=== PATIENT | male | born 1965 ===

== ENCOUNTER → 2020-05-21 15:35 | Outpatient (BNVA) | payer OTHER, SELFPAY | PROVIDERS: PCP Internal Medicine; Visit Provider Urology ==

== ENCOUNTER 2020-08-12 13:48 | Outpatient (REF) | payer OTHER, SELFPAY ==
[2020-08-12 14:30] LABS: MANUAL DIFF FLAG NO
[2020-08-12 14:34] LABS: Basophils Percent Auto 0.5 % (0-2); Eosinophils Absolute Auto 0.1 X10*3/uL (0.0-0.4); Eosinophils Percent Auto 1.5 % (0-4); Hematocrit 51.6 % (42-52); Hemoglobin 17.6 g/dl (14.0-18.0); Imm Gran Abs Auto 0.03 X10*3/uL (0.00-0.03); Imm Gran Pct Auto 0.4 % (0.0-0.4); Lymphocytes Absolute Auto 1.6 X10*3/uL (1.2-4.9); Lymphocytes Percent Auto 21.7 % (20-40); Mean Corpuscular HGB Conc 34.1 g/dl (31.0-36.0); Mean Corpuscular Hemoglobin 31.5 pg (27.0-33.0); Mean Corpuscular Volume 92.3 fL (80-98); Mean Platelet Volume 9.1 fL (9.4-12.4); Monocytes Absolute Auto 0.4 X10*3/uL (0.1-1.2); Monocytes Percent Auto 5.1 % (2-11); Neutrophils Absolute Auto 5.2 X10*3/uL (2.0-8.3); Neutrophils Percent Auto 70.8 % (45-73); Platelet Count 235 X10*3/uL (160-400); Red Blood Count 5.59 X10*6/uL (4.60-5.80); Red Cell Distribution Width 13.8 % (11.0-16.0); White Blood Count 7.3 X10*3/uL (4.8-10.8)
[2020-08-12 14:36] LABS: Glucose Urine UA NEG (NEG); Leukocyte Esterase Urine NEG (NEG); Nitrite Urine NEG (NEG); Specific Gravity - Urine >= 1.030 (1.005-1.025); Urine Blood TRACE (NEG); Urine Ketones NEG (NEG); Urine Protein NEG (NEG-TRACE)
[2020-08-12 14:41] LABS: Appearance Urine CLEAR; Color Urine YELLOW
[2020-08-12 14:52] LABS: Bacteria Urine TRACE /LPF; Mucus Urine 1+ /LPF; RBC Urine 0-2 /HPF (0); Squamous Epithelial Cell Urine TRACE /LPF; WBC Urine 0-2 /HPF (0-4)
[2020-08-12 15:42] LABS: Alanine Aminotransferase 13 U/L (0-40); Albumin Level 4.3 g/dL (3.5-5.0); Alkaline Phosphatase 93 U/L (39-117); Anion Gap 15 (12-20); Aspartate Amino Transferase 19 U/L (5-37); Bilirubin Total 0.6 mg/dL (0.0-1.0); Blood Urea Nitrogen 15 mg/dL (9-16); Calcium 9.4 mg/dL (8.4-10.2); Carbon Dioxide 23 mmol/L (22-29); Chloride 107 mmol/L (96-108); Cholesterol 131 mg/dL; Estimated Glomerular Filt Rate > 60; Glucose Fasting 106 mg/dL (60-99); HDL Cholesterol 53 mg/dL; LDL Cholesterol Calculated 64 mg/dl; Potassium 4.6 mmol/L (3.3-5.1); Sodium 140 mmol/L (135-145); Total Protein 6.6 g/dL (6.5-8.0); Triglycerides 73 mg/dL
[2020-08-12 16:03] LABS: Prostate Specific Antigen 2.92 ng/mL (<0.05-4.0); TSH reflex Free T4 0.47 uIU/mL (0.32-4.0); Vitamin D 25-OH Total 41.5 ng/mL (>30)
== END 2020-08-12 13:49 | disposition home or self-care (01) ==
LOC: HO.LAB 13:48
PROVIDERS: PCP Internal Medicine; Visit Provider Internal Medicine
DX: Z00.00 Encounter for general adult medical examination without abnormal findings (principal); E78.00 Pure hypercholesterolemia, unspecified; N40.0 Benign prostatic hyperplasia without lower urinary tract symptoms; K21.9 Gastro-esophageal reflux disease without esophagitis; E66.3 Overweight; E55.9 Vitamin D deficiency, unspecified; F17.200 Nicotine dependence, unspecified, uncomplicated; Z12.5 Encounter for screening for malignant neoplasm of prostate
CPT/HCPCS: 36415; 80053; 80061; 81001; 82306; 84153; 84443; 85025

== ENCOUNTER 2020-10-15 15:23 | Outpatient (REF) | payer OTHER, SELFPAY ==
--- NOTE | ~2020-10-15 | CT_ITS ---
EXAMINATION: CT CHEST SCREENING CLINICAL INFORMATION: Smoking history COMPARISON: None. TECHNIQUE: Multidetector volumetric CT imaging of the chest is performed without contrast using low dose technique. Additional 2D coronal and sagittal reformatted images and axial 3D maximum intensity projection (MIP) images are generated on the CT workstation. This CT examination was performed using dose optimization techniques as appropriate, variously including the following: *Automated exposure control *Adjustment of mA and/or kV according to patient size (this includes techniques or standardized protocols for targeted exams where dose is matched to indication/reason for exam; i.e. extremities or head) *Use of iterative reconstruction technique DLP: 50 mGy-cm FINDINGS: LUNGS: There is mild paraseptal emphysema. The lungs are clear with no evidence of inflammation or nodules. MEDIASTINUM: The mediastinum is normal. PLEURA: There is no pleural effusion. There is a small pleural calcification of the right lung apex measuring 4 mm. AXILLA: No lymphadenopathy. UPPER ABDOMEN: Unremarkable OSSEOUS STRUCTURES: There is mild scoliosis and degenerative change. CT/CT lung screening IMPRESSION: Mild emphysema. Small right apical pleural calcification. ASSESSMENT: Lung-RADS category 2: Benign RECOMMENDATION: Annual low-dose chest CT follow-up recommended.
== END 2020-10-15 15:24 | disposition home or self-care (01) ==
LOC: HO.CT 15:23
PROVIDERS: Visit Provider Physician Assistant Medical
DX: Z12.2 Encounter for screening for malignant neoplasm of respiratory organs (principal); Z87.891 Personal history of nicotine dependence
CPT/HCPCS: 71271

== ENCOUNTER 2020-11-16 17:19 | Outpatient (REF) | payer OTHER, SELFPAY ==
[2020-11-16 17:45] LABS: Hemoglobin 18.5 g/dl (14.0-18.0); Mean Corpuscular HGB Conc 34.3 g/dl (31.0-36.0); Mean Corpuscular Hemoglobin 31.7 pg (27.0-33.0); Mean Corpuscular Volume 92.5 fL (80-98); Mean Platelet Volume 9.3 fL (9.4-12.4); Platelet Count 255 X10*3/uL (160-400); Red Blood Count 5.84 X10*6/uL (4.60-5.80); Red Cell Distribution Width 13.4 % (11.0-16.0); White Blood Count 7.7 X10*3/uL (4.8-10.8)
[2020-11-16 18:22] LABS: Prostate Specific Antigen 4.09 ng/mL (<0.05-4.0)
[2020-11-20 12:27] LABS: Testosterone, Total 1174 ng/dL (250-1100)
== END 2020-11-16 17:20 | disposition home or self-care (01) ==
LOC: HO.LAB 17:19
PROVIDERS: PCP Internal Medicine; Visit Provider Urology
DX: Z12.5 Encounter for screening for malignant neoplasm of prostate (principal); E29.1 Testicular hypofunction; N13.8 Other obstructive and reflux uropathy; N40.1 Benign prostatic hyperplasia with lower urinary tract symptoms
CPT/HCPCS: 36415; 84153; 84403; 85027

== ENCOUNTER → 2020-11-27 14:26 | Outpatient (BNVA) | payer OTHER, SELFPAY | PROVIDERS: PCP Internal Medicine; Visit Provider Urology | DX: N40.1 Benign prostatic hyperplasia with lower urinary tract symptoms (principal); N13.8 Other obstructive and reflux uropathy; E29.1 Testicular hypofunction | CPT/HCPCS: 99212 ==

== ENCOUNTER 2021-05-26 12:58 | Outpatient (REF) | payer OTHER, SELFPAY ==
[2021-05-26 13:42] LABS: Hematocrit 53.5 % (42.0-52.0); Hemoglobin 18.5 g/dl (14.0-18.0); Mean Corpuscular HGB Conc 34.6 g/dl (31.0-36.0); Mean Corpuscular Hemoglobin 31.8 pg (27.0-33.0); Mean Corpuscular Volume 91.9 fL (80.0-98.0); Mean Platelet Volume 9.1 fL (9.4-12.4); Platelet Count 265 X10*3/uL (160-400); Red Blood Count 5.82 X10*6/uL (4.60-5.80); Red Cell Distribution Width 13.6 % (11.0-16.0)
[2021-05-26 14:31] LABS: PSA,Total (Free>4and<10) 2.73 ng/mL (0.00-4.00)
[2021-05-31 13:22] LABS: Testosterone, Total 844 ng/dL (250-1100)
== END 2021-05-26 12:59 | disposition home or self-care (01) ==
LOC: HO.LAB 12:58
PROVIDERS: PCP Internal Medicine; Visit Provider Urology
DX: Z12.5 Encounter for screening for malignant neoplasm of prostate (principal); E29.1 Testicular hypofunction; N13.8 Other obstructive and reflux uropathy; N40.1 Benign prostatic hyperplasia with lower urinary tract symptoms
CPT/HCPCS: 36415; 84153; 84403; 85027

== ENCOUNTER → 2021-06-01 10:19 | Outpatient (BNVA) | payer OTHER, SELFPAY | PROVIDERS: PCP Internal Medicine; Visit Provider Urology ==

== ENCOUNTER 2021-10-05 13:51 | Outpatient (REF) | payer OTHER, SELFPAY ==
--- NOTE | ~2021-10-05 | US_ITS ---
EXAMINATION: US ABDOMEN COMPLETE CLINICAL INFORMATION: Secondary polycythemia. Rule out splenomegaly. COMPARISON: None TECHNIQUE: Real-time imaging of the abdominal viscera. FINDINGS: PANCREAS: Not well visualized. ABDOMINAL AORTA: The proximal, mid, and distal segments are normal in caliber. INFERIOR VENA CAVA: Visualized portions are normal. LIVER: Normal. The liver is normal in size. The liver contour is normal. Parenchymal echogenicity is normal. No focal hepatic lesion. There is no intrahepatic biliary duct dilatation seen. GALLBLADDER: There is question of a small gallbladder wall polyp measuring 2 mm. The gallbladder is physiologically distended without evidence of stones, sludge or pericholecystic fluid. COMMON BILE DUCT: Upper normal in caliber measuring 0.7 cm in diameter. RIGHT KIDNEY: Normal. No hydronephrosis. No renal calculi or focal parenchymal lesions. The kidney measures 11.6 cm in maximum dimension. LEFT KIDNEY: Normal. No hydronephrosis. No renal calculi or focal parenchymal lesions. The kidney measures 11.6 cm in maximum dimension. SPLEEN: Normal. The spleen measures 11.3 cm in maximum dimension. FREE FLUID: None. US/US abdomen complete IMPRESSION: Normal-sized spleen. Probable small gallbladder wall polyp. Limited visualization of the pancreas.
== END 2021-10-05 13:52 | disposition home or self-care (01) ==
LOC: HO.HMGCX 13:51
PROVIDERS: PCP Internal Medicine; Visit Provider Internal Medicine
DX: D75.1 Secondary polycythemia (principal)
CPT/HCPCS: 76700

== ENCOUNTER → 2021-12-21 15:18 | Outpatient (BNVA) | payer OTHER, SELFPAY | PROVIDERS: Visit Provider Urology ==

== ENCOUNTER 2022-04-12 15:11 | Outpatient (REF) | payer OTHER, SELFPAY ==
--- NOTE | ~2022-04-12 | CT_ITS ---
EXAMINATION: CT CHEST SCREENING CLINICAL INFORMATION: Nicotine dependence. One pack per day smoker for 35 years. COMPARISON: None. TECHNIQUE: Multidetector volumetric CT imaging of the chest is performed without contrast using low dose technique. Additional 2D coronal and sagittal reformatted images and axial 3D maximum intensity projection (MIP) images are generated on the CT workstation. This CT examination was performed using dose optimization techniques as appropriate, variously including the following: *Automated exposure control *Adjustment of mA and/or kV according to patient size (this includes techniques or standardized protocols for targeted exams where dose is matched to indication/reason for exam; i.e. extremities or head) *Use of iterative reconstruction technique DLP: 58 mGy-cm FINDINGS: LUNGS: The lungs are well expanded without any acute pneumonic process. There are no pulmonary nodules, mass or consolidation. MEDIASTINUM: The thyroid lobes are symmetric and normal. The central trachea and the bronchi are widely patent. Heart size and the great vessels are of normal caliber. No pericardial effusion seen. No abnormally-sized mediastinal or hilar lymph nodes seen. CORONARY ARTERY CALCIFICATION: None visualized on this study. PLEURA: There is no pleural effusion. No pleural mass or thickening. AXILLA: No lymphadenopathy. UPPER ABDOMEN: Visualized liver, spleen, pancreas and bilateral adrenal glands are unremarkable. OSSEOUS STRUCTURES: Unremarkable. CT/CT lung screening IMPRESSION: Unremarkable CT chest exam. ASSESSMENT: Lung-RADS category 1: Negative RECOMMENDATION: Low-dose annual CT chest.
== END 2022-04-12 15:12 | disposition home or self-care (01) ==
LOC: HO.CT 15:11
PROVIDERS: PCP Internal Medicine; Visit Provider Physician Assistant Medical
DX: Z12.2 Encounter for screening for malignant neoplasm of respiratory organs (principal); F17.210 Nicotine dependence, cigarettes, uncomplicated
CPT/HCPCS: 71271

== ENCOUNTER → 2022-06-24 14:45 | Outpatient (BNVA) | payer OTHER, SELFPAY | PROVIDERS: PCP Internal Medicine; Visit Provider Urology | DX: Z13.89 Encounter for screening for other disorder (principal) ==

== ENCOUNTER 2022-10-11 13:48 | Outpatient (REF) | payer OTHER, SELFPAY ==
[2022-10-11 14:14] LABS: MANUAL DIFF FLAG NO
[2022-10-11 14:33] LABS: Basophils Absolute Auto 0.1 X10*3/uL (0.0-0.2); Basophils Percent Auto 0.8 % (0-2); Eosinophils Absolute Auto 0.1 X10*3/uL (0.0-0.4); Eosinophils Percent Auto 1.5 % (0-4); Hematocrit 52.7 % (42.0-52.0); Hemoglobin 18.3 g/dl (14.0-18.0); Imm Gran Abs Auto 0.04 X10*3/uL (0.00-0.03); Imm Gran Pct Auto 0.7 % (0.0-0.4); Lymphocytes Absolute Auto 1.7 X10*3/uL (1.2-4.9); Lymphocytes Percent Auto 28.4 % (20-40); Mean Corpuscular HGB Conc 34.7 g/dl (31.0-36.0); Mean Corpuscular Hemoglobin 31.8 pg (27.0-33.0); Mean Corpuscular Volume 91.7 fL (80.0-98.0); Mean Platelet Volume 9.6 fL (9.4-12.4); Monocytes Absolute Auto 0.4 X10*3/uL (0.1-1.2); Monocytes Percent Auto 6.1 % (2-11); Neutrophils Absolute Auto 3.7 x10*3/uL (2.0-8.3); Neutrophils Percent Auto 62.5 % (45-73); Platelet Count 234 X10*3/uL (160-400); Red Blood Count 5.75 X10*6/uL (4.60-5.80); Red Cell Distribution Width 13.6 % (11.0-16.0); White Blood Count 5.9 X10*3/uL (4.8-10.8)
[2022-10-11 15:12] LABS: Erythrocyte Sedimentation Rate 1 MM/HR (0-15)
[2022-10-11 15:33] LABS: Appearance Urine Cloudy; Color Urine Yellow; Glucose Urine UA Negative (Negative); Leukocyte Esterase Urine Negative (Negative); Nitrite Urine Negative (Negative); PH 5.5 (5.0-9.0); Specific Gravity - Urine 1.015 (1.005-1.025); Urine Blood Negative (Negative); Urine Ketones Negative (Negative); Urine Protein Negative (Neg-Trace)
[2022-10-11 15:37] LABS: Alanine Aminotransferase 40 U/L (0-40); Albumin Level 4.2 g/dL (3.5-5.0); Alkaline Phosphatase 69 U/L (39-117); Anion Gap 10 (12-20); Aspartate Amino Transferase 33 U/L (5-37); Bilirubin Total 0.9 mg/dL (0.0-1.0); Blood Urea Nitrogen 14 mg/dL (9-16); Calcium 9.3 mg/dL (8.4-10.2); Carbon Dioxide 22 mmol/L (22-29); Chloride 112 mmol/L (96-108); Cholesterol 135 mg/dL; Estimated Glomerular Filt Rate > 60; Glucose Fasting 98 mg/dL (60-99); HDL Cholesterol 40 mg/dL; LDL Cholesterol Calculated 64 mg/dl; Potassium 4.2 mmol/L (3.3-5.1); Sodium 140 mmol/L (135-145); Total Protein 7.1 g/dL (6.5-8.0); Triglycerides 157 mg/dL
[2022-10-11 15:51] LABS: TSH reflex Free T4 0.78 uIU/mL (0.32-4.0)
[2022-10-11 16:04] LABS: Folate 7.3 ng/mL (> or = 4.0); Vitamin B12 371 pg/mL (200-900)
[2022-10-11 21:02] LABS: Prostate Specific Antigen 2.72 ng/mL (<0.05-4.0)
[2022-10-13 11:07] LABS: Prot Elec - Albumin 4.2 g/dL (3.8-4.8); Prot Elec - Alpha1 0.3 g/dL (0.2-0.3); Prot Elec - Alpha2 0.6 g/dL (0.5-0.9); Prot Elec - Beta 1 0.4 g/dL (0.4-0.6); Prot Elec - Beta 2 0.3 g/dL (0.2-0.5); Prot Elec - Gamma 0.9 g/dL (0.8-1.7); Prot Elec - Total Protein 6.7 g/dL (6.1-8.1)
== END 2022-10-11 13:49 | disposition home or self-care (01) ==
LOC: HO.LAB 13:48
PROVIDERS: Urology; PCP Internal Medicine; Visit Provider Internal Medicine
DX: Z12.5 Encounter for screening for malignant neoplasm of prostate (principal); E29.1 Testicular hypofunction; D75.1 Secondary polycythemia; I10 Essential (primary) hypertension; E53.8 Deficiency of other specified B group vitamins; E55.9 Vitamin D deficiency, unspecified
CPT/HCPCS: 36415; 80053; 80061; 81003; 82306; 82607; 82746; 84153; 84165; 84443; 85025; 85652

== ENCOUNTER 2022-12-12 16:07 | Outpatient (AMB) | payer OTHER, SELFPAY ==
--- NOTE | 2022-12-12 16:11 | MHC.OFFVIS ---
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 Patient was sent to us by his PCP.? This is his second colonoscopy. Last colonoscopy was done in December 2016. Multiple hyperplastic polyps found. However patient does have family history of colorectal cancer. Maternal cousin was diagnosed with colorectal cancer 4 years ago and underwent chemotherapy. Patient denies any gastrointestinal symptoms in the past or at present.? However patient reports occasional blood after bowel movement in the stool and on the tissue when he wipes. Denies history of difficulty with sedation or anesthesia in the past.? Negative for history of sleep apnea.? Denies any history of cardiac, renal, pulmonary, or hepatic disease.?? No history of infectious? diseases like hepatitis A, B, C, HIV or tuberculosis.? Patient is not on any anticoagulation therapy. [facility] Medical History Anxiety BPH w urinary obs/LUTS Depression Elevated blood pressure reading GERD without esophagitis Hypogonadism in male Insomnia Neck pain Overweight (BMI 25.0-29.9) Personal history of nicotine dependence Smoker Strain of cervical portion of left trapezius muscle Vitamin D deficiency Surgical History History of colonoscopy (~2016) History of open reduction and internal fixation (ORIF) procedure (~2018) S/P transurethral resection of prostate (~2010) Family History Father Diabetes CAD (coronary artery disease) CKD (chronic kidney disease) Mother Hypertension Depression Hypercholesteremia Lung cancer Brother Myocardial infarction Brother In good health Son In good health Social History Housing: House Alcohol intake: current Alcohol intake frequency: holidays/special occasions only Patient Tobacco Use Status: Current everyday Tobacco user Cigarettes Per Day: 10 Years Smoked: 30 e-Cigarette/Vaping Use: Never Used Second Hand Smoke Exposure: Yes service: No Current occupational status: employed Cognitive needs: No Hearing needs: Yes Vision needs: Yes Review of Systems Const Denies weight gain and Denies weight loss ENT Reports no additional complaints, Denies dysphagia and Denies odynophagia Card Reports no additional complaints Resp Reports no additional complaints GI Denies abdominal pain, Denies belching, Denies melena, Denies bloating, Reports hematochezia (occasional), Denies change in bowel habits, Denies dysphagia, Denies excessive flatus, Denies dyspepsia, Denies heartburn, Denies diarrhea, Denies loose stools, Denies nausea, Denies odynophagia and Denies vomiting Reports no additional complaints Musc Reports no additional complaints Neuro Reports no additional complaints Psych Reports no additional complaints Endo Reports no additional complaints Physical Exam Vital Signs: Last Vital Signs BP 167/97 H 12/12/22 16:15 BMI result Body Mass Index 29.5 Const General: healthy appearing, no acute distress and well developed Nutritional Appearance: obese Orientation/consciousness: patient oriented x3 HEENT Head: Yes normal to inspection, Yes normocephalic and Yes atraumatic Face and sinus: Yes normal facial exam Mouth: Normal oral and palatal mucosa present Throat: Yes posterior oropharynx normal, Yes tonsils normal and Yes uvula midline Eyes General: appearance normal, both eyes and all related structures Neck Neck: Yes normal visual inspection, Yes full ROM and Yes trachea midline Thyroid: Thyroid normal Resp Effort & Inspection: normal respiratory effort, able to speak in complete sentences, no tracheal deviation and symmetric chest movement Auscultation: clear to auscultation bilaterally Cardio Rate: regular rate Heart sounds: S1 normal heart sound present and S2 normal heart sound present GI Inspection: Yes normal to inspection, No distended and Yes obesity Palpation (GI): Soft to palpation, not firm, nontender and No hepatosplenomegaly present Auscultation: normal bowel sounds General: Yes no CVA tenderness Back/Spine/Pelvis Back: no CVA tenderness Skin General skin exam: elasticity normal, turgor normal and dry skin Neuro General: patient oriented x3 Psych Appearance: grossly normal Mental Status: mental status grossly normal Speech and movement: Normal speech and movement present Affect: normal affect Assessment & Plan Assessment & Plan (1) Colon cancer screening: Code(s): Z12.11 - Encounter for screening for malignant neoplasm of colon Plan: Patient denies any GI, cardiac or respiratory symptoms.? Patient does report occasional blood after bowel movement. Patient been diagnosed with hemorrhoids on colonoscopy in 2017. Denies any issues with anesthesia in the past.? Denies any history of sleep apnea.? No history infectious diseases in the past or present.? Not on any anticoagulation therapy.? Patient's maternal cousin was diagnosed with colorectal cancer 4 years ago and had chemotherapy.? Patient denies melena, hematochezia, unintentional weight loss or ribbon like stools.? Discussed at length the pre-procedure,? prep, diet & medications as well as what to expect prior, during and after the procedure.?? Stressed the importance of good bowel prep. ?Recommended the use of Vaseline or Calmoseptine OTC & baby wipes with bowel movements to promote comfort.? ?Patient verbalizes understanding and agrees to plan of care.? He was given the opportunity to ask questions and all questions answered.? We will see him after the procedure.? Medications: New bisacodyl (Dulcolax (bisacodyl)) take 2 tabs at noon the day before your colonoscopy 10 mg (2 x 5 mg) PO ONCE 1 day 2 tabs 0RF Z12.11 - Encounter for screening for malignant neoplasm of colon polyethylene glycol 3350 (Miralax) As directed by gastroenterology department at [facility] 238 grams PO ONCE 238 grams 0RF Z12.11 - Encounter for screening for malignant neoplasm of colon Discontinued amoxicillin-pot clavulanate 875-125 mg Discontinued Reason: Patient Completed Course 1 tab PO BID 10 days 20 tabs 0RF J02.0 - Streptococcal pharyngitis amoxicillin Discontinued Reason: Patient Completed Course 875 mg PO BID 10 days 20 tabs 0RF Coding Level of Care Code New Pt Level 3 (22884) Diagnoses Colon cancer screening Z12.11 Time Spent (min) 40 Comment 30 minutes spent with patient and additional 10 minutes spent reviewing his records
[2022-12-12 16:13] VITALS: BP 184/84; BMI 29.5
[2022-12-12 16:15] VITALS: BP 167/97
== END 2022-12-12 16:57 | disposition home or self-care (01) ==
PROVIDERS: PCP Internal Medicine; Visit Provider Nurse Practitioner Family
DX: Z01.818 Encounter for other preprocedural examination (principal); Z12.11 Encounter for screening for malignant neoplasm of colon
CPT/HCPCS: 99203

== ENCOUNTER 2022-12-12 16:07 | Outpatient (REF) | payer OTHER, SELFPAY ==
[2022-12-12 18:43] LABS: Hematocrit 49.8 % (42.0-52.0)
[2022-12-17 12:28] LABS: Testosterone, Total 777 ng/dL (250-1100)
== END 2022-12-12 16:08 | disposition home or self-care (01) ==
LOC: HO.LAB 16:07
PROVIDERS: Absent Provider Urology; PCP Internal Medicine; Referring Provider Internal Medicine; Visit Provider Nurse Practitioner Family
DX: Z01.818 Encounter for other preprocedural examination (principal); E29.1 Testicular hypofunction
CPT/HCPCS: 36415; 84403; 85014; 99202

== ENCOUNTER 2023-01-03 10:43 | Outpatient (REF) | payer OTHER, SELFPAY ==
--- NOTE | ~2023-01-03 | XR_ITS ---
EXAMINATION: XR CERVICAL SPINE CLINICAL INFORMATION: Pain, COMPARISON: None available. TECHNIQUE: 6 views including oblique imaging. FINDINGS: The neutral image shows reversal of the normal cervical lordosis apex at C5-C6. Significant degeneration at C5-C6 greater than C6-C7. There is posterior bony spurring. The foraminal images demonstrate bony foraminal encroachment at C5-C6 on the right and left. Some hypertrophic changes in the posterior elements. Carotid calcifications are noted here. Mild scoliosis convex left. XR/XR cervical spine 4V IMPRESSION: Degenerative changes which appear significant at C5-C6 greater than C6-C7 with foraminal encroachment as described.
== END 2023-01-03 10:44 | disposition home or self-care (01) ==
LOC: HO.XRAY 10:43
PROVIDERS: Absent Provider Internal Medicine; PCP Internal Medicine; Visit Provider Urology
DX: M54.2 Cervicalgia (principal); N40.1 Benign prostatic hyperplasia with lower urinary tract symptoms; N13.8 Other obstructive and reflux uropathy; N52.9 Male erectile dysfunction, unspecified; E29.1 Testicular hypofunction
CPT/HCPCS: 51798; 72050; 81003; 99212

== ENCOUNTER 2023-01-03 10:43 | Outpatient (AMB) | payer OTHER, SELFPAY ==
--- NOTE | 2023-01-03 10:43 | A.OFFVIS_ITS ---
Intake Intake Visit Reasons: 6m Labs(Pending) Intake Note: Patient is present for PVR/labs Urology Med: Sildenafil, Tamsulosin, Testosterone Antibiotic Allergy: None Blood Thinner: None Pharmacy: [facility] PVR: 19 Allergies No Known Allergies [No Known Allergies*] Allergy (Verified 12/12/22 16:12) HPI HPI Comments History of Present Illness Details Martin OSULLIVAN is a pleasant male. He is a patient of Dr Suero. He is seen for the following urologic conditions. - hypogonadism - lower urinary tract symptoms Current therapy 0.7cc q 2 weeks Good lab work Refill Does feel narrowing of urinary stream Needs check cystoscopy Hypogonadism: Lab stable Continue current therapy - every 14 days He presents today for further evaluation and followup of his hypogonadism. - T - 0.7 cc Initial symptoms include erectile dysfunction Yes decreased libido Yes change in mood/depression Yes in muscle size/strength Yes increased fatigue/malaise Yes Laboratory results 11/09 T in 500's, 11/10 T 1200 PSA 2.8. - 05/14 T 430 day 13, PSA 2.9, HCt 53.5, 11/11 T 1174 PSA 4.1, Hct 54 - 06/15 T 844 day 10 - P 2.8 H 53.5 - 11/12 T 671 H 50, 10/14 T 777 H 49 P 2.7 Current therapy includes injectable exogenous testosterone Lower Urinary Tract Symptoms: Current visit is for further evaluation of, lower urinary tract symptoms, predominate obstructive symptoms. Current treatment includes alpha ruthie. - tamsulosin 0.8 mg daily Prostate Symptom Score 4/19 , Moderate (9-19), Bother 3. Symptoms include 4/ , incomplete emptying, weak stream, nocturia (>2), and are improving. Prior Prostate Score 4/19 , moderate. PSA 11/09 3.2 T 380 Treatment plan continue with current medications PFSH Medical History Anxiety BPH w urinary obs/LUTS Depression Elevated blood pressure reading GERD without esophagitis Hypogonadism in male Insomnia Neck pain Overweight (BMI 25.0-29.9) Personal history of nicotine dependence Smoker Strain of cervical portion of left trapezius muscle Vitamin D deficiency Surgical History History of colonoscopy (~2016) History of open reduction and internal fixation (ORIF) procedure (~2018) S/P transurethral resection of prostate (~2010) Family History Father Diabetes CAD (coronary artery disease) CKD (chronic kidney disease) Mother Hypertension Depression Hypercholesteremia Lung cancer Brother Myocardial infarction Brother In good health Son In good health Social History Housing: House Alcohol intake: current Alcohol intake frequency: holidays/special occasions only Patient Tobacco Use Status: Current everyday Tobacco user Cigarettes Per Day: 10 Years Smoked: 30 e-Cigarette/Vaping Use: Never Used Second Hand Smoke Exposure: Yes service: No Current occupational status: employed Cognitive needs: No Hearing needs: Yes Vision needs: Yes Review of Systems Const Denies chills and Denies fever(s) Card Reports no additional complaints and Denies syncope Resp Denies cough GI Denies abdominal pain and Denies heartburn Reports as per HPI and Denies change in libido Neuro Denies syncope Psych Denies change in libido Endo Denies change in libido Physical Exam Const General: cooperative, healthy appearing, comfortable and no acute distress Orientation/consciousness: patient oriented x3 HEENT Face and sinus: Yes normal facial exam Mouth: moist mucous membranes Neck Neck: Yes normal visual inspection, Yes full ROM and Yes trachea midline Chest Chest palpation & inspection: normal inspection of the chest Resp Effort & Inspection: normal respiratory effort, able to speak in complete sentences and no respiratory distress GI Inspection: Yes normal to inspection Back/Spine/Pelvis Cervical Spine: normal cervical lordosis Thoracic/Lumbar Spine: thoracic and lumbar spine normal to inspection Skin General skin exam: no rashes or lesions noted Neuro General: patient oriented x3, gait normal, tone normal and moves all extremities Extrem General: Yes normal to inspection and Yes capillary refill normal Office Procedures Post Void Residual Post Residual Void Post Void Residual (PVR): 19 [id number] Void Residual by ultrasound Results AMB Urinalysis, Automated UA Leukoctes 0 Florentin/uL Last Edit by ORALIA Last on 01/03/23 10:52 UA Nitrite Negative Last Edit by ORALIA Last on 01/03/23 10:52 UA Urobilinogen 0.2 mg/dL Last Edit by Sharri Pillai, RMA on 01/03/23 10:5 2 UA Protein 0 mg/dL Last Edit by Sharri Pillai, RMA on 01/03/23 10:52 UA pH 5.0 Last Edit by Sharri Vegaro, RMA on 01/03/23 10:52 UA Blood 10 Charanjit/uL Last Edit by Sharriwinsome Vegaro, RMA on 01/03/23 10:52 UA Specific [place] 1.020 Last Edit by Sharri Vegaro, RMA on 01/03/23 10: 52 UA Ketone Negative Last Edit by Sharri Pillai, RMA on 01/03/23 10:52 UA Bilirubin 0 mg/dL Last Edit by Sharri Pillai, RMA on 01/03/23 10:52 UA Glucose 0 mg/dL Last Edit by Sharri Pillai, RMA on 01/03/23 10:52 Results Reviewed Results Reviewed: Laboratory Last Values Urine pH (Auto) 5.0 01/03/23 10:45 Specific [place] (Auto) 1.020 01/03/23 10:45 Urine Protein (Auto) 0 mg/dL 01/03/23 10:45 Glucose (UA)(Auto) 0 mg/dL 01/03/23 10:45 Urine Ketones (Auto) Negative 01/03/23 10:45 Urine Blood (Auto) 10 Charanjit/uL 01/03/23 10:45 Urine Nitrite (Auto) Negative 01/03/23 10:45 Urine Bilirubin (Auto) 0 mg/dL 01/03/23 10:45 Urine Urobilinogen (Auto) 0.2 mg/dL 01/03/23 10:45 Leukocyte Esterase (Auto) 0 Florentin/uL 01/03/23 10:45 Assessment & Plan Assessment & Plan (1) BPH w urinary obs/LUTS: Comment: (followed by Dr. Calle) Code(s): N40.1 - Benign prostatic hyperplasia with lower urinary tract symptoms; N13.8 - Other obstructive and reflux uropathy (2) Erectile dysfunction: Code(s): N52.9 - Male erectile dysfunction, unspecified (3) Hypogonadism in male: Code(s): E29.1 - Testicular hypofunction Plan Check cystoscopy Orders: Orders AMB Urinalysis Automated Today Z13.9 - Encounter for screening, unspecified AMB Post Void Residual by ultrasound Today N13.8 - Other obstructive and reflux uropathy, N40.1 - Benign prostatic hyperplasia with lower urinary tract symptoms Medications: Refilled testosterone cypionate 160 mg (0.8 mL) IM Q2W 28 days 2 mL 5RF E29.1 - Testicular hypofunction sildenafil administer 60 minutes before intended activity 100 mg PO DAILY PRN 30 tabs 1RF sexual activity E29.1 - Testicular hypofunction Patient Instructions: Imaging studies, laboratory and physical exam results were discussed and reviewed in detail. No major barriers to patient understanding were identified. An opportunity to ask questions regarding the treatment plan was provided. All questions were answered. The patient expressed understanding and agreement with the above treatment plan. The patient is aware they should contact our office by phone for worsening of their current condition or the appearance of new urologic symptoms. Compliance is encouraged with any medications and followup testing that is ordered. It is a privilege to participate in the urologic care of your patient. If you have any questions or concerns regarding treatment for the above conditions, or other urologic issues, please do not hesitate to contact me. The office telephone contact is [phone]. This note is constructed using voice recognition software. While every effort has been made to ensure accuracy lacrosse coach errors may have been included. Yours sincerely, Dr Merrill Calle MD, [facility] - Urology Providers of Expert, Compassionate Care for the Genitourinary System Coding Level of Care Code Est Pt Level 4 (65857) Diagnoses BPH w urinary obs/LUTS N40.1; N13.8 Erectile dysfunction N52.9 Hypogonadism in male E29.1 CPT Codes Post Residual Void - PVR CPT Code: 41768-[id number] Void Residual by ultrasound ([id number])
== END 2023-01-03 11:23 | disposition home or self-care (01) ==
PROVIDERS: PCP Internal Medicine; Visit Provider Urology
DX: N40.1 Benign prostatic hyperplasia with lower urinary tract symptoms (principal); N13.8 Other obstructive and reflux uropathy; N52.9 Male erectile dysfunction, unspecified; E29.1 Testicular hypofunction; Z13.9 Encounter for screening, unspecified
CPT/HCPCS: 99214

== ENCOUNTER 2023-01-09 14:59 | Outpatient (AMB) | payer OTHER, SELFPAY ==
--- NOTE | 2023-01-09 15:01 | MHC.OFFVIS ---
Intake Vital Signs 01/09/23 15:02 Height 5 ft 6 in Weight 180 lb 4 oz BMI 29.1 BP 130/84 Blood Pressure Location Rt brachial Position Sitting Pulse 83 Pulse Source Pulse Oximeter Pulse Oximetry (%) 97 Oxygen Delivery Method Room Air Intake Visit Reasons: I-NET MANAGER: Fatigue/Somnolence - Confirmed Intake Note: Cosmetics Machine Operator is here to establish care for sleeping issues Allergies No Known Allergies [No Known Allergies*] Allergy (Verified 01/09/23 15:06) HPI HPI Comments History of Present Illness Details 57 y/o male patient presents for new in-person visit for sleep consultation. Pt reports snoring, gasping arousals, and non refreshing sleep. He feels tired and exhausted all day, takes a short nap daily. Pt has GERD and he has more gasping episodes when he has dinner near bedtime. Pt reports anxiety, uses Xanax and buspirone, help him calm down and sleep. He rarely uses trazodone, it makes him groggy in the morning. He smokes cigarettes 1 pack a day. Sleep questionnaire: Have you ever been diagnosed with a sleep disorder? Yes. Have you ever had a sleep study in the past? No. Have you ever been treated for a sleep disorder? No. Do you take medications for a sleep disorder? trazodone occaionally, xanax and buspirone. Do you snore? Yes. Do you wake up gasping at night? Yes. Do you have episodes of apneas? No. If yes, are they witnessed? No. Do you have episodes of nocturnal chest pain or dyspnea? Yes. Do you have difficulty initiating sleep? Yes. Do you have difficulty maintaining sleep? Yes. Do you wake up tired? Yes. Do you have headaches upon awakening? Yes. Do you wake up with dry mouth or throat? No. Do you have GERD? Yes. Do you have nocturia? Yes. Do you have nocturnal leg cramps? Yes. Do you have symptoms of restless legs? No. Do you act out your dreams? No. Sleep hygiene questionnaire: What is your usual sleep routine? Usual bedtime is at 10-11 pm; Usual wake up time is at 9 am. Do you take naps? Yes, 20 min to 40 min daily. Is your sleep environment cool, dark, and quiet? Yes. Do you exercise? Yes, wt lift, couple of times a week. Do you take caffeine or other stimulants? One cup of coffee in the morning. Do you use electronics in bed? Yes. What is your work schedule? 10 am to 7 pm. Hypersomnolence questionnaire: Do you have daytime tiredness or fatigue? Yes. Do you easily fall asleep when inactive? Yes. Have you ever had episodes of sudden weakness? No. Have you ever had episodes of sudden weakness associated with strong emotions? No. PFSH Medical History Personal history of nicotine dependence Strain of cervical portion of left trapezius muscle Depression Anxiety Hypogonadism in male Vitamin D deficiency Neck pain GERD without esophagitis Overweight (BMI 25.0-29.9) Elevated blood pressure reading Insomnia Smoker BPH w urinary obs/LUTS Surgical History History of open reduction and internal fixation (ORIF) procedure (~2018) History of colonoscopy (~2016) S/P transurethral resection of prostate (~2010) Family History Father Diabetes CAD (coronary artery disease) CKD (chronic kidney disease) Mother Hypertension Depression Hypercholesteremia Lung cancer Brother Myocardial infarction Brother In good health Son In good health Social History Housing: House Alcohol intake: current Alcohol intake frequency: holidays/special occasions only Patient Tobacco Use Status: Current everyday Tobacco user Cigarettes Per Day: 10 Years Smoked: 30 e-Cigarette/Vaping Use: Never Used Second Hand Smoke Exposure: Yes service: No Current occupational status: employed Cognitive needs: No Hearing needs: Yes Vision needs: Yes Review of Systems Const All systems reviewed & are unremarkable except as noted in HPI and below ENT Reports Normal hearing present Neuro Reports Normal hearing present Physical Exam Vital Signs: Last Vital Signs Pulse 83 01/09/23 15:02 BP 130/84 01/09/23 15:02 Pulse Ox 97 01/09/23 15:02 Oxygen Delivery Method Room Air 01/09/23 15:02 BMI result Body Mass Index 29.1 Const General: cooperative Nutritional Appearance: overweight Orientation/consciousness: patient oriented x3 Neck Neck: Yes full ROM and Yes supple Resp Effort & Inspection: normal respiratory effort and able to speak in complete sentences Neuro General: patient oriented x3, gait normal and moves all extremities Cranial nerves: Yes Bilaterally intact EOM present, Yes Normal facial strength present, Yes Midline tongue present, Yes Symmetric palate elevation present, Yes Normal hearing present, Yes Ability to bilaterally rotate head present and Yes Ability to bilaterally elevate shoulders present Cognition (Neuro): normal cognition Gait exam (Neuro): Normal gait present Motor exam (neuro): 5/5 motor strength present throughout, Pronator motor function not present and no tremor noted Psych Appearance: grossly normal Mental Status: mental status grossly normal Speech and movement: Normal speech and movement present Affect: normal affect Attitude: cooperative Assessment & Plan Assessment & Plan (1) Snoring: Code(s): R06.83 - Snoring (2) Daytime somnolence: Code(s): R40.0 - Somnolence (3) Fatigue: Code(s): R53.83 - Other fatigue Qualifiers: Fatigue type: unspecified Qualified Code(s): R53.83 - Other fatigue Plan Pt is advised to undergo home sleep study to assess for sleep apnea. Will f/u with pt after study to discuss results and appropriate treatment options. Sleep hygiene education provided. Advised patient to reduce smoking, especially evening smoking to help him sleep better. He may try 4-7-8 breathing technique to relax and prepare for sleep. Encouraged patient daily exercise, walking 30 min a day. Pt to call with any worsening concerns or questions. Orders: Orders RT home sleep study 01/09/23 F17.200 - Nicotine dependence, unspecified, uncomplicated, R06.83 - Snoring, R40.0 - Somnolence, R53.83 - Other fatigue Coding Level of Care Code New Pt Level 4 (56674) Diagnoses Snoring R06.83 Daytime somnolence R40.0 Fatigue, unspecified type R53.83 Fatigue type: unspecified
[2023-01-09 15:02] VITALS: BP 130/84; PULSE 83; O2SAT 97; BMI 29.1
== END 2023-01-09 15:50 | disposition home or self-care (01) ==
PROVIDERS: PCP Internal Medicine; Visit Provider Nurse Practitioner Family
DX: R06.83 Snoring (principal); R40.0 Somnolence; R53.83 Other fatigue
CPT/HCPCS: 99204

== ENCOUNTER → 2023-01-09 14:59 | Outpatient (BNVA) | payer OTHER, SELFPAY | PROVIDERS: PCP Internal Medicine; Visit Provider Nurse Practitioner Family ==

== ENCOUNTER 2023-01-30 09:04 | Outpatient (AMB) | payer OTHER, SELFPAY ==
--- NOTE | 2023-01-30 09:04 | MHC.PC.OV ---
Vital Signs 01/30/23 09:05 Height 5 ft 6 in Weight 180 lb 8 oz BMI 29.1 BP 130/82 Blood Pressure Location Lt brachial Position Sitting Pulse 64 Pulse Source Pulse Oximeter Pulse Oximetry (%) 96 Oxygen Delivery Method Room Air Intake Visit Reasons: possible hernia Blueprint Assembler Required: No Accompanied by: Self / Same As Patient Allergies No Known Allergies [No Known Allergies*] Allergy (Verified 01/30/23 09:20) Medication List - Last Reconciled 01/30/23 by Prateek Suero MD albuterol sulfate 90 mcg/actuation (Ventolin HFA) 2 puffs PO Q6H PRN alprazolam 0.25 mg PO TID PRN 30 days alprazolam 0.25 mg (1/2 x 0.5 mg) PO TID PRN 30 days bisacodyl (Dulcolax (bisacodyl)) 10 mg (2 x 5 mg) PO ONCE 1 day buspirone 5 mg PO BID 30 days cholecalciferol (vitamin D3) (Vitamin D3) 50 mcg PO DAILY cyclobenzaprine 5 mg PO BEDTIME PRN 30 days fluticasone propionate 50 mcg/actuation (Flonase Allergy Relief) 1 spray intranasal DAILY multivitamin 1 tab PO DAILY nicotine (polacrilex) (Nicorette) 4 mg buccal Q2-4H 30 days pantoprazole 40 mg PO DAILY polyethylene glycol 3350 (Miralax) 238 grams PO ONCE sildenafil 100 mg PO DAILY PRN syringe with needle (BD Luer-Lalo Syringe) As directed Q2W tamsulosin 0.8 mg (2 x 0.4 mg) PO DAILY 90 days testosterone cypionate 160 mg (0.8 mL) IM Q2W 28 days tizanidine 4 mg PO ONCE PRN 30 days trazodone 50 mg PO BEDTIME PRN Tobacco use date assessed: 01/30/23 Dental Screening Dental Screen Date: 01/30/23 Did you have a dental visit in the last 12 months?: Yes Did you have a dental problem in the last 6 months where you did not have access to dental care?: No Was dental information given to patient?: Patient has dentist HPI possible hernia HPI Details Patient comes in today for evaluation of what he feels is a right inguinal mass, which he states he's had for a while States that the mass has not really gotten significantly bigger but he always notices that the right inguinal area seems to bulge out more than the other side States that he had urology check it out when he was at his urology appointment recently and was told that they could not determine for sure if it is a hernia or not and should see me to get some imaging done to look into this further He denies any pain or discomfort over the right inguinal area; denies any abdominal pain or change in bowel habits Denies any acute urinary symptoms PFSH Medical History Personal history of nicotine dependence Strain of cervical portion of left trapezius muscle Depression Anxiety Hypogonadism in male Vitamin D deficiency Neck pain GERD without esophagitis Overweight (BMI 25.0-29.9) Elevated blood pressure reading Insomnia Smoker BPH w urinary obs/LUTS Surgical History History of open reduction and internal fixation (ORIF) procedure (~2018) History of colonoscopy (~2016) S/P transurethral resection of prostate (~2010) Family History Father Diabetes CAD (coronary artery disease) CKD (chronic kidney disease) Mother Hypertension Depression Hypercholesteremia Lung cancer Brother Myocardial infarction Brother In good health Son In good health Social History Housing: House Alcohol intake: current Alcohol intake frequency: holidays/special occasions only Patient Tobacco Use Status: Current everyday Tobacco user Cigarettes Per Day: 10 Years Smoked: 30 e-Cigarette/Vaping Use: Never Used Second Hand Smoke Exposure: Yes service: No Current occupational status: employed Cognitive needs: No Hearing needs: Yes Vision needs: Yes Questionnaire PHQ-9 Over the last 2 weeks, how often have you been bothered by any of the following problems? 1. Little interest or pleasure in doing things: not at all 2. Feeling down, depressed, or hopeless: not at all 3. Trouble falling or staying asleep, or sleeping too much: not at all 4. Feeling tired or having little energy: not at all 5. Poor appetite or overeating: not at all 6. Feeling bad about yourself - or that you are a failure or have let yourself or your family down: not at all 7. Trouble concentrating on things, such as reading the newspaper or watching television: not at all 8. Moving or speaking so slowly that other people could have noticed. Or the opposite - being so fidgety or restless that you have been moving around a lot more than usual: not at all 9. Thoughts that you would be better off or of hurting yourself in some way: not at all Total score: 0 Depression Screening Interpretation: Negative Depression Screening Done: Yes 53058 - PHQ-9 Billing: Yes Source: Developed by Drs. Cruz Walters, Rosario Morgan, Jf Shaffer and colleagues, with an educational kym from [employer]. Thrive Questionnaire Date Thrive assessed: 01/30/23 I am a: Patient What is your living situation today?: I have a steady place to live Within the past 12 months, did the food you bought not last and you didn't have the money to get more?: Never true Within the past 12 months, did you worry whether your food would run out before you got money to buy more?: Never true Do you have trouble paying for medicines?: No Do you have trouble getting transportation to medical appointments?: No Do you have trouble paying your heating and electricity bill?: No Do you have trouble taking care of your child, family member or friend?: No Do you have trouble with day-to-day activities such as bathing, preparing meals, shopping, managing finances, etc.?: No Are you currently unemployed and looking for a job?: No Are you interested in more education?: No Please select the resources that you would like help with: None Currently or been in a relationship where the following occur: no concerns reported AUDIT C Alcohol Use Questionnaire (AUDIT-C) 1. How often do you have a drink containing alcohol?: Monthly or less 2. How many drinks containing alcohol do you have on a typical day when you are drinking?: 1 or 2 3. How often do you have six or more drinks on one occasion?: Never Total Score: 1 Score Reviewed/Action Taken: Yes DEISY-7 AMB Questionnaire DEISY-7 Date DEISY - 7 assessed: 01/30/23 Feeling nervous, anxious, or on edge: 2 = More than half the days Not being able to stop or control worryin = More than half the days Worrying too much about different things: 2 = More than half the days Trouble relaxin = More than half the days Being so restless that it is hard to sit still: 2 = More than half the days Becoming easily annoyed or irritable: 2 = More than half the days Feeling afraid as if something awful might happen: 2 = More than half the days Total DEISY-7 score (0-4 normal; 5-9 mild; 10-14 moderate; 15-21 severe): 14 Source: Developed by Drs. Cruz Walters, oRsario Morgan, Jf Shaffer and colleagues, with an educational kym from [employer]. Review of Systems Const Denies fatigue, Denies fever(s) and Denies headache(s) ENT Denies dizziness, Denies headache(s), Denies neck pain and Denies sore throat Card Denies chest pain, Denies palpitations and Denies dyspnea Resp Denies cough and Denies dyspnea GI Details: (+) mass/prominence over the right inguinal area Denies abdominal pain, Denies constipation, Denies heartburn, Denies diarrhea, Denies nausea and Denies vomiting Denies dysuria and Denies nocturia Musc Denies neck pain Neuro Denies dizziness and Denies headache(s) Endo Denies fatigue and Denies palpitations Physical exam (Primary Care) Vital Signs: Last Vital Signs Pulse 64 01/30/23 09:05 BP 130/82 01/30/23 09:05 Pulse Ox 96 01/30/23 09:05 Oxygen Delivery Method Room Air 01/30/23 09:05 BMI result Body Mass Index 29.1 Tobacco/Smoking Status: Tobacco use Status Tobacco use date assessed 01/30/23 01/30/23 09:08 Patient Tobacco Use Status Current everyday Tobacco 01/30/23 09:08 e-Cigarette/Vaping Use Never Used 01/30/23 09:08 PHQ-9: PHQ-9 Score PHQ-9: Total score 0 01/30/23 09:19 Depression Screening Interpretation: Negative Thrive Assessment: Date of Thrive Assessment Date Thrive assessed 01/30/23 01/30/23 09:08 Currently or been in a relationship where the following occur: no concerns reported Const General: no acute distress and alert Neck Neck: Yes no lymphadenopathy and Yes supple Resp Auscultation: clear to auscultation bilaterally, no rales and no wheezes Cardio Rate: regular rate Rhythm: regular rhythm Heart sounds: no murmurs GI Palpation (GI): Soft to palpation, nontender and Palpable mass present (non-reducible, non-tender mass/prominence over the right inguinal area) Extrem General: Yes no clubbing, cyanosis or edema Office Procedures Flu Questionnaire Does the patient have a severe egg allergy?: No Immunizations flu vacc [id number] 6mos up(PF) 60 mcg(15 mcgx4)/0.5 mL IM syringe Performing Provider: Prateek Suero MD [facility] Documented (not given) by: Andrés Morales on 01/30/23 09:11 Reason Not Given: Patient Refused Assessment and Plan Assessment & Plan (1) Mass of right inguinal region: Code(s): R19.09 - Other intra-abdominal and pelvic swelling, mass and lump Plan: Mass / prominence over the right inguinal and suprapubic area is non-tender and non-reducible on palpation - unable to determine etiology on physical exam Was also checked out recently by urology and advised that he should see PCP about possible imaging as they were not able to determine as well whether the mass is a hernia or not Will send patient for a right pelvic US for further evaluation Advised that if imaging studies show (+) inguinal hernia, will then refer him to surgery for surgical repair Plan Follow up as scheduled in March 2023 Orders: Orders Influenza [id number] Immunization Today Z23 - Encounter for immunization US pelvic limited Today R19.09 - Other intra-abdominal and pelvic swelling, mass and lump Coding Level of Care Code Est Pt Level 3 (42441) Diagnoses Mass of right inguinal region R19.09
[2023-01-30 09:05] VITALS: BP 130/82; PULSE 64; O2SAT 96; BMI 29.1
== END 2023-01-30 09:20 | disposition home or self-care (01) ==
PROVIDERS: PCP Internal Medicine; Visit Provider Internal Medicine
DX: R19.09 Other intra-abdominal and pelvic swelling, mass and lump (principal); K21.9 Gastro-esophageal reflux disease without esophagitis; E55.9 Vitamin D deficiency, unspecified
CPT/HCPCS: 99213

== ENCOUNTER 2023-02-07 14:35 | Outpatient (REF) | payer OTHER, SELFPAY ==
--- NOTE | ~2023-02-07 | US_ITS ---
EXAMINATION: US PELVIC LIMITED/FOLLOWUP - RIGHT INGUINAL AREA CLINICAL INFORMATION: Pelvic swelling, mass, lump right inguinal area. COMPARISON: None available. TECHNIQUE: Targeted ultrasound images were obtained by the senior clinical data coordinator of the area of concern as indicated by the patient in the right inguinal region. Radiologist was not in attendance. Images were later provided for interpretation. FINDINGS: In the area indicated by the patient in the right inguinal region, there is a 1.2 x 0.4 x 0.9 cm lymph node with echogenic hilum and hilar vascularity. There is a small hernia in the area indicated by the patient in the right inguinal region measuring approximately 2.8 cm. Patient was scanned in supine and erect positions. US/US pelvic limited IMPRESSION: Small right inguinal hernia. CT scan recommended for further evaluation. Right lower quadrant/inguinal lymph node with echogenic hilum. Correlation with clinical exam recommended to determine further management.
== END 2023-02-07 14:36 | disposition home or self-care (01) ==
LOC: HO.HMGCX 14:35
PROVIDERS: PCP Internal Medicine; Visit Provider Internal Medicine
DX: R19.09 Other intra-abdominal and pelvic swelling, mass and lump (principal)
CPT/HCPCS: 76857

== ENCOUNTER 2023-03-22 13:05 | Outpatient (REF) | payer OTHER, SELFPAY ==
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
== END 2023-03-22 13:06 | disposition home or self-care (01) ==
LOC: HO.SH 13:05
PROVIDERS: Visit Provider Internal Medicine
DX: Z01.118 Encounter for examination of ears and hearing with other abnormal findings (principal); H90.A32 Mixed conductive and sensorineural hearing loss, unilateral, left ear with restricted hearing on the contralateral side; H90.A21 Sensorineural hearing loss, unilateral, right ear, with restricted hearing on the contralateral side
CPT/HCPCS: 92557; 92567; 92625

== ENCOUNTER → 2023-03-28 15:03 | Outpatient (REF) | payer OTHER, SELFPAY | LOC: HO.SL 15:03 | PROVIDERS: PCP Internal Medicine; Visit Provider Nurse Practitioner Family | DX: G47.33 Obstructive sleep apnea (adult) (pediatric) (principal); R40.0 Somnolence; R06.83 Snoring; R53.83 Other fatigue; F17.200 Nicotine dependence, unspecified, uncomplicated | CPT/HCPCS: 95806 ==

== ENCOUNTER → 2023-03-28 15:14 | Outpatient (BNV) | payer OTHER, SELFPAY | PROVIDERS: PCP Internal Medicine; Visit Provider Psychiatry & Neurology Neurology | DX: G47.33 Obstructive sleep apnea (adult) (pediatric) (principal) | CPT/HCPCS: 95806 ==

== ENCOUNTER 2023-04-11 14:25 | Outpatient (AMB) | payer OTHER, SELFPAY ==
--- NOTE | 2023-04-11 14:30 | A.OFFVIS_ITS ---
Intake Vital Signs 04/11/23 14:36 Height 5 ft 6 in Weight 186 lb BMI 30.0 BP 159/92 H Blood Pressure Location Rt brachial Position Sitting Pulse 66 Intake Visit Reasons: Unilateral inguinal hernia Intake Note: Patient referred by PCP Dr. Em for Unilateral inguinal hernia. Patient c/o: pain when bending and coughing. First noticed 6m ago. 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 He does do occasional heavy lifting. He has no other GI issues or complaints. He is tolerating his diet. He is having regular bowel habits. Because of progression of symptoms, patient presents here for further evaluation. Chart reviewed patient evaluate [facility] Medical History Personal history of nicotine dependence Strain of cervical portion of left trapezius muscle Depression Anxiety Hypogonadism in male Vitamin D deficiency Neck pain GERD without esophagitis Overweight (BMI 25.0-29.9) Elevated blood pressure reading Insomnia Smoker BPH w urinary obs/LUTS Surgical History History of open reduction and internal fixation (ORIF) procedure (~2018) History of colonoscopy (~2016) S/P transurethral resection of prostate (~2010) Family History Father Diabetes CAD (coronary artery disease) CKD (chronic kidney disease) Mother Hypertension Depression Hypercholesteremia Lung cancer Brother Myocardial infarction Brother In good health Son In good health Social History Housing: House Alcohol intake: current Alcohol intake frequency: holidays/special occasions only Patient Tobacco Use Status: Current everyday Tobacco user Cigarettes Per Day: 10 Years Smoked: 30 e-Cigarette/Vaping Use: Never Used Second Hand Smoke Exposure: Yes service: No Current occupational status: employed Cognitive needs: No Hearing needs: Yes Vision needs: Yes Physical Exam Vital Signs: Last Vital Signs Pulse 66 04/11/23 14:36 BP 159/92 H 04/11/23 14:36 BMI result Body Mass Index 30.0 Chest Other: Chest breath sounds bilaterally, HS 1 in 2 GI Other: Patient was examined both supine and standing with Valsalva. Abdomen soft. Left groin negative. Genitalia within normal limits. Very large right inguinal hernia reducible. Assessment & Plan Assessment & Plan (1) Right inguinal hernia: Code(s): K40.90 - Unilateral inguinal hernia, without obstruction or gangrene, not specified as recurrent Plan Risks, benefits, alternatives of open inguinal hernia repair with mesh reviewed the patient and included but not limited to bleeding, infection, recurrence, numbness, pain, scarring and the patient wishes to proceed. All questions answered. Arrangements will be made for this. Coding Level of Care Code New Pt Level 5 (09106) Diagnoses Right inguinal hernia K40.90
[2023-04-11 14:36] VITALS: BP 159/92; PULSE 66
== END 2023-04-11 15:02 | disposition home or self-care (01) ==
PROVIDERS: PCP Internal Medicine; Referring Provider Internal Medicine; Visit Provider Surgery
DX: K40.90 Unilateral inguinal hernia, without obstruction or gangrene, not specified as recurrent (principal)
CPT/HCPCS: 99204

== ENCOUNTER → 2023-04-11 14:25 | Outpatient (BNVA) | payer OTHER, SELFPAY | PROVIDERS: PCP Internal Medicine; Referring Provider Internal Medicine; Visit Provider Surgery | DX: K40.90 Unilateral inguinal hernia, without obstruction or gangrene, not specified as recurrent (principal) | CPT/HCPCS: 99202 ==

== ENCOUNTER 2023-04-19 16:10 | Outpatient (AMB) | payer OTHER, SELFPAY ==
--- NOTE | 2023-04-19 16:11 | A.OFFPC_ITS ---
Vital Signs 04/19/23 16:13 04/19/23 16:20 Height 5 ft 6 in Weight 188 lb 2 oz BMI 30.4 BP 170/100 H 130/80 Blood Pressure Location Lt brachial Lt brachial Position Sitting Sitting Pulse 81 Pulse Source Pulse Oximeter Pulse Oximetry (%) 98 Oxygen Delivery Method Room Air Intake Visit Reasons: 6 month f/u Intake Note: Patient is here to follow up on Cervical Spondylosis, GERD, Hypogonadism. Loin Puller Required: No Magnetic Prospecting Operator: Not Required per policy Accompanied by: Self / Same As Patient Allergies No Known Allergies [No Known Allergies*] Allergy (Verified 04/25/23 05:04) Medication List - Last Reconciled 04/25/23 by Prateek Suero MD albuterol sulfate 90 mcg/actuation (Ventolin HFA) 2 puffs PO Q6H PRN alprazolam 0.25 mg PO TID PRN 30 days bisacodyl (Dulcolax (bisacodyl)) 10 mg (2 x 5 mg) PO ONCE 1 day buspirone 5 mg PO BID 30 days cholecalciferol (vitamin D3) (Vitamin D3) 50 mcg PO DAILY cyclobenzaprine 5 mg PO BEDTIME PRN 30 days fluticasone propionate 50 mcg/actuation (Flonase Allergy Relief) 1 spray intranasal DAILY 3 months multivitamin 1 tab PO DAILY nicotine (polacrilex) (Nicorette) 4 mg buccal Q2-4H 30 days pantoprazole 40 mg PO DAILY polyethylene glycol 3350 (Miralax) 238 grams PO ONCE sildenafil 100 mg PO DAILY PRN syringe with needle (BD Luer-Lalo Syringe) As directed Q2W tamsulosin 0.8 mg (2 x 0.4 mg) PO DAILY 90 days testosterone cypionate 160 mg (0.8 mL) IM Q2W 28 days tizanidine 4 mg PO ONCE PRN 30 days trazodone 50 mg PO BEDTIME PRN Tobacco use date assessed: 04/19/23 Dental Screening Dental Screen Date: 04/19/23 Did you have a dental visit in the last 12 months?: Yes Did you have a dental problem in the last 6 months where you did not have access to dental care?: No Was dental information given to patient?: Patient has dentist HPI 6 month f/u HPI Details Patient comes in today for his follow up visit States that he feels okay Was seen by surgery last week for his hernia and is now scheduled for hernia repair surgery in June 2023 although he is still debating whether he should have the surgery done or not as he is not experiencing any symptoms He denies any headaches or dizziness Denies any chest pains, no shortness of breath No nausea / vomiting, no abdominal pain No change in bowel habits noted Was not able to get his follow-up labs done prior to his appointment today Is requesting for a refill for his syringe that he uses for his testosterone injection Would also like to get a referral to see GI again for follow-up of his reflux disease - states that it has been awhile since he was seen for follow-up [facility] Medical History Personal history of nicotine dependence Strain of cervical portion of left trapezius muscle Depression Anxiety Hypogonadism in male Vitamin D deficiency Neck pain GERD without esophagitis Overweight (BMI 25.0-29.9) Elevated blood pressure reading Insomnia Smoker BPH w urinary obs/LUTS Surgical History History of open reduction and internal fixation (ORIF) procedure (~2018) History of colonoscopy (~2016) S/P transurethral resection of prostate (~2010) Family History Father Diabetes CAD (coronary artery disease) CKD (chronic kidney disease) Mother Hypertension Depression Hypercholesteremia Lung cancer Brother Myocardial infarction Brother In good health Son In good health Social History Housing: House Alcohol intake: current Alcohol intake frequency: holidays/special occasions only Patient Tobacco Use Status: Current everyday Tobacco user Tobacco use type: Cigarette Cigarettes Per Day: 5 Years Smoked: 30 e-Cigarette/Vaping Use: Never Used Second Hand Smoke Exposure: Yes service: No Current occupational status: employed Cognitive needs: No Hearing needs: Yes Vision needs: Yes (glasses) Questionnaire Thrive Questionnaire Date Thrive assessed: 01/30/23 DEISY-7 AMB Questionnaire DEISY-7 Date DEISY - 7 assessed: 01/30/23 Source: Developed by Rosario MoonW. Eddie, Jf Shaffer and colleagues, with an educational kym from [employer]. Review of Systems Const Denies chills, Denies fatigue, Denies fever(s) and Denies headache(s) ENT Denies dysphagia, Denies dizziness, Denies otalgia, Denies headache(s), Reports neck pain (on and off), Denies odynophagia and Denies sore throat Card Denies chest pain, Denies palpitations and Denies dyspnea Resp Denies cough and Denies dyspnea GI Details: (+) mass/prominence over the right inguinal area Denies abdominal pain, Denies constipation, Denies dysphagia, Denies heartburn, Denies diarrhea, Denies nausea, Denies odynophagia and Denies vomiting Denies dysuria, Denies nocturia and Denies urinary frequency Musc Denies back pain, Denies arthralgias and Reports neck pain (on and off) Skin/Breast Denies rash Neuro Denies dizziness and Denies headache(s) Psych Reports anxiety (controlled with Rx) Endo Denies fatigue and Denies palpitations Physical exam (Primary Care) Vital Signs: Last Vital Signs Pulse 81 04/19/23 16:13 BP 130/80 04/19/23 16:20 Pulse Ox 98 04/19/23 16:13 Oxygen Delivery Method Room Air 04/19/23 16:13 BMI result Body Mass Index 30.4 Tobacco/Smoking Status: Tobacco use Status Tobacco use date assessed 04/19/23 04/19/23 16:21 Patient Tobacco Use Status Current everyday Tobacco 04/19/23 16:21 Tobacco use type Cigarette 04/19/23 16:21 e-Cigarette/Vaping Use Never Used 04/19/23 16:21 Thrive Assessment: Date of Thrive Assessment Date Thrive assessed 01/30/23 04/19/23 16:21 Const General: no acute distress and alert HENMT Ears: TM's normal bilaterally and EAC's normal Throat: Yes posterior oropharynx normal and Yes tonsils normal Neck Neck: Yes no lymphadenopathy and Yes supple Thyroid: Thyroid normal Resp Auscultation: clear to auscultation bilaterally, no rales and no wheezes Cardio Rate: regular rate Rhythm: regular rhythm Heart sounds: no murmurs GI Palpation (GI): Soft to palpation, nontender and Palpable mass present (non- reducible, non-tender mass/prominence over the right inguinal area) Auscultation: normal bowel sounds Back/Spine/Pelvis Cervical Spine: Cervical spine tenderness Thoracic/Lumbar Spine: No lumbar spinal tenderness Skin Rashes: no rashes Extrem General: Yes no clubbing, cyanosis or edema Assessment and Plan Assessment & Plan (1) Elevated blood pressure reading: Code(s): R03.0 - Elevated blood-pressure reading, without diagnosis of hypertension Plan: Reinforced low sodium diet His initial BP today was very high but repeat blood pressure is down to 130/80 Patient instructed to continue monitoring his blood pressure regularly - has been advised that his blood pressure readings are often very high when he comes into the office and that he most likely has some degree of white-coat high hypertension Was advised that his polycythemia may also be contributing to his high blood pressure readings Will continue to hold off on Rx for now but will need to consider starting him on Rx if his BP continues to stay high consistently (2) Polycythemia: Code(s): D75.1 - Secondary polycythemia Plan: Patient still has mild polycythemia on his recent labs and has been advised that it is possible his smoking and his testosterone injections are contributing to his polycythemia Abdominal US done a few months ago came out normal with no splenomegaly noted Continue Aspirin 81 mg QD He is advised to try getting his follow-up labs done DELMA (3) GERD without esophagitis: Code(s): K21.9 - Gastro-esophageal reflux disease without esophagitis Plan: Dietary restrictions reinforced Continue Pantoprazole 40 mg QD Per request, will refer back to GI for follow up and management (4) Right inguinal hernia: Code(s): K40.90 - Unilateral inguinal hernia, without obstruction or gangrene, not specified as recurrent Plan: He was seen by surgery last week and is now scheduled for hernia repair surgery in June 2023 Have advised patient that hernia repair surgery is best done electively and he should try to get this done as soon as possible Discussed that an emergency hernia surgery is much more dangerous so he should not wait until he starts experiencing symptoms from his hernia before getting his surgery done (5) Cervical spondylosis: Code(s): M47.812 - Spondylosis without myelopathy or radiculopathy, cervical region Plan: Continue Cyclobenzaprine 5 mg TID PRN (6) Vitamin D deficiency: Code(s): E55.9 - Vitamin D deficiency, unspecified Plan: Continue Vitamin D3 2000 units QD (7) BPH w urinary obs/LUTS: Comment: (followed by Dr. Calle) Code(s): N40.1 - Benign prostatic hyperplasia with lower urinary tract symptoms; N13.8 - Other obstructive and reflux uropathy Plan: Continue Tamsulosin 0.4 mg 2 tablets Q HS and Alfusozin ER 10 mg QD Follow up with urology as scheduled (8) Hypogonadism in male: Code(s): E29.1 - Testicular hypofunction Plan: Continue Testosterone 200 mg IM every 2 weeks (9) Insomnia: Code(s): G47.00 - Insomnia, unspecified Qualifiers: Insomnia type: unspecified Qualified Code(s): G47.00 - Insomnia, unspecified Plan: Sleep hygiene reinforced Continue Trazodone 50 mg Q HS PRN (10) Anxiety: Code(s): F41.9 - Anxiety disorder, unspecified Plan: Continue Alprazolam 0.25 mg TID PRN Was previously started on Buspirone but patient stopped this due to decreased libido while on the medication Patient reminded that although his Alprazolam Rx is written as 3 times a day, he only needs to take this when needed and does not have to take on a regular basis Advised that if he feels the need to take it 3 times a day regularly, then he has to be on a controller Rx as Alprazolam is only for as needed /as rescue use and taking it frequently increases his risk of dependence or addiction (11) Smoker: Code(s): F17.200 - Nicotine dependence, unspecified, uncomplicated Plan: Counseled again on smoking cessation Low-dose chest CT done in March 2022 came out normal except for some right apical scarring as well as some mild emphysematous changes - he is urged to quit smoking quickly in light of this Continue use of OTC nicotine gum to help him quit smoking (12) Overweight (BMI 25.0-29.9): Code(s): E66.3 - Overweight Plan: Reinforced diet/exercise as tolerated /lose weight Plan To return in 6 months for his next annual physical examination Will have him recheck his labs again in 6 months prior to coming in for his ph ysical examination Orders: Orders Complete Blood Count Auto Diff 6 Months D75.1 - Secondary polycythemia, Z00.00 - Encounter for general adult medical examination without abnormal findings Comprehensive [place]. Panel Fast 6 Months D75.1 - Secondary polycythemia, E78.00 - Pure hypercholesterolemia, unspecified, Z00.00 - Encounter for general adult medical examination without abnormal findings Vitamin D 25-OH Total 6 Months E55.9 - Vitamin D deficiency, unspecified, Z00.00 - Encounter for general adult medical examination without abnormal findings Prostate Specific Antigen 6 Months N40.0 - Benign prostatic hyperplasia without lower urinary tract symptoms, Z00.00 - Encounter for general adult medical examination without abnormal findings Lipid Panel 6 Months E78.00 - Pure hypercholesterolemia, unspecified, Z00.00 - Encounter for general adult medical examination without abnormal findings TSH reflex Free T4 6 Months D75.1 - Secondary polycythemia, E78.00 - Pure hypercholesterolemia, unspecified, Z00.00 - Encounter for general adult medical examination without abnormal findings UA CC w/rflx Micro + Cult 6 Months R30.0 - Dysuria, Z00.00 - Encounter for general adult medical examination without abnormal findings Referrals Gastroenterology Referral K21.9 - Gastro-esophageal reflux disease without esophagitis Medications: Refilled syringe with needle (BD Luer-Lalo Syringe) As directed Q2W 30 ea 0RF Coding Level of Care Code Est Pt Level 4 (73330) Diagnoses Elevated blood pressure reading R03.0 Polycythemia D75.1 GERD without esophagitis K21.9 Right inguinal hernia K40.90 Cervical spondylosis M47.812 Vitamin D deficiency E55.9 BPH w urinary obs/LUTS N40.1; N13.8 Hypogonadism in male E29.1 Insomnia, unspecified type G47.00 Insomnia type: unspecified Anxiety F41.9 Smoker F17.200 Overweight (BMI 25.0-29.9) E66.3
[2023-04-19 16:13] VITALS: BP 170/100; PULSE 81; O2SAT 98; BMI 30.4
[2023-04-19 16:20] VITALS: BP 130/80
== END 2023-04-19 17:11 | disposition home or self-care (01) ==
PROVIDERS: PCP Internal Medicine; Visit Provider Internal Medicine
DX: R03.0 Elevated blood-pressure reading, without diagnosis of hypertension (principal); D75.1 Secondary polycythemia; K21.9 Gastro-esophageal reflux disease without esophagitis; K40.90 Unilateral inguinal hernia, without obstruction or gangrene, not specified as recurrent; M47.812 Spondylosis without myelopathy or radiculopathy, cervical region; E55.9 Vitamin D deficiency, unspecified; N40.1 Benign prostatic hyperplasia with lower urinary tract symptoms; N13.8 Other obstructive and reflux uropathy; E29.1 Testicular hypofunction; G47.00 Insomnia, unspecified; F41.9 Anxiety disorder, unspecified; F17.200 Nicotine dependence, unspecified, uncomplicated; E66.3 Overweight
CPT/HCPCS: 99214

== ENCOUNTER 2023-04-26 15:15 | Outpatient (AMB) | payer OTHER, SELFPAY ==
--- NOTE | 2023-04-26 15:16 | MHC.OFFVIS ---
Intake Intake Visit Reasons: speak about the procedure Intake Note: Patient is Present for Telephone Follow Up For Urology Med: Sildenafil, Tamsulosin, Testosterone Antibiotic Allergy: None Blood Thinner: None Allergies No Known Allergies [No Known Allergies*] Allergy (Verified 04/25/23 05:04) Medication List - Last Reconciled 04/26/23 by Merrill Calle MD albuterol sulfate 90 mcg/actuation (Ventolin HFA) 2 puffs PO Q6H PRN alprazolam 0.25 mg PO TID PRN 30 days bisacodyl (Dulcolax (bisacodyl)) 10 mg (2 x 5 mg) PO ONCE 1 day buspirone 5 mg PO BID 30 days cholecalciferol (vitamin D3) (Vitamin D3) 50 mcg PO DAILY cyclobenzaprine 5 mg PO BEDTIME PRN 30 days fluticasone propionate 50 mcg/actuation (Flonase Allergy Relief) 1 spray intranasal DAILY 3 months multivitamin 1 tab PO DAILY nicotine (polacrilex) (Nicorette) 4 mg buccal Q2-4H 30 days pantoprazole 40 mg PO DAILY polyethylene glycol 3350 (Miralax) 238 grams PO ONCE sildenafil 100 mg PO DAILY PRN syringe with needle (BD Luer-Lalo Syringe) As directed Q2W tamsulosin 0.8 mg (2 x 0.4 mg) PO DAILY 90 days testosterone cypionate 160 mg (0.8 mL) IM Q2W 28 days tizanidine 4 mg PO ONCE PRN 30 days trazodone 50 mg PO BEDTIME PRN HPI HPI Comments History of Present Illness Details Martin OSULLIVAN is a pleasant male. He is a patient of Dr Suero. He is seen for the following urologic conditions. - hypogonadism - lower urinary tract symptoms Telemedicine Evaluation 15 min Consultation Planwise Arben Video attempted [place] uncomfortable getting cystoscopy Talk about procedure Will get bladder ultrasound for next follow-up Refill testosterone Follow-up lab work in 6 months Current therapy 0.7cc q 2 weeks Good lab work Refill Does feel narrowing of urinary stream Hypogonadism: Lab stable Continue current therapy - every 14 days He presents today for further evaluation and followup of his hypogonadism. - T - 0.7 cc Initial symptoms include erectile dysfunction Yes decreased libido Yes change in mood/depression Yes in muscle size/strength Yes increased fatigue/malaise Yes Laboratory results 11/09 T in 500's, 11/10 T 1200 PSA 2.8. - 05/14 T 430 day 13, PSA 2.9, HCt 53.5, 11/11 T 1174 PSA 4.1, Hct 54 - 06/15 T 844 day 10 - P 2.8 H 53.5 - 11/12 T 671 H 50, 10/14 T 777 H 49 P 2.7 Current therapy includes injectable exogenous testosterone Lower Urinary Tract Symptoms: Current visit is for further evaluation of, lower urinary tract symptoms, predominate obstructive symptoms. Current treatment includes alpha ruthie. - tamsulosin 0.8 mg daily Prostate Symptom Score 4/ , Moderate (9-19), Bother 3. Symptoms include 4/ , incomplete emptying, weak stream, nocturia (>2), and are improving. Prior Prostate Score 4/ , moderate. PSA 11/09 3.2 T 380 Treatment plan continue with current medications PFSH Medical History Personal history of nicotine dependence Strain of cervical portion of left trapezius muscle Depression Anxiety Hypogonadism in male Vitamin D deficiency Neck pain GERD without esophagitis Overweight (BMI 25.0-29.9) Elevated blood pressure reading Insomnia Smoker BPH w urinary obs/LUTS Surgical History History of open reduction and internal fixation (ORIF) procedure (~2018) History of colonoscopy (~2016) S/P transurethral resection of prostate (~2010) Family History Father Diabetes CAD (coronary artery disease) CKD (chronic kidney disease) Mother Hypertension Depression Hypercholesteremia Lung cancer Brother Myocardial infarction Brother In good health Son In good health Social History Housing: House Alcohol intake: current Alcohol intake frequency: holidays/special occasions only Patient Tobacco Use Status: Current everyday Tobacco user Tobacco use type: Cigarette Cigarettes Per Day: 5 Years Smoked: 30 e-Cigarette/Vaping Use: Never Used Second Hand Smoke Exposure: Yes service: No Current occupational status: employed Cognitive needs: No Hearing needs: Yes Vision needs: Yes (glasses) Review of Systems Const All systems reviewed & are unremarkable except as noted in HPI and below Reports no additional complaints Resp Reports no additional complaints GI Reports no additional complaints Reports as per HPI Musc Reports no additional complaints Physical Exam Telemedicine evaluation Appropriate responses Regular breathing rate and rhythm HEENT Head: Yes normal to inspection Ears: hearing grossly normal bilaterally Eyes General: appearance normal, both eyes and all related structures Neck Neck: Yes normal visual inspection Chest Chest palpation & inspection: normal inspection of the chest Resp Effort & Inspection: normal respiratory effort and able to speak in complete sentences Assessment & Plan Assessment & Plan (1) BPH w urinary obs/LUTS: Comment: (followed by Dr. Calle) Code(s): N40.1 - Benign prostatic hyperplasia with lower urinary tract symptoms; N13.8 - Other obstructive and reflux uropathy (2) Hypogonadism in male: Code(s): E29.1 - Testicular hypofunction (3) Erectile dysfunction: Code(s): N52.9 - Male erectile dysfunction, unspecified (4) Nocturia associated with benign prostatic hyperplasia: Code(s): N40.1 - Benign prostatic hyperplasia with lower urinary tract symptoms; R35.1 - Nocturia (5) Weak urinary stream: Code(s): R39.12 - Poor urinary stream Plan Refilled meds, six-month follow-up blood work Orders: Orders Prostate Specific Antigen 6 Months E29.1 - Testicular hypofunction Testosterone, Total 6 Months E29.1 - Testicular hypofunction Complete Blood Count no Diff 6 Months E29.1 - Testicular hypofunction US bladder 6 Months N13.8 - Other obstructive and reflux uropathy, N40.1 - Benign prostatic hyperplasia with lower urinary tract symptoms, R39.12 - Poor urinary stream Patient Instructions: Imaging studies, laboratory and physical exam results were discussed and reviewed in detail. No major barriers to patient understanding were identified. An opportunity to ask questions regarding the treatment plan was provided. All questions were answered. The patient expressed understanding and agreement with the above treatment plan. The patient is aware they should contact our office by phone for worsening of their current condition or the appearance of new urologic symptoms. Compliance is encouraged with any medications and followup testing that is ordered. It is a privilege to participate in the urologic care of your patient. If you have any questions or concerns regarding treatment for the above conditions, or other urologic issues, please do not hesitate to contact me. The office telephone contact is [phone]. This note is constructed using voice recognition software. While every effort has been made to ensure accuracy regional education manager errors may have been included. Yours sincerely, Dr Merrill Calle MD, [facility] - Urology Providers of Expert, Compassionate Care for the Genitourinary System Telehealth Telehealth Location of provider rendering services: practice address Location of patient: address on file Patient Identification confirmed using: Name, : Yes Telehealth method: video Patient verbally consented to treatment: Yes Patient verbally consented to billing insurance company: Yes Patient informed of any privacy concerns related to visit: Yes Coding Level of Care Code Tele Est Pt Level 4 (38283) Diagnoses BPH w urinary obs/LUTS N40.1; N13.8 Hypogonadism in male E29.1 Erectile dysfunction N52.9 Nocturia associated with benign prostatic hyperplasia N40.1; R35.1 Weak urinary stream R39.12
== END 2023-04-26 15:51 | disposition home or self-care (01) ==
LOC: HO.HUSH 15:15
PROVIDERS: PCP Internal Medicine; Visit Provider Urology
DX: N40.1 Benign prostatic hyperplasia with lower urinary tract symptoms (principal); N13.8 Other obstructive and reflux uropathy; E29.1 Testicular hypofunction; N52.9 Male erectile dysfunction, unspecified; R35.1 Nocturia; R39.12 Poor urinary stream
CPT/HCPCS: 99214

== ENCOUNTER → 2023-04-26 15:15 | Outpatient (BNVA) | payer OTHER, SELFPAY | PROVIDERS: PCP Internal Medicine; Visit Provider Urology ==

== ENCOUNTER 2023-06-02 13:27 | Outpatient (AMB) | payer OTHER, SELFPAY ==
--- NOTE | 2023-06-02 13:30 | MHC.OFFVIS ---
Intake Vital Signs 06/02/23 13:41 Height 5 ft 6 in Weight 180 lb 2 oz BMI 29.1 BP 144/100 H Blood Pressure Location Rt brachial Position Sitting Pulse 87 Pulse Source Pulse Oximeter Pulse Oximetry (%) 95 Oxygen Delivery Method Room Air Intake Visit Reasons: 4m f/u: Fatigue/Somnolenc - CONF Intake Note: Patient presents for 4 month f/u. Allergies No Known Allergies [No Known Allergies*] Allergy (Verified 06/02/23 13:40) HPI HPI Comments History of Present Illness Details 57 y/o male patient presents for new in-person visit for follow up of sleep study. The home sleep study result was significant for a mild degree of sleep apnea. The AHI was 5/hr and oxygen danii was 74%. Pt started APAP [id number] in April. The CPAP compliance and therapy response (02/25/23-05/25/23) reviewed. The usage days 25 days and the average usage hours 5 hrs. The residual AHI was 4.1/hr. Pt reports he sleeps better overall with CPAP, and daytime tiredness improved. However, he still having wakes up several times, and tosses and turns. He also cut down smoking, he used to smoke a pack a day. Pt has GERD and he has more gasping episodes when he has dinner near bedtime. Pt reports anxiety, uses Xanax and buspirone, help him calm down and sleep. He rarely uses trazodone, it makes him groggy in the morning. [facility] Medical History Personal history of nicotine dependence Strain of cervical portion of left trapezius muscle Depression Anxiety Hypogonadism in male Vitamin D deficiency Neck pain GERD without esophagitis Overweight (BMI 25.0-29.9) Elevated blood pressure reading Insomnia Smoker BPH w urinary obs/LUTS Surgical History History of open reduction and internal fixation (ORIF) procedure (~2018) History of colonoscopy (~2016) S/P transurethral resection of prostate (~2010) Family History Father Diabetes CAD (coronary artery disease) CKD (chronic kidney disease) Mother Hypertension Depression Hypercholesteremia Lung cancer Brother Myocardial infarction Brother In good health Son In good health Social History Housing: House Alcohol intake: current Alcohol intake frequency: holidays/special occasions only Patient Tobacco Use Status: Current everyday Tobacco user Tobacco use type: Cigarette Cigarettes Per Day: 5 Years Smoked: 30 e-Cigarette/Vaping Use: Never Used Second Hand Smoke Exposure: Yes service: No Current occupational status: employed Cognitive needs: No Hearing needs: Yes Vision needs: Yes (glasses) Review of Systems Const All systems reviewed & are unremarkable except as noted in HPI and below ENT Reports Normal hearing present Neuro Reports Normal hearing present Physical Exam Vital Signs: Last Vital Signs Pulse 87 06/02/23 13:41 BP 144/100 H 06/02/23 13:41 Pulse Ox 95 06/02/23 13:41 Oxygen Delivery Method Room Air 06/02/23 13:41 BMI result Body Mass Index 29.1 Const General: cooperative Nutritional Appearance: overweight Orientation/consciousness: patient oriented x3 Neck Neck: Yes full ROM and Yes supple Resp Effort & Inspection: normal respiratory effort and able to speak in complete sentences Neuro General: patient oriented x3, gait normal and moves all extremities Cranial nerves: Yes Bilaterally intact EOM present, Yes Normal facial strength present, Yes Midline tongue present, Yes Symmetric palate elevation present, Yes Normal hearing present, Yes Ability to bilaterally rotate head present and Yes Ability to bilaterally elevate shoulders present Cognition (Neuro): normal cognition Gait exam (Neuro): Normal gait present Motor exam (neuro): 5/5 motor strength present throughout, Pronator motor function not present and no tremor noted Psych Appearance: grossly normal Mental Status: mental status grossly normal Speech and movement: Normal speech and movement present Affect: normal affect Attitude: cooperative Assessment & Plan Assessment & Plan (1) KELSEY (obstructive sleep apnea): Comment: Mild degree of sleep apnea. The AHI was 5/hr and oxygen danii was 74% Code(s): G47.33 - Obstructive sleep apnea (adult) (pediatric) Plan Continue to use APAP [id number], he experiences better quality sleep and his breathing has improved. Advised patient to try melatonin 3 mg with magnesium 400 mg qHS for sleep. Continue to reduce smoking, and encouraged daily exercise. Continue to practice good sleep hygiene. Medications: New melatonin 3 mg PO BEDTIME 30 days PRN 30 tabs 5RF sleep magnesium oxide 400 mg PO DAILY 30 days 30 tabs 5RF Coding Level of Care Code Est Pt Level 3 (73641) Diagnoses KELSEY (obstructive sleep apnea) G47.33
[2023-06-02 13:41] VITALS: BP 144/100; PULSE 87; O2SAT 95; BMI 29.1
== END 2023-06-02 14:04 | disposition home or self-care (01) ==
PROVIDERS: PCP Internal Medicine; Visit Provider Nurse Practitioner Family
DX: G47.33 Obstructive sleep apnea (adult) (pediatric) (principal)
CPT/HCPCS: 99213

== ENCOUNTER → 2023-06-02 13:27 | Outpatient (BNVA) | payer OTHER, SELFPAY | PROVIDERS: PCP Internal Medicine; Visit Provider Nurse Practitioner Family | DX: G47.33 Obstructive sleep apnea (adult) (pediatric) (principal) | CPT/HCPCS: 99212 ==

== ENCOUNTER 2023-10-10 15:27 | Outpatient (REF) | payer OTHER, SELFPAY ==
[2023-10-10 15:53] LABS: MANUAL DIFF FLAG NO
[2023-10-10 16:14] LABS: Basophils Absolute Auto 0.1 X10*3/uL (0.0-0.2); Basophils Percent Auto 0.8 % (0-2); Eosinophils Absolute Auto 0.1 X10*3/uL (0.0-0.4); Hematocrit 49.4 % (42.0-52.0); Hemoglobin 17.5 g/dl (14.0-18.0); Imm Gran Abs Auto 0.05 X10*3/uL (0.00-0.03); Imm Gran Pct Auto 0.7 % (0.0-0.4); Lymphocytes Absolute Auto 1.5 X10*3/uL (1.2-4.9); Lymphocytes Percent Auto 21.8 % (20-40); Mean Corpuscular HGB Conc 35.4 g/dl (31.0-36.0); Mean Corpuscular Hemoglobin 32.3 pg (27.0-33.0); Mean Corpuscular Volume 91.1 fL (80.0-98.0); Mean Platelet Volume 9.2 fL (9.4-12.4); Monocytes Absolute Auto 0.3 X10*3/uL (0.1-1.2); Monocytes Percent Auto 4.5 % (2-11); Neutrophils Percent Auto 71.2 % (45-73); Platelet Count 239 X10*3/uL (160-400); Red Blood Count 5.42 X10*6/uL (4.60-5.80); Red Cell Distribution Width 13.5 % (11.0-16.0); White Blood Count 7.1 X10*3/uL (4.8-10.8)
[2023-10-10 16:55] LABS: Alanine Aminotransferase 32 U/L (0-40); Albumin Level 4.3 g/dL (3.5-5.0); Alkaline Phosphatase 69 U/L (39-117); Anion Gap 10 (12-20); Aspartate Amino Transferase 27 U/L (5-37); Bilirubin Total 0.8 mg/dL (0.0-1.0); Blood Urea Nitrogen 13 mg/dL (9-16); Calcium 9.5 mg/dL (8.4-10.2); Carbon Dioxide 26 mmol/L (22-29); Chloride 108 mmol/L (96-108); Cholesterol 150 mg/dL (<200); Estimated Glomerular Filt Rate > 60; Glucose Fasting 101 mg/dL (60-99); HDL Cholesterol 51 mg/dL (>40); LDL Cholesterol Calculated 80 mg/dL (<100); Potassium 4.1 mmol/L (3.3-5.1); Sodium 140 mmol/L (135-145); Total Protein 6.9 g/dL (6.5-8.0); Triglycerides 98 mg/dL (<150)
[2023-10-10 16:56] LABS: Prostate Specific Antigen 3.26 ng/mL (<0.05-4.0)
[2023-10-10 16:57] LABS: TSH reflex Free T4 0.89 uIU/mL (0.32-4.0); Vitamin D 25-OH Total 34.3 ng/mL (>30)
[2023-10-10 21:18] LABS: Appearance Urine Clear; Color Urine Yellow; Glucose Urine UA Negative (Negative); Leukocyte Esterase Urine Negative (Negative); Nitrite Urine Negative (Negative); Urine Blood Negative (Negative); Urine Ketones Trace mg/dL (Negative); Urine Protein Negative (Neg-Trace)
[2023-10-14 14:53] LABS: Testosterone, Total 1447 ng/dL (250-1100)
== END 2023-10-10 15:28 | disposition home or self-care (01) ==
LOC: HO.LAB 15:27
PROVIDERS: Urology; PCP Internal Medicine; Visit Provider Internal Medicine
DX: Z00.00 Encounter for general adult medical examination without abnormal findings (principal); E78.00 Pure hypercholesterolemia, unspecified; D75.1 Secondary polycythemia; N40.0 Benign prostatic hyperplasia without lower urinary tract symptoms; E55.9 Vitamin D deficiency, unspecified; R30.0 Dysuria; E29.1 Testicular hypofunction
CPT/HCPCS: 36415; 80053; 80061; 81003; 82306; 84153; 84403; 84443; 85025; 85027

== ENCOUNTER 2023-10-13 07:21 | Day surgery (SDC) | payer OTHER, SELFPAY ==
[2023-10-10 10:02] VITALS: BMI 30.3
--- NOTE | 2023-10-11 10:16 | P.CONAN_ITS ---
Documented by User: Kaylene Rudolph NP 10/11/23 10:17 HPI - Anesthesia Eval Consult details Narrative: 58yo M for Right OPEN Hernia Inguinal with mesh PMFSH Active Problems Active Problems: All Active Problems KELSEY (obstructive sleep apnea) (Acute) Cervical spondylosis (Acute) Right inguinal hernia (Acute) Mass of right inguinal region (Acute) Snoring (Acute) Colon cancer screening (Acute) Daytime somnolence (Acute) Fatigue (Acute) Tinnitus, bilateral (Acute) Strep throat (Acute) Annual physical exam (Acute) Polycythemia (Acute) Overweight (BMI 25.0-29.9) (Acute) Smoker (Acute) Anxiety (Acute) Elevated blood pressure reading (Acute) GERD without esophagitis (Acute) Hypogonadism in male (Acute) Nocturia associated with benign prostatic hyperplasia (Acute) Weak urinary stream (Acute) Erectile dysfunction (Acute) BPH w urinary obs/LUTS (Acute) Personal history of nicotine dependence (Acute) Strain of cervical portion of left trapezius muscle (Acute) Vitamin D deficiency (Acute) Hypogonadism in male (Acute) Depression (Acute) Neck pain (Acute) GERD without esophagitis (Acute) Overweight (BMI 25.0-29.9) (Acute) Elevated blood pressure reading (Acute) Insomnia (Acute) Smoker (Acute) Past Medical History Medical History White coat syndrome with hypertension Polycythemia Sleep apnea Anxiety Personal history of nicotine dependence Strain of cervical portion of left trapezius muscle Depression Hypogonadism in male Vitamin D deficiency Neck pain GERD without esophagitis Overweight (BMI 25.0-29.9) Elevated blood pressure reading Insomnia Smoker BPH w urinary obs/LUTS Family History Family History Father Diabetes CAD (coronary artery disease) CKD (chronic kidney disease) Mother Hypertension Depression Hypercholesteremia Lung cancer Brother Myocardial infarction Brother In good health Son In good health Surgical History Surgical History History of open reduction and internal fixation (ORIF) procedure (~2018) History of colonoscopy (~2016) S/P transurethral resection of prostate (~2010) Social History Social History Housing: House Alcohol intake: current Alcohol intake frequency: holidays/special occasions only Patient Tobacco Use Status: Current everyday Tobacco user Tobacco use type: Cigarette Cigarettes Per Day: 5 Years Smoked: 30 e-Cigarette/Vaping Use: Never Used Second Hand Smoke Exposure: Yes Use of substances other than those prescribed or required for medical reasons: Yes Substance Use Type Other:: smoked Substance Use Frequency: Daily Are you DNR?: No Advance Directives: No Advance Directives Information Provided: Yes service: No Current occupational status: employed Cognitive needs: No Hearing needs: Yes Vision needs: Yes (glasses) Meds Allergies Allergy/AdvReac Type Severity Reaction Status Date / Time No Known Allergies Allergy Verified 10/13/23 07:46 [No Known Allergies*] Home Medications ?Medication ?Instructions ?Recorded ?Confirmed ?Last Taken ?Type multivitamin 1 tab PO DAILY 03/11/20 10/13/23 Unknown History Exam Height,Weight and Vital Signs: Height 5 ft 6 in Weight 85.275 kg Pertinent Lab Results Pertinent Lab Results: Laboratory Tests 10/10/23 15:51 WBC 7.1 Hgb 17.5 Hct 49.4 Plt Count 239 Sodium 140 Potassium 4.1 Chloride 108 Carbon Dioxide 26 BUN 13 Creatinine 1.18 Assessment and Plan Assessment Anesthesia Assessment: Chart Reviewed Documented by User: Crystal Coppola MD 10/13/23 08:38 [facility] Past Medical History Medical History White coat syndrome with hypertension Polycythemia Sleep apnea Anxiety Personal history of nicotine dependence Strain of cervical portion of left trapezius muscle Depression Hypogonadism in male Vitamin D deficiency Neck pain GERD without esophagitis Overweight (BMI 25.0-29.9) Elevated blood pressure reading Insomnia Smoker BPH w urinary obs/LUTS Family History Family History Father Diabetes CAD (coronary artery disease) CKD (chronic kidney disease) Mother Hypertension Depression Hypercholesteremia Lung cancer Brother Myocardial infarction Brother In good health Son In good health Surgical History Surgical History History of open reduction and internal fixation (ORIF) procedure (~2018) History of colonoscopy (~2016) S/P transurethral resection of prostate (~2010) History of Problems with Anesthesia: No Social History Social History Housing: House Alcohol intake: current Alcohol intake frequency: holidays/special occasions only Patient Tobacco Use Status: Current everyday Tobacco user Tobacco use type: Cigarette Cigarettes Per Day: 5 Years Smoked: 30 e-Cigarette/Vaping Use: Never Used Second Hand Smoke Exposure: Yes Use of substances other than those prescribed or required for medical reasons: Yes Substance Use Type Other:: smoked Substance Use Frequency: Daily Are you DNR?: No Advance Directives: No Advance Directives Information Provided: Yes service: No Current occupational status: employed Cognitive needs: No Hearing needs: Yes Vision needs: Yes (glasses) Meds Allergies Allergy/AdvReac Type Severity Reaction Status Date / Time No Known Allergies Allergy Verified 10/13/23 07:46 [No Known Allergies*] Home Medications ?Medication ?Instructions ?Recorded ?Confirmed ?Last Taken ?Type multivitamin 1 tab PO DAILY 03/11/20 10/13/23 Unknown History Exam Airway Mallampati Class: III TM Dist: >3cm Neck ROM: Full Loose/Missing/Broken Teeth: No Heart: RRR Lungs: CTA Assessment and Plan Assessment Anesthesia Assessment: Anesthesia Plan Discussed Final Anesthetic Review History of Problems with Anesthesia: No NPO: Yes ASA Class: III Final Preanesthetic Review: Meds/Allgs Chart Reviewed, Consent Obtained/Reviewed and Anes Risks/Benef Reviewed Patient Risk: Intermediate Procedure Risk: Low Anesthetic Plan Anesthetic Plan: GA Disposition: Standard PACU
--- NOTE | 2023-10-12 12:23 | MHC.SHP ---
Pre-Procedural Eval Section A - 24 Hr Update-Section A only Date of Service: 10/13/23 The patient is an INPATIENT: No Changes since office visit: No Cold of Flu in the past 2 weeks, No New Medical Problems, No Changes in Medication and No Patient answered all questions Section B - Complete if H&P > 30 days Chief Complaint: Unilateral inguinal hernia, without obstruction Allergies: Allergies Allergy/AdvReac Type Severity Reaction Status Date / Time No Known Allergies Allergy Verified 06/02/23 13:40 [No Known Allergies*] Plan I have reviewed the history and physical and performed a pertinent physical examination on my patient. No changes have occurred unless specified. Time Spent With Patient Time: Total time managing care of this patient today ____ minutes.
--- NOTE | 2023-10-13 07:39 | ECG_ITS ---
Test Reason : KELSEY, HTN, SMOKER Blood Pressure : / mmHG Vent. Rate : 057 BPM Atrial Rate : 057 BPM P-R Int : 150 ms QRS Dur : 120 ms QT Int : 436 ms P-R-T Axes : 072 057 044 degrees QTc Int : 424 ms Sinus bradycardia Non-specific intra-ventricular conduction delay Borderline ECG No previous ECGs available Referred By: Kaylene Rudolph Electronically Signed By:Can Cronin
[2023-10-13 07:48] VITALS: BMI 27.5
[2023-10-13 08:05] VITALS: BP 140/92; PULSE 51; RESP 15; TEMP 36.6; O2SAT 99
[2023-10-13] MEDS: Lactated Ringers 1,000 ML 100 ML IVCONT (08:13)
--- NOTE | 2023-10-13 09:38 | W.PM.OPN ---
Operative Note Operative Note Date of Service: 10/13/23 Narrative: Preoperative diagnosis: [] Symptomatic right inguinal hernia Postop diagnosis: [] The same Procedure [] open right inguinal herniorrhaphy with Bard mesh Surgeon: [] Kris Acupressure Therapist: [] Sabrina Type of Anesthesia: [] General Indication for surgery: [] No indirect hernia demonstrated. Very large direct inguinal hernia reducible Findings: [] Patient brought to the operating room, placed on operative table in supine position, after an adequate level of general anesthesia was induced, the patient's right groin was prepped and draped in usual sterile fashion. Using a small right para inguinal incision, this carried down through skin, subcutaneous tissue, Angie's fascia. External oblique fibers were opened their direction with care to isolate and preserve the ilioinguinal nerve throughout the procedure. Spermatic cord was identified and retracted from the field. No indirect hernia was demonstrated. Very large indirect hernia was from the surrounding structures and reduced. An extra-large Bard plug was placed in this defect, and the mesh was sutured inferiorly to the inguinal ligament, and superiorly to the transversalis fascia using interrupted 0 Ethibond suture. At completion, mesh was in good position with no tension or gallops. Wound was irrigated, secured hemostasis, and closed in the following manner; external oblique fascia was closed using running 2-0 Vicryl suture. Angie's fascia was reapproximated using interrupted 3-0 Vicryl suture. Interrupted inverted deep dermal 3-0 Vicryl sutures followed by running subcuticular 4-0 Vicryl sutures were placed. Steri-Strips and sterile dressings were applied. Ilioinguinal block was performed at the beginning of the case and local wound infiltration at the end with 0.5% Marcaine. Sponge, needle, and instrument counts reported correct. Patient tolerated the procedure well and emerged from anesthesia stable condition. EBL minimal. Ipsilateral testicle was intrascrotal at completion.
[2023-10-13 09:43] VITALS: BP 140/83; PULSE 70; RESP 16; TEMP 36.6; O2SAT 97
[2023-10-13 09:45] VITALS: BP 130/65; PULSE 73; RESP 16; O2SAT 97
[2023-10-13 09:50] VITALS: BP 131/77; PULSE 70; RESP 16; O2SAT 97
[2023-10-13 09:55] VITALS: BP 135/71; PULSE 78; RESP 18; O2SAT 97
[2023-10-13 10:10] VITALS: BP 154/92; PULSE 69; RESP 16; TEMP 36.6; O2SAT 97
== END 2023-10-13 10:36 | disposition home or self-care (01) ==
PROVIDERS: PCP Internal Medicine; Visit Provider Surgery
PROC: (CPT 49505; principal; 2023-10-13 09:00)
DX: K40.90 Unilateral inguinal hernia, without obstruction or gangrene, not specified as recurrent (principal); K21.9 Gastro-esophageal reflux disease without esophagitis; R03.0 Elevated blood-pressure reading, without diagnosis of hypertension; G47.33 Obstructive sleep apnea (adult) (pediatric); Z79.899 Other long term (current) drug therapy; Z98.890 Other specified postprocedural states; F17.210 Nicotine dependence, cigarettes, uncomplicated
CPT/HCPCS: 49505; 93005; C1781; J0690; J1100; J1885; J2250; J2405; J2704; J2795; J3010

== ENCOUNTER → 2023-10-13 07:21 | Outpatient (BNV) | payer OTHER, SELFPAY | PROVIDERS: PCP Internal Medicine; Visit Provider Surgery | DX: K40.90 Unilateral inguinal hernia, without obstruction or gangrene, not specified as recurrent (principal) | CPT/HCPCS: 49505 ==

== ENCOUNTER → 2023-10-13 07:39 | Outpatient (BNV) | payer OTHER, SELFPAY | PROVIDERS: PCP Internal Medicine; Visit Provider Internal Medicine Cardiovascular Disease | DX: R00.1 Bradycardia, unspecified (principal) | CPT/HCPCS: 93010 ==

== ENCOUNTER 2023-10-20 16:45 | Outpatient (AMB) | payer OTHER, SELFPAY ==
--- NOTE | 2023-10-20 16:49 | A.OFFPC_ITS ---
Vital Signs 10/20/23 16:54 Height 5 ft 6 in Weight 178 lb 2 oz BMI 28.7 BP 130/80 Blood Pressure Location Lt brachial Position Sitting Pulse 75 Pulse Source Pulse Oximeter Pulse Oximetry (%) 95 Oxygen Delivery Method Room Air Intake Visit Reasons: pe Intake Note: Patient is here today for a physical. Senior Agricultural Assistant Required: No Black Mill Operator: Not Required per policy Accompanied by: Self / Same As Patient Allergies No Known Allergies [No Known Allergies*] Allergy (Verified 10/20/23 17:18) Medication List - Last Reconciled 10/20/23 by Prateek Suero MD albuterol sulfate 90 mcg/actuation (Ventolin HFA) 2 puffs PO Q6H PRN alprazolam 0.25 mg PO TID PRN 30 days buspirone 5 mg PO BID 30 days cholecalciferol (vitamin D3) (Vitamin D3) 50 mcg PO DAILY 90 days cyclobenzaprine 5 mg PO BEDTIME PRN 30 days fluticasone propionate 50 mcg/actuation (Flonase Allergy Relief) 1 spray intranasal DAILY 3 months hydrocodone-acetaminophen 5-325 mg 1 tab PO Q4-6H PRN magnesium oxide 400 mg PO DAILY 30 days melatonin 3 mg PO BEDTIME PRN 30 days multivitamin 1 tab PO DAILY nicotine (polacrilex) (Nicorette) 4 mg buccal Q2-4H 30 days pantoprazole 40 mg PO DAILY sildenafil 100 mg PO DAILY PRN syringe with needle (BD Luer-Lalo Syringe) As directed Q2W tamsulosin 0.8 mg (2 x 0.4 mg) PO DAILY 90 days testosterone cypionate 160 mg (0.8 mL) IM Q2W 28 days trazodone 50 mg PO BEDTIME PRN Tobacco use date assessed: 10/20/23 Dental Screening Dental Screen Date: 10/20/23 Did you have a dental visit in the last 12 months?: Yes Did you have a dental problem in the last 6 months where you did not have access to dental care?: No Was dental information given to patient?: Patient has dentist HPI pe HPI Details Patient comes in today for his annual physical examination He had a surgical repair of his right inguinal hernia done by Dr. Ponce last week and states that his right inguinal area still feels sore at present States that he feels okay otherwise He denies any headaches or dizziness Denies any chest pains, no SOB No nausea/vomiting, no abdominal pain No change in bowel habits noted He denies any acute urinary symptoms He continues to follow up with Dr. Calle for his urology / prostate issues Adds that he has noticed recently a small, dark and raised skin lesion beside his left eye - states that the lesion does not hurt or itch but he is concerned that it may be a potential skin cancer lesion He had his follow up labs done last week - to discuss his results He is currently scheduled for his repeat colonoscopy with Dr. Espinosa next month [facility], [facility] Medical History (Updated 10/20/23 @ 17:27 by Prateek Suero MD) White coat syndrome with hypertension Polycythemia Sleep apnea Anxiety Personal history of nicotine dependence Strain of cervical portion of left trapezius muscle Depression Hypogonadism in male Vitamin D deficiency Neck pain GERD without esophagitis Overweight (BMI 25.0-29.9) Elevated blood pressure reading Insomnia Smoker BPH w urinary obs/LUTS Surgical History Right inguinal hernia (10/13/23) History of open reduction and internal fixation (ORIF) procedure (~2018) History of colonoscopy (~2016) S/P transurethral resection of prostate (~2010) Family History Father Diabetes CAD (coronary artery disease) CKD (chronic kidney disease) Mother Hypertension Depression Hypercholesteremia Lung cancer Brother Myocardial infarction Brother In good health Son In good health Social History Housing: House Alcohol intake: current Alcohol intake frequency: holidays/special occasions only Patient Tobacco Use Status: Current everyday Tobacco user Tobacco use type: Cigarette Cigarette Packs Per Day: 0.5 Cigarettes Per Day: 5 Years Smoked: 30 e-Cigarette/Vaping Use: Never Used Second Hand Smoke Exposure: Yes service: No Current occupational status: employed Cognitive needs: No Hearing needs: Yes Vision needs: Yes (glasses) Questionnaire PHQ-9 Over the last 2 weeks, how often have you been bothered by any of the following problems? 1. Little interest or pleasure in doing things: several days 2. Feeling down, depressed, or hopeless: several days 3. Trouble falling or staying asleep, or sleeping too much: several days 4. Feeling tired or having little energy: several days 5. Poor appetite or overeating: several days 6. Feeling bad about yourself - or that you are a failure or have let yourself or your family down: several days 7. Trouble concentrating on things, such as reading the newspaper or watching television: several days 8. Moving or speaking so slowly that other people could have noticed. Or the opposite - being so fidgety or restless that you have been moving around a lot more than usual: several days 9. Thoughts that you would be better off or of hurting yourself in some way: not at all Total score: 8 Depression Screening Interpretation: Positive Depression Screening Follow-up: Existing condition and In treatment Depression Screening Done: Yes 98696 - PHQ-9 Billing: Yes Source: Developed by Drs. Cruz Walters, Rosario Morgan, Jf Shaffer and colleagues, with an educational kym from [employer]. Thrive Questionnaire Date Thrive assessed: 10/20/23 I am a: Patient What is your living situation today?: I have a steady place to live Within the past 12 months, did the food you bought not last and you didn't have the money to get more?: Never true Within the past 12 months, did you worry whether your food would run out before you got money to buy more?: Never true Do you have trouble paying for medicines?: No Do you have trouble getting transportation to medical appointments?: No Do you have trouble paying your heating and electricity bill?: No Do you have trouble taking care of your child, family member or friend?: No Do you have trouble with day-to-day activities such as bathing, preparing meals, shopping, managing finances, etc.?: No Are you currently unemployed and looking for a job?: No Are you interested in more education?: No Currently or been in a relationship where the following occur: No concerns reported THRIVE Score: 0 AUDIT C Alcohol Use Questionnaire (AUDIT-C) 1. How often do you have a drink containing alcohol?: Monthly or less 2. How many drinks containing alcohol do you have on a typical day when you are drinking?: 1 or 2 3. How often do you have six or more drinks on one occasion?: Never Total Score: 1 Score Reviewed/Action Taken: Yes DEISY-7 AMB Questionnaire DEISY-7 Date DEISY - 7 assessed: 10/20/23 Feeling nervous, anxious, or on edge: 1 = Several days Not being able to stop or control worryin = Several days Worrying too much about different things: 1 = Several days Trouble relaxin = Several days Being so restless that it is hard to sit still: 1 = Several days Becoming easily annoyed or irritable: 1 = Several days Feeling afraid as if something awful might happen: 1 = Several days Total DEISY-7 score (0-4 normal; 5-9 mild; 10-14 moderate; 15-21 severe): 7 Source: Developed by Drs. Cruz Walters, Rosario Morgan, Jf Shaffer and colleagues, with an educational kym from [employer]. Review of Systems Const Denies chills, Denies fatigue, Denies fever(s), Denies headache(s), Denies malaise and Denies weakness Eyes Denies blurry vision, Denies change in vision, Denies irritation and Denies itchy eyes ENT Denies dysphagia, Denies dizziness, Denies otalgia, Denies headache(s), Denies nasal congestion, Reports neck pain, Denies odynophagia and Denies sore throat Card Denies chest pain, Denies rapid heart rate, Denies irregular heart rhythm, Denies palpitations and Denies dyspnea Resp Denies chest congestion, Denies cough, Denies dyspnea and Denies wheezing GI Denies abdominal pain (but (+) soreness over the right inguinal area(had hernia surgery last week)), Denies bloating, Denies constipation, Denies dysphagia, Denies heartburn, Denies diarrhea, Denies nausea, Denies odynophagia and Denies vomiting Denies hematuria, Denies difficulty urinating, Denies dysuria, Denies urinary frequency and Denies urinary urgency Musc Denies back pain, Denies arthralgias, Denies joint swelling, Denies muscle we akness and Reports neck pain Skin/Breast Denies change in pigmentation, Reports lesions ((+) dark raised skin lesion lateral to the left eye), Denies rash and Denies unusual bruising Neuro Denies dizziness, Denies headache(s), Denies paresthesias and Denies weakness Endo Denies fatigue and Denies palpitations Aller/Immun Denies itchy eyes and Denies wheezing Physical exam (Primary Care) Vital Signs: Last Vital Signs Pulse 75 10/20/23 16:54 BP 130/80 10/20/23 16:54 Pulse Ox 95 10/20/23 16:54 Oxygen Delivery Method Room Air 10/20/23 16:54 BMI result Body Mass Index 28.7 Tobacco/Smoking Status: Tobacco use Status Tobacco use date assessed 10/20/23 10/20/23 17:02 Patient Tobacco Use Status Current everyday Tobacco 10/20/23 16:52 Tobacco use type Cigarette 10/20/23 16:52 e-Cigarette/Vaping Use Never Used 10/20/23 16:52 PHQ-9: PHQ-9 Score PHQ-9: Total score 8 10/20/23 17:02 Depression Screening Interpretation: Positive Depression Screening Follow-up: Existing condition and In treatment Thrive Assessment: Date of Thrive Assessment Date Thrive assessed 10/20/23 10/20/23 17:02 Currently or been in a relationship where the following occur: No concerns reported Const General: no acute distress, alert and awake Orientation/consciousness: patient oriented x3 HENMT Head: Yes normocephalic and Yes atraumatic Ears: external ears normal, TM's normal bilaterally and EAC's normal General nose exam: No nasal discharge present Face and sinus: Yes normal facial exam and Yes sinuses nontender Teeth and gingiva: dentition normal Throat: Yes posterior oropharynx normal and Yes tonsils normal (no TP congestion) Eyes Eyelids: Yes eyelids normal Conjunctivae: conjunctivae normal Pupils: Equal, round and reactive pupils present EOM: EOMs intact bilaterally Neck Neck: Yes no lymphadenopathy and Yes supple Thyroid: Thyroid normal Resp Auscultation: clear to auscultation bilaterally, no rales and no wheezes Cardio Rate: regular rate Rhythm: regular rhythm Heart sounds: no murmurs GI Palpation (GI): Soft to palpation, Tenderness to palpation present (GI) (over the right inguinal area (S/P surgery last week)) and No hepatosplenomegaly present Auscultation: normal bowel sounds General: Yes no CVA tenderness Back/Spine/Pelvis Back: no CVA tenderness Cervical Spine: Cervical spine tenderness (mild) Thoracic/Lumbar Spine: thoracic and lumbar spine normal to inspection Skin Other: (+) small raised hyperpigmented lesion on the left side of the face just lateral to the left eye Rashes: no rashes Neuro General: patient oriented x3, moves all extremities, no focal motor deficits and CN's II-XI intact bilaterally Cranial nerves: Yes Equal, round and reactive pupils present Cognition (Neuro): normal cognition Gait exam (Neuro): Normal gait present Extrem General: Yes no clubbing, cyanosis or edema Results Reviewed Results Reviewed: Laboratory Tests 10/10/23 10/10/23 15:51 15:55 WBC 7.1 Hgb 17.5 Hct 49.4 Plt Count 239 Sodium 140 Potassium 4.1 Creatinine 1.18 Estimated GFR > 60 Fasting Glucose 101 H Calcium 9.5 AST 27 ALT 32 Triglycerides 98 Cholesterol 150 LDL Cholesterol, Calc 80 HDL Cholesterol 51 Prostate Specific Ag 3.26 TSH 0.89 Total Testosterone 1447 H Ur Specific [place] 1.020 Urine Protein Negative Urine Glucose (UA) Negative Urine Blood Negative Urine Nitrite Negative Ur Leukocyte Esterase Negative Assessment and Plan Assessment & Plan (1) Annual physical exam: Code(s): Z00.00 - Encounter for general adult medical examination without abnormal findings Plan: Results of his labs done last week reviewed and discussed with patient He is scheduled for his repeat colonoscopy with Dr. Espinosa next month on 11/20/2023 He is also due for his yearly CT lung screening and will refer him again to thoracic surgery for this (2) Elevated blood pressure reading: Code(s): R03.0 - Elevated blood-pressure reading, without diagnosis of hypertension Plan: Reinforced low sodium diet His blood pressure readings have been much better lately Patient is reminded to continue monitoring his blood pressure regularly (3) Polycythemia: Code(s): D75.1 - Secondary polycythemia Plan: Appears RESOLVED Patient's H/H have been back to normal over the past few months and have remaine d normal on his recent labs Abdominal US done in September 2021 came out normal with no splenomegaly noted Continue Aspirin 81 mg QD (4) GERD without esophagitis: Code(s): K21.9 - Gastro-esophageal reflux disease without esophagitis Plan: Dietary restrictions reinforced Continue Pantoprazole 40 mg QD Follow up with GI as scheduled (5) Right inguinal hernia: Onset Date: 10/13/23 Comment: Dr. Kris Cabrera Code(s): K40.90 - Unilateral inguinal hernia, without obstruction or gangrene, not specified as recurrent Plan: He finally underwent surgical repair of his right inguinal hernia by Dr. Ponce last week on 10/13/2023 States that his right inguinal area presently still feels sore but he thinks that his surgery went well overall Follow up with surgery as scheduled (6) Cervical spondylosis: Code(s): M47.812 - Spondylosis without myelopathy or radiculopathy, cervical region Plan: Continue Cyclobenzaprine 5 mg TID PRN (7) Vitamin D deficiency: Code(s): E55.9 - Vitamin D deficiency, unspecified Plan: Continue Vitamin D3 2000 units QD (8) Hyperpigmented skin lesion: Code(s): L81.9 - Disorder of pigmentation, unspecified Plan: Will refer him to dermatology for further evaluation and management (9) BPH w urinary obs/LUTS: Comment: (followed by Dr. Calle) Code(s): N40.1 - Benign prostatic hyperplasia with lower urinary tract symptoms; N13.8 - Other obstructive and reflux uropathy Plan: Continue Tamsulosin 0.4 mg 2 tablets Q HS and Alfusozin ER 10 mg QD He is advised that his PSA level is still elevated on his recent labs although they are lower than his numbers in 2020 Follow up with urology as scheduled (10) Hypogonadism in male: Code(s): E29.1 - Testicular hypofunction Plan: Continue Testosterone 200 mg IM every 2 weeks Continue Sildenafil 100 mg QD PRN Follow up with urology as scheduled (11) Insomnia: Code(s): G47.00 - Insomnia, unspecified Qualifiers: Insomnia type: unspecified Qualified Code(s): G47.00 - Insomnia, unspecified Plan: Sleep hygiene reinforced Continue Trazodone 50 mg Q HS PRN (12) Anxiety: Code(s): F41.9 - Anxiety disorder, unspecified Plan: Continue Alprazolam 0.25 mg TID PRN He was previously started on Buspirone but patient stopped this due to decreased libido while on the medication (13) Smoker: Code(s): F17.200 - Nicotine dependence, unspecified, uncomplicated Plan: Counseled again on smoking cessation Low-dose chest CT done in March 2022 came out normal except for some right apical scarring as well as some mild emphysematous changes - he is urged to quit smoking quickly in light of this Continue use of OTC nicotine gum to help him quit smoking Will refer him again now for repeat CT lung screening (14) Overweight (BMI 25.0-29.9): Code(s): E66.3 - Overweight Plan: Reinforced diet/exercise as tolerated /lose weight Plan Follow up in 6 months Orders: Referrals Dermatology Referral L81.9 - Disorder of pigmentation, unspecified Thoracic/General Surgery Referral Z12.2 - Encounter for screening for malignant neoplasm of respiratory organs Coding Level of Care Code Est Pt Prev Care 40-64y(62313) Diagnoses Annual physical exam Z00.00 Elevated blood pressure reading R03.0 Polycythemia D75.1 GERD without esophagitis K21.9 Right inguinal hernia K40.90 Cervical spondylosis M47.812 Vitamin D deficiency E55.9 Hyperpigmented skin lesion L81.9 BPH w urinary obs/LUTS N40.1; N13.8 Hypogonadism in male E29.1 Insomnia, unspecified type G47.00 Insomnia type: unspecified Anxiety F41.9 Smoker F17.200 Overweight (BMI 25.0-29.9) E66.3
[2023-10-20 16:54] VITALS: BP 130/80; PULSE 75; O2SAT 95; BMI 28.7
== END 2023-10-20 17:29 | disposition home or self-care (01) ==
PROVIDERS: PCP Internal Medicine; Visit Provider Internal Medicine
DX: Z00.00 Encounter for general adult medical examination without abnormal findings (principal); R03.0 Elevated blood-pressure reading, without diagnosis of hypertension; D75.1 Secondary polycythemia; K21.9 Gastro-esophageal reflux disease without esophagitis; K40.90 Unilateral inguinal hernia, without obstruction or gangrene, not specified as recurrent; M47.812 Spondylosis without myelopathy or radiculopathy, cervical region; E55.9 Vitamin D deficiency, unspecified; L81.9 Disorder of pigmentation, unspecified; N40.1 Benign prostatic hyperplasia with lower urinary tract symptoms; N13.8 Other obstructive and reflux uropathy; E29.1 Testicular hypofunction; G47.00 Insomnia, unspecified; F41.9 Anxiety disorder, unspecified; F17.200 Nicotine dependence, unspecified, uncomplicated; E66.3 Overweight
CPT/HCPCS: 99396

== ENCOUNTER 2023-10-23 10:19 | Outpatient (AMB) | payer OTHER, SELFPAY ==
--- NOTE | 2023-10-23 10:22 | MHC.OFFVIS ---
Intake Visit Reasons: S/P RIH w/mesh Intake Note: Patient here s/p RIH w/ mesh. Reports incisions healing well. Patient c/o: no concerns. No longer taking rx pain meds. SX: 10-13-2023 Consulting Services Manager Required: No Accompanied by: Self / Same As Patient Allergies No Known Allergies [No Known Allergies*] Allergy (Verified 10/23/23 10:23) HPI Comments Details: Patient presents for follow-up. He has tolerating a diet. Having regular bowel habits. He is increasing his activity level. He is minimal incisional discomfort [facility] Medical History (Updated 10/20/23 @ 17:27 by Prateek Suero MD) White coat syndrome with hypertension Polycythemia Sleep apnea Anxiety Personal history of nicotine dependence Strain of cervical portion of left trapezius muscle Depression Hypogonadism in male Vitamin D deficiency Neck pain GERD without esophagitis Overweight (BMI 25.0-29.9) Elevated blood pressure reading Insomnia Smoker BPH w urinary obs/LUTS Surgical History Right inguinal hernia (10/13/23) History of open reduction and internal fixation (ORIF) procedure (~2018) History of colonoscopy (~2016) S/P transurethral resection of prostate (~2010) Family History Father Diabetes CAD (coronary artery disease) CKD (chronic kidney disease) Mother Hypertension Depression Hypercholesteremia Lung cancer Brother Myocardial infarction Brother In good health Son In good health Social History Housing: House Alcohol intake: current Alcohol intake frequency: holidays/special occasions only Patient Tobacco Use Status: Current everyday Tobacco user Tobacco use type: Cigarette Cigarette Packs Per Day: 0.5 Cigarettes Per Day: 5 Years Smoked: 30 e-Cigarette/Vaping Use: Never Used Second Hand Smoke Exposure: Yes service: No Current occupational status: employed Cognitive needs: No Hearing needs: Yes Vision needs: Yes (glasses) Physical Exam GI Other: Abdomen is soft. Incision clean dry and intact healing well Assessment & Plan Assessment & Plan (1) Postop check: Code(s): Z09 - Encounter for follow-up examination after completed treatment for conditions other than malignant neoplasm Category: Surgical Plan Patient has been given local instructions including avoiding strenuous activities next few weeks time and will otherwise follow-up p.r.n.. All questions answered Coding Level of Care Code Global (71404) Diagnoses Postop check Z09
== END 2023-10-23 10:29 | disposition home or self-care (01) ==
PROVIDERS: PCP Internal Medicine; Visit Provider Surgery
DX: Z09 Encounter for follow-up examination after completed treatment for conditions other than malignant neoplasm (principal)
CPT/HCPCS: 99024

== ENCOUNTER → 2023-10-23 10:19 | Outpatient (BNVA) | payer OTHER, SELFPAY | PROVIDERS: PCP Internal Medicine; Visit Provider Surgery | DX: Z09 Encounter for follow-up examination after completed treatment for conditions other than malignant neoplasm (principal); Z87.2 Personal history of diseases of the skin and subcutaneous tissue | CPT/HCPCS: 99212 ==

== ENCOUNTER 2023-11-14 15:06 | Outpatient (AMB) | payer OTHER, SELFPAY ==
--- NOTE | 2023-11-14 15:09 | MHC.OFFVIS ---
Vital Signs 11/14/23 15:17 Height 5 ft 6 in Weight 175 lb 14.862 oz BMI 28.4 BP 146/84 H Blood Pressure Location Rt brachial Position Sitting Pulse 78 Pulse Source Pulse Oximeter Pulse Oximetry (%) 97 Oxygen Delivery Method Room Air Intake Visit Reasons: Pooja + Pt Req'd appt. Intake Note: Rai presents in office today for a requested appt. CC; Pt is set to have a double s/p within the next month. Pt reports that they have remained stable since their last visit. Pt is aware of his upcoming procedure and would like to discuss any of the preparation instruction. Front Counter Clerk Required: No Allergies No Known Allergies [No Known Allergies*] Allergy (Verified 11/14/23 15:10) HPI HPI Pooja + Pt Req'd appt.: Details: LAST VISIT Colon cancer screening Patient denies any GI, cardiac or respiratory symptoms.? Patient does report occasional blood after bowel movement. Patient been diagnosed with hemorrhoids on colonoscopy in 2016. Denies any issues with anesthesia in the past.? Denies any history of sleep apnea.? No history infectious diseases in the past or present.? Not on any anticoagulation therapy.? Patient's maternal cousin was diagnosed with colorectal cancer 4 years ago and had chemotherapy.? Patient denies melena, hematochezia, unintentional weight loss or ribbon like stools.? Discussed at length the pre-procedure,? prep, diet & medications as well as what to expect prior, during and after the procedure.?? Stressed the importance of good bowel prep. ?Recommended the use of Vaseline or Calmoseptine OTC & baby wipes with bowel movements to promote comfort.? ?Patient verbalizes understanding and agrees to plan of care.? He was given the opportunity to ask questions and all questions answered.? We will see him after the procedure.? TODAY'S VISIT Patient is here today to discuss prep. Patient reports that his cousin was 9 months younger than him in February after he was diagnosed in [place] colorectal cancer for few years. Patient reports that he is very anxious and his colonoscopy was rescheduled for November 19. Patient denies any issues with anesthesia in the past. Recently had inguinal surgery with Dr. Ponce and everything went well. Patient diagnosed with mild case of sleep apnea. Not on any anticoagulation medication. Patient denies any nausea or vomiting. Reports to have a occasional epigastric discomfort after eating different food. Patient admits to have occasional bloating in his stool after bowel movement. Patient denies any other GI concerning symptoms. [facility] Medical History White coat syndrome with hypertension Polycythemia Sleep apnea Anxiety Personal history of nicotine dependence Strain of cervical portion of left trapezius muscle Depression Hypogonadism in male Vitamin D deficiency Neck pain GERD without esophagitis Overweight (BMI 25.0-29.9) Elevated blood pressure reading Insomnia Smoker BPH w urinary obs/LUTS Surgical History Right inguinal hernia (10/13/23) History of open reduction and internal fixation (ORIF) procedure (~2018) History of colonoscopy (~2016) S/P transurethral resection of prostate (~2010) Family History Father Diabetes CAD (coronary artery disease) CKD (chronic kidney disease) Mother Hypertension Depression Hypercholesteremia Lung cancer Brother Myocardial infarction Brother In good health Son In good health Social History Housing: House Alcohol intake: current Alcohol intake frequency: holidays/special occasions only Patient Tobacco Use Status: Current everyday Tobacco user Tobacco use type: Cigarette Cigarette Packs Per Day: 0.5 Cigarettes Per Day: 5 Years Smoked: 30 e-Cigarette/Vaping Use: Never Used Second Hand Smoke Exposure: Yes service: No Current occupational status: employed Cognitive needs: No Hearing needs: Yes Vision needs: Yes (glasses) Review of Systems Const Denies weight gain and Denies weight loss ENT Reports no additional complaints, Denies dysphagia and Denies odynophagia Card Reports no additional complaints Resp Reports no additional complaints GI Denies abdominal pain, Denies belching, Denies melena, Denies bloating, Reports hematochezia (Occasional), Denies change in bowel habits, Denies dysphagia, Denies excessive flatus, Denies dyspepsia, Denies heartburn, Denies diarrhea, Denies loose stools, Denies nausea, Denies odynophagia and Denies vomiting Reports no additional complaints Musc Reports no additional complaints Neuro Reports no additional complaints Psych Reports no additional complaints Endo Reports no additional complaints Physical Exam Vital Signs: Last Vital Signs Pulse 78 11/14/23 15:17 BP 146/84 H 11/14/23 15:17 Pulse Ox 97 11/14/23 15:17 Oxygen Delivery Method Room Air 11/14/23 15:17 BMI result Body Mass Index 28.4 Const General: healthy appearing, no acute distress and well developed Nutritional Appearance: obese Orientation/consciousness: patient oriented x3 Resp Effort & Inspection: normal respiratory effort, able to speak in complete sentences, no tracheal deviation and symmetric chest movement Auscultation: clear to auscultation bilaterally Cardio Rate: regular rate GI Inspection: Yes normal to inspection, No distended and Yes obesity Palpation (GI): Soft to palpation, not firm, nontender and No hepatosplenomegaly present Auscultation: normal bowel sounds General: Yes no CVA tenderness Back/Spine/Pelvis Back: no CVA tenderness Skin General skin exam: elasticity normal, turgor normal and dry skin Neuro General: patient oriented x3 Psych Appearance: grossly normal Mental Status: mental status grossly normal Assessment & Plan Assessment & Plan (1) Colon cancer screening: Code(s): Z12.11 - Encounter for screening for malignant neoplasm of colon Category: Medical (2) GERD without esophagitis: Code(s): K21.9 - Gastro-esophageal reflux disease without esophagitis Category: Medical Plan Colonoscopy scheduled for the of this month. Patient is little anxious but is happy did is able to go for the procedure. Upper endoscopy as patient continues to have occasional epigastric discomfort postprandially and acid reflux. Currently takes pantoprazole daily. What to expect before during and after procedure discussed with patient. Discussed with patient the importance of good bowel prep before colonoscopy. I will see patient after the procedure, sooner on as needed basis. He is agreeable to this plan and verbalizes understanding of instructions. He was given the opportunity to ask questions and all questions answered. Thank you for allowing me to participate in his care Medications: New bisacodyl (Dulcolax (bisacodyl)) take 4 tabs at noon the day before your colonoscopy 20 mg (4 x 5 mg) PO ONCE 1 day 4 tabs 0RF Z12.11 - Encounter for screening for malignant neoplasm of colon polyethylene glycol 3350 (Miralax) As directed by gastroenterology department at [facility] 238 grams PO ONCE 238 grams 0RF Z12.11 - Encounter for screening for malignant neoplasm of colon Coding Level of Care Code Est Pt Level 3 (54854) Diagnoses Colon cancer screening Z12.11 GERD without esophagitis K21.9 Time Spent (min) 30 Comment 20 minutes spent with patient and additional 10 minutes spent reviewing his records
[2023-11-14 15:17] VITALS: BP 146/84; PULSE 78; O2SAT 97; BMI 28.4
== END 2023-11-14 15:33 | disposition home or self-care (01) ==
PROVIDERS: PCP Internal Medicine; Visit Provider Nurse Practitioner Family
DX: Z12.11 Encounter for screening for malignant neoplasm of colon (principal); K21.9 Gastro-esophageal reflux disease without esophagitis; Z01.818 Encounter for other preprocedural examination
CPT/HCPCS: 99213

== ENCOUNTER → 2023-11-14 15:06 | Outpatient (BNVA) | payer OTHER, SELFPAY | PROVIDERS: PCP Internal Medicine; Visit Provider Nurse Practitioner Family | DX: K21.9 Gastro-esophageal reflux disease without esophagitis (principal); Z79.899 Other long term (current) drug therapy | CPT/HCPCS: 99212 ==

== ENCOUNTER 2023-11-20 11:52 | Day surgery (SDC) | payer OTHER, SELFPAY ==
[2023-11-20 12:23] VITALS: BMI 27.8
[2023-11-20 12:38] VITALS: BP 146/85; PULSE 52; RESP 16; TEMP 36.9; O2SAT 98
[2023-11-20] MEDS: Lactated Ringers 1,000 ML 100 ML IVCONT (12:55)
--- NOTE | 2023-11-20 13:20 | P.CONAN_ITS ---
Documented by User: Kaylene Rudolph NP 11/17/23 10:47 HPI - Anesthesia Eval Consult details Narrative: 58yo M for Upper Endoscopy and Colonoscopy s/p hernia repair 09/2023 with GA-LMA 4 [facility] Active Problems Active Problems: All Active Problems Postop check (Acute) Hyperpigmented skin lesion (Acute) KELSEY (obstructive sleep apnea) (Acute) Cervical spondylosis (Acute) Right inguinal hernia (Acute 10/13/23) Mass of right inguinal region (Acute) Snoring (Acute) Colon cancer screening (Acute) Daytime somnolence (Acute) Fatigue (Acute) Tinnitus, bilateral (Acute) Strep throat (Acute) Annual physical exam (Acute) Polycythemia (Acute) Overweight (BMI 25.0-29.9) (Acute) Smoker (Acute) Anxiety (Acute) Elevated blood pressure reading (Acute) GERD without esophagitis (Acute) Hypogonadism in male (Acute) Nocturia associated with benign prostatic hyperplasia (Acute) Weak urinary stream (Acute) Erectile dysfunction (Acute) BPH w urinary obs/LUTS (Acute) Personal history of nicotine dependence (Acute) Strain of cervical portion of left trapezius muscle (Acute) Vitamin D deficiency (Acute) Hypogonadism in male (Acute) Depression (Acute) Neck pain (Acute) GERD without esophagitis (Acute) Overweight (BMI 25.0-29.9) (Acute) Elevated blood pressure reading (Acute) Insomnia (Acute) Smoker (Acute) Past Medical History Medical History White coat syndrome with hypertension Polycythemia Sleep apnea Anxiety Personal history of nicotine dependence Strain of cervical portion of left trapezius muscle Depression Hypogonadism in male Vitamin D deficiency Neck pain GERD without esophagitis Overweight (BMI 25.0-29.9) Elevated blood pressure reading Insomnia Smoker BPH w urinary obs/LUTS Family History Family History Father Diabetes CAD (coronary artery disease) CKD (chronic kidney disease) Mother Hypertension Depression Hypercholesteremia Lung cancer Brother Myocardial infarction Brother In good health Son In good health Surgical History Surgical History Right inguinal hernia (10/13/23) History of open reduction and internal fixation (ORIF) procedure (~2018) History of colonoscopy (~2016) S/P transurethral resection of prostate (~2010) History of Problems with Anesthesia: No Social History Social History Housing: House Alcohol intake: current Alcohol intake frequency: holidays/special occasions only Patient Tobacco Use Status: Current everyday Tobacco user Tobacco use type: Cigarette Cigarette Packs Per Day: 0.5 Cigarettes Per Day: 10 Years Smoked: 30 e-Cigarette/Vaping Use: Never Used Second Hand Smoke Exposure: Yes Use of substances other than those prescribed or required for medical reasons: Yes Substance Use Frequency: Occasionally Are you DNR?: No Advance Directives: No Advance Directives Information Provided: Yes service: No Current occupational status: employed Cognitive needs: No Hearing needs: Yes Vision needs: Yes (glasses) Meds Allergies Allergy/AdvReac Type Severity Reaction Status Date / Time No Known Allergies Allergy Verified 11/14/23 15:10 [No Known Allergies*] Home Medications ?Medication ?Instructions ?Recorded ?Confirmed ?Last Taken ?Type multivitamin 1 tab PO DAILY 03/11/20 10/23/23 Unknown History Assessment and Plan Assessment Anesthesia Assessment: Chart Reviewed Final Anesthetic Review History of Problems with Anesthesia: No Documented by User: Jeane Hernandez DO 11/20/23 13:22 [facility] Past Medical History Medical History White coat syndrome with hypertension Polycythemia Sleep apnea Anxiety Personal history of nicotine dependence Strain of cervical portion of left trapezius muscle Depression Hypogonadism in male Vitamin D deficiency Neck pain GERD without esophagitis Overweight (BMI 25.0-29.9) Elevated blood pressure reading Insomnia Smoker BPH w urinary obs/LUTS Family History Family History Father Diabetes CAD (coronary artery disease) CKD (chronic kidney disease) Mother Hypertension Depression Hypercholesteremia Lung cancer Brother Myocardial infarction Brother In good health Son In good health Family history of problems with anesthesia: No Surgical History Surgical History Right inguinal hernia (10/13/23) History of open reduction and internal fixation (ORIF) procedure (~2018) History of colonoscopy (~2016) S/P transurethral resection of prostate (~2010) History of Problems with Anesthesia: No Social History Social History Housing: House Alcohol intake: current Alcohol intake frequency: holidays/special occasions only Patient Tobacco Use Status: Current everyday Tobacco user Tobacco use type: Cigarette Cigarette Packs Per Day: 0.5 Cigarettes Per Day: 10 Years Smoked: 30 e-Cigarette/Vaping Use: Never Used Second Hand Smoke Exposure: Yes Use of substances other than those prescribed or required for medical reasons: Yes Substance Use Frequency: Occasionally Are you DNR?: No Advance Directives: No Advance Directives Information Provided: Yes service: No Current occupational status: employed Cognitive needs: No Hearing needs: Yes Vision needs: Yes (glasses) Meds Allergies Allergy/AdvReac Type Severity Reaction Status Date / Time No Known Allergies Allergy Verified 11/14/23 15:10 [No Known Allergies*] Home Medications ?Medication ?Instructions ?Recorded ?Confirmed ?Last Taken ?Type multivitamin 1 tab PO DAILY 03/11/20 10/23/23 Unknown History Exam Exam Date and Time: November 20, 2023 1315 Height,Weight and Vital Signs: Height 5 ft 6 in Weight 78.245 kg Vital Signs Temperature 98.5 F 11/20/23 12:38 Pulse Rate 52 11/20/23 12:38 Respiratory Rate 16 11/20/23 12:38 Blood Pressure 146/85 H 11/20/23 12:38 Pulse Oximetry 98 11/20/23 12:38 Oxygen Delivery Method Room Air 11/20/23 12:38 Temperature 98.5 F 11/20/23 12:38 Pulse Rate 52 11/20/23 12:38 Respiratory Rate 16 11/20/23 12:38 Blood Pressure 146/85 H 11/20/23 12:38 Pulse Oximetry 98 11/20/23 12:38 Oxygen Delivery Method Room Air 11/20/23 12:38 Airway Mallampati Class: II TM Dist: >3cm Neck ROM: Full Loose/Missing/Broken Teeth: No (patient denies any loose or broken teeth) Heart: S1S2 Lungs: CTAB Assessment and Plan Assessment Anesthesia Assessment: Anesthesia Plan Discussed and Chart Reviewed Final Anesthetic Review Family History of Problems with Anesthesia: No History of Problems with Anesthesia: No NPO: Yes ASA Class: II Final Preanesthetic Review: No Changes in Pt Med Stat, Meds/Allgs Chart Reviewed, Consent Obtained/Reviewed and Anes Risks/Benef Reviewed Patient Risk: Low Procedure Risk: Low Anesthetic Plan Anesthetic Plan: MAC: and Agree w/ Assess. and Plan Disposition: Standard PACU
--- NOTE | 2023-11-20 13:25 | P.HPSUR_ITS ---
Pre-Procedural Eval Section A - 24 Hr Update-Section A only Date of Service: 11/20/23 Section B - Complete if H&P > 30 days Chief Complaint: Gastro-esophageal reflux disease without esophagit Relevant Family History (Specify if Yes): No Relevant Social History: Tobacco Use Present Medications: see Short Stay Collaborative assessment Medical History: Significant History ( White coat syndrome with hypertension Polycythemia Sleep apnea Anxiety Personal history of nicotine dependence Strain of cervical portion of left trapezius muscle Depression Hypogonadism in male Vitamin D deficiency Neck pain GERD without esophagitis Overweight (BMI 25.0- 29.9) Elevated blood pressu) History of Previous Operations: Relevant previous surgery/procedure and date(s) (Right inguinal hernia (10/13/23) History of open reduction and internal fixation (ORIF) procedure (~2018) History of colonoscopy (~2016) S/P transurethral resection of prostate (~2010)) Allergies: Allergies Allergy/AdvReac Type Severity Reaction Status Date / Time No Known Allergies Allergy Verified 11/14/23 15:10 [No Known Allergies*] Review of Systems Sugical H&P ROS: Negative: Constitution, Cardiovascular, Respiratory, Neurological, Psychiatric, Hem-Onc, Allergic/Immunologic, Gastrointestinal, Genitourinary, Musculoskeletal, Integumentary, Endocrine and Eyes/Ears/Nose/Throat Exam Surgical H&P Exam: Normal: HEENT, Normal: Heart, Normal: Lungs, Normal: Extremities, Normal: Abdomen, Normal: Skin and Normal: Neurological Plan Diagnosis/Plan: Unchanged I have reviewed the history and physical and performed a pertinent physical examination on my patient. No changes have occurred unless specified. Time Spent With Patient Time: Total time managing care of this patient today ____ minutes.
--- NOTE | 2023-11-20 14:23 | P.OPN-COLO_ITS ---
Colonoscopy Operative Note Operative Note Date of Service: 11/20/23 Narrative: Operative Information Procedure Description: EGD, Colonoscopy Indication: screening, GERD Anesthesia: MAC FLEXIBLE TRANSORAL UPPER GASTROINTESTINAL ENDOSCOPY AND COLONOSCOPY PROCEDURE NOTE UPPER ENDOSCOPY Consent: Indications for the procedure and potential complications of bleeding, perforation, reaction to medications and missed diagnosis were discussed with the patient and informed consent was obtained. Instrument: Olympus GIF H 190 J mid size upper endoscope Monitoring: Vital signs and clinical assessment, continuous EKG monitoring, Pulse oximetry, Carbon Dioxide monitoring and blood pressure monitoring were done throughout the procedure. Procedure: The patient was placed in the left lateral decubitis position and pre-procedure medications were administered and a bite block was placed. The endoscope was inserted into the mouth and advanced under direct vision to the third part of duodenum. A careful inspection was made as the upper endoscope was withdrawn including a retroflexed examination of the proximal stomach; Findings and interventions are described below. Findings: Larynx:normal Esophagus: GE junction at 40 cm, diaphragm hiatus at 40 cm, normal mucosa- bx taken from GEJ and distal esophagus Stomach: mild gastritis. Biopsies were obtained to r/o h pylori. Grade 2 flap valve on retroflexed examination of the cardia. Duodenum: Normal bulb and descending duodenum, Intervention: Biopsies as noted above, COLONOSCOPY Instrument: Olympus variable stiffness pediatric scope 190L Colonoscopy Monitoring: Vital signs and clinical assessment, continuous EKG monitoring, Pulse oximetry, Carbon Dioxide monitoring and blood pressure monitoring were done throughout the procedure. Colon withdrawal time was 12 minutes. Procedure: The patient was placed in the left lateral decubitis position and pre-procedure medications were administered. After a digital rectal examination of the ano-rectum, the video colonoscope was inserted into the rectum and advanced through the colon to the cecum/TI. The colonoscope was slowly withdrawn in a retrograde panoramic fashion and the colon mucosa was carefully examined including a retroflexed view of the rectum. Findings and interventions are described below. Procedure Difficulty:moderate Findings: Terminal Ileum-normal Cecum:normal Ascending Colon: 13-14 mm sessile polyp lifted w/ eleview then removed with hot snare, 10 mm sessile polyp lifted with eleview and removed with cold snare Transverse Colon -normal Descending Colon:normal Sigmoid Colon: normal Rectum: Retroflexion with medium sized internal hemorrhoids, grade I with skin tag Anorectum - normal Colon preparation: [place] Bowel Preparation Scale Right colon; 2 Transverse colon: 2 Left colon; 2 (0 = Unprepared colon segment with mucosa not seen due to solid stool that cannot be cleared. 1 = Portion of mucosa of the colon segment seen, but other areas of the colon segment not well seen due to staining, residual stool and/or opaque liquid. 2 = Minor amount of residual staining, small fragments of stool and/or opaque liquid, but mucosa of colon segment seen well. 3 = Entire mucosa of colon segment seen well with no residual staining, small fragments of stool or opaque liquid) Impression and Post Procedure Diagnosis: Endoscopy Findings: mild gastritis Colonoscopy Findings: colon polyps internal hemorrhoids Plan: Await Pathology results Repeat Colonoscopy in 5 years due to polyps or earlier if clinically indicated High fiber diet leaflet avoid straining at stool, epsom salts and sitz bath, anusol supps or cream Above findings were reviewed with the patient and relevant handouts were provided if indicated.
[2023-11-20 14:28] VITALS: BP 117/73; PULSE 71; RESP 16; TEMP 36.1; O2SAT 95
[2023-11-20 14:33] VITALS: BP 93/63; PULSE 77; RESP 16; O2SAT 95
[2023-11-20 14:38] VITALS: BP 93/63; PULSE 55; RESP 16; O2SAT 95
[2023-11-20 14:43] VITALS: BP 109/71; PULSE 56; RESP 16; O2SAT 100
[2023-11-20 14:58] VITALS: BP 133/94; PULSE 74; RESP 16; TEMP 36.3; O2SAT 100
== END 2023-11-20 15:19 | disposition home or self-care (01) ==
PROVIDERS: PCP Internal Medicine; Visit Provider Internal Medicine Gastroenterology
PROC: (CPT 45385; principal; 2023-11-20 13:40)
DX: Z12.11 Encounter for screening for malignant neoplasm of colon (principal); D12.2 Benign neoplasm of ascending colon; K64.0 First degree hemorrhoids; K21.9 Gastro-esophageal reflux disease without esophagitis; K29.60 Other gastritis without bleeding; K44.9 Diaphragmatic hernia without obstruction or gangrene; D75.1 Secondary polycythemia; R03.0 Elevated blood-pressure reading, without diagnosis of hypertension; E55.9 Vitamin D deficiency, unspecified; E29.1 Testicular hypofunction; G47.33 Obstructive sleep apnea (adult) (pediatric); Z98.890 Other specified postprocedural states; F17.210 Nicotine dependence, cigarettes, uncomplicated; Z79.899 Other long term (current) drug therapy
CPT/HCPCS: 45385; 45381; 43239; 88305; 88313; J2704

== ENCOUNTER → 2023-11-20 11:52 | Outpatient (BNV) | payer OTHER, SELFPAY | PROVIDERS: PCP Internal Medicine; Visit Provider Internal Medicine Gastroenterology | DX: Z12.11 Encounter for screening for malignant neoplasm of colon (principal); D12.2 Benign neoplasm of ascending colon; K64.0 First degree hemorrhoids; K64.4 Residual hemorrhoidal skin tags; K21.9 Gastro-esophageal reflux disease without esophagitis; K29.70 Gastritis, unspecified, without bleeding | CPT/HCPCS: 43239; 45381; 45385 ==

== ENCOUNTER 2023-11-28 14:26 | Outpatient (AMB) | payer OTHER, SELFPAY ==
--- NOTE | 2023-11-28 14:29 | A.OFFVIS_ITS ---
Vital Signs 11/28/23 14:35 Weight 174 lb BP 132/84 Blood Pressure Location Rt brachial Position Sitting Pulse 88 Intake Visit Reasons: Malignant neoplasm lung Intake Note: Patient referred by pcp Dr. Suero for malignant neoplasm on lung. Patient c/o: phlegm, cough. Smokes about 5 cigs per day. Lung CT: . 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 Required: No Accompanied by: Self / Same As Patient Allergies No Known Allergies [No Known Allergies*] Allergy (Verified 11/28/23 14:37) Medication List - Last Reconciled 11/28/23 by Rick Ponce MD albuterol sulfate 90 mcg/actuation (Ventolin HFA) 2 puffs PO Q6H PRN alprazolam 0.25 mg PO TID PRN 30 days bisacodyl (Dulcolax (bisacodyl)) 20 mg (4 x 5 mg) PO ONCE 1 day buspirone 5 mg PO BID 30 days cholecalciferol (vitamin D3) (Vitamin D3) 50 mcg PO DAILY 90 days cyclobenzaprine 5 mg PO BEDTIME PRN 30 days fluticasone propionate 50 mcg/actuation (Flonase Allergy Relief) 1 spray intranasal DAILY 3 months magnesium oxide 400 mg PO DAILY 30 days melatonin 3 mg PO BEDTIME PRN 30 days multivitamin 1 tab PO DAILY nicotine (polacrilex) (Nicorette) 4 mg buccal Q2-4H 30 days pantoprazole 40 mg PO DAILY polyethylene glycol 3350 (Miralax) 238 grams PO ONCE sildenafil 100 mg PO DAILY PRN syringe with needle (BD Luer-Lalo Syringe) As directed Q2W tamsulosin 0.8 mg (2 x 0.4 mg) PO DAILY 90 days testosterone cypionate 160 mg (0.8 mL) IM Q2W 28 days trazodone 50 mg PO BEDTIME PRN HPI Comments Details: Patient whom I know from the recent past (hernia surgery) who presents here for evaluation/lung cancer screening. Patient has a significant smoking history and has had sequential CT scans a presents here for follow-up regarding this. Patient still smokes but says he is cutting down. He has no respiratory symptoms; he denies any cough, hemoptysis, chest pain, or wheezing. His energy, appetite and weight are stable [facility] Medical History White coat syndrome with hypertension Polycythemia Sleep apnea Anxiety Personal history of nicotine dependence Strain of cervical portion of left trapezius muscle Depression Hypogonadism in male Vitamin D deficiency Neck pain GERD without esophagitis Overweight (BMI 25.0-29.9) Elevated blood pressure reading Insomnia Smoker BPH w urinary obs/LUTS Surgical History Right inguinal hernia (10/13/23) History of open reduction and internal fixation (ORIF) procedure (~2018) History of colonoscopy (~2016) S/P transurethral resection of prostate (~2010) Family History Father Diabetes CAD (coronary artery disease) CKD (chronic kidney disease) Mother Hypertension Depression Hypercholesteremia Lung cancer Brother Myocardial infarction Brother In good health Son In good health Social History Housing: House Alcohol intake: current Alcohol intake frequency: holidays/special occasions only Patient Tobacco Use Status: Current everyday Tobacco user Tobacco use type: Cigarette Cigarette Packs Per Day: 0.5 Cigarettes Per Day: 5 Years Smoked: 30 e-Cigarette/Vaping Use: Never Used Second Hand Smoke Exposure: Yes service: No Current occupational status: employed Cognitive needs: No Hearing needs: Yes Vision needs: Yes (glasses) Physical Exam Vital Signs: Last Vital Signs Pulse 88 11/28/23 14:35 BP 132/84 11/28/23 14:35 Chest Other: Chest breath sounds bilaterally, consistent with mild COPD. No cervical periclavicular or axillary adenopathy bilaterally GI Other: Abdomen is soft, benign Assessment & Plan Assessment & Plan (1) Smoking greater than 40 pack years: Code(s): F17.210 - Nicotine dependence, cigarettes, uncomplicated Category: Surgical Plan Current plan is to arrange for a low-dose CT scan lung cancer screening evaluation a few months time and patient will see me after the study. All questions answered. Arrangements will be made for this. Patient has been strongly encouraged to discontinue smoking. He should contact his medical doctor to aid him in this process. Orders: Orders CT lung screening 6 Months F17.210 - Nicotine dependence, cigarettes, uncomplicated Coding Level of Care Code Est Pt Level 4 (30681) Diagnoses Smoking greater than 40 pack years F17.210
[2023-11-28 14:35] VITALS: BP 132/84; PULSE 88
== END 2023-11-28 14:42 | disposition home or self-care (01) ==
PROVIDERS: PCP Internal Medicine; Referring Provider Internal Medicine; Visit Provider Surgery
DX: F17.210 Nicotine dependence, cigarettes, uncomplicated (principal); Z12.2 Encounter for screening for malignant neoplasm of respiratory organs
CPT/HCPCS: 99213

== ENCOUNTER 2023-11-28 14:26 | Outpatient (REF) | payer OTHER, SELFPAY ==
[2023-11-28 15:04] LABS: MANUAL DIFF FLAG NO
[2023-11-28 15:19] LABS: Basophils Absolute Auto 0.1 X10*3/uL (0.0-0.2); Basophils Percent Auto 0.6 % (0-2); Eosinophils Absolute Auto 0.1 X10*3/uL (0.0-0.4); Eosinophils Percent Auto 0.8 % (0-4); Hematocrit 52.8 % (42.0-52.0); Hemoglobin 18.5 g/dl (14.0-18.0); Imm Gran Abs Auto 0.06 X10*3/uL (0.00-0.03); Imm Gran Pct Auto 0.7 % (0.0-0.4); Lymphocytes Absolute Auto 1.7 X10*3/uL (1.2-4.9); Lymphocytes Percent Auto 19.6 % (20-40); Mean Corpuscular Hemoglobin 32.1 pg (27.0-33.0); Mean Corpuscular Volume 91.7 fL (80.0-98.0); Mean Platelet Volume 8.9 fL (9.4-12.4); Monocytes Absolute Auto 0.5 X10*3/uL (0.1-1.2); Monocytes Percent Auto 6.1 % (2-11); Neutrophils Absolute Auto 6.1 x10*3/uL (2.0-8.3); Neutrophils Percent Auto 72.2 % (45-73); Platelet Count 230 X10*3/uL (160-400); Red Blood Count 5.76 X10*6/uL (4.60-5.80); Red Cell Distribution Width 13.5 % (11.0-16.0); White Blood Count 8.4 X10*3/uL (4.8-10.8)
[2023-11-28 15:51] LABS: Alanine Aminotransferase 37 U/L (0-40); Albumin Level 4.4 g/dL (3.5-5.0); Alkaline Phosphatase 73 U/L (39-117); Anion Gap 9 (12-20); Aspartate Amino Transferase 25 U/L (5-37); Bilirubin Total 0.3 mg/dL (0.0-1.0); Blood Urea Nitrogen 14 mg/dL (9-16); Calcium 9.8 mg/dL (8.4-10.2); Carbon Dioxide 27 mmol/L (22-29); Chloride 107 mmol/L (96-108); Cholesterol 135 mg/dL (<200); Estimated Glomerular Filt Rate > 60; Glucose Fasting 101 mg/dL (60-99); HDL Cholesterol 47 mg/dL (>40); LDL Cholesterol Calculated 60 mg/dL (<100); Sodium 139 mmol/L (135-145); Triglycerides 140 mg/dL (<150)
[2023-11-28 16:11] LABS: Prostate Specific Antigen 3.12 ng/mL (<0.05-4.0)
[2023-12-03 14:33] LABS: Testosterone, Total 987 ng/dL (250-1100)
== END 2023-11-28 14:27 | disposition home or self-care (01) ==
LOC: HO.LAB 14:26
PROVIDERS: Absent Provider Urology; PCP Internal Medicine; Referring Provider Internal Medicine; Visit Provider Surgery
DX: E29.1 Testicular hypofunction (principal); E78.00 Pure hypercholesterolemia, unspecified; I10 Essential (primary) hypertension; F17.210 Nicotine dependence, cigarettes, uncomplicated
CPT/HCPCS: 36415; 80053; 80061; 84153; 84403; 85025; 99212

== ENCOUNTER 2023-11-29 14:14 | Outpatient (REF) | payer OTHER, SELFPAY ==
--- NOTE | ~2023-11-29 | US_ITS ---
EXAMINATION: US PELVIS LIMITED (BLADDER) CLINICAL INFORMATION: Poor urinary stream. COMPARISON: Ultrasound abdomen complete 10/05/2021. TECHNIQUE: Real-time imaging of the bladder. FINDINGS: BLADDER: Well-distended. Mild diffuse irregularity/trabeculation of the bladder wall. Bilateral ureteral jets are demonstrated. Prevoid bladder volume is 334.6 mL. Postvoid volume is 155.6 mL. ADDITIONAL FINDINGS: Enlarged prostate with volume 60.6 mL US/US bladder IMPRESSION: 1. Enlarged prostate. 2. Mild diffuse irregularity/trabeculation of the bladder wall.
== END 2023-11-29 14:15 | disposition home or self-care (01) ==
LOC: HO.US 14:14
PROVIDERS: PCP Internal Medicine; Visit Provider Urology
DX: R39.12 Poor urinary stream (principal); N40.1 Benign prostatic hyperplasia with lower urinary tract symptoms; N13.8 Other obstructive and reflux uropathy
CPT/HCPCS: 76857

== ENCOUNTER 2023-12-04 11:51 | Outpatient (AMB) | payer OTHER, SELFPAY ==
--- NOTE | 2023-12-04 11:56 | A.OFFVIS_ITS ---
Vital Signs 12/04/23 12:11 Height 5 ft 6 in Weight 172 lb BMI 27.8 BP 160/91 H Blood Pressure Location Lt brachial Position Sitting Pulse 86 Intake Visit Reasons: 4 week f/u per dilma Intake Note: Patient 4 week follow up Colonoscopy results Patient denies any GI issues. 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 Patient is little anxious but is happy did is able to go for the procedure. Upper endoscopy as patient continues to have occasional epigastric discomfort postprandially and acid reflux. Currently takes pantoprazole daily. What to expect before during and after procedure discussed with patient. Discussed with patient the importance of good bowel prep before colonoscopy. I will see patient after the procedure, sooner on as needed basis. He is agreeable to this plan and verbalizes understanding of instructions. He was given the opportunity to ask questions and all questions answered. ? Thank you for allowing me to participate in his care Medications New bisacodyl (Dulcolax (bisacodyl)) take 4 tabs at noon the day before your colonoscopy 20 mg (4 x 5 mg) PO ONCE 1 day 4 tabs 0RF Z12.11 polyethylene glycol 3350 (Miralax) As directed by gastro[facility]ology department at [facility] 238 grams PO ONCE 238 grams 0RF Z12.11 ENDOSCOPY AND COLONOSCOPY: Findings: Larynx:normal Esophagus: GE junction at 40 cm, diaphragm hiatus at 40 cm, normal mucosa- bx taken from GEJ and distal esophagus Stomach: mild gastritis. Biopsies were obtained to r/o h pylori. Grade 2 flap valve on retroflexed examination of the cardia. Duodenum: Normal bulb and descending duodenum, Intervention: Biopsies as noted above, COLONOSCOPY Instrument: Olympus variable stiffness pediatric scope 190L Colonoscopy Monitoring: Vital signs and clinical assessment, continuous EKG monitoring, Pulse oximetry, Carbon Dioxide monitoring and blood pressure monitoring were done throughout the procedure. Colon withdrawal time was 12 minutes. Procedure: The patient was placed in the left lateral decubitis position and pre-procedure medications were administered. After a digital rectal examination of the ano-rectum, the video colonoscope was inserted into the rectum and advanced through the colon to the cecum/TI. The colonoscope was slowly withdrawn in a retrograde panoramic fashion and the colon mucosa was carefully examined including a retroflexed view of the rectum. Findings and interventions are described below. Procedure Difficulty:moderate Findings: Terminal Ileum-normal Cecum:normal Ascending Colon: 13-14 mm sessile polyp lifted w/ eleview then removed with hot snare, 10 mm sessile polyp lifted with eleview and removed with cold snare Transverse Colon -normal Descending Colon:normal Sigmoid Colon: normal Rectum: Retroflexion with medium sized internal hemorrhoids, grade I with skin tag Anorectum - normal Colon preparation: [place] Bowel Preparation Scale Right colon; 2 Transverse colon: 2 Left colon; 2 (0 = Unprepared colon segment with mucosa not seen due to solid stool that cannot be cleared. 1 = Portion of mucosa of the colon segment seen, but other areas of the colon segment not well seen due to staining, residual stool and/or opaque liquid. 2 = Minor amount of residual staining, small fragments of stool and/or opaque liquid, but mucosa of colon segment seen well. 3 = Entire mucosa of colon segment seen well with no residual staining, small fragments of stool or opaque liquid) Impression and Post Procedure Diagnosis: Endoscopy Findings: mild gastritis Colonoscopy Findings: colon polyps internal hemorrhoids Plan: Await Pathology results Repeat Colonoscopy in 5 years due to polyps or earlier if clinically indicated High fiber diet leaflet avoid straining at stool, epsom salts and sitz bath, anusol supps or cream PATHOLOGY Diagnosis A. Colon, ascending, polypectomies: - Sessile serrated lesion/polyp; negative for cytologic dysplasia. - Fragments of tubular adenoma; negative for high-grade dysplasia or carcinoma. B. Stomach, biopsy: Oxyntic mucosa within normal limits; no Helicobacter organisms seen. C. EG junction, biopsy: - Cardiofundic-type mucosa with mild chronic inactive inflammation; no intestinal metaplasia seen. - Squamous mucosa within normal limits. D. Esophagus, distal, biopsy: Squamous epithelium within normal limits; no inflammation seen. TODAY'S VISIT Patient is here today for follow-up and to discuss upper endoscopy and colon oscopy results. Couple polyps found, one tubular adenoma without high-grade dysplasia or carcinoma and one sessile serrated polyp negative for high-grade dysplasia or carcinoma. Patient denies any ill effects from the prep, anesthesia or procedure itself. Denies any this dysphagia after procedure. Reports that pantoprazole has been working for him. Denies any melena, hematochezia. Reports that he is moving his bowels without any issues. No H pylori on upper endoscopy, mild chronic inactive inflammation at GE junction. No esophagitis found on distal biopsy. Patient denies any GI concerning symptoms at this time. [facility] Medical History (Updated 12/04/23 @ 20:14 by Janel Pastrana, [facility]) Tubular adenoma of colon White coat syndrome with hypertension Polycythemia Sleep apnea Anxiety Personal history of nicotine dependence Strain of cervical portion of left trapezius muscle Depression Hypogonadism in male Vitamin D deficiency Neck pain GERD without esophagitis Overweight (BMI 25.0-29.9) Elevated blood pressure reading Insomnia Smoker BPH w urinary obs/LUTS Surgical History Right inguinal hernia (10/13/23) History of open reduction and internal fixation (ORIF) procedure (~2018) History of colonoscopy (~2016) S/P transurethral resection of prostate (~2010) Family History Father Diabetes CAD (coronary artery disease) CKD (chronic kidney disease) Mother Hypertension Depression Hypercholesteremia Lung cancer Brother Myocardial infarction Brother In good health Son In good health Social History Housing: House Alcohol intake: current Alcohol intake frequency: holidays/special occasions only Patient Tobacco Use Status: Current everyday Tobacco user Tobacco use type: Cigarette Cigarette Packs Per Day: 0.5 Cigarettes Per Day: 10 Years Smoked: 30 e-Cigarette/Vaping Use: Never Used Second Hand Smoke Exposure: Yes service: No Current occupational status: employed Cognitive needs: No Hearing needs: Yes Vision needs: Yes (glasses) Review of Systems Const Denies weight gain and Denies weight loss ENT Reports no additional complaints, Denies dysphagia and Denies odynophagia Card Reports no additional complaints Resp Reports no additional complaints GI Denies abdominal pain, Denies belching, Denies melena, Denies bloating, Reports hematochezia (Occasional), Denies change in bowel habits, Denies dysphagia, Denies excessive flatus, Denies dyspepsia, Denies heartburn, Denies diarrhea, Denies loose stools, Denies nausea, Denies odynophagia and Denies vomiting Reports no additional complaints Musc Reports no additional complaints Neuro Reports no additional complaints Psych Reports no additional complaints Endo Reports no additional complaints Physical Exam Vital Signs: Last Vital Signs Pulse 86 12/04/23 12:11 BP 160/91 H 12/04/23 12:11 BMI result Body Mass Index 27.8 Const General: healthy appearing, no acute distress and well developed Nutritional Appearance: obese Orientation/consciousness: patient oriented x3 Resp Effort & Inspection: normal respiratory effort, able to speak in complete sentences, no tracheal deviation and symmetric chest movement Auscultation: clear to auscultation bilaterally Cardio Rate: regular rate GI Inspection: Yes normal to inspection, No distended and Yes obesity Palpation (GI): Soft to palpation, not firm, nontender and No hepatosplenomegaly present Auscultation: normal bowel sounds General: Yes no CVA tenderness Back/Spine/Pelvis Back: no CVA tenderness Skin General skin exam: elasticity normal, turgor normal and dry skin Neuro General: patient oriented x3 Psych Appearance: grossly normal Mental Status: mental status grossly normal Assessment & Plan Assessment & Plan (1) GERD without esophagitis: Code(s): K21.9 - Gastro-esophageal reflux disease without esophagitis Category: Medical (2) Tubular adenoma of colon: Code(s): D12.6 - Benign neoplasm of colon, unspecified Category: Medical (3) Status post colonoscopy: Code(s): Z98.890 - Other specified postprocedural states Plan Continue pantoprazole daily. Avoid dietary triggers and late night snacking. Upper endoscopy on as needed basis. Colonoscopy in 5 years due to tubular adenoma and sessile serrated polyp found, sooner if clinically necessary. Return in the office in 4 months, sooner on as needed basis. Patient is agreeable to this plan and verbalizes understanding of instructions. He was given the opportunity to ask questions and all questions answered. Thank you for allowing me to participate in his care Medications: Refilled pantoprazole 40 mg PO DAILY 90 tabs 1RF Coding Level of Care Code Est Pt Level 3 (82027) Diagnoses GERD without esophagitis K21.9 Tubular adenoma of colon D12.6 Status post colonoscopy Z98.890 Time Spent (min) 30 Comment 20 minutes spent with patient and additional 10 minutes spent reviewing his records
[2023-12-04 12:11] VITALS: BP 160/91; PULSE 86; BMI 27.8
== END 2023-12-04 12:42 | disposition home or self-care (01) ==
PROVIDERS: PCP Internal Medicine; Visit Provider Nurse Practitioner Family
DX: K21.9 Gastro-esophageal reflux disease without esophagitis (principal); D12.6 Benign neoplasm of colon, unspecified; Z98.890 Other specified postprocedural states
CPT/HCPCS: 99213

== ENCOUNTER → 2023-12-04 11:51 | Outpatient (BNVA) | payer OTHER, SELFPAY | PROVIDERS: PCP Internal Medicine; Visit Provider Nurse Practitioner Family | DX: K21.9 Gastro-esophageal reflux disease without esophagitis (principal); D12.6 Benign neoplasm of colon, unspecified; Z98.890 Other specified postprocedural states | CPT/HCPCS: 99212 ==

== ENCOUNTER 2023-12-06 13:04 | Outpatient (AMB) | payer OTHER, SELFPAY ==
--- NOTE | 2023-12-06 13:24 | MHC.OFFVIS ---
Intake Visit Reasons: 8M Follow Up-Bladder US/PSA/Testo(11/28) Intake Note: Patient is Present for Follow Up Bladder US/Labs Urology Medication: Testosterone, Sildenafil Antibiotic Allergies: None Blood Thinners: None Branch Officer Required: No Accompanied by: Self / Same As Patient Allergies No Known Allergies [No Known Allergies*] Allergy (Verified 12/06/23 13:25) Medication List - Last Reconciled 12/06/23 by Merrill Calle MD albuterol sulfate 90 mcg/actuation (Ventolin HFA) 2 puffs PO Q6H PRN alprazolam 0.25 mg PO TID PRN 30 days bisacodyl (Dulcolax (bisacodyl)) 20 mg (4 x 5 mg) PO ONCE 1 day buspirone 5 mg PO BID 30 days cholecalciferol (vitamin D3) (Vitamin D3) 50 mcg PO DAILY 90 days cyclobenzaprine 5 mg PO BEDTIME PRN 30 days finasteride 5 mg PO DAILY 90 days fluticasone propionate 50 mcg/actuation (Flonase Allergy Relief) 1 spray intranasal DAILY 3 months magnesium oxide 400 mg PO DAILY 30 days melatonin 3 mg PO BEDTIME PRN 30 days multivitamin 1 tab PO DAILY nicotine (polacrilex) (Nicorette) 4 mg buccal Q2-4H 30 days pantoprazole 40 mg PO DAILY polyethylene glycol 3350 (Miralax) 238 grams PO ONCE sildenafil 100 mg PO ONCE PRN 30 days syringe with needle (BD Luer-Lalo Syringe) As directed Q2W tamsulosin 0.8 mg (2 x 0.4 mg) PO DAILY 90 days testosterone cypionate 160 mg (0.8 mL) IM Q2W 28 days trazodone 50 mg PO BEDTIME PRN HPI Comments Details: Martin OSULLIVAN is a pleasant male. He is a patient of Dr Suero. He is seen for the following urologic conditions. - hypogonadism - lower urinary tract symptoms - erectile dysfunction Current lab work stable Bladder ultrasound shows 60 g prostate with 120 cc residual and bladder wall thickening Worsening bladder emptying Continue with tamsulosin 0.8 mg. Add finasteride. Plan for GreenLight laser repeat procedure on prostate Current therapy 0.7cc q 2 weeks Good lab work Refill Hypogonadism: Lab stable Continue current therapy - every 14 days He presents today for further evaluation and followup of his hypogonadism. - T - 0.7 cc Initial symptoms include erectile dysfunction Yes decreased libido Yes change in mood/depression Yes in muscle size/strength Yes increased fatigue/malaise Yes Laboratory results 11/09 T in 500's, 11/10 T 1200 PSA 2.8. - 05/14 T 430 day 13, PSA 2.9, HCt 53.5, 11/11 T 1174 PSA 4.1, Hct 54 - 06/15 T 844 day 10 - P 2.8 H 53.5 - 11/12 T 671 H 50, 10/14 T 777 H 49 P 2.7, 12/15 T 987 Current therapy includes injectable exogenous testosterone Lower Urinary Tract Symptoms: Current visit is for further evaluation of, lower urinary tract symptoms, predominate obstructive symptoms. Current treatment includes alpha ruthie. - tamsulosin 0.8 mg daily Prostate Symptom Score 4/ , Moderate (9-19), Bother 3. Symptoms include / , incomplete emptying, weak stream, nocturia (>2), and are improving. Prior Prostate Score 4/ , moderate. - prior prostate procedure PSA 11/09 3.2 T 380 Treatment plan continue with current medications [facility] Medical History Tubular adenoma of colon White coat syndrome with hypertension Polycythemia Sleep apnea Anxiety Personal history of nicotine dependence Strain of cervical portion of left trapezius muscle Depression Hypogonadism in male Vitamin D deficiency Neck pain GERD without esophagitis Overweight (BMI 25.0-29.9) Elevated blood pressure reading Insomnia Smoker BPH w urinary obs/LUTS Surgical History Right inguinal hernia (10/13/23) History of open reduction and internal fixation (ORIF) procedure (~2018) History of colonoscopy (~2016) S/P transurethral resection of prostate (~2010) Family History Father Diabetes CAD (coronary artery disease) CKD (chronic kidney disease) Mother Hypertension Depression Hypercholesteremia Lung cancer Brother Myocardial infarction Brother In good health Son In good health Social History Housing: House Alcohol intake: current Alcohol intake frequency: holidays/special occasions only Patient Tobacco Use Status: Current everyday Tobacco user Tobacco use type: Cigarette Cigarette Packs Per Day: 0.5 Cigarettes Per Day: 10 Years Smoked: 30 e-Cigarette/Vaping Use: Never Used Second Hand Smoke Exposure: Yes service: No Current occupational status: employed Cognitive needs: No Hearing needs: Yes Vision needs: Yes (glasses) Review of Systems Const Denies chills and Denies fever(s) Card Reports no additional complaints and Denies syncope Resp Denies cough GI Denies abdominal pain and Denies heartburn Reports as per HPI and Denies change in libido Neuro Denies syncope Psych Denies change in libido Endo Denies change in libido Physical Exam Const General: cooperative, healthy appearing, comfortable and no acute distress Orientation/consciousness: patient oriented x3 HEENT Face and sinus: Yes normal facial exam Mouth: moist mucous membranes Neck Neck: Yes normal visual inspection, Yes full ROM and Yes trachea midline Chest Chest palpation & inspection: normal inspection of the chest Resp Effort & Inspection: normal respiratory effort, able to speak in complete sentences and no respiratory distress GI Inspection: Yes normal to inspection Back/Spine/Pelvis Cervical Spine: normal cervical lordosis Thoracic/Lumbar Spine: thoracic and lumbar spine normal to inspection Skin General skin exam: no rashes or lesions noted Neuro General: patient oriented x3, gait normal, tone normal and moves all extremities Extrem General: Yes normal to inspection and Yes capillary refill normal Assessment & Plan Assessment & Plan (1) BPH w urinary obs/LUTS: Comment: (followed by Dr. Calle) Code(s): N40.1 - Benign prostatic hyperplasia with lower urinary tract symptoms; N13.8 - Other obstructive and reflux uropathy Category: Medical (2) Erectile dysfunction: Code(s): N52.9 - Male erectile dysfunction, unspecified Category: Medical (3) Hypogonadism in male: Code(s): E29.1 - Testicular hypofunction Category: Medical (4) Nocturia associated with benign prostatic hyperplasia: Code(s): N40.1 - Benign prostatic hyperplasia with lower urinary tract symptoms; R35.1 - Nocturia Category: Medical Plan We discussed the nature of the decision and reasonable options for performing a prostate intervention. Interventions include TURP, GreenLight laser enucleation of the prostate, GreenLight laser ablation of the prostate, transurethral incision of the prostate, and I-Tend prostate procedure. Options such as medical therapy were discussed. The relative uncertainties and benefits related to each alternate procedure were adequately discussed. General surgical risks including, but not limited to, pain, bleeding, infection, myocardial infarction, pulmonary embolus, deep vein thrombosis and cerebrovascular accident which may result in further hospitalization were discussed. Full disclosure of the procedure as well as all major risks, benefits and complications were discussed including but not limited to damage to the urethra or bladder neck, recurrent BPH, retrograde ejaculation, bladder infection, urge, de patrice frequency, incomplete emptying, dysuria, remote chance of erectile dysfunction, epididymitis, and meatal stenosis. The success rate of the procedure was discussed. Success of the procedure in the short-term does not necessarily guarantee that long-term success will be maintained. Suitable follow up will need to be maintained. The patient showed understanding of discussion. An opportunity was provided for questions to be answered and wishes to proceed with the following procedure. - GreenLight laser redo Medications: New finasteride 5 mg PO DAILY 90 tabs 1RF 90 days N13.8 - Other obstructive and reflux uropathy, N40.1 - Benign prostatic hyperplasia with lower urinary tract symptoms Patient Instructions: Imaging studies, laboratory and physical exam results were discussed and reviewed in detail. No major barriers to patient understanding were identified. An opportunity to ask questions regarding the treatment plan was provided. All questions were answered. The patient expressed understanding and agreement with the above treatment plan. The patient is aware they should contact our office by phone for worsening of their current condition or the appearance of new urologic symptoms. Compliance is encouraged with any medications and followup testing that is ordered. It is a privilege to participate in the urologic care of your patient. If you have any questions or concerns regarding treatment for the above conditions, or other urologic issues, please do not hesitate to contact me. The office telephone contact is [phone]. This note is constructed using voice recognition software. While every effort has been made to ensure accuracy human factors specialist errors may have been included. Yours sincerely, Dr Merrill Calle MD, [facility] - Urology Providers of Expert, Compassionate Care for the Genitourinary System Coding Level of Care Code Est Pt Level 4 (72957) Diagnoses BPH w urinary obs/LUTS N40.1; N13.8 Erectile dysfunction N52.9 Hypogonadism in male E29.1 Nocturia associated with benign prostatic hyperplasia N40.1; R35.1
== END 2023-12-06 13:57 | disposition home or self-care (01) ==
PROVIDERS: PCP Internal Medicine; Visit Provider Urology
DX: N40.1 Benign prostatic hyperplasia with lower urinary tract symptoms (principal); N13.8 Other obstructive and reflux uropathy; N52.9 Male erectile dysfunction, unspecified; E29.1 Testicular hypofunction; R35.1 Nocturia
CPT/HCPCS: 99214

== ENCOUNTER → 2023-12-06 13:04 | Outpatient (BNVA) | payer OTHER, SELFPAY | PROVIDERS: PCP Internal Medicine; Visit Provider Urology | DX: N40.1 Benign prostatic hyperplasia with lower urinary tract symptoms (principal); E29.1 Testicular hypofunction; N52.9 Male erectile dysfunction, unspecified; R35.1 Nocturia; N13.8 Other obstructive and reflux uropathy | CPT/HCPCS: 99212 ==

== ENCOUNTER 2023-12-22 11:56 | Outpatient (AMB) | payer OTHER, SELFPAY ==
--- NOTE | 2023-12-22 12:01 | MHC.OFFVIS ---
Intake Visit Reasons: Discuss Greenlight Intake Note: Patient is Present for Telephone Follow Up For [facility] Med:Sildenafil,finasteride Antibiotic Allergy:none Blood Thinner:none Allergies No Known Allergies [No Known Allergies*] Allergy (Verified 12/06/23 13:25) HPI Comments Details: Martin OSULLIVAN is a pleasant male. He is a patient of Dr Suero. He is seen for the following urologic conditions. - hypogonadism - lower urinary tract symptoms - erectile dysfunction Telemedicine Evaluation 15 min Consultation Wattpad Arben Video Upcoming GreenLight laser procedure Discussed use of catheter Answered questions He would like to put off decision six-month Bladder ultrasound shows 60 g prostate with 120 cc residual and bladder wall thickening Worsening bladder emptying Current therapy 0.7cc q 2 weeks Good lab work Refill Hypogonadism: Lab stable Continue current therapy - every 14 days He presents today for further evaluation and followup of his hypogonadism. - T - 0.7 cc Initial symptoms include erectile dysfunction Yes decreased libido Yes change in mood/depression Yes in muscle size/strength Yes increased fatigue/malaise Yes Laboratory results 11/09 T in 500's, 11/10 T 1200 PSA 2.8. - 05/14 T 430 day 13, PSA 2.9, HCt 53.5, 11/11 T 1174 PSA 4.1, Hct 54 - 06/15 T 844 day 10 - P 2.8 H 53.5 - 11/12 T 671 H 50, 10/14 T 777 H 49 P 2.7, 12/15 T 987 Current therapy includes injectable exogenous testosterone Lower Urinary Tract Symptoms: Current visit is for further evaluation of, lower urinary tract symptoms, predominate obstructive symptoms. Current treatment includes alpha ruthie. - tamsulosin 0.8 mg daily Prostate Symptom Score 4/ , Moderate (9-19), Bother 3. Symptoms include / , incomplete emptying, weak stream, nocturia (>2), and are improving Prior Prostate Score 4/19 , moderate. - prior prostate procedure PSA 11/09 3.2 T 380 Treatment plan continue with current medications [facility] Medical History Tubular adenoma of colon White coat syndrome with hypertension Polycythemia Sleep apnea Anxiety Personal history of nicotine dependence Strain of cervical portion of left trapezius muscle Depression Hypogonadism in male Vitamin D deficiency Neck pain GERD without esophagitis Overweight (BMI 25.0-29.9) Elevated blood pressure reading Insomnia Smoker BPH w urinary obs/LUTS Surgical History Right inguinal hernia (10/13/23) History of open reduction and internal fixation (ORIF) procedure (~2018) History of colonoscopy (~2016) S/P transurethral resection of prostate (~2010) Family History Father Diabetes CAD (coronary artery disease) CKD (chronic kidney disease) Mother Hypertension Depression Hypercholesteremia Lung cancer Brother Myocardial infarction Brother In good health Son In good health Social History Housing: House Alcohol intake: current Alcohol intake frequency: holidays/special occasions only Patient Tobacco Use Status: Current everyday Tobacco user Tobacco use type: Cigarette Cigarette Packs Per Day: 0.5 Cigarettes Per Day: 10 Years Smoked: 30 e-Cigarette/Vaping Use: Never Used Second Hand Smoke Exposure: Yes service: No Current occupational status: employed Cognitive needs: No Hearing needs: Yes Vision needs: Yes (glasses) Review of Systems Const All systems reviewed & are unremarkable except as noted in HPI and below Reports no additional complaints Resp Reports no additional complaints GI Reports no additional complaints Reports as per HPI Musc Reports no additional complaints Physical Exam Telemedicine evaluation Appropriate responses Regular breathing rate and rhythm HEENT Head: Yes normal to inspection Ears: hearing grossly normal bilaterally Eyes General: appearance normal, both eyes and all related structures Neck Neck: Yes normal visual inspection Chest Chest palpation & inspection: normal inspection of the chest Resp Effort & Inspection: normal respiratory effort and able to speak in complete sentences Telehealth Telehealth Telehealth Platform: Telephone Location of provider rendering services: practice address Location of patient: address on file Patient Identification confirmed using: Name, : Yes Telehealth method: voice only Patient verbally consented to treatment: Yes Patient verbally consented to billing insurance company: Yes Patient informed of any privacy concerns related to visit: Yes Assessment & Plan Assessment & Plan (1) BPH w urinary obs/LUTS: Comment: (followed by Dr. Calle) Code(s): N40.1 - Benign prostatic hyperplasia with lower urinary tract symptoms; N13.8 - Other obstructive and reflux uropathy Category: Medical (2) Nocturia associated with benign prostatic hyperplasia: Code(s): N40.1 - Benign prostatic hyperplasia with lower urinary tract symptoms; R35.1 - Nocturia Category: Medical (3) Weak urinary stream: Code(s): R39.12 - Poor urinary stream Category: Medical Plan Six-month follow-up Patient Instructions: Imaging studies, laboratory and physical exam results were discussed and reviewed in detail. No major barriers to patient understanding were identified. An opportunity to ask questions regarding the treatment plan was provided. All questions were answered. The patient expressed understanding and agreement with the above treatment plan. The patient is aware they should contact our office by phone for worsening of their current condition or the appearance of new urologic symptoms. Compliance is encouraged with any medications and followup testing that is ordered. It is a privilege to participate in the urologic care of your patient. If you have any questions or concerns regarding treatment for the above conditions, or other urologic issues, please do not hesitate to contact me. The office telephone contact is [phone]. This note is constructed using voice recognition software. While every effort has been made to ensure accuracy assistant associate professor errors may have been included. Yours sincerely, Dr Merrill Calle MD, [facility] - Urology Providers of Expert, Compassionate Care for the Genitourinary System Coding Level of Care Code Tele Est Pt Level 3 (75269) Diagnoses BPH w urinary obs/LUTS N40.1; N13.8 Nocturia associated with benign prostatic hyperplasia N40.1; R35.1 Weak urinary stream R39.12
== END 2023-12-22 12:44 | disposition home or self-care (01) ==
PROVIDERS: PCP Internal Medicine; Visit Provider Urology
DX: N40.1 Benign prostatic hyperplasia with lower urinary tract symptoms (principal); N13.8 Other obstructive and reflux uropathy; R35.1 Nocturia; R39.12 Poor urinary stream
CPT/HCPCS: 99213

== ENCOUNTER → 2023-12-22 11:56 | Outpatient (BNVA) | payer OTHER, SELFPAY | PROVIDERS: PCP Internal Medicine; Visit Provider Urology ==

== ENCOUNTER 2024-04-08 13:56 | Outpatient (AMB) | payer OTHER, SELFPAY ==
--- OUTSIDE RECORDS SUMMARY | 2024-04-08 14:01 | XMS_ITS | Continuity of Care Document ---
Author Organization [place] - [facility], [facility] Address [address] [place] [address] Care Team Providers Care Seismic Prospecting Supervisor Name Role Phone TEAGAN CORDON Primary Care Provider [phone] Assessment Encounter Date Assessment Date Assessment LastModified by Organization Details LastModified Time 02/23/2024 02/23/2024 58-year-old male presents for evaluation of tinnitus. Otologic exam is unremarkable today. Recommended updated audiometric testing. Reviewed masking techniques and pathophysiology of tinnitus in detail. He would be a good candidate for amplification. Was provided a copy of his hearing test and medical clearance. He was also given a [facility] provider sheet for reference. Recommend updated audiometric testing every 1 to 2 years. Was also provided information for tinnitus retraining program. He is very interested in pursuing this option. [email or web address] Not available 02/23/2024 14:51:23 Plan of Treatment Reminders Order Date Submit Date Provider Last Modified By Organization Details Last Modified Time Details Appointments None record ed. Lab None record ed. Referral None record ed. Procedures None record ed. Surgeries None record ed. Imaging None record ed. Medication Orders None record ed. Patient TargetsNo targets recorded. Patient InstructionsNo instructions recorded. Reason for Referral None Reported. Results Created Date Observation Date Name Description Value Unit Range Abnormal Flag Note LastModifiedBy Organization Detail LastModifiedTime 02/28/20 24 audio gram No observ ation record ed. BARCODE Not Available 2023 14:39:40 Result Notes None recorded. Problems Name Problem SNOMED Code Status Onset Date Resolution Date Notes Provider Name and Address Organization Details Recorded Time Sensorine ural hearing loss in left ear 61145929060 109 Active 2016 Sensorine ural hearing loss, unilatera l, left ear, with restricte d hearing on the contralat eral side; Note: Date Diagnosed : 7 3:58 PM (H90.A22) Not Available [facility] 4 03:03:47 Deviated nasal septum 519842886 Active 2016 Deviated nasal septum; Note: Date Diagnosed : 7 2:37 PM (J34.2) Not Available [facility] 4 03:03:47 Itching of skin 550368669 Active 2019 Pruritus, unspecifi ed; Note: Date Diagnosed : 07/05/2019 1:58 PM (L29.9) Not Available [facility] 4 03:03:45 Nasal congestio n 00389416 Active 2017 Nasal congestio n; Note: Date Diagnosed : 05/15/2017 3:12 PM (R09.81) Not Available [facility] 4 03:03:46 Sensorine ural hearing loss in right ear 81218782226 100 Active 2022 Sensorine ural hearing loss, unilatera l, right ear, with restricte d hearing on the contralat eral side; Note: Date Diagnosed : 3 4:41 PM (H90.A21) Not Available [facility] 4 03:03:45 Subjectiv e tinnitus 49312674 Active 2016 Subjectiv e tinnitus; Note: Date Diagnosed : 7 2:38 PM (388.31) Not Available [facility] 4 03:03:47 Asymmetri allyssa sensorine ural hearing loss 765622307 Active 2016 Hearing loss: Sensorine ural hearing loss, asymmetri allyssa; Note: Date Diagnosed : 7 2:38 PM (389.16) Not Available [facility] 4 03:03:47 Mixed conductiv e and sensorine ural hearing loss of left ear 92637250937 107 Active 2022 Mixed conductiv e and sensorine ural hearing loss, unilatera l, left ear with restricte d hearing on the contralat eral side; Note: Date Diagnosed : 3 4:41 PM (H90.A32) Not Available [facility] 4 03:03:45 Bilateral tinnitus 51329371430 02 Active 2020 Tinnitus, bilateral ; Note: Date Diagnosed : 03/25/2021 5:15 PM (H93.13) Not Available [facility] 4 03:03:46 Sensorine ural hearing loss of bilateral ears 124430161 Active 2019 Sensorine ural hearing loss, bilateral ; Note: Date Diagnosed : 07/05/2019 1:25 PM (H90.3) Not Available [facility] 4 03:03:46 Acute maxillary sinusitis 08995428 Active 2017 Acute maxillary sinusitis , unspecifi ed; Note: Date Diagnosed : 09/11/2017 3:26 PM (J01.00) Not Available [facility] 4 03:03:46 Tinnitus of left ear 07222692344 06 Active 2016 Tinnitus, left ear; Note: Date Diagnosed : 7 2:01 PM (H93.12) Not Available [facility] 4 03:03:46 Bilateral disorder of Eustachia n tubes 25870816448 54162 Active 2023 Other specified disorders of Eustachia n tube, bilateral ; Note: Date Diagnosed : 08/23/2023 2:09 PM (H69.83) Not Available [facility] 4 03:03:45 Allergic rhinitis caused by pollen 51534807 Active 2023 Allergic rhinitis due to pollen; Note: Date Diagnosed : 08/23/2023 2:09 PM (J30.1) Not Available [facility] 4 03:03:47 Problem Notes None recorded. Procedures Surgical History Date Name Laterality Status Provider Name and Address Organization Details Recorded Time 02/23/2024 Air & Speech Audio with Tymps (39820, 61263 & 71658) completed Ade Paul [place] [facility] 02/23/2024 14:32:24 Imaging Results None recorded. Procedure Notes None recorded. Medical Equipment None Reported. Medications Name Sig Start Date Stop Date Status Note LastModified by Organization Details LastModified Time amoxicill in 500 mg capsule active Not Available Not Available Not Available buspirone 5 mg tablet TAKE 1 TABLET BY MOUTH TWICE A DAY active Not Available Not Available No t Available trazodone 50 mg tablet TAKE 1 TABLET ORALLY AT BEDTIME NEEDED FOR FOR INSOMNIA active Not Available Not Available No t Available tizanidin e 4 mg tablet 2017 active Medicati on ID: [id number] D uration Value: 30 Brand Name: figueroa bedolla Send Method: E-Prescr ibed Sub s Allowed: subs OK Medic ationGen ericName : figueroa bedolla Not Available Not Available Not Available hydrocodo ne 5 mg-acetam inophen 325 mg tablet TAKE 1 TABLET BY MOUTH EVERY 4 TO 6 HOURS NEEDED FOR PAIN active Not Available Not Available No t Available melatonin 3 mg tablet TAKE ONE TABLET BY MOUTH AT BEDTIME NEEDED FOR SLEEP active Not Available Not Available No t Available sildenafi l 100 mg tablet TAKE 1 TABLET BY MOUTH ONCE A DAY 60 MINUTES BEFORE INTENDED ACTIVITY active Not Available Not Available No t Available alprazola m 0.25 mg tablet TAKE 1 TABLET BY MOUTH 3 TIMES A DAY NEEDED FOR ANXIETY active Not Available Not Available No t Available magnesium oxide 400 mg (241.3 mg magnesium ) tablet TAKE ONE TABLET BY MOUTH EVERY DAY active Not Available Not Available No t Available tamsulosi n 0.4 mg capsule TAKE 2 CAPSULES BY MOUTH EVERY DAY active Not Available Not Available No t Available nicotine (polacril ex) 4 mg gum CHEW AND PARK 1 PIECE IN POCKET OF CHEEK EVERY 2 TO 4 HOURS FOR CRAVINGS active Not Available Not Available No t Available pantopraz ole 40 mg tablet,de layed release TAKE 1 TABLET BY MOUTH EVERY DAY active Not Available Not Available No t Available testoster one cypionate 200 mg/mL intramusc ular oil INJECT (0.8 ML) INTRAMUS CULARLY EVERY 2 WEEKS FOR 28 DAYS active Not Available Not Available No t Available BD Luer-Lalo Syringe 3 mL 21 gauge x 1 1/2 USE EVERY 2 WEEKS DIRECTED active Not Available Not Available No t Available fluticaso ne propionat e 50 mcg/actua tion nasal spray,[employer] USE 1 SPRAY IN EACH NOSTRIL EVERY DAY active Not Available Not Available No t Available ipratropi um bromide 21 mcg (0.03 %) nasal spray [place] 2 spray into both nostrils three times a day 2019 active Medicati on ID: [id number] P rescribe d By Name: KENNEDI Thomson nd Name: ipratrop ium bromide Send Method: E-Prescr ibed Sub s Allowed: subs OK Medic ationGen ericName : ipratrop ium bromide Not Available Not Available Not Available finasteri de 5 mg tablet TAKE 1 TABLET BY MOUTH EVERY DAY active Not Available Not Available No t Available Ventolin HFA 90 mcg/actua tion aerosol inhaler INHALE 2 PUFF ORALLY EVERY 6 HOURS NEEDED FOR FOR WHEEZING active Not Available Not Available No t Available cyclobenz aprine 5 mg tablet TAKE 1 TABLET BY MOUTH DAILY BEDTIME NEEDED FOR MUSCLE SPASM FOR 30 DAYS active Not Available Not Available No t Available DermOtic Oil 0.01 % ear drops 2 drop 06/15 completed Medicati on ID: [id number] P rescribe d By Name: KENNDEI Borrego nd Name: DermOtic Oil Send Method: E-Prescr ibed Sub s Allowed: subs OK Speci al Instruct ion: as needed for ear itching Medicati onGeneri cName: DermOtic Oil Not Available Not Available Not Available cholecalc iferol (vitamin D3) 50 mcg (2,000 unit) capsule TAKE 1 CAPSULE BY MOUTH EVERY DAY active Not Available Not Available No t Available cholecalc iferol (vitamin D3) 50 mcg (2,000 unit) tablet TAKE 1 TABLET BY MOUTH EVERY DAY active Not Available Not Available No t Available Gavilax 17 gram/dose oral powder 238 G ORALLY ONCE DIRECTED BY GASTROEN TEROLOGY DEPARTME NT AT [facility] active Not Available Not Available No t Available Flowflex COVID-19 Antigen Home Test kit USE DIRECTED ON PACKAGIN G active Not Available Not Available No t Available Vitals Date Recorded Body height Body mass index (BMI) Body weight Provider Name and Address Organization Details Last Updated DateTime 02/23/2024 167.64 cm 29.1 kg/m2 44007.63 g Yola Greenfield [place] - [facility] 02/23/2024 13:30:52 Social History None recorded. Functional Status None recorded. Mental Status None recorded. Family History Nothing Reported. Medical History No medical history recorded. Past Encounters Encounter ID Performer Location Encounter Start Date Encounter Closed Date Diagnosis/Indication Diagnosis SNOMED-CT Code Diagnosis ICD10 Code [id number] MICHELLE LLOYD MD [facility] [address] [address] 02/23/2024 13:16:05 02/23/2024 14:47:11 Bilateral tinnitus 3970434816 102 H93.13 Sensorineu ral hearing loss of bilateral ears 817779390 H90.3 Health Concerns Section Related Observation LastModified by Organization Detai ls LastModified Time None Recorded Concern Status LastModified by Organization Details LastModified Time None Recorded Payers Encounter Date Sequence Insurance Name Policy Number Policy Shea Covered Member ID Shea Member ID Guarantor Name 02/23/2024 1 [employer] - HEALTH NET PLAN (MEDICAID HMO) NARENDRA Isaac [id number] Rai Isaac Notes Date Note Type Note Provider Name and Address Organization Details Recorded Time 02/23/2024 text/html 58-year-old male presents for reevaluation of tinnitus. Previously diagnosed with sensorineural hearing loss but decided against amplification. His tinnitus has become very bothersome and he is reconsidering hearing aids at this time. MICHELLE LLOYD MD [address] [place] [address], [id number], [facility] - [facility] 02/25/2024 07:04:23
--- OUTSIDE RECORDS SUMMARY | 2024-04-08 14:01 | XMS_ITS | Data Portability ---
Author Organization [place] - [facility], Allergy Address [address] [address] Care Team Providers Care Product Development Engineer Name Role Phone NERIS TEAGAN Primary Care Provider Assessment Encounter Date Assessment Date Assessment LastModified by Organization Details LastModified Time 02/23/2024 02/23/2024 58-year-old male presents for evaluation of tinnitus. Otologic exam is unremarkable today. Recommended updated audiometric testing. Reviewed masking techniques and pathophysiology of tinnitus in detail. He would be a good candidate for amplification. Was provided a copy of his hearing test and medical clearance. He was also given a [facility] provider sheet for reference. Recommend updated audiometric testing every 1 to 2 years. Was also provided information for tinnitus retraining program. He is very interested in pursuing this option. [email or web address] Not available 02/23/2024 14:51:23 Plan of Treatment [...] Sensorine ural hearing loss in left ear 81273253473 109 Active 2016 Sensorine ural hearing loss, unilatera l, left ear, with restricte d hearing on the contralat eral side; Note: Date Diagnosed : 7 3:58 PM (H90.A22) Not Available [facility] 4 03:03:47 Deviated nasal septum 927925706 Active 2016 Deviated nasal septum; Note: Date Diagnosed : 7 2:37 PM (J34.2) Not Available [facility] 4 03:03:47 Itching of skin 614402007 Active 2019 Pruritus, unspecifi ed; Note: Date Diagnosed : 07/05/2019 1:58 PM (L29.9) Not Available [facility] 4 03:03:45 Nasal congestio n 65943136 Active 2017 Nasal congestio n; Note: Date Diagnosed : 05/15/2017 3:12 PM (R09.81) Not Available [facility] 4 03:03:46 Sensorine ural hearing loss in right ear 91384551082 100 Active 2022 Sensorine ural hearing loss, unilatera l, right ear, with restricte d hearing on the contralat eral side; Note: Date Diagnosed : 3 4:41 PM (H90.A21) Not Available [facility] 4 03:03:45 Subjectiv e tinnitus 76637988 Active 2016 Subjectiv e tinnitus; Note: Date Diagnosed : 7 2:38 PM (388.31) Not Available [facility] 4 03:03:47 Asymmetri allyssa sensorine ural hearing loss 380543106 Active 2016 Hearing loss: Sensorine ural hearing loss, asymmetri allyssa; Note: Date Diagnosed : 7 2:38 PM (389.16) Not Available [facility] 4 03:03:47 Mixed conductiv e and sensorine ural hearing loss of left ear 69616690622 107 Active 2022 Mixed conductiv e and sensorine ural hearing loss, unilatera l, left ear with restricte d hearing on the contralat eral side; Note: Date Diagnosed : 3 4:41 PM (H90.A32) Not Available [facility] 4 03:03:45 Bilateral tinnitus 64571634747 02 Active 2020 Tinnitus, bilateral ; Note: Date Diagnosed : 03/25/2021 5:15 PM (H93.13) Not Available [facility] 4 03:03:46 Sensorine ural hearing loss of bilateral ears 250646587 Active 2019 Sensorine ural hearing loss, bilateral ; Note: Date Diagnosed : 07/05/2019 1:25 PM (H90.3) Not Available [facility] 4 03:03:46 Acute maxillary sinusitis 75713821 Active 2017 Acute maxillary sinusitis , unspecifi ed; Note: Date Diagnosed : 09/11/2017 3:26 PM (J01.00) Not Available [facility] 4 03:03:46 Tinnitus of left ear 22651735268 06 Active 2016 Tinnitus, left ear; Note: Date Diagnosed : 7 2:01 PM (H93.12) Not Available [facility] 4 03:03:46 Bilateral disorder of Eustachia n tubes 78293240030 14999 Active 2023 Other specified disorders of Eustachia n tube, bilateral ; Note: Date Diagnosed : 08/23/2023 2:09 PM (H69.83) Not Available [facility] 4 03:03:45 Allergic rhinitis caused by pollen 10551990 Active 2023 Allergic rhinitis due to pollen; Note: Date Diagnosed : 08/23/2023 2:09 PM (J30.1) Not Available [facility] 4 03:03:47 Problem Notes None recorded. Procedures Surgical History Date Name Laterality Status Provider Name and Address Organization Details Recorded Time 02/23/2024 Air & Speech Audio with Tymps (63754, 27974 & 92000) completed Ade Paul MA - [facility] 02/23/2024 14:32:24 Imaging Results Imaging Date Name Status LastModified by [facility] Details LastModified Time 02/28/2024 audiogram completed BARCODE Information no t available 02/28/2024 14:39:40 Procedure Notes None recorded. Medical Equipment None [...] mg tablet 2017 active Medicati on ID: [id number] D uration Value: 30 Brand Name: figueroa bedolla Send Method: E-Prescr ibed Sub s Allowed: subs OK Medic ationGen ericName : figueroa ne Not Available Not Available Not Available hydrocodo [...] bromide 21 mcg (0.03 %) nasal spray [place] 2 spray into both nostrils three times a day 2019 active Medicati on ID: [id number] P rescribe d By Name: KENNEDI Thomson [...] 2 drop 06/15 completed Medicati on ID: [id number] P rescribe d By Name: KENNEDI Borrego nd Name: DermOtic Oil Send Method: [...] DIRECTED BY GASTROEN TEROLOGY DEPARTME NT AT [facility] active Not Available Not Available No t Available Flowflex COVID-19 Antigen Home Test kit USE DIRECTED ON PACKAGIN G active Not Available Not Available No t Available Vitals Date Recorded Body height Body mass index (BMI) Body weight Provider Name and Address Organization Details Last Updated DateTime 02/23/2024 167.64 cm 29.1 kg/m2 02770.63 g Yola Greenfield MA - [facility] 02/23/2024 13:30:52 Social History None recorded. Functional Status None recorded. Mental Status None recorded. Family History Nothing Reported. Medical History No medical history recorded. Past Encounters Encounter ID Performer Location Encounter Start Date Encounter Closed Date Diagnosis/Indication Diagnosis SNOMED-CT Code Diagnosis ICD10 Code [id number] MICHELLE LLOYD MD [facility] [address] [address] 02/23/2024 13:16:05 02/23/2024 14:47:11 Bilateral tinnitus 3414784843 102 H93.13 Sensorineu ral hearing loss of bilateral ears 712688729 H90.3 Health Concerns Section Related Observation LastModified by Organization Detai ls LastModified Time None Recorded Concern Status LastModified by Organization Details LastModified Time None Recorded Advance Directives Directive None Recorded Payers Encounter Date Sequence Insurance Name Policy Number Policy Shea Covered Member ID Shea Member ID Guarantor Name 02/23/2024 1 [facility] HEALTH [facility] PLAN (MEDICAID HMO) NARENDRA Isaac [id number] Rai Isaac Notes Date Note Type Note Provider Name and Address Organization Details Recorded Time 02/23/2024 text/html 58-year-old male presents for reevaluation of tinnitus. Previously diagnosed with sensorineural hearing loss but decided against amplification. His tinnitus has become very bothersome and he is reconsidering hearing aids at this time. MICHELLE LLOYD MD [address] [place] [address], [id number] [place] - [facility] 02/25/2024 07:04:23
[2024-04-08 14:09] VITALS: BP 189/100; PULSE 64; BMI 28.6
--- NOTE | 2024-04-08 14:09 | MHC.OFFVIS ---
Vital Signs 04/08/24 14:09 Height 5 ft 8 in Weight 188 lb BMI 28.6 BP 189/100 H Blood Pressure Location Rt brachial Position Sitting Pulse 64 Intake Visit Reasons: wound check Intake Note: Patient here for wound check. Hx: FE on 10-13-2023. Patient c/o: discomfort. tender with touch. 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 Presents for wound check. He would like to recommenced is strenuous activities and workouts. He has several weeks postop and was told he can do so. [facility] Medical History Smoker Polycythemia White coat syndrome with hypertension Elevated blood pressure reading Sleep apnea GERD without esophagitis Tubular adenoma of colon Nicotine dependence, cigarettes, uncomplicated BPH w urinary obs/LUTS Hypogonadism in male Vitamin D deficiency Insomnia Anxiety Depression Strain of cervical portion of left trapezius muscle Overweight (BMI 25.0-29.9) Surgical History History of esophagogastroduodenoscopy (EGD) History of right inguinal hernia repair History of open reduction and internal fixation (ORIF) procedure (~2018) History of colonoscopy (~2016) S/P transurethral resection of prostate (~2010) Family History Father Diabetes CAD (coronary artery disease) CKD (chronic kidney disease) Mother Hypertension Depression Hypercholesteremia Lung cancer Brother Myocardial infarction Brother In good health Son In good health Social History Housing: House Alcohol intake: current Alcohol intake frequency: holidays/special occasions only Patient Tobacco Use Status: Current everyday Tobacco user Tobacco use type: Cigarette Cigarette Packs Per Day: 0.5 Cigarettes Per Day: 10 Years Smoked: 30 e-Cigarette/Vaping Use: Never Used Second Hand Smoke Exposure: Yes service: No Current occupational status: employed Cognitive needs: No Hearing needs: Yes Vision needs: Yes (glasses) Physical Exam Vital Signs: Last Vital Signs Pulse 64 04/08/24 14:09 BP 189/100 H 04/08/24 14:09 BMI result Body Mass Index 28.6 GI Other: Abdomen is soft. Incision clean dry and intact well healed. No evidence of any recurrence or infection. Assessment & Plan Assessment & Plan (1) Status post right inguinal hernia repair: Code(s): Z98.890 - Other specified postprocedural states; Z87.19 - Personal history of other diseases of the digestive system Category: Medical Plan Patient was been given local instructions, and will otherwise follow-up p.r.n.. All questions answered. Coding Level of Care Code Global (93716) Diagnoses Status post right inguinal hernia repair Z98.890; Z87.19
== END 2024-04-08 14:13 | disposition home or self-care (01) ==
LOC: HO.HGS 13:56
PROVIDERS: PCP Internal Medicine; Visit Provider Surgery
DX: Z09 Encounter for follow-up examination after completed treatment for conditions other than malignant neoplasm (principal); Z87.19 Personal history of other diseases of the digestive system
CPT/HCPCS: 99212

== ENCOUNTER → 2024-04-08 13:56 | Outpatient (BNVA) | payer OTHER, SELFPAY | PROVIDERS: PCP Internal Medicine; Visit Provider Surgery | DX: Z09 Encounter for follow-up examination after completed treatment for conditions other than malignant neoplasm (principal); Z87.19 Personal history of other diseases of the digestive system; Z98.890 Other specified postprocedural states | CPT/HCPCS: 99212 ==

== ENCOUNTER 2024-04-08 14:17 | Outpatient (REF) | payer OTHER, SELFPAY ==
[2024-04-08 14:53] LABS: Hematocrit 48.5 % (42.0-52.0); Hemoglobin 17.1 g/dl (14.0-18.0); Mean Corpuscular HGB Conc 35.3 g/dl (31.0-36.0); Mean Corpuscular Hemoglobin 31.8 pg (27.0-33.0); Mean Corpuscular Volume 90.1 fL (80.0-98.0); Mean Platelet Volume 9.4 fL (9.4-12.4); Platelet Count 225 X10*3/uL (160-400); Red Blood Count 5.38 X10*6/uL (4.60-5.80); White Blood Count 5.8 X10*3/uL (4.8-10.8)
[2024-04-08 15:45] LABS: Prostate Specific Antigen 2.54 ng/mL (<0.05-4.0)
== END 2024-04-08 14:18 | disposition home or self-care (01) ==
LOC: HO.LAB 14:17
PROVIDERS: PCP Internal Medicine; Visit Provider Urology
DX: R03.0 Elevated blood-pressure reading, without diagnosis of hypertension (principal); D75.1 Secondary polycythemia; K21.9 Gastro-esophageal reflux disease without esophagitis; M47.812 Spondylosis without myelopathy or radiculopathy, cervical region; E55.9 Vitamin D deficiency, unspecified; N40.1 Benign prostatic hyperplasia with lower urinary tract symptoms; N13.8 Other obstructive and reflux uropathy; E29.1 Testicular hypofunction; G47.00 Insomnia, unspecified; F41.9 Anxiety disorder, unspecified; F33.9 Major depressive disorder, recurrent, unspecified; E66.3 Overweight; Z68.28 Body mass index [BMI] 28.0-28.9, adult; F17.200 Nicotine dependence, unspecified, uncomplicated; Z79.82 Long term (current) use of aspirin; Z79.899 Other long term (current) drug therapy
CPT/HCPCS: 36415; 84153; 85027; 96127; 99212

== ENCOUNTER 2024-04-08 17:15 | Outpatient (AMB) | payer OTHER, SELFPAY ==
[2024-04-08 17:16] VITALS: BP 140/96; PULSE 66; O2SAT 98; BMI 28.9
--- NOTE | 2024-04-08 17:16 | A.OFFPC_ITS ---
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 Accompanied by: Self / Same As Patient Allergies No Known Allergies [No Known Allergies*] Allergy (Verified 04/09/24 03:25) Medication List - Last Reconciled 04/09/24 by Prateek Suero MD albuterol sulfate 90 mcg/actuation (Ventolin HFA) 2 puffs PO Q6H PRN alprazolam 0.25 mg PO TID PRN 30 days bisacodyl (Dulcolax (bisacodyl)) 20 mg (4 x 5 mg) PO ONCE 1 day buspirone 5 mg PO BID 30 days cholecalciferol (vitamin D3) (Vitamin D3) 50 mcg PO DAILY 90 days cyclobenzaprine 5 mg PO BEDTIME PRN 30 days finasteride 5 mg PO DAILY 90 days fluticasone propionate 50 mcg/actuation (Flonase Allergy Relief) 1 spray intra nasal DAILY 3 months magnesium oxide 400 mg PO DAILY 30 days melatonin 3 mg PO BEDTIME PRN 30 days multivitamin 1 tab PO DAILY nicotine (polacrilex) (Nicorette) 4 mg buccal Q2-4H 30 days pantoprazole 40 mg PO DAILY polyethylene glycol 3350 (Miralax) 238 grams PO ONCE sildenafil 100 mg PO ONCE PRN 30 days syringe with needle (BD Luer-Lalo Syringe) As directed Q2W tamsulosin 0.8 mg (2 x 0.4 mg) PO DAILY 90 days testosterone cypionate 160 mg (0.8 mL) IM Q2W 28 days trazodone 50 mg PO BEDTIME PRN Tobacco use date assessed: 04/08/24 Dental Screening Dental Screen Date: 04/08/24 Did you have a dental visit in the last 12 months?: Yes Did you have a dental problem in the last 6 months where you did not have access to dental care?: No Was dental information given to patient?: Patient has dentist HPI 6 MONTH HPI Details Patient comes in today for his follow-up visit States that he feels okay He denies any headaches or dizziness Denies any chest pains, no increased shortness of breath No nausea vomiting, no abdominal pain No change in bowel habits noted [facility] Medical History Smoker Polycythemia White coat syndrome with hypertension Elevated blood pressure reading Sleep apnea GERD without esophagitis Tubular adenoma of colon Nicotine dependence, cigarettes, uncomplicated BPH w urinary obs/LUTS Hypogonadism in male Vitamin D deficiency Insomnia Anxiety Depression Strain of cervical portion of left trapezius muscle Overweight (BMI 25.0-29.9) Surgical History History of esophagogastroduodenoscopy (EGD) History of right inguinal hernia repair History of open reduction and internal fixation (ORIF) procedure (~2018) History of colonoscopy (~2016) S/P transurethral resection of prostate (~2010) Family History Father Diabetes CAD (coronary artery disease) CKD (chronic kidney disease) Mother Hypertension Depression Hypercholesteremia Lung cancer Brother Myocardial infarction Brother In good health Son In good health Social History Housing: House Alcohol intake: current Alcohol intake frequency: holidays/special occasions only Patient Tobacco Use Status: Current everyday Tobacco user Tobacco use type: Cigarette Cigarette Packs Per Day: 0.5 Cigarettes Per Day: 10 Years Smoked: 30 e-Cigarette/Vaping Use: Never Used Second Hand Smoke Exposure: Yes service: No Current occupational status: employed Cognitive needs: No Hearing needs: Yes Vision needs: Yes (glasses) Questionnaire PHQ-9 Over the last 2 weeks, how often have you been bothered by any of the following problems? 1. Little interest or pleasure in doing things: several days 2. Feeling down, depressed, or hopeless: several days 3. Trouble falling or staying asleep, or sleeping too much: several days 4. Feeling tired or having little energy: several days 5. Poor appetite or overeating: several days 6. Feeling bad about yourself - or that you are a failure or have let yourself or your family down: several days 7. Trouble concentrating on things, such as reading the newspaper or watching television: several days 8. Moving or speaking so slowly that other people could have noticed. Or the opposite - being so fidgety or restless that you have been moving around a lot more than usual: several days 9. Thoughts that you would be better off or of hurting yourself in some way: not at all Total score: 8 Depression Screening Interpretation: Positive Depression Screening Follow-up: Existing condition and In treatment Depression Screening Done: Yes 72721 - PHQ-9 Billing: Yes Source: Developed by Drs. Cruz Walters, Rosario Morgan, Jf Shaffer and colleagues, with an educational kym from [employer]. Thrive Questionnaire Date Thrive assessed: 04/08/24 I am a: Patient What is your living situation today?: I have a steady place to live Within the past 12 months, did the food you bought not last and you didn't have the money to get more?: Never true Within the past 12 months, did you worry whether your food would run out before you got money to buy more?: Never true Do you have trouble paying for medicines?: No Do you have trouble getting transportation to medical appointments?: No Do you have trouble paying your heating and electricity bill?: No Do you have trouble taking care of your child, family member or friend?: No Do you have trouble with day-to-day activities such as bathing, preparing meals, shopping, managing finances, etc.?: No Are you currently unemployed and looking for a job?: No Are you interested in more education?: No Please select the resources that you would like help with: None Currently or been in a relationship where the following occur: No concerns reported THRIVE Score: 0 AUDIT C Alcohol Use Questionnaire (AUDIT-C) 1. How often do you have a drink containing alcohol?: Monthly or less 2. How many drinks containing alcohol do you have on a typical day when you are drinking?: 3 or 4 3. How often do you have six or more drinks on one occasion?: Monthly Total Score: 4 Score Reviewed/Action Taken: Yes DEISY-7 AMB Questionnaire DEISY-7 Date DEISY - 7 assessed: 04/08/24 Feeling nervous, anxious, or on edge: 1 = Several days Not being able to stop or control worryin = Several days Worrying too much about different things: 1 = Several days Trouble relaxin = Several days Being so restless that it is hard to sit still: 1 = Several days Becoming easily annoyed or irritable: 1 = Several days Feeling afraid as if something awful might happen: 1 = Several days Total DEISY-7 score (0-4 normal; 5-9 mild; 10-14 moderate; 15-21 severe): 7 Source: Developed by Drs. Cruz Walters, Rosario Morgan, Jf Shaffer and colleagues, with an educational kym from [employer]. Review of Systems Const Denies chills, Denies fatigue, Denies fever(s) and Denies headache(s) ENT Denies dysphagia, Denies dizziness, Denies otalgia, Denies headache(s), Reports neck pain, Denies odynophagia and Denies sore throat Card Denies chest pain, Denies irregular heart rhythm, Denies palpitations and Denies dyspnea Resp Denies chest congestion, Denies cough and Denies dyspnea GI Denies abdominal pain, Denies constipation, Denies dysphagia, Denies heartburn, Denies diarrhea, Denies nausea, Denies odynophagia and Denies vomiting Denies difficulty urinating, Denies dysuria and Denies urinary frequency Musc Denies back pain, Denies arthralgias and Reports neck pain Skin/Breast Denies rash Neuro Denies dizziness, Denies headache(s) and Denies paresthesias Endo Denies fatigue and Denies palpitations Physical exam (Primary Care) Vital Signs: Last Vital Signs Pulse 66 04/08/24 17:16 BP 140/96 H 04/08/24 17:16 Pulse Ox 98 04/08/24 17:16 Oxygen Delivery Method Room Air 04/08/24 17:16 BMI result Body Mass Index 28.9 Tobacco/Smoking Status: Tobacco use Status Tobacco use date assessed 04/08/24 04/08/24 17:21 Patient Tobacco Use Status Current everyday Tobacco 04/08/24 17:21 Tobacco use type Cigarette 04/08/24 17:21 e-Cigarette/Vaping Use Never Used 04/08/24 17:21 PHQ-9: PHQ-9 Score PHQ-9: Total score 8 04/08/24 17:39 Depression Screening Interpretation: Positive Depression Screening Follow-up: Existing condition and In treatment Thrive Assessment: Date of Thrive Assessment Date Thrive assessed 04/08/24 04/08/24 17:21 Currently or been in a relationship where the following occur: No concerns reported Const General: no acute distress and alert HENMT Throat: Yes posterior oropharynx normal and Yes tonsils normal (no TP congestion) Neck Neck: Yes supple and No lymphadenopathy Thyroid: Thyroid normal Resp Auscultation: clear to auscultation bilaterally, no rales and no wheezes Cardio Rate: regular rate Rhythm: regular rhythm Heart sounds: no murmurs GI Palpation (GI): Soft to palpation and nontender Auscultation: normal bowel sounds General: Yes no CVA tenderness Back/Spine/Pelvis Back: no CVA tenderness Cervical Spine: Cervical spine tenderness (mild) Thoracic/Lumbar Spine: No lumbar spinal tenderness Skin Rashes: no rashes Extrem General: Yes no clubbing, cyanosis or edema Results Reviewed Results Reviewed: Laboratory Tests 11/28/23 04/08/24 15:00 14:31 WBC 5.8 Hgb 17.1 Hct 48.5 Plt Count 225 Sodium 139 Potassium 4.0 Creatinine 1.10 Estimated GFR > 60 Laboratory Tests 04/08/24 14:31 Prostate Specific Ag 2.54 Coding Level of Care Code Est Pt Level 4 (37533) Diagnoses Elevated blood pressure reading R03.0 Polycythemia D75.1 GERD without esophagitis K21.9 Cervical spondylosis M47.812 Vitamin D deficiency E55.9 BPH w urinary obs/LUTS N40.1; N13.8 Hypogonadism in male E29.1 Insomnia, unspecified type G47.00 Insomnia type: unspecified Anxiety F41.9 Episode of recurrent major depressive disorder, unspecified depression episode severity F33.9 Depression Type: major depressive disorder Major depression recurrence: recurrent Active/Remission status: currently active Major depression episode severity: unspecified Smoker F17.200 Overweight (BMI 25.0-29.9) E66.3 Additional Codes PHQ-9 - 79445 - PHQ-9 Billing: Yes ([id number]) Assessment & Plan Assessment & Plan (1) Elevated blood pressure reading: Code(s): R03.0 - Elevated blood-pressure reading, without diagnosis of hypertension Category: Medical Plan: Reinforced low sodium diet His blood pressure reading today is lower than previous Patient states that his blood pressure is often much lower when he has it checked at home He is again reminded to continue monitoring his blood pressure regularly (2) Polycythemia: Code(s): D75.1 - Secondary polycythemia Category: Medical Plan: Patient's H/H was back to normal again on his recent CBC done yesterday This again appears to be related to his smoking as his previous work ups done were all negative Abdominal US done in September 2021 came out normal with no splenomegaly noted Continue Aspirin 81 mg QD (3) GERD without esophagitis: Code(s): K21.9 - Gastro-esophageal reflux disease without esophagitis Category: Medical Plan: Dietary restrictions reinforced Continue Pantoprazole 40 mg QD Follow up with GI as scheduled (4) Cervical spondylosis: Code(s): M47.812 - Spondylosis without myelopathy or radiculopathy, cervical region Category: Medical Plan: Continue Cyclobenzaprine 5 mg TID PRN (5) Vitamin D deficiency: Code(s): E55.9 - Vitamin D deficiency, unspecified Category: Medical Plan: Continue Vitamin D3 2000 units QD (6) BPH w urinary obs/LUTS: Comment: (followed by Dr. Calle) Code(s): N40.1 - Benign prostatic hyperplasia with lower urinary tract symptoms; N13.8 - Other obstructive and reflux uropathy Category: Medical Plan: Continue Tamsulosin 0.4 mg 2 tablets Q HS and Finasteride 5 mg QD His PSA level is down to 2.54 on his labs done yesterday Follow up with urology as scheduled (7) Hypogonadism in male: Code(s): E29.1 - Testicular hypofunction Category: Medical Plan: Continue Testosterone 200 mg IM every 2 weeks Continue Sildenafil 100 mg QD PRN Follow up with urology as scheduled (8) Insomnia: Code(s): G47.00 - Insomnia, unspecified Category: Medical Qualifiers: Insomnia type: unspecified Qualified Code(s): G47.00 - Insomnia, unspecified Plan: Sleep hygiene reinforced Continue Trazodone 50 mg Q HS PRN (9) Anxiety: Code(s): F41.9 - Anxiety disorder, unspecified Category: Medical Plan: Continue Alprazolam 0.25 mg TID PRN He was previously started on Buspirone but patient stopped this due to decreased libido while on the medication (10) Depression: Code(s): F32.9 - Major depressive disorder, single episode, unspecified Category: Medical Qualifiers: Depression Type: major depressive disorder Major depression recurrence: recurrent Active/Remission status: currently active Major depression episode severity: unspecified Qualified Code(s): F33.9 - Major depressive disorder, recurrent, unspecified Plan: He has declined offers to start him on additional Rx for his mood disorder so far Follow up with psychiatry as scheduled (11) Smoker: Code(s): F17.200 - Nicotine dependence, unspecified, uncomplicated Category: Social Hx Plan: Patient is counseled again on complete smoking cessation (12) Overweight (BMI 25.0-29.9): Code(s): E66.3 - Overweight Category: Medical Plan: Reinforced diet/exercise as tolerated/lose weight Plan To return as scheduled in September 2024 for his next annual physical examination Orders: Orders Comprehensive [place]. Panel Fast 10/13/24 E78.00 - Pure hypercholesterolemia, unspecified, Z00.00 - Encounter for general adult medical examination without abnormal findings Vitamin D 25-OH Total 10/13/24 E55.9 - Vitamin D deficiency, unspecified, Z00.00 - Encounter for general adult medical examination without abnormal findings Complete Blood Count Auto Diff 10/13/24 D64.9 - Anemia, unspecified, Z00.00 - Encounter for general adult medical examination without abnormal findings Lipid Panel 10/13/24 E78.00 - Pure hypercholesterolemia, unspecified, Z00.00 - Encounter for general adult medical examination without abnormal findings TSH reflex Free T4 10/13/24 E78.00 - Pure hypercholesterolemia, unspecified, Z00.00 - Encounter for general adult medical examination without abnormal findings UA CC w/rflx Micro + Cult 10/13/24 R30.0 - Dysuria, Z00.00 - Encounter for general adult medical examination without abnormal findings Prostate Specific Antigen 10/13/24 N40.0 - Benign prostatic hyperplasia without lower urinary tract symptoms, Z00.00 - Encounter for general adult medical examination without abnormal findings
== END 2024-04-08 17:43 | disposition home or self-care (01) ==
PROVIDERS: PCP Internal Medicine; Visit Provider Internal Medicine
DX: R03.0 Elevated blood-pressure reading, without diagnosis of hypertension (principal); D75.1 Secondary polycythemia; F33.9 Major depressive disorder, recurrent, unspecified; K21.9 Gastro-esophageal reflux disease without esophagitis; M47.812 Spondylosis without myelopathy or radiculopathy, cervical region; E55.9 Vitamin D deficiency, unspecified; N40.1 Benign prostatic hyperplasia with lower urinary tract symptoms; N13.8 Other obstructive and reflux uropathy; E29.1 Testicular hypofunction; G47.00 Insomnia, unspecified; F41.9 Anxiety disorder, unspecified; F17.200 Nicotine dependence, unspecified, uncomplicated

== ENCOUNTER 2024-04-15 14:30 | Outpatient (AMB) | payer OTHER, SELFPAY ==
[2024-04-15 14:32] VITALS: BMI 28.9
--- NOTE | 2024-04-15 14:32 | MHC.OFFVIS ---
Vital Signs 04/15/24 14:32 Height 5 ft 8 in Weight 190 lb BMI 28.9 Intake Visit Reasons: 6m follow up Fatigue/Somnolence Intake Note: Patient presents for 6 month follow up Allergies No Known Allergies [No Known Allergies*] Allergy (Verified 04/15/24 14:36) HPI Comments Details: 57 y/o male patient presents for sleep apnea f/u visit. The home sleep study result was significant for a mild degree of sleep apnea. The AHI was 5/hr and oxygen danii was 74%. Pt started APAP [id number] in Apr 2023 The CPAP compliance and therapy response (12/2023 - 03/2024 ) reviewed. The usage 43/90 days and the average usage hours 4 hrs 48 min. The residual AHI was 2.2 /hr. Pt reports he sleeps better overall with CPAP, however is continuosly tangled up in the headgear. He wakes up several times, tosses and turns, sleeps on his left side most of the night. He also is trying to smoke less, he used to smoke a pack a day, now 5cig/day. Would like to try the gum Chantix again. He continues to have GERD, but more aware of triggers, and watches what he eats and takes his pantropazole PRN. He continues to be more anxious and would like to have the Buspirone increased to 10mg PO BID, as it helps him to decrease cravings for nicotine. He has periodic headaches in the morning, uses OTC tylenolol as needed. Denies Auras, photo/phono phobias and parasomias. He rarely uses Trazodone, makes him very foggy in the morning. He uses Xanax only when needed. He cleans his mask, changes filters and water as required. Would like a referral for the Inspire therapy, as he is not able to tolerate the CPAP machine. [facility] Medical History Smoker Polycythemia White coat syndrome with hypertension Elevated blood pressure reading Sleep apnea GERD without esophagitis Tubular adenoma of colon Nicotine dependence, cigarettes, uncomplicated BPH w urinary obs/LUTS Hypogonadism in male Vitamin D deficiency Insomnia Anxiety Depression Strain of cervical portion of left trapezius muscle Overweight (BMI 25.0-29.9) Surgical History H/O hernia repair History of esophagogastroduodenoscopy (EGD) History of right inguinal hernia repair History of open reduction and internal fixation (ORIF) procedure (~2018) History of colonoscopy (~2016) S/P transurethral resection of prostate (~2010) Family History Father Diabetes CAD (coronary artery disease) CKD (chronic kidney disease) Mother Hypertension Depression Hypercholesteremia Lung cancer Brother Myocardial infarction Brother In good health Son In good health Social History Housing: House Alcohol intake: current Alcohol intake frequency: holidays/special occasions only Patient Tobacco Use Status: Current everyday Tobacco user Tobacco use type: Cigarette Cigarette Packs Per Day: 0.5 Cigarettes Per Day: 10 Years Smoked: 30 e-Cigarette/Vaping Use: Never Used Second Hand Smoke Exposure: Yes service: No Current occupational status: employed Cognitive needs: No Hearing needs: Yes Vision needs: Yes (glasses) Review of Systems Const All systems reviewed & are unremarkable except as noted in HPI and below Physical Exam Vital Signs: BMI result Body Mass Index 28.9 Const General: cooperative, comfortable and no acute distress Nutritional Appearance: average body habitus Orientation/consciousness: patient oriented x3 HEENT Face and sinus: Yes face symmetric Eyes Pupils: Equal, round and reactive pupils present Neck Neck: Yes full ROM and Yes supple Resp Effort & Inspection: normal respiratory effort and able to speak in complete sentences Neuro General: patient oriented x3 and moves all extremities Cranial nerves: Yes CN's II-XII intact bilaterally, Yes Facial sensation intact/muscles of mastication intact, Yes Equal, round and reactive pupils present, Yes Normal accommodation reflex present, Yes Bilaterally intact EOM present, Yes Nystagmus not present, Yes Normal facial strength present, Yes Midline tongue present, Yes Ability to bilaterally rotate head present and Yes Ability to bilaterally elevate shoulders present Gait exam (Neuro): Normal gait present Motor exam (neuro): 5/5 motor strength present throughout and Normal motor muscle tone present throughout Deep tendon reflexes (DTR's): Right triceps reflex intensity grade: 2+, Left triceps reflex intensity grade: 2+, Rt Biceps (C5, C6): 2+, Left biceps reflex intensity grade: 2+, Right brachioradialis reflex intensity grade: 2+, Left brachioradialis reflex intensity grade: 2+, Right patellar reflex intensity grade: 2+ and Left patellar reflex intensity grade: 2+ Results Reviewed Results Reviewed: Pt started APAP [id number] in Apr 2023 The CPAP compliance and therapy response (12/2023 - 03/2024 ) reviewed. The usage 43/90 days and the average usage hours 4 hrs 48 min. The residual AHI was 2.2 /hr. Leaks/min 9.2 to Max 58.7 Reviewed US Bladder / PSA findings FINDINGS: BLADDER: Well-distended. Mild diffuse irregularity/trabeculation of the bladder wall. Bilateral ureteral jets are demonstrated. Prevoid bladder volume is 334.6 mL. Postvoid volume is 155.6 mL. ADDITIONAL FINDINGS: Enlarged prostate with volume 60.6 mL Assessment & Plan Assessment & Plan (1) KELSEY (obstructive sleep apnea): Comment: Mild degree of sleep apnea. The AHI was 5/hr and oxygen danii was 74% Code(s): G47.33 - Obstructive sleep apnea (adult) (pediatric) Category: Medical (2) Fatigue: Code(s): R53.83 - Other fatigue Category: Medical Qualifiers: Fatigue type: unspecified Qualified Code(s): R53.83 - Other fatigue (3) Anxiety and depression: Code(s): F41.9 - Anxiety disorder, unspecified; F32.A - Depression, unspecified Category: Medical (4) Anxiety: Code(s): F41.9 - Anxiety disorder, unspecified Category: Medical (5) Daytime somnolence: Code(s): R40.0 - Somnolence Category: Medical Plan Sleep Apnea: Continue to use APAP [id number], he experiences better quality sleep and his breathing has improved, however he still has trouble with his mask. Call [facility] for adjustment of temperature, and humidification of air. Download the abel on your phone to monitor daily sleep quality, as you need. ENT Referral for INspire therapy today as patient is unable to tolerate mask. Continue to use melatonin 3 mg with magnesium 400 mg qHS for sleep, if you have diarrhea you may taper down on the mg. to one tablet every other day. Will monitor periodic headaches. Smoking Cessation: Continue to taper cigarettes 5/day, ask for counseling and support if needed. Exercise 3-5 times per week, will help with benefits such as weight reduction, lower stress and improve mood. Continue to use Buspirone 10mg PO BID for anxiety and mood, this will also help with smoking cessation. Continue to use Chantix as needed, request a patch when you are ready. Will f/u in 6 months. Orders: Referrals Ear/Nose/Throat Referral G47.33 - Obstructive sleep apnea (adult) (pediatric), R53.83 - Other fatigue Medications: Changed From buspirone 5 mg PO BID 30 days 60 tabs 3RF F41.9 - Anxiety disorder, unspecified To buspirone 10 mg (2 x 5 mg) PO BID 120 tabs 3RF 30 days F41.9 - Anxiety disorder, unspecified Refilled magnesium oxide 400 mg PO DAILY 30 tabs 5RF 30 days melatonin 3 mg PO BEDTIME PRN 30 tabs 5RF sleep 30 days nicotine (polacrilex) (Nicorette) 4 mg buccal Q2-4H 110 ea 6RF nicotine cravings 30 days F17.200 - Nicotine dependence, unspecified, uncomplicated Coding Level of Care Code Est Pt Level 4 (43280) Diagnoses KELSEY (obstructive sleep apnea) G47.33 Fatigue, unspecified type R53.83 Fatigue type: unspecified Anxiety and depression F41.9; F32.A Anxiety F41.9 Daytime somnolence R40.0 Time Spent (min) 35 Comment Worsening Sleep apnea
--- OUTSIDE RECORDS SUMMARY | 2024-04-15 14:33 | XMS_ITS | Continuity of Care Document ---
Author Organization [place] - [facility], [facility] Address [address] [place] [address] Care Team Providers Care Utility Porter Name Role Phone TEAGAN CORDON Primary Care Provider Assessment Encounter Date Assessment [...] medical clearance. He was also given a [facility] provider sheet for reference. Recommend updated audiometric testing every 1 to 2 years. Was also provided information for tinnitus retraining program. He is very interested in pursuing this option. Not available 02/23/2024 14:51:23 Plan of Treatment [...] Sensorine ural hearing loss in left ear 89019009772 109 Active 2016 Sensorine ural hearing loss, unilatera l, left ear, with restricte d hearing on the contralat eral side; Note: Date Diagnosed : 7 3:58 PM (H90.A22) Not Available [facility] 4 03:03:47 Deviated nasal septum 330201156 Active 2016 Deviated nasal septum; Note: Date Diagnosed : 7 2:37 PM (J34.2) Not Available [facility] 4 03:03:47 Itching of skin 468055234 Active 2019 Pruritus, unspecifi ed; Note: Date Diagnosed : 07/05/2019 1:58 PM (L29.9) Not Available [facility] 4 03:03:45 Nasal congestio n 39491945 Active 2017 Nasal congestio n; Note: Date Diagnosed : 05/15/2017 3:12 PM (R09.81) Not Available [facility] 4 03:03:46 Sensorine ural hearing loss in right ear 03593366646 100 Active 2022 Sensorine ural hearing loss, unilatera l, right ear, with restricte d hearing on the contralat eral side; Note: Date Diagnosed : 3 4:41 PM (H90.A21) Not Available [facility] 4 03:03:45 Subjectiv e tinnitus 34921295 Active 2016 Subjectiv e tinnitus; Note: Date Diagnosed : 7 2:38 PM (388.31) Not Available [facility] 4 03:03:47 Asymmetri allyssa sensorine ural hearing loss 258143242 Active 2016 Hearing loss: Sensorine ural hearing loss, asymmetri allyssa; Note: Date Diagnosed : 7 2:38 PM (389.16) Not Available [facility] 4 03:03:47 Mixed conductiv e and sensorine ural hearing loss of left ear 85232811352 107 Active 2022 Mixed conductiv e and sensorine ural hearing loss, unilatera l, left ear with restricte d hearing on the contralat eral side; Note: Date Diagnosed : 3 4:41 PM (H90.A32) Not Available [facility] 4 03:03:45 Bilateral tinnitus 31473725179 02 Active 2020 Tinnitus, bilateral ; Note: Date Diagnosed : 03/25/2021 5:15 PM (H93.13) Not Available [facility] 4 03:03:46 Sensorine ural hearing loss of bilateral ears 044996373 Active 2019 Sensorine ural hearing loss, bilateral ; Note: Date Diagnosed : 07/05/2019 1:25 PM (H90.3) Not Available [facility] 4 03:03:46 Acute maxillary sinusitis 14087868 Active 2017 Acute maxillary sinusitis , unspecifi ed; Note: Date Diagnosed : 09/11/2017 3:26 PM (J01.00) Not Available [facility] 4 03:03:46 Tinnitus of left ear 98029047194 06 Active 2016 Tinnitus, left ear; Note: Date Diagnosed : 7 2:01 PM (H93.12) Not Available [facility] 4 03:03:46 Bilateral disorder of Eustachia n tubes 82026612613 30300 Active 2023 Other specified disorders of Eustachia n tube, bilateral ; Note: Date Diagnosed : 08/23/2023 2:09 PM (H69.83) Not Available [facility] 4 03:03:45 Allergic rhinitis caused by pollen 62844739 Active 2023 Allergic rhinitis due to pollen; Note: Date Diagnosed : 08/23/2023 2:09 PM (J30.1) Not Available [facility] 4 03:03:47 Problem Notes None recorded. Procedures Surgical History Date Name Laterality Status Provider Name and Address Organization Details Recorded Time 02/23/2024 Air & Speech Audio with Tymps (23036, 56980 & 79255) completed Ade Paul [place] [facility] 02/23/2024 14:32:24 Imaging Results None recorded. Procedure [...] mg tablet 2017 active Medicati on ID: [id number] D uration Value: 30 Brand Name: figueroa [...] bromide 21 mcg (0.03 %) nasal spray Napoleon 2 spray into both nostrils three times a day 2019 active Medicati on ID: [id number] P rescribe d By Name: KENNEDI Thomson [...] 2 drop 06/15 completed Medicati on ID: [id number] P rescribe d By Name: KENNEDI Borrego [...] DIRECTED BY GASTROEN TEROLOGY DEPARTME NT AT [facility] active Not Available Not Available No t Available Flowflex COVID-19 Antigen Home Test kit USE DIRECTED ON PACKAGIN G active Not Available Not Available No t Available Vitals Date Recorded Body height Body mass index (BMI) Body weight Provider Name and Address Organization Details Last Updated DateTime 02/23/2024 167.64 cm 29.1 kg/m2 02449.63 g Yola Greenfield [place] - [facility] 02/23/2024 13:30:52 Social History None recorded. Functional Status None recorded. Mental Status None recorded. Family History Nothing Reported. Medical History No medical history recorded. Past Encounters Encounter ID Performer Location Encounter Start Date Encounter Closed Date Diagnosis/Indication Diagnosis SNOMED-CT Code Diagnosis ICD10 Code [id number] MICHELLE LLOYD MD [facility] [address] [address] 02/23/2024 13:16:05 02/23/2024 14:47:11 Bilateral tinnitus 1553549008 102 H93.13 Sensorineu ral hearing loss of bilateral ears 505980510 H90.3 Health Concerns Section Related Observation LastModified by Organization Detai ls LastModified Time None Recorded Concern Status LastModified by Organization Details LastModified Time None Recorded Payers Encounter Date Sequence Insurance Name Policy Number Policy Shea Covered Member ID Shea Member ID Guarantor Name 02/23/2024 1 [employer] - HEALTH NET PLAN (MEDICAID HMO) NARENDRA Isaac [id number] Rai Isaac Notes Date Note Type Note Provider Name and Address Organization Details Recorded Time 02/23/2024 text/html 58-year-old male presents for reevaluation of tinnitus. Previously diagnosed with sensorineural hearing loss but decided against amplification. His tinnitus has become very bothersome and he is reconsidering hearing aids at this time. MICHELLE LLOYD MD [address] [place] [address], [id number], [facility] - [facility] 02/25/2024 07:04:23
== END 2024-04-15 15:24 | disposition home or self-care (01) ==
PROVIDERS: PCP Internal Medicine; Visit Provider Physician Assistant Medical
DX: G47.33 Obstructive sleep apnea (adult) (pediatric) (principal); R53.83 Other fatigue; F41.9 Anxiety disorder, unspecified; F32.A Depression, unspecified; R40.0 Somnolence
CPT/HCPCS: 99214

== ENCOUNTER → 2024-04-15 14:30 | Outpatient (BNVA) | payer OTHER, SELFPAY | PROVIDERS: PCP Internal Medicine; Visit Provider Nurse Practitioner Family | DX: R40.0 Somnolence (principal); R53.83 Other fatigue; F41.9 Anxiety disorder, unspecified; F32.A Depression, unspecified | CPT/HCPCS: 99212 ==

== ENCOUNTER 2024-04-18 08:41 | Outpatient (AMB) | payer OTHER, SELFPAY ==
--- NOTE | 2024-04-17 19:24 | MHC.OFFVIS ---
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 Calle for hypogonadism, lower urinary tract symptoms abd erectile dysfunction 12/22/23--Martin FRIEND is a pleasant male. He is a patient of Dr Suero. He is seen for the following urologic conditions. - hypogonadism - lower urinary tract symptoms - erectile dysfunction Telemedicine Evaluation 15 min Consultation [employer] Upcoming GreenLight laser procedure Discussed use of catheter Answered questions He would like to put off decision six-month Bladder ultrasound shows 60 g prostate with 120 cc residual and bladder wall thickening Worsening bladder emptying Current therapy 0.7cc q 2 weeks Good lab work Refill Hypogonadism: Lab stable Continue current therapy - every 14 days He presents today for further evaluation and followup of his hypogonadism. - T - 0.7 cc Initial symptoms include erectile dysfunction Yes decreased libido Yes change in mood/depression Yes in muscle size/strength Yes increased fatigue/malaise Yes Laboratory results 11/09 T in 500's, 11/10 T 1200 PSA 2.8. - 05/14 T 430 day 13, PSA 2.9, HCt 53.5, 11/11 T 1174 PSA 4.1, Hct 54 - 06/15 T 844 day 10 - P 2.8 H 53.5 - 11/12 T 671 H 50, 10/14 T 777 H 49 P 2.7, 12/15 T 987 Current therapy includes injectable exogenous testosterone Lower Urinary Tract Symptoms: Current visit is for further evaluation of, lower urinary tract symptoms, predominate obstructive symptoms. Current treatment includes alpha ruthie. - tamsulosin 0.8 mg daily Prostate Symptom Score 4/ , Moderate (9-19), Bother 3. Symptoms include 08/10 , incomplete emptying, weak stream, nocturia (>2), and are improving Prior Prostate Score 08/10 , moderate. - prior prostate procedure PSA 11/09 3.2 T 380 Treatment plan continue with current medications PFSH Medical History Smoker Polycythemia White coat syndrome with hypertension Elevated blood pressure reading Sleep apnea GERD without esophagitis Tubular adenoma of colon Nicotine dependence, cigarettes, uncomplicated BPH w urinary obs/LUTS Hypogonadism in male Vitamin D deficiency Insomnia Anxiety Depression Strain of cervical portion of left trapezius muscle Overweight (BMI 25.0-29.9) Surgical History H/O hernia repair History of esophagogastroduodenoscopy (EGD) History of right inguinal hernia repair History of open reduction and internal fixation (ORIF) procedure (~2018) History of colonoscopy (~2016) S/P transurethral resection of prostate (~2010) Family History Father Diabetes CAD (coronary artery disease) CKD (chronic kidney disease) Mother Hypertension Depression Hypercholesteremia Lung cancer Brother Myocardial infarction Brother In good health Son In good health Social History Housing: House Alcohol intake: current Alcohol intake frequency: holidays/special occasions only Patient Tobacco Use Status: Current everyday Tobacco user Tobacco use type: Cigarette Cigarette Packs Per Day: 0.5 Cigarettes Per Day: 10 Years Smoked: 30 e-Cigarette/Vaping Use: Never Used Second Hand Smoke Exposure: Yes service: No Current occupational status: employed Cognitive needs: No Hearing needs: Yes Vision needs: Yes (glasses) Results AMB Urinalysis, Automated UA Leukoctes 0 Florentin/uL Last Edit by Lelia Fuentes CMA on 04/18/24 08:55 UA Nitrite Negative Last Edit by Lelia Fuentes CMA on 04/18/24 08:55 UA Urobilinogen 0.2 mg/dL Last Edit by Lelia Fuentes CMA on 04/18/24 08:55 UA Protein 0 mg/dL Last Edit by Lelia Fuentes CMA on 04/18/24 08:55 UA pH 5.5 Last Edit by Lelia Fuentes CMA on 04/18/24 08:55 UA Blood 0 Charanjit/uL Last Edit by Lelia Fuentes CMA on 04/18/24 08:55 UA Specific [place] 1.030 Last Edit by Lelia Fuentes CMA on 04/18/24 08:55 UA Ketone Negative Last Edit by Lelia Fuentes CMA on 04/18/24 08:55 UA Bilirubin 0 mg/dL Last Edit by Lelia Fuentes CMA on 04/18/24 08:55 UA Glucose 0 mg/dL Last Edit by Lelia Fuentes CMA on 04/18/24 08:55 Assessment & Plan Assessment & Plan Orders: Orders AMB Urinalysis Automated Today Z13.9 - Encounter for screening, unspecified Coding
== END 2024-04-18 09:11 | disposition home or self-care (01) ==
PROVIDERS: PCP Internal Medicine; Visit Provider Urology
DX: Z13.9 Encounter for screening, unspecified (principal)

== ENCOUNTER → 2024-04-18 08:41 | Outpatient (BNVA) | payer OTHER, SELFPAY | PROVIDERS: PCP Internal Medicine; Visit Provider Urology | DX: E29.1 Testicular hypofunction (principal); N40.1 Benign prostatic hyperplasia with lower urinary tract symptoms; N13.8 Other obstructive and reflux uropathy; S39.94XA Unspecified injury of external genitals, initial encounter; Z79.899 Other long term (current) drug therapy | CPT/HCPCS: 81003; 99212 ==

== ENCOUNTER 2024-05-01 13:45 | Outpatient (AMB) | payer OTHER, SELFPAY ==
[2024-05-01 13:47] VITALS: BP 172/94; PULSE 80; O2SAT 96; BMI 28.6
--- NOTE | 2024-05-01 13:47 | A.OFFVIS_ITS ---
Vital Signs 05/01/24 13:47 Height 5 ft 8 in Weight 188 lb 4.396 oz BMI 28.6 BP 172/94 H Blood Pressure Location Rt brachial Position Sitting Pulse 80 Pulse Source Pulse Oximeter Pulse Oximetry (%) 96 Oxygen Delivery Method Room Air Intake Visit Reasons: ~ 5 mos FUV. R/S X1 - Prov Illness Intake Note: ESTABLISHED PATIENT Reason; 5 mo FU Changes/concerns? Recurring hemorrhoids, worsening hematochezia. 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 Allergies No Known Allergies [No Known Allergies*] Allergy (Verified 05/01/24 13:48) HPI HPI ~ 5 mos FUV. R/S X1 - Prov Illness: Details: LAST VISIT GERD without esophagitis Tubular adenoma of colon Status post colonoscopy Plan Continue pantoprazole daily. Avoid dietary triggers and late night snacking. Upper endoscopy on as needed basis. Colonoscopy in 5 years due to tubular adenoma and sessile serrated polyp found, sooner if clinically necessary. Return in the office in 4 months, sooner on as needed basis. Patient is agreeable to this plan and verbalizes understanding of instructions. He was given the opportunity to ask questions and all questions answered. ? Thank you for allowing me to participate in his care Medications Refilled pantoprazole 40 mg PO DAILY 90 tabs 1RF TODAY'S VISIT Patient is here today for follow-up. Patient reports that he continues to have occasional blood after having bowel movements. Patient does not want to go for hemorrhoidectomy at this time would like to manage this medically and improve his bowel movements. Colonoscopy in October of 2023 showed medium size hemorrhoids. Currently he is not using any cream. Moving his bowels normally. Patient reports that he is not constipated. His bowels are usually soft. Occasional constipation. Patient denies melena. Patient reports that pantoprazole is working for him. Denies any acid reflux, dyspepsia, dysphagia or odynophagia. Patient reports good appetite. Denies any abdominal pain or discomfort, unintentional weight loss. [facility] Medical History Smoker Polycythemia White coat syndrome with hypertension Elevated blood pressure reading Sleep apnea GERD without esophagitis Tubular adenoma of colon Nicotine dependence, cigarettes, uncomplicated BPH w urinary obs/LUTS Hypogonadism in male Vitamin D deficiency Insomnia Anxiety Depression Strain of cervical portion of left trapezius muscle Overweight (BMI 25.0-29.9) Surgical History H/O hernia repair History of esophagogastroduodenoscopy (EGD) History of right inguinal hernia repair History of open reduction and internal fixation (ORIF) procedure (~2018) History of colonoscopy (~2016) S/P transurethral resection of prostate (~2010) Family History Father Diabetes CAD (coronary artery disease) CKD (chronic kidney disease) Mother Hypertension Depression Hypercholesteremia Lung cancer Brother Myocardial infarction Brother In good health Son In good health Social History Housing: House Alcohol intake: current Alcohol intake frequency: holidays/special occasions only Patient Tobacco Use Status: Current everyday Tobacco user Tobacco use type: Cigarette Cigarette Packs Per Day: 0.5 Cigarettes Per Day: 10 Years Smoked: 30 e-Cigarette/Vaping Use: Never Used Second Hand Smoke Exposure: Yes service: No Current occupational status: employed Cognitive needs: No Hearing needs: Yes Vision needs: Yes (glasses) Review of Systems Const Denies weight gain and Denies weight loss ENT Reports no additional complaints, Denies dysphagia and Denies odynophagia Card Reports no additional complaints Resp Reports no additional complaints GI Denies abdominal pain, Denies belching, Denies melena, Denies bloating, Reports hematochezia (Occasional), Denies change in bowel habits, Denies dysphagia, Denies excessive flatus, Denies dyspepsia, Denies heartburn, Denies diarrhea, Denies loose stools, Denies nausea, Denies odynophagia and Denies vomiting Reports no additional complaints Musc Reports no additional complaints Neuro Reports no additional complaints Psych Reports no additional complaints Endo Reports no additional complaints Physical Exam Vital Signs: Last Vital Signs Pulse 80 01/08/25 13:47 BP 172/94 H 05/01/24 13:47 Pulse Ox 96 05/01/24 13:47 Oxygen Delivery Method Room Air 05/01/24 13:47 BMI result Body Mass Index 28.6 Const General: healthy appearing, no acute distress and well developed Nutritional Appearance: obese Orientation/consciousness: patient oriented x3 Resp Effort & Inspection: normal respiratory effort, able to speak in complete sentences, no tracheal deviation and symmetric chest movement Auscultation: clear to auscultation bilaterally Cardio Rate: regular rate GI Inspection: Yes normal to inspection, No distended and Yes obesity Palpation (GI): Soft to palpation, not firm, nontender and No hepatosplenomegaly present Auscultation: normal bowel sounds General: Yes no CVA tenderness Back/Spine/Pelvis Back: no CVA tenderness Skin General skin exam: elasticity normal, turgor normal and dry skin Neuro General: patient oriented x3 Psych Appearance: grossly normal Mental Status: mental status grossly normal Assessment & Plan Assessment & Plan (1) GERD without esophagitis: Code(s): K21.9 - Gastro-esophageal reflux disease without esophagitis Category: Medical (2) Rectal bleed: Code(s): K62.5 - Hemorrhage of anus and rectum (3) Internal hemorrhoid: Code(s): K64.8 - Other hemorrhoids Plan Continue pantoprazole daily. Avoid dietary triggers and late night snacking. Patient will start taking Colace daily. Proctosol sent to pharmacy. May do Sitz baths with Epsom salts. If patient will have increased bleeding and discomfort he will be offered again to go for hemorrhoidectomy. At this time patient wants to hold off. Medium size hemorrhoids found on colonoscopy. Patient was also encouraged to increase fiber in her diet to make his stools more bulkier. Avoid straining. Patient will follow-up in 6 months, sooner on as needed basis. He is agreeable to this plan and verbalizes understanding of instructions. He was given the opportunity to ask questions and all questions answered Medications: New hydrocortisone 2.5% (Proctosol HC) 1 appl SC BID-QID PRN 30 grams 2RF hemorrhoids K64.9 - Unspecified hemorrhoids docusate sodium 100 mg PO DAILY 30 caps 3RF K59.00 - Constipation, unspecified Refilled pantoprazole 40 mg PO DAILY 90 tabs 1RF Coding Level of Care Code Est Pt Level 3 (47726) Diagnoses GERD without esophagitis K21.9 Rectal bleed K62.5 Internal hemorrhoid K64.8 Time Spent (min) 25 Comment 15 minutes spent with patient and additional 10 minutes spent reviewing his records
== END 2024-05-01 14:42 | disposition home or self-care (01) ==
PROVIDERS: PCP Internal Medicine; Visit Provider Nurse Practitioner Family
DX: K21.9 Gastro-esophageal reflux disease without esophagitis (principal); K62.5 Hemorrhage of anus and rectum; K64.8 Other hemorrhoids
CPT/HCPCS: 99213

== ENCOUNTER 2024-05-01 14:50 | Outpatient (REF) | payer OTHER, SELFPAY ==
--- NOTE | ~2024-05-01 | CT_ITS ---
EXAMINATION: CT LUNG SCREENING HISTORY: Smoking history TECHNIQUE: Low dose axial images were obtained from the sternal notch to upper abdomen without IV contrast per standard departmental protocol. Sagittal and coronal reformatted images were also obtained and reviewed. One or more of the following techniques was used for dose reduction: Automated exposure control, adjustment of the mA and/or kV according to patient size, use of iterative reconstruction technique. DLP: 61 mGy-cm COMPARISON: Comparison is made with the prior examination dated 04/12/2022. FINDINGS: Lung nodules: There is a 3 mm calcified granuloma at the right lung apex (series 6, image 34). An additional punctate calcified granuloma is noted in the lingula (series 6, image 352). No suspicious pulmonary nodules are identified. Emphysema: none Coronary Calcification: none Aortic Arch Calcification: none Potentially Significant Incidentals : none Additional Chest Findings: There is no pleural or pericardial effusion. No mediastinal or axillary lymphadenopathy is identified. Visualized upper abdomen: The visualized portions of the liver, spleen, and adrenals have an unremarkable unenhanced appearance. CT/CT lung screening IMPRESSION: No suspicious pulmonary nodules are identified. LUNG-RADS ASSESSMENT: Lung-RADS 2: Benign MANAGEMENT: Continue annual screening with LDCT in 12 months Category S: N/A Electronically signed by: Cruz Martinez MD 05/03/2024 08:18 AM [facility]
--- OUTSIDE RECORDS SUMMARY | 2024-05-01 14:53 | XMS_ITS | Continuity of Care Document ---
Author Organization [place] - [facility], [facility] Address [address] [place] [address] Care Team Providers Care Nuclear Medical Technologist Name Role Phone TEAGAN CORDON Primary Care [...] medical clearance. He was also given a [facility] provider sheet for reference. Recommend updated audiometric testing every 1 to 2 years. Was also provided information for tinnitus retraining program. He is very interested in pursuing this option. [email or web address] Not available 02/23/2024 14:51:23 Plan of Treatment [...] Sensorine ural hearing loss in left ear 08885813151 109 Active 2016 Sensorine ural hearing loss, unilatera l, left ear, with restricte d hearing on the contralat eral side; Note: Date Diagnosed : 7 3:58 PM (H90.A22) Not Available [facility] 4 03:03:47 Deviated nasal septum 409311528 Active 2016 Deviated nasal septum; Note: Date Diagnosed : 7 2:37 PM (J34.2) Not Available [facility] 4 03:03:47 Itching of skin 419326406 Active 2019 Pruritus, unspecifi ed; Note: Date Diagnosed : 07/05/2019 1:58 PM (L29.9) Not Available [facility] 4 03:03:45 Nasal congestio n 49335569 Active 2017 Nasal congestio n; Note: Date Diagnosed : 05/15/2017 3:12 PM (R09.81) Not Available [facility] 4 03:03:46 Sensorine ural hearing loss in right ear 60506972295 100 Active 2022 Sensorine ural hearing loss, unilatera l, right ear, with restricte d hearing on the contralat eral side; Note: Date Diagnosed : 3 4:41 PM (H90.A21) Not Available [facility] 4 03:03:45 Subjectiv e tinnitus 97269150 Active 2016 Subjectiv e tinnitus; Note: Date Diagnosed : 7 2:38 PM (388.31) Not Available [facility] 4 03:03:47 Asymmetri allyssa sensorine ural hearing loss 879765238 Active 2016 Hearing loss: Sensorine ural hearing loss, asymmetri allyssa; Note: Date Diagnosed : 7 2:38 PM (389.16) Not Available [facility] 4 03:03:47 Mixed conductiv e and sensorine ural hearing loss of left ear 20387772405 107 Active 2022 Mixed conductiv e and sensorine ural hearing loss, unilatera l, left ear with restricte d hearing on the contralat eral side; Note: Date Diagnosed : 3 4:41 PM (H90.A32) Not Available [facility] 4 03:03:45 Bilateral tinnitus 18159771141 02 Active 2020 Tinnitus, bilateral ; Note: Date Diagnosed : 03/25/2021 5:15 PM (H93.13) Not Available [facility] 4 03:03:46 Sensorine ural hearing loss of bilateral ears 521367587 Active 2019 Sensorine ural hearing loss, bilateral ; Note: Date Diagnosed : 07/05/2019 1:25 PM (H90.3) Not Available [facility] 4 03:03:46 Acute maxillary sinusitis 23869104 Active 2017 Acute maxillary sinusitis , unspecifi ed; Note: Date Diagnosed : 09/11/2017 3:26 PM (J01.00) Not Available [facility] 4 03:03:46 Tinnitus of left ear 88635296210 06 Active 2016 Tinnitus, left ear; Note: Date Diagnosed : 7 2:01 PM (H93.12) Not Available [facility] 4 03:03:46 Bilateral disorder of Eustachia n tubes 04174623584 27526 Active 2023 Other specified disorders of Eustachia n tube, bilateral ; Note: Date Diagnosed : 08/23/2023 2:09 PM (H69.83) Not Available [facility] 4 03:03:45 Allergic rhinitis caused by pollen 67969726 Active 2023 Allergic rhinitis due to pollen; Note: Date Diagnosed : 08/23/2023 2:09 PM (J30.1) Not Available [facility] 4 03:03:47 Problem Notes None recorded. Procedures Surgical History Date Name Laterality Status Provider Name and Address Organization Details Recorded Time 02/23/2024 Air & Speech Audio with Tymps (29766, 71240 & 11961) completed Ade Paul MA [facility] 02/23/2024 14:32:24 Imaging Results None recorded. [...] mg tablet 2017 active Medicati on ID: [id number] D uration Value: 30 Brand Name: figueroa [...] bromide 21 mcg (0.03 %) nasal spray [place] 2 spray into both nostrils three times a day 2019 active Medicati on ID: [id number] P rescribe d By Name: KENNEDI Thomson [...] 2 drop 06/15 completed Medicati on ID: [id number] P rescribe d By Name: KENNEDI Borrego [...] DIRECTED BY GASTROEN TEROLOGY DEPARTME NT AT [facility] active Not Available Not Available No t Available Flowflex COVID-19 Antigen Home Test kit USE DIRECTED ON PACKAGIN G active Not Available Not Available No t Available Vitals Date Recorded Body height Body mass index (BMI) Body weight Provider Name and Address Organization Details Last Updated DateTime 02/23/2024 167.64 cm 29.1 kg/m2 69126.63 g Yola Greenfield [place] - [facility] 02/23/2024 13:30:52 Social History None recorded. Functional Status None recorded. Mental Status None recorded. Family History Nothing Reported. Medical History No medical history recorded. Past Encounters Encounter ID Performer Location Encounter Start Date Encounter Closed Date Diagnosis/Indication Diagnosis SNOMED-CT Code Diagnosis ICD10 Code Diagnosis Note [id number] MICHELLE LLOYD MD [facility] of [address] [address] 02/23/2024 13:16:05 02/23/2024 14:47:11 Bilateral tinnitus 7238001442 102 H93.13 Sensorineu ral hearing loss of bilateral ears 692439677 H90.3 Audiologic al evaluation results:Ri ght ear:{{Norm al* Normal through 2 kHz Mild M oderate Mo derately-s evere Margot re Profoun d}} {{hearing sloping to a mild slopi ng to a moderate s loping to moderately severe slo ping to severe* sl oping to profound f lat high frequency low frequency mid frequency cookie bite thomas curve}} {{with sen sorineural hearing loss with* cond uctive hearing loss with mixed hearing loss with}} {{excellen t* good fa ir poor no measurable }} word recognitio n.Left ear:{{Norm al* Normal through 2 kHz Mild M oderate Mo derately-s evere Margot re Profoun d}} {{hearing sloping to a mild slopi ng to a moderate s loping to moderately severe slo ping to severe slo ping to profound* flat high frequency low frequency mid frequency cookie bite thomas curve}} {{with sen sorineural hearing loss with* cond uctive hearing loss with mixed hearing loss with}} {{excellen t* good fa ir poor no measurable }} word recognitio n. Tympanomet ry:Right Ear:{{Type A Type As Type Ad Type C* Type C, shallow & rounded Ty pe B Type B with large volume Cou ld not maintain a hermetic seal}}Left Ear:{{Type A Type As Type Ad* Type C Type C, shallow & rounded Ty pe B Type B with large volume Cou ld not maintain a hermetic seal}} Health Concerns Section Related Observation LastModified by Organization Detai ls LastModified Time None Recorded Concern Status LastModified by Organization Details LastModified Time None Recorded Payers Encounter Date Sequence Insurance Name Policy Number Policy Shea Covered Member ID Shea Member ID Guarantor Name 02/23/2024 1 [facility] [employer] - HEALTH NET PLAN (MEDICAID HMO) NARENDRA Rai Isaac [id number] Rai Isaac Notes Date Note Type Note Provider Name and Address Organization Details Recorded Time 02/23/2024 text/html 58-year-old male presents for reevaluation of tinnitus. Previously diagnosed with sensorineural hearing loss but decided against amplification. His tinnitus has become very bothersome and he is reconsidering hearing aids at this time. MICHELLE LLOYD MD [address] [place] [address], [phone], [facility] - [facility] 02/25/2024 07:04:23
--- OUTSIDE RECORDS SUMMARY | 2024-05-01 14:53 | XMS_ITS | Data Portability ---
Author Organization [place] - [facility], Allergy Address [address] [address] Care Team Providers Care Senior Maintenance Technician Name Role Phone NERIS TEAGAN Primary Care Provider [phone] Assessment Encounter Date Assessment Date Assessment LastModified by Organization Details LastModified Time 02/23/2024 02/23/2024 58-year-old male presents for evaluation of tinnitus. Otologic exam is unremarkable today. Recommended updated audiometric testing. Reviewed masking techniques and pathophysiology of tinnitus in detail. He would be a good candidate for amplification. Was provided a copy of his hearing test and medical clearance. He was also given a [facility] provider sheet for reference. Recommend updated audiometric testing every 1 to 2 years. Was also provided information for tinnitus retraining program. He is very interested in pursuing this option. [email or web address] Not available 02/23/2024 14:51:23 Plan of Treatment [...] Sensorine ural hearing loss in left ear 47823564874 109 Active 2016 Sensorine ural hearing loss, unilatera l, left ear, with restricte d hearing on the contralat eral side; Note: Date Diagnosed : 7 3:58 PM (H90.A22) Not Available [facility] 4 03:03:47 Deviated nasal septum 066329243 Active 2016 Deviated nasal septum; Note: Date Diagnosed : 7 2:37 PM (J34.2) Not Available [facility] 4 03:03:47 Itching of skin 131641732 Active 2019 Pruritus, unspecifi ed; Note: Date Diagnosed : 07/05/2019 1:58 PM (L29.9) Not Available [facility] 4 03:03:45 Nasal congestio n 89749741 Active 2017 Nasal congestio n; Note: Date Diagnosed : 05/15/2017 3:12 PM (R09.81) Not Available [facility] 4 03:03:46 Sensorine ural hearing loss in right ear 88843063365 100 Active 2022 Sensorine ural hearing loss, unilatera l, right ear, with restricte d hearing on the contralat eral side; Note: Date Diagnosed : 3 4:41 PM (H90.A21) Not Available [facility] 4 03:03:45 Subjectiv e tinnitus 36383592 Active 2016 Subjectiv e tinnitus; Note: Date Diagnosed : 7 2:38 PM (388.31) Not Available [facility] 4 03:03:47 Asymmetri allyssa sensorine ural hearing loss 536569935 Active 2016 Hearing loss: Sensorine ural hearing loss, asymmetri allyssa; Note: Date Diagnosed : 7 2:38 PM (389.16) Not Available [facility] 4 03:03:47 Mixed conductiv e and sensorine ural hearing loss of left ear 77790479198 107 Active 2022 Mixed conductiv e and sensorine ural hearing loss, unilatera l, left ear with restricte d hearing on the contralat eral side; Note: Date Diagnosed : 3 4:41 PM (H90.A32) Not Available [facility] 4 03:03:45 Bilateral tinnitus 06990832336 02 Active 2020 Tinnitus, bilateral ; Note: Date Diagnosed : 03/25/2021 5:15 PM (H93.13) Not Available [facility] 4 03:03:46 Sensorine ural hearing loss of bilateral ears 999839939 Active 2019 Sensorine ural hearing loss, bilateral ; Note: Date Diagnosed : 07/05/2019 1:25 PM (H90.3) Not Available [facility] 4 03:03:46 Acute maxillary sinusitis 44669563 Active 2017 Acute maxillary sinusitis , unspecifi ed; Note: Date Diagnosed : 09/11/2017 3:26 PM (J01.00) Not Available [facility] 4 03:03:46 Tinnitus of left ear 97619660161 06 Active 2016 Tinnitus, left ear; Note: Date Diagnosed : 7 2:01 PM (H93.12) Not Available [facility] 4 03:03:46 Bilateral disorder of Eustachia n tubes 97652272118 94777 Active 2023 Other specified disorders of Eustachia n tube, bilateral ; Note: Date Diagnosed : 08/23/2023 2:09 PM (H69.83) Not Available [facility] 4 03:03:45 Allergic rhinitis caused by pollen 82386555 Active 2023 Allergic rhinitis due to pollen; Note: Date Diagnosed : 08/23/2023 2:09 PM (J30.1) Not Available [facility] 4 03:03:47 Problem Notes None recorded. Procedures Surgical History Date Name Laterality Status Provider Name and Address Organization Details Recorded Time 02/23/2024 Air & Speech Audio with Tymps (24752, 89551 & 73248) completed Ade Paul MA - [facility] 02/23/2024 14:32:24 Imaging Results Imaging Date Name Status [facility]Modified [facility] Details LastModified Time 02/28/2024 audiogram completed BARCODE [...] mg tablet 2017 active Medicati on ID: [id number] D uration Value: 30 Brand Name: figueroa [...] bromide 21 mcg (0.03 %) nasal spray [place] 2 spray into both nostrils three times a day 2019 active Medicati on ID: [id number] P rescribe d By Name: KENNEDI Thomson [...] 2 drop 06/15 completed Medicati on ID: [id number] P rescribe d By Name: KENNEDI Borrego [...] DIRECTED BY GASTROEN TEROLOGY DEPARTME NT AT [facility] active Not Available Not Available No t Available Flowflex COVID-19 Antigen Home Test kit USE DIRECTED ON PACKAGIN G active Not Available Not Available No t Available Vitals Date Recorded Body height Body mass index (BMI) Body weight Provider Name and Address Organization Details Last Updated DateTime 02/23/2024 167.64 cm 29.1 kg/m2 77506.63 g Yola Greenfield MA - [facility] 02/23/2024 13:30:52 Social History None recorded. Functional Status None recorded. Mental Status None recorded. Family History Nothing Reported. Medical History No medical history recorded. Past Encounters Encounter ID Performer Location Encounter Start Date Encounter Closed Date Diagnosis/Indication Diagnosis SNOMED-CT Code Diagnosis ICD10 Code Diagnosis Note [id number] MICHELLE LLOYD MD [facility] of [address] [address] 02/23/2024 13:16:05 02/23/2024 14:47:11 Bilateral tinnitus 6298384906 102 H93.13 Sensorineu ral hearing loss of bilateral ears 717353862 H90.3 Audiologic al evaluation results:Ri ght ear:{{Norm [...] Concerns Section Related Observation LastModified by Organization Ester tran LastModified Time None Recorded Concern Status LastModified by Organization Details LastModified Time None Recorded Advance Directives Directive None Recorded Payers Encounter Date Sequence Insurance Name Policy Number Policy Shea Covered Member ID Shea Member ID Guarantor Name 02/23/2024 1 [facility] - HEALTH NET PLAN (MEDICAID HMO) NARENDRA Isaac [id number] Rai Isaac Notes Date Note Type Note Provider Name and Address Organization Details Recorded Time 02/23/2024 text/html 58-year-old male presents for reevaluation of tinnitus. Previously diagnosed with sensorineural hearing loss but decided against amplification. His tinnitus has become very bothersome and he is reconsidering hearing aids at this time. MICHELLE LLOYD MD [address] [place] [address], [phone], [facility] - [facility] 02/25/2024 07:04:23
== END 2024-05-01 14:51 | disposition home or self-care (01) ==
LOC: HO.CT 14:50
PROVIDERS: PCP Internal Medicine; Visit Provider Physician Assistant Medical
DX: Z12.2 Encounter for screening for malignant neoplasm of respiratory organs (principal); F17.210 Nicotine dependence, cigarettes, uncomplicated; K21.9 Gastro-esophageal reflux disease without esophagitis; K62.5 Hemorrhage of anus and rectum; K64.8 Other hemorrhoids
CPT/HCPCS: 71271; 99212

== ENCOUNTER → 2024-05-01 14:52 | Outpatient (BNV) | payer OTHER, SELFPAY | PROVIDERS: PCP Internal Medicine; Visit Provider Radiology Diagnostic Radiology | DX: Z12.2 Encounter for screening for malignant neoplasm of respiratory organs (principal); F17.210 Nicotine dependence, cigarettes, uncomplicated | CPT/HCPCS: 71271 ==

== ENCOUNTER 2024-07-16 09:02 | Outpatient (AMB) | payer OTHER, SELFPAY ==
[2024-07-16 09:06] VITALS: BP 148/94; PULSE 94; TEMP 37.1; O2SAT 97; BMI 28.2
--- NOTE | 2024-07-16 09:06 | MHC.PC.OV ---
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 Accompanied by: Self / Same As Patient Allergies No Known Allergies [No Known Allergies*] Allergy (Verified 07/16/24 09:23) Medication List - Last Reconciled 07/16/24 by JAVIER Wright albuterol sulfate 90 mcg/actuation (Ventolin HFA) 2 puffs PO Q6H PRN alprazolam 0.25 mg PO TID PRN 30 days buspirone 10 mg (2 x 5 mg) PO BID 30 days cholecalciferol (vitamin D3) (Vitamin D3) 50 mcg PO DAILY 90 days cyclobenzaprine 5 mg PO BEDTIME PRN 30 days docusate sodium 100 mg PO DAILY finasteride 5 mg PO DAILY 90 days fluticasone propionate 50 mcg/actuation (Flonase Allergy Relief) 1 spray intranasal DAILY 3 months hydrocortisone 2.5% (Proctosol HC) 1 appl DE BID-QID PRN magnesium oxide 400 mg PO DAILY 30 days melatonin 3 mg PO BEDTIME PRN 30 days multivitamin 1 tab PO DAILY nicotine (polacrilex) (Nicorette) 4 mg buccal Q2-4H 30 days pantoprazole 40 mg PO DAILY sildenafil 100 mg PO ONCE PRN 30 days syringe with needle (BD Luer-Lalo Syringe) As directed Q2W tamsulosin 0.8 mg (2 x 0.4 mg) PO DAILY 90 days testosterone cypionate 160 mg (0.8 mL) IM Q2W 28 days trazodone 50 mg PO BEDTIME PRN Tobacco use date assessed: 07/16/24 Dental Screening Dental Screen Date: 07/16/24 Did you have a dental visit in the last 12 months?: Yes Did you have a dental problem in the last 6 months where you did not have access to dental care?: No Was dental information given to patient?: Patient has dentist HPI [place] ED 07/02 Sciatica nerve Strain HPI Details Patient is a 58-year-old male presenting for follow up your visit in [place]. Patient of Dr. Suero The patient reports that prior to start feeling the pain, he was moving some heavy supplies and thinks that he twitched his back some how Reports that he was in [place] and was trying to hold on but the pain became unbearable Reports that he went to emergency room in [place] and they did x-ray of his back with no acute findings The patient differentials: lumbar strain versus sciatica pain The patient was also noted to have small amount of blood in his urine. Urinalysis done in office negative for blood The patient reports that he is still having the pain with the radiation down his leg on the left side The patient was treated with Flexeril 5 mg t.i.d., hydrocodone-acetaminophen 7.5 mg-325 mg q.4 hours and prednisone tapered in the ED in [place] Patient in office complaining that the pain is still there and is affecting him. The patient already has an order for cyclobenzaprine 5 mg p.r.n. at bedtime neck discomfort. We will increase this to 10 mg p.r.n. at bedtime and started the patient on meloxicam 15 mg daily A PT referral was placed [facility] Medical History Smoker Polycythemia White coat syndrome with hypertension Elevated blood pressure reading Sleep apnea GERD without esophagitis Tubular adenoma of colon Nicotine dependence, cigarettes, uncomplicated BPH w urinary obs/LUTS Hypogonadism in male Vitamin D deficiency Insomnia Anxiety Depression Strain of cervical portion of left trapezius muscle Overweight (BMI 25.0-29.9) Surgical History H/O hernia repair History of esophagogastroduodenoscopy (EGD) History of right inguinal hernia repair History of open reduction and internal fixation (ORIF) procedure (~2018) History of colonoscopy (~2016) S/P transurethral resection of prostate (~2010) Family History Father Diabetes CAD (coronary artery disease) CKD (chronic kidney disease) Mother Hypertension Depression Hypercholesteremia Lung cancer Brother Myocardial infarction Brother In good health Son In good health Social History Housing: House Alcohol intake: current Alcohol intake frequency: holidays/special occasions only Patient Tobacco Use Status: Current everyday Tobacco user Tobacco use type: Cigarette Cigarette Packs Per Day: 0.5 Cigarettes Per Day: 10 Years Smoked: 30 e-Cigarette/Vaping Use: Never Used Second Hand Smoke Exposure: Yes service: No Current occupational status: employed Cognitive needs: No Hearing needs: Yes Vision needs: Yes (glasses) Questionnaire PHQ-9 Over the last 2 weeks, how often have you been bothered by any of the following problems? 1. Little interest or pleasure in doing things: not at all 2. Feeling down, depressed, or hopeless: several days 3. Trouble falling or staying asleep, or sleeping too much: several days 4. Feeling tired or having little energy: not at all 5. Poor appetite or overeating: not at all 6. Feeling bad about yourself - or that you are a failure or have let yourself or your family down: not at all 7. Trouble concentrating on things, such as reading the newspaper or watching television: not at all 8. Moving or speaking so slowly that other people could have noticed. Or the opposite - being so fidgety or restless that you have been moving around a lot more than usual: not at all 9. Thoughts that you would be better off or of hurting yourself in some way: not at all Total score: 2 Depression Screening Interpretation: Negative Depression Screening Done: Yes 92954 - PHQ-9 Billing: Yes Source: Developed by Drs. Cruz Walters, Rosario Morgan, Jf Shaffer and colleagues, with an educational kym from [employer]. Thrive Questionnaire Date Thrive assessed: 07/16/24 I am a: Patient What is your living situation today?: I have a steady place to live Within the past 12 months, did the food you bought not last and you didn't have the money to get more?: Never true Within the past 12 months, did you worry whether your food would run out before you got money to buy more?: Never true Do you have trouble paying for medicines?: No Do you have trouble getting transportation to medical appointments?: No Do you have trouble paying your heating and electricity bill?: No Do you have trouble taking care of your child, family member or friend?: No Do you have trouble with day-to-day activities such as bathing, preparing meals, shopping, managing finances, etc.?: No Are you currently unemployed and looking for a job?: No Are you interested in more education?: No Please select the resources that you would like help with: None Currently or been in a relationship where the following occur: No concerns reported THRIVE Score: 0 AUDIT C Alcohol Use Questionnaire (AUDIT-C) 2. How many drinks containing alcohol do you have on a typical day when you are drinking?: 3 or 4 3. How often do you have six or more drinks on one occasion?: Monthly Total Score: 3 DEISY-7 AMB Questionnaire DEISY-7 Date DEISY - 7 assessed: 07/16/24 Feeling nervous, anxious, or on edge: 2 = More than half the days Not being able to stop or control worryin = More than half the days Worrying too much about different things: 2 = More than half the days Trouble relaxin = More than half the days Being so restless that it is hard to sit still: 2 = More than half the days Becoming easily annoyed or irritable: 2 = More than half the days Feeling afraid as if something awful might happen: 0 = Not at all Total DEISY-7 score (0-4 normal; 5-9 mild; 10-14 moderate; 15-21 severe): 12 Source: Developed by Drs. Cruz Walters, Rosario Morgan, Jf Shaffer and colleagues, with an educational kym from [employer]. DEISY-7 Assessment Billing DEISY-7 Assessment Tool: DEISY-7 Assessment 12531 Review of Systems Const Denies headache(s) Eyes Denies loss of vision ENT Denies vertigo, Denies dizziness, Denies headache(s) and Denies sore throat Card Denies chest pain, Denies leg edema and Denies lightheadedness Resp Denies cough, Denies hemoptysis and Denies wheezing GI Denies abdominal pain, Denies melena, Denies constipation, Denies diarrhea and Denies vomiting Reports hematuria (reports that he had blood in the urine in [place]), Denies dysuria, Denies urinary frequency and Denies urinary urgency Musc Reports back pain, Denies arthralgias, Denies joint swelling, Denies numbness, Reports radiating pain into limb (left lower back down all the way to feet) and Denies tingling Neuro Denies Abnormal speech present, Denies behavioral changes, Denies vertigo, Denies dizziness, Denies headache(s), Denies loss of vision, Denies memory loss, Denies numbness and Denies tingling Psych Denies anxiety, Denies behavioral changes, Denies depression, Denies memory loss and Denies panic attacks Checo/Lymph Denies easy bleeding and Denies easy bruising Aller/Immun Denies wheezing Physical exam (Primary Care) Vital Signs: Last Vital Signs Temp 98.8 F 07/16/24 09:06 Pulse 94 07/16/24 09:06 BP 148/94 H 07/16/24 09:06 Pulse Ox 97 07/16/24 09:06 Oxygen Delivery Method Room Air 07/16/24 09:06 BMI result Body Mass Index 28.2 Tobacco/Smoking Status: Tobacco use Status Tobacco use date assessed 07/16/24 07/16/24 09:19 Patient Tobacco Use Status Current everyday Tobacco 07/16/24 09:19 Tobacco use type Cigarette 07/16/24 09:19 e-Cigarette/Vaping Use Never Used 07/16/24 09:19 PHQ-9: PHQ-9 Score PHQ-9: Total score 2 07/16/24 09:53 Depression Screening Interpretation: Negative Thrive Assessment: Date of Thrive Assessment Date Thrive assessed 07/16/24 07/16/24 09:19 Currently or been in a relationship where the following occur: No concerns reported Const General: healthy appearing, no acute distress, alert and awake Nutritional Appearance: well nourished Orientation/consciousness: oriented to person, oriented to place and oriented to time HENMT Ears: TM's normal bilaterally General nose exam: Normal nasal mucous membranes and turbinates present Eyes Conjunctivae: conjunctivae normal Sclerae: sclerae normal Pupils: Equal, round and reactive pupils present Neck Neck: Yes no lymphadenopathy and Yes no JVD Thyroid: Thyroid normal Carotids: no bruits Resp Effort & Inspection: normal respiratory effort and not tachypneic Auscultation: no crackles, no rales, no rhonchi and no wheezes Cardio Rate: regular rate Rhythm: regular rhythm Heart sounds: no murmurs and normal S1 and S2 GI Palpation (GI): Soft to palpation, nontender, no hepatomegaly and no splenomegaly Auscultation: normal bowel sounds General: Yes CVA tenderness on the left Back/Spine/Pelvis Back: CVA tenderness Thoracic/Lumbar Spine: lumbar spinal tenderness and straight leg raise positive Pelvis: sciatic notch tenderness Skin General skin exam: no rashes or lesions noted and dry skin Neuro General: oriented to person, oriented to place and oriented to time Cranial nerves: Yes Equal, round and reactive pupils present Speech: No Abnormal speech present Gait exam (Neuro): Normal gait present Motor exam (neuro): no tremor noted Extrem Right upper extremity: full ROM Left upper extremity: full ROM Right lower extremity: full ROM; no edema Left lower extremity: full ROM; no edema Psych Mental Status: mental status grossly normal Speech and movement: Normal speech and movement present Affect: normal affect Attitude: cooperative Thought process: Normal thought process present Results AMB Urinalysis, Automated UA Leukoctes 0 Florentin/uL Last Edit by Kat Barger CMA on 07/16/24 09:55 UA Nitrite Negative Last Edit by Kat Barger CMA on 07/16/24 09:55 UA Urobilinogen 0.2 mg/dL Last Edit by Kat Barger CMA on 07/16/24 09:55 UA Protein 0 mg/dL Last Edit by Kat Barger CMA on 07/16/24 09:55 UA pH 6.0 Last Edit by Kat Barger CMA on 07/16/24 09:55 UA Blood 0 Charanjit/uL Last Edit by Kat Barger CMA on 07/16/24 09:55 UA Specific [place] 1.030 Last Edit by Kat Barger CMA on 07/16/24 09:55 UA Ketone Negative Last Edit by Kat Barger CMA on 07/16/24 09:55 UA Bilirubin 0 mg/dL Last Edit by Kat Barger CMA on 07/16/24 09:55 UA Glucose 0 mg/dL Last Edit by Kat Barger CMA on 07/16/24 09:55 Results Reviewed Results Reviewed: Laboratory Last Values Urine pH (Auto) 6.0 07/16/24 09:43 Specific [place] (Auto) 1.030 07/16/24 09:43 Urine Protein (Auto) 0 mg/dL 07/16/24 09:43 Glucose (UA)(Auto) 0 mg/dL 07/16/24 09:43 Urine Ketones (Auto) Negative 07/16/24 09:43 Urine Blood (Auto) 0 Charanjit/uL 07/16/24 09:43 Urine Nitrite (Auto) Negative 07/16/24 09:43 Urine Bilirubin (Auto) 0 mg/dL 07/16/24 09:43 Urine Urobilinogen (Auto) 0.2 mg/dL 07/16/24 09:43 Leukocyte Esterase (Auto) 0 Florentin/uL 07/16/24 09:43 Coding Level of Care Code Est Pt Level 3 (81545) Diagnoses Acute left-sided low back pain with left-sided sciatica M54.42 Chronicity: acute Back pain laterality: left Sciatica presence: with sciatica Sciatica laterality: sciatica of left side Hematuria, unspecified type R31.9 Hematuria type: unspecified type Additional Codes DEISY-7 Assessment Billing - DEISY-7 Assessment Tool: DEISY-7 Assessment 52637 ([id number]) PHQ-9 - 91820 - PHQ-9 Billing: Yes ([id number]) Time Spent (min) 35 Assessment & Plan Assessment & Plan (1) Lower back pain: Code(s): M54.50 - Low back pain, unspecified Category: Medical Qualifiers: Chronicity: acute Back pain laterality: left Sciatica presence: with sciatica Sciatica laterality: sciatica of left side Qualified Code(s): M54.42 - Lumbago with sciatica, left side Plan: Patient complain of left lower back pain radiating into his left leg. For this he had went to the ED in [place], where they took x-rays of his lumbar spine and treated him with Flexeril 5 mg, [place], and prednisone taper. Patient is still experiencing the pain with radiation. We will increase cyclobenzaprine to 10 mg at bedtime p.r.n. and started meloxicam 15 mg daily and referred the patient to PT (2) Hematuria: Code(s): R31.9 - Hematuria, unspecified Category: Medical Qualifiers: Hematuria type: unspecified type Qualified Code(s): R31.9 - Hematuria, unspecified Plan: Small amount of blood in the urine was noted in urinalysis done in the ED. urinalysis repeat in office today is negative for blood Orders: Orders PT Evaluation and Treatment Today M54.42 - Lumbago with sciatica, left side AMB Urinalysis Automated Today R31.9 - Hematuria, unspecified Medications: New cyclobenzaprine 10 mg PO BEDTIME 30 days PRN 30 tabs 3RF muscle spasm Discontinued cyclobenzaprine Discontinued Reason: Doctor's Order 5 mg PO BEDTIME 30 days PRN 30 tabs 3RF muscle spasm
--- OUTSIDE RECORDS SUMMARY | 2024-07-16 09:55 | XMS_ITS | Data Portability ---
Author Organization [place] - [facility], Allergy Address [address] [address] Care Team Providers Care Molder Pipe Covering Name Role Phone NERIS TEAGAN Primary Care Provider [phone] Assessment Encounter Date Assessment Date Assessment LastModified by Organization Details LastModified Time 02/23/2024 02/23/2024 58-year-old male presents for evaluation of tinnitus. Otologic exam is unremarkable today. Recommended updated audiometric testing. Reviewed masking techniques and pathophysiology of tinnitus in detail. He would be a good candidate for amplification. Was provided a copy of his hearing test and medical clearance. He was also given [facility] sheet for reference. Recommend updated audiometric testing every 1 to 2 years. Was also provided information for tinnitus retraining program. He is very interested in pursuing this option. [email or web address] Not available 02/23/2024 14:51:23 Plan of Treatment Reminders Order Date Submit Date Provider Last Modified By Organization Details Last Modified Time Details Appointments Establish ed 15 2024 03:15P Jazmin PLATT PA-C Not available Not available Not available Lab None recorded. Referral None recorded. Procedures None recorded. Surgeries None recorded. Imaging None recorded. Medication Orders None recorded. Patient TargetsNo targets recorded. Patient InstructionsNo instructions [...] Sensorine ural hearing loss in left ear 97488454911 109 Active 10/27/ 2017 Sensorine ural hearing loss, unilatera l, left ear, with restricte d hearing on the contralat eral side; Note: Date Diagnosed : 7 3:58 PM (H90.A22) Not Available [facility] 4 03:03:47 Deviated nasal septum 216105349 Active 2016 Deviated nasal septum; Note: Date Diagnosed : 7 2:37 PM (J34.2) Not Available [facility] 4 03:03:47 Itching of skin 335897012 Active 2019 Pruritus, unspecifi ed; Note: Date Diagnosed : 07/05/2019 1:58 PM (L29.9) Not Available [facility] 4 03:03:45 Nasal congestio n 58873655 Active 2017 Nasal congestio n; Note: Date Diagnosed : 05/15/2017 3:12 PM (R09.81) Not Available [facility] 4 03:03:46 Sensorine ural hearing loss in right ear 91769643589 100 Active 2022 Sensorine ural hearing loss, unilatera l, right ear, with restricte d hearing on the contralat eral side; Note: Date Diagnosed : 3 4:41 PM (H90.A21) Not Available [facility] 4 03:03:45 Subjectiv e tinnitus 48729224 Active 2016 Subjectiv e tinnitus; Note: Date Diagnosed : 7 2:38 PM (388.31) Not Available [facility] 4 03:03:47 Asymmetri allyssa sensorine ural hearing loss 942291177 Active 2016 Hearing loss: Sensorine ural hearing loss, asymmetri allyssa; Note: Date Diagnosed : 7 2:38 PM (389.16) Not Available [facility] 4 03:03:47 Mixed conductiv e and sensorine ural hearing loss of left ear 25699257999 107 Active 2022 Mixed conductiv e and sensorine ural hearing loss, unilatera l, left ear with restricte d hearing on the contralat eral side; Note: Date Diagnosed : 3 4:41 PM (H90.A32) Not Available [facility] 4 03:03:45 Bilateral tinnitus 11115575109 02 Active 2020 Tinnitus, bilateral ; Note: Date Diagnosed : 03/25/2021 5:15 PM (H93.13) Not Available [facility] 4 03:03:46 Sensorine ural hearing loss of bilateral ears 866016824 Active 2019 Sensorine ural hearing loss, bilateral ; Note: Date Diagnosed : 07/05/2019 1:25 PM (H90.3) Not Available [facility] 4 03:03:46 Acute maxillary sinusitis 11379324 Active 2017 Acute maxillary sinusitis , unspecifi ed; Note: Date Diagnosed : 09/11/2017 3:26 PM (J01.00) Not Available [facility] 4 03:03:46 Tinnitus of left ear 41779542245 06 Active 2016 Tinnitus, left ear; Note: Date Diagnosed : 7 2:01 PM (H93.12) Not Available [facility] 4 03:03:46 Bilateral disorder of Eustachia n tubes 76816647976 92442 Active 2023 Other specified disorders of Eustachia n tube, bilateral ; Note: Date Diagnosed : 08/23/2023 2:09 PM (H69.83) Not Available [facility] 4 03:03:45 Allergic rhinitis caused by pollen 03579871 Active 2023 Allergic rhinitis due to pollen; Note: Date Diagnosed : 08/23/2023 2:09 PM (J30.1) Not Available [facility] 4 03:03:47 Problem Notes None recorded. Procedures Surgical History Date Name Laterality Status Provider Name and Address Organization Details Recorded Time 02/23/2024 Air & Speech Audio with Tymps (13354, 30137 & 49730) completed Ade Paul MA - [facility] 02/23/2024 14:32:24 Imaging Results Imaging Date Name Status LastModified by Organ [facility] Details LastModified Time 02/28/2024 audiogram completed BARCODE [...] mg tablet 2017 active Medicati on ID: [id number] D uration Value: 30 Brand Name: figueroa [...] bromide 21 mcg (0.03 %) nasal spray [place] 2 spray into both nostrils three times a day 2019 active Medicati on ID: [id number] P rescribe d By Name: KENNEDI Thomson [...] 2 drop 06/15 completed Medicati on ID: [id number] P rescribe d By Name: KENNEDI Borrego [...] DIRECTED BY GASTROEN TEROLOGY DEPARTME NT AT [facility] active Not Available Not Available No t Available Flowflex COVID-19 Antigen Home Test kit USE DIRECTED ON PACKAGIN G active Not Available Not Available No t Available Vitals Date Recorded Body height Body mass index (BMI) Body weight Provider Name and Address Organization Details Last Updated DateTime 02/23/2024 167.64 cm 29.1 kg/m2 33082.63 g Yolagustavo Greenfield MA - [facility] 02/23/2024 13:30:52 Social History None recorded. Functional Status None recorded. Mental Status None recorded. Family History Nothing Reported. Medical History No medical history recorded. Past Encounters Encounter ID Performer Location Encounter Start Date Encounter Closed Date Diagnosis/Indication Diagnosis SNOMED-CT Code Diagnosis ICD10 Code Diagnosis Note [id number] MICHELLE LLOYD MD [facility] [address] [address] 02/23/2024 13:16:05 02/23/2024 14:47:11 Bilateral tinnitus 2116155746 102 H93.13 Sensorineu ral hearing loss of bilateral ears 132276399 H90.3 Audiologic al evaluation results:Ri ght ear:{{Norm [...] Shea Member ID Guarantor Name 02/23/[address] [facility] (MEDICAID HMO) NARENDRA Isaac [id number] Rai Isaac Notes Date Note Type Note Provider Name and Address Organization Details Recorded Time 02/23/2024 text/html 58-year-old male presents for reevaluation of tinnitus. Previously diagnosed with sensorineural hearing loss but decided against amplification. His tinnitus has become very bothersome and he is reconsidering hearing aids at this time. MICHELLE LLOYD MD [address] [place] [address], [phone], [facility] - [facility] 02/25/2024 07:04:23
== END 2024-07-16 09:56 | disposition home or self-care (01) ==
LOC: HO.HMCH 09:02
PROVIDERS: PCP Internal Medicine
DX: M54.42 Lumbago with sciatica, left side (principal); R31.9 Hematuria, unspecified

== ENCOUNTER → 2024-07-16 09:02 | Outpatient (BNVA) | payer OTHER, SELFPAY | PROVIDERS: PCP Internal Medicine | DX: M54.42 Lumbago with sciatica, left side (principal); R31.9 Hematuria, unspecified | CPT/HCPCS: 81003; 96127; 99212 ==

== ENCOUNTER 2024-08-16 15:30 | Outpatient (AMB) | payer OTHER, SELFPAY ==
[2024-08-16 15:32] VITALS: BP 138/76; PULSE 110; O2SAT 98; BMI 27.0
--- NOTE | 2024-08-16 15:32 | MHC.PC.OV ---
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: No Accompanied by: Self / Same As Patient Allergies No Known Allergies [No Known Allergies*] Allergy (Verified 08/16/24 16:01) Medication List - Last Reconciled 08/16/24 by Prateek Suero MD albuterol sulfate 90 mcg/actuation (Ventolin HFA) 2 puffs PO Q6H PRN alprazolam 0.25 mg PO TID PRN 30 days buspirone 10 mg (2 x 5 mg) PO BID 30 days cholecalciferol (vitamin D3) (Vitamin D3) 50 mcg PO DAILY 90 days cyclobenzaprine 10 mg PO BEDTIME PRN 30 days docusate sodium 100 mg PO DAILY finasteride 5 mg PO DAILY 90 days fluticasone propionate 50 mcg/actuation (Flonase Allergy Relief) 1 spray intranasal DAILY 3 months hydrocortisone 2.5% (Proctosol HC) 1 appl MT BID-QID PRN magnesium oxide 400 mg PO DAILY 30 days melatonin 3 mg PO BEDTIME PRN 30 days meloxicam 15 mg PO DAILY PRN 30 days multivitamin 1 tab PO DAILY nicotine (polacrilex) (Nicorette) 4 mg buccal Q2-4H 30 days pantoprazole 40 mg PO DAILY sildenafil 100 mg PO ONCE PRN 30 days syringe with needle (BD Luer-Lalo Syringe) As directed Q2W tamsulosin 0.8 mg (2 x 0.4 mg) PO DAILY 90 days testosterone cypionate 160 mg (0.8 mL) IM Q2W 28 days trazodone 50 mg PO BEDTIME PRN Tobacco use date assessed: 08/16/24 Dental Screening Dental Screen Date: 08/16/24 Did you have a dental visit in the last 12 months?: Yes Did you have a dental problem in the last 6 months where you did not have access to dental care?: No Was dental information given to patient?: Patient has dentist HPI lumbar pain goes down to left leg HPI Details Patient comes in today complaining of increased pain over his lower back for the past few months and states that the pain has been frequently radiating down his left leg and foot lately States that the toes on his left foot are feeling numb persistently lately States that his back pain started back sometime in April 2024 when he was in [place] and accidentally slipped and fell States that his low back pain has gradually gotten worse since He is currently going to physical therapy for his lower back and when he mentioned to the physical therapist that he has been experiencing some some stool incontinence, was advised to check with his PCP DELMA about getting an MRI of the lumbar spine done Patient states that he has not had any urinary incontinence recently but his urinalysis has shown the presence of RBCs in the urine He denies any headaches or dizziness Denies any chest pains, no shortness of breath No nausea/vomiting, no abdominal pain No change in bowel habits noted PFSH Medical History Smoker Polycythemia White coat syndrome with hypertension Elevated blood pressure reading Sleep apnea GERD without esophagitis Tubular adenoma of colon Nicotine dependence, cigarettes, uncomplicated BPH w urinary obs/LUTS Hypogonadism in male Vitamin D deficiency Insomnia Anxiety Depression Strain of cervical portion of left trapezius muscle Overweight (BMI 25.0-29.9) Surgical History H/O hernia repair History of esophagogastroduodenoscopy (EGD) History of right inguinal hernia repair History of open reduction and internal fixation (ORIF) procedure (~2018) History of colonoscopy (~2016) S/P transurethral resection of prostate (~2010) Family History Father Diabetes CAD (coronary artery disease) CKD (chronic kidney disease) Mother Hypertension Depression Hypercholesteremia Lung cancer Brother Myocardial infarction Brother In good health Son In good health Social History Housing: House Alcohol intake: current Alcohol intake frequency: holidays/special occasions only Patient Tobacco Use Status: Current everyday Tobacco user Tobacco use type: Cigarette Cigarette Packs Per Day: 0.5 Cigarettes Per Day: 10 Years Smoked: 30 Packs Per Year: 15 Packs per year/per ci.00 e-Cigarette/Vaping Use: Never Used Second Hand Smoke Exposure: Yes service: No Current occupational status: employed Cognitive needs: No Hearing needs: Yes Vision needs: Yes (glasses) Questionnaire PHQ-9 Over the last 2 weeks, how often have you been bothered by any of the following problems? 1. Little interest or pleasure in doing things: nearly every day 2. Feeling down, depressed, or hopeless: nearly every day 3. Trouble falling or staying asleep, or sleeping too much: nearly every day 4. Feeling tired or having little energy: nearly every day 5. Poor appetite or overeating: nearly every day 6. Feeling bad about yourself - or that you are a failure or have let yourself or your family down: nearly every day 7. Trouble concentrating on things, such as reading the newspaper or watching television: nearly every day 8. Moving or speaking so slowly that other people could have noticed. Or the opposite - being so fidgety or restless that you have been moving around a lot more than usual: nearly every day 9. Thoughts that you would be better off or of hurting yourself in some way: nearly every day Total score: 27 Depression Screening Interpretation: Positive Depression Screening Follow-up: Existing condition and In treatment Depression Screening Done: Yes 97754 - PHQ-9 Billing: Yes Source: Developed by Drs. Cruz Walters, Rosario Morgan, Jf Shaffer and colleagues, with an educational kym from [employer]. Thrive Questionnaire Date Thrive assessed: 08/16/24 I am a: Patient What is your living situation today?: I have a steady place to live Within the past 12 months, did the food you bought not last and you didn't have the money to get more?: I choose not to answer this question Within the past 12 months, did you worry whether your food would run out before you got money to buy more?: I choose not to answer this question Do you have trouble paying for medicines?: No Do you have trouble getting transportation to medical appointments?: No Do you have trouble paying your heating and electricity bill?: No Do you have trouble taking care of your child, family member or friend?: No Do you have trouble with day-to-day activities such as bathing, preparing meals, shopping, managing finances, etc.?: Yes Are you currently unemployed and looking for a job?: I choose not to answer this question Are you interested in more education?: I choose not to answer this question Please select the resources that you would like help with: None Currently or been in a relationship where the following occur: I choose not to answer THRIVE Score: 0 AUDIT C Alcohol Use Questionnaire (AUDIT-C) 1. How often do you have a drink containing alcohol?: Monthly or less 2. How many drinks containing alcohol do you have on a typical day when you are drinking?: 3 or 4 3. How often do you have six or more drinks on one occasion?: Monthly Total Score: 4 Score Reviewed/Action Taken: Yes DEISY-7 AMB Questionnaire DEISY-7 Date DEISY - 7 assessed: 08/16/24 Feeling nervous, anxious, or on edge: 2 = More than half the days Not being able to stop or control worryin = More than half the days Worrying too much about different things: 2 = More than half the days Trouble relaxin = More than half the days Being so restless that it is hard to sit still: 2 = More than half the days Becoming easily annoyed or irritable: 2 = More than half the days Feeling afraid as if something awful might happen: 0 = Not at all Total DEISY-7 score (0-4 normal; 5-9 mild; 10-14 moderate; 15-21 severe): 12 Source: Developed by Drs. Cruz Walters, Rosario Morgan, Jf Shaffer and colleagues, with an educational kym from [employer]. DEISY-7 Assessment Billing DEISY-7 Assessment Tool: DEISY-7 Assessment 27387 Review of Systems Const Denies chills, Denies fatigue, Denies fever(s) and Denies headache(s) ENT Denies dysphagia, Denies dizziness, Denies otalgia, Denies headache(s), Reports neck pain, Denies odynophagia and Denies sore throat Card Denies chest pain, Denies irregular heart rhythm, Denies palpitations and Denies dyspnea Resp Denies chest congestion, Denies cough and Denies dyspnea GI Denies abdominal pain, Denies dysphagia, Denies heartburn, Reports fecal incontinence (lately), Denies nausea, Denies odynophagia and Denies vomiting Denies difficulty urinating, Denies dysuria, Denies urinary frequency and Denies urinary incontinence Musc Reports back pain (increased, since April 2024 when he fell (in [place])), Denies arthralgias, Reports neck pain, Reports numbness (in the toes of his left foot) and Reports radiating pain into limb (down left leg into left foot) Skin/Breast Denies rash Neuro Denies dizziness, Denies headache(s), Reports numbness (in the toes of his left foot) and Denies paresthesias Psych Reports anxiety Endo Denies fatigue and Denies palpitations Physical exam (Primary Care) Vital Signs: Last Vital Signs Pulse 110 H 08/16/24 15:32 BP 138/76 08/16/24 15:32 Pulse Ox 98 08/16/24 15:32 Oxygen Delivery Method Room Air 08/16/24 15:32 BMI result Body Mass Index 27.0 Tobacco/Smoking Status: Tobacco use Status Tobacco use date assessed 08/16/24 08/16/24 15:38 Patient Tobacco Use Status Current everyday Tobacco 08/16/24 15:38 Tobacco use type Cigarette 08/16/24 15:38 e-Cigarette/Vaping Use Never Used 08/16/24 15:38 PHQ-9: PHQ-9 Score PHQ-9: Total score 27 08/16/24 16:08 Depression Screening Interpretation: Positive Depression Screening Follow-up: Existing condition and In treatment Thrive Assessment: Date of Thrive Assessment Date Thrive assessed 08/16/24 08/16/24 15:38 Currently or been in a relationship where the following occur: I choose not to answer Const General: no acute distress and alert HENMT Ears: TM's normal bilaterally and EAC's normal Throat: Yes posterior oropharynx normal and Yes tonsils normal (no TP congestion) Neck Neck: Yes supple and No lymphadenopathy Thyroid: Thyroid normal Resp Auscultation: clear to auscultation bilaterally, no rales and no wheezes Cardio Rate: regular rate Rhythm: regular rhythm Heart sounds: no murmurs GI Palpation (GI): Soft to palpation and nontender Auscultation: normal bowel sounds General: Yes no CVA tenderness Back/Spine/Pelvis Back: no CVA tenderness Cervical Spine: Cervical spine tenderness (mild) Thoracic/Lumbar Spine: paraspinal muscle tenderness on the left, lumbar spinal tenderness and straight leg raise positive left Skin Rashes: no rashes Extrem General: Yes no clubbing, cyanosis or edema Coding Level of Care Code Est Pt Level 4 (83690) Diagnoses Lumbar back pain with radiculopathy affecting left lower extremity M54.16 Incontinence of feces, unspecified fecal incontinence type R15.9 Fecal incontinence type: unspecified Additional Codes DEISY-7 Assessment Billing - DEISY-7 Assessment Tool: DEISY-7 Assessment 65652 ([id number]) PHQ-9 - 08385 - PHQ-9 Billing: Yes ([id number]) Assessment & Plan Assessment & Plan (1) Lumbar back pain with radiculopathy affecting left lower extremity: Code(s): M54.16 - Radiculopathy, lumbar region Category: Medical (2) Bowel incontinence: Code(s): R15.9 - Full incontinence of feces Category: Medical Qualifiers: Fecal incontinence type: unspecified Qualified Code(s): R15.9 - Full incontinence of feces Plan Patient reportedly suffered a fall when he was in [place] back in April 2024 and states that he has been experiencing increased pain over his lower back since, with radiation of the pain down the back of his left leg into his foot often He reports that his left foot and toes have been feeling numb lately and the numbness has progressed to become persistent over the past couple of weeks He has also been experiencing on and off stool incontinence recently but he failed to mentioned that at his recent appointment last month He has been going to physical therapy lately and after mentioning his on and off stool incontinence to his physical therapist, he was advised to check back with his PCP DELMA about getting an MRI of his lumbar spine done due to concerns about the possibility of cord compression based on his symptoms Will go ahead and send the patient for an urgent MRI of the lumbar spine for further evaluation and to rule out cord compression/cauda equina syndrome To return as scheduled in October 2024 for his annual physical examination Orders: Orders MR lumbar spine wo con 08/16/24 M54.16 - Radiculopathy, lumbar region, R15.9 - Full incontinence of feces, R20.0 - Anesthesia of skin
== END 2024-08-16 16:09 | disposition home or self-care (01) ==
LOC: HO.HMCH 15:31
PROVIDERS: PCP Internal Medicine; Visit Provider Internal Medicine
DX: M54.16 Radiculopathy, lumbar region (principal); R15.9 Full incontinence of feces

== ENCOUNTER → 2024-08-16 15:30 | Outpatient (BNVA) | payer OTHER, SELFPAY | PROVIDERS: PCP Internal Medicine; Visit Provider Internal Medicine | DX: M54.16 Radiculopathy, lumbar region (principal); R15.9 Full incontinence of feces | CPT/HCPCS: 96127; 99212 ==

== ENCOUNTER 2024-08-20 11:54 | Outpatient (REF) | payer OTHER, SELFPAY ==
[2024-08-20 12:34] LABS: Hematocrit 54.9 % (42.0-52.0)
[2024-08-20 13:24] LABS: Prostate Specific Antigen 4.63 ng/mL (<0.05-4.0)
[2024-08-24 14:53] LABS: Testosterone, Total 957 ng/dL (250-1100)
== END 2024-08-20 11:55 | disposition home or self-care (01) ==
LOC: HO.LAB 11:54
PROVIDERS: PCP Internal Medicine; Visit Provider Urology
DX: C61 Malignant neoplasm of prostate (principal); E29.1 Testicular hypofunction; E11.69 Type 2 diabetes mellitus with other specified complication; N52.1 Erectile dysfunction due to diseases classified elsewhere
CPT/HCPCS: 36415; 84153; 84403; 85014

== ENCOUNTER 2024-08-29 13:00 | Outpatient (RCR) | payer OTHER, SELFPAY ==
--- NOTE | 2024-08-02 15:53 | MHC.PT.EP ---
[facility] [place] Office [place] [facility] [place] Office [address] Terence Schmidt [address] [phone] F: [phone] F: [phone] F: [phone] F: [phone] Physical Therapy Plan of Care Date of Evaluation: 08/02/24 Date of Surgery: Diagnosis: WALTER Wright-Corina 07/16/24 PT Evaluation and Treatment Today M54.42 - Lumbago with sciatica, left side date of script 07/16/24 Assessment: Pt is a RHD 58 y/o male, referred to PT for treatment of PT Evaluation and Treatment Today M54.42 - Lumbago with sciatica, left side referred to PT from Jazmin Mcduffie date of script 07/16/24 following onset of sx which began on 07/02/24 while patient was away in [place] when attempting to push a 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 Pt reports he was twisted when pushing the mower had twinge and pain in his back, a few days later had episode of bowel incontinence. Pt was bent over a few days later trying [place] the beach, which began onset of L LE radiating sx down his entire leg>buttocks, plantar aspect of his foot. Pt went to ED, had xrays, also underwent urinalysis and had CT scan. Pt was prescribed prednisone (states did not help him), flexeril, and pain medication. Pt reports cancelling his flight home to [place] x 2 trials due to severity of sx. He was seen by PCP office on 07/16/24 due to unresolving L LE sx. Was prescribed meloxicam and muscle relaxers with no significant relief. Pt unable to sleep reports surge of sx at night, pt exhibits (+) L SLR, weakness of L ankle DF/IV/EV, inability to perform a L heel raise and weakness great toe ext. Pt signs and sx consistent with lumbar radiculopathy L5/S1. Due to severity of injury and history of bowel incontinence (STATES HE DID NOT TELL PCP OFFICE ABOUT THIS), he would benefit from referral to obstetrics specialist/and or pain management as well as MRI imaging. Pt has denied any further bowel incontinence since a few days after injury on 07/02/24 but has reported urge with inability to urinate completely. At baseline he reports he has had flow issues related to BPH however he states this feeling has been difference than his baseline. Pt will benefit from attending skilled PT services at a frequency of 2x/week x 4 weeks to address impairments, implement HEP, and restore functional mobility to resume PLOF, centralize L LE sx, and improve neutral posturing/goals. PMH signifcant for Smoker Polycythemia White coat syndrome with hypertension Elevated blood pressure reading Sleep apnea GERD without esophagitis Tubular adenoma of colon Nicotine dependence, cigarettes, uncomplicated BPH w urinary obs/LUTS Hypogonadism in male Vitamin D deficiency Insomnia Anxiety Depression Strain of cervical portion of left trapezius muscle Overweight (BMI 25.0-29.9) H/O hernia repair History of esophagogastroduodenoscopy (EGD) History of right inguinal hernia repair History of open reduction and internal fixation (ORIF) procedure (~2018) History of colonoscopy (~2016) S/P transurethral resection of prostate (~2010) Pt will benefit from a lumbar/hip/core stabilization program Of note pt reports attempting Utube videos involving trunk flexion and abdominal work pre activity which may have flared him. Presents in mild lateral shift however able to correct posturing with active awareness. Frequency and Duration: The patient will be seen 2x/week x 4 weeks Short Term Goals: 1. Initiate self care/HEP program to management. 2. Pt will demonstrate centralization of L LE to height of the posterior hip. 3. Demonstrate log roll for bed mobility. 4. Strength hip abd to 4+/5 L>R sides. 5. Neutral posture of L/S in standing (no shift). Baggage Handler Goals: 1. I HEP for self care program/good body mechanics. 2. Centralize L LE sx to height of L/S. 3. Pt will demonstrate 80% reduction in lower back pain during ADLS/IADLS. 4. Strength 5/5 bilateral hip abductors. 5. Strength 5/5 hip extensors bilaterally. 6. Negative SLR. 7. L SLS with good dynamic balance. Treatment Plan: Modalities to reduce pain, spasms and effusion. Manual therapy to restore motion and function. Therapeutic exercise to improve strength and flexibility. Neuromuscular re-education for posture and balance. Therapeutic activities to return to functional activities of daily living. Electronically signed by: Jelly Garcia PT, DPT Please sign and return to therapist. Thank you for your referral.
== END 2024-10-15 07:28 | disposition home or self-care (01) ==
LOC: HO.PTS 13:00
PROVIDERS: PCP Internal Medicine
DX: M54.42 Lumbago with sciatica, left side (principal)
CPT/HCPCS: 97014; 97035; 97110; 97140; 97161; 97535

== ENCOUNTER 2024-08-30 13:42 | Outpatient (AMB) | payer OTHER, SELFPAY ==
--- NOTE | 2024-08-30 14:08 | A.OFFVIS_ITS ---
Intake Visit Reasons: followup/testo Intake Note: Patient is present for TESTO F/U Urology Medication:TAMSULOSIN,TESTOTERONE,FINEASTERIDE,SILDENAFIL Antibiotic Allergy:NONE Blood Thinner:NONE Youth Manager Required: No Allergies No Known Allergies [No Known Allergies*] Allergy (Verified 08/30/24 14:09) HPI Comments Details: Martin OSULLIVAN is a pleasant male. He is a patient of Dr Suero. He is seen for the following urologic conditions. - hypogonadism - lower urinary tract symptoms - erectile dysfunction Telemedicine Evaluation 15 min Consultation [employer] ([employer] Arben Video Bladder ultrasound shows 60 g prostate with 120 cc residual and bladder wall thickening Testosterone placement Current therapy 0.7cc q 2 weeks - has elevated hematocrit Switch from every 2 weeks to 0.35 weekly Refill provided Hypogonadism: Lab stable Continue current therapy - every 14 days He presents today for further evaluation and followup of his hypogonadism. - T - 0.7 cc Initial symptoms include erectile dysfunction Yes decreased libido Yes change in mood/depression Yes in muscle size/strength Yes increased fatigue/malaise Yes Laboratory results 11/09 T in 500's, 11/10 T 1200 PSA 2.8. - 05/14 T 430 day 13, PSA 2.9, HCt 53.5, 11/11 T 1174 PSA 4.1, Hct 54 - 06/15 T 844 day 10 - P 2.8 H 53.5 - 11/12 T 671 H 50, 10/14 T 777 H 49 P 2.7, 12/15 T 987, 08/16 969 4.6 54.9 Current therapy includes injectable exogenous testosterone Lower Urinary Tract Symptoms: Current visit is for further evaluation of, lower urinary tract symptoms, predominate obstructive symptoms. Current treatment includes alpha ruthie. - tamsulosin 0.8 mg daily Prostate Symptom Score 4/19 , Moderate (9-19), Bother 3. Symptoms include 4/ , incomplete emptying, weak stream, nocturia (>2), and are improving Prior Prostate Score 4/19 , moderate. - prior prostate procedure PSA 11/09 3.2 T 380 Treatment plan continue with current medications [facility] Medical History Smoker Polycythemia White coat syndrome with hypertension Elevated blood pressure reading Sleep apnea GERD without esophagitis Tubular adenoma of colon Nicotine dependence, cigarettes, uncomplicated BPH w urinary obs/LUTS Hypogonadism in male Vitamin D deficiency Insomnia Anxiety Depression Strain of cervical portion of left trapezius muscle Overweight (BMI 25.0-29.9) Surgical History H/O hernia repair History of esophagogastroduodenoscopy (EGD) History of right inguinal hernia repair History of open reduction and internal fixation (ORIF) procedure (~2018) History of colonoscopy (~2016) S/P transurethral resection of prostate (~2010) Family History Father Diabetes CAD (coronary artery disease) CKD (chronic kidney disease) Mother Hypertension Depression Hypercholesteremia Lung cancer Brother Myocardial infarction Brother In good health Son In good health Social History Housing: House Alcohol intake: current Alcohol intake frequency: holidays/special occasions only Patient Tobacco Use Status: Current everyday Tobacco user Tobacco use type: Cigarette Cigarette Packs Per Day: 0.5 Cigarettes Per Day: 10 Years Smoked: 30 e-Cigarette/Vaping Use: Never Used Second Hand Smoke Exposure: Yes service: No Current occupational status: employed Cognitive needs: No Hearing needs: Yes Vision needs: Yes (glasses) Review of Systems Const All systems reviewed & are unremarkable except as noted in HPI and below Reports no additional complaints Resp Reports no additional complaints GI Reports no additional complaints Reports as per HPI Musc Reports no additional complaints Physical Exam Telemedicine evaluation Appropriate responses Regular breathing rate and rhythm HEENT Head: Yes normal to inspection Ears: hearing grossly normal bilaterally Eyes General: appearance normal, both eyes and all related structures Neck Neck: Yes normal visual inspection Chest Chest palpation & inspection: normal inspection of the chest Resp Effort & Inspection: normal respiratory effort and able to speak in complete sentences Telehealth Telehealth Telehealth Platform: [facility] Location of provider rendering services: practice address Location of patient: address on file Patient Identification confirmed using: Name, : Yes Telehealth method: video Patient verbally consented to treatment: Yes Patient verbally consented to billing insurance company: Yes Patient informed of any privacy concerns related to visit: Yes Minutes spent on Phone/Video with Pt.: 15 Assessment & Plan Assessment & Plan (1) BPH w urinary obs/LUTS: Comment: (followed by Dr. Calle) Code(s): N40.1 - Benign prostatic hyperplasia with lower urinary tract symptoms; N13.8 - Other obstructive and reflux uropathy Category: Medical (2) Hypogonadism in male: Code(s): E29.1 - Testicular hypofunction Category: Medical Plan Refill testosterone Six-month follow-up Watch PSA Orders: Orders Complete Blood Count no Diff 6 Months E29.1 - Testicular hypofunction, N13.8 - Other obstructive and reflux uropathy, N40.1 - Benign prostatic hyperplasia with lower urinary tract symptoms Prostate Specific Antigen 6 Months E29.1 - Testicular hypofunction, N13.8 - Other obstructive and reflux uropathy, N40.1 - Benign prostatic hyperplasia with lower urinary tract symptoms Testosterone, Total 6 Months E29.1 - Testicular hypofunction, N13.8 - Other obstructive and reflux uropathy, N40.1 - Benign prostatic hyperplasia with lower urinary tract symptoms Medications: Changed From testosterone cypionate 160 mg (0.8 mL) IM Q2W 28 days 2 mL 5RF E29.1 - Testicular hypofunction To testosterone cypionate 80 mg (0.4 mL) IM QWEEK 28 days 2 mL 5RF E29.1 - Testicular hypofunction Refilled syringe with needle (BD Luer-Lalo Syringe) As directed Q2W 30 ea 0RF E29.1 - Testicular hypofunction Patient Instructions: This note is constructed using voice recognition software. While every effort has been made to ensure accuracy rougher for cement errors may have been included. Imaging studies, laboratory and physical exam results were discussed and reviewed in detail. No major barriers to patient understanding were identified. An opportunity to ask questions regarding the treatment plan was provided. All questions were answered. The patient expressed understanding and agreement with the above treatment plan. The patient is aware they should contact our office by phone for worsening of their current condition or the appearance of new urologic symptoms. Compliance is encouraged with any medications and followup testing that is ordered. It is a privilege to participate in the urologic care of your patient. If you have any questions or concerns regarding treatment for the above conditions, or other urologic issues, please do not hesitate to contact me. The office telephone contact is [phone]. Sincerely, Dr Merrill Calle MD, [facility] - Urology Compassionate Specialist Care for the Genitourinary System Coding Level of Care Code Tele Est Pt Level 4 (77839) Diagnoses BPH w urinary obs/LUTS N40.1; N13.8 Hypogonadism in male E29.1
== END 2024-08-30 15:50 | disposition home or self-care (01) ==
LOC: HO.HUSH 13:42
PROVIDERS: PCP Internal Medicine; Visit Provider Urology
DX: N40.1 Benign prostatic hyperplasia with lower urinary tract symptoms (principal); N13.8 Other obstructive and reflux uropathy; E29.1 Testicular hypofunction
CPT/HCPCS: 99214

== ENCOUNTER → 2024-08-30 13:42 | Outpatient (BNVA) | payer OTHER, SELFPAY | PROVIDERS: PCP Internal Medicine; Visit Provider Urology ==

== ENCOUNTER → 2024-09-02 16:41 | Outpatient (BNV) | payer OTHER, SELFPAY | PROVIDERS: PCP Internal Medicine; Visit Provider Radiology Diagnostic Radiology | DX: M51.369 Other intervertebral disc degeneration, lumbar region without mention of lumbar back pain or lower extremity pain (principal) | CPT/HCPCS: 72148 ==

== ENCOUNTER 2024-09-02 16:51 | Outpatient (REF) | payer OTHER, SELFPAY ==
--- NOTE | ~2024-09-02 | MR_ITS ---
CLINICAL HISTORY: M54.16 - Radiculopathy, lumbar region --- Additional Notes or Special Instructions: r o disc herniation and concerns for nerve compression due to NEW finding MR of the lumbar spine without contrast Comparison: None Findings: 5 mm anterolisthesis of L4 on L5, degenerative. Trace amount of Modic type 1 change at L4/L5 and L5/S1. There is edema in the facet joints on the left at L4/L5 and L5/S1. Bone marrow signal is otherwise normal. No cord expansion or abnormal signal intensity. The conus medullaris terminates at T12, which is normal. The cauda equina is unremarkable. Left renal parapelvic cysts. L1/L2: 2 mm broad-based disc bulge. No facet joint or ligamentum flavum hypertrophy. Mild central canal stenosis. No lateral recess stenosis. No foraminal stenosis. L2/L3: 3 mm broad-based disc bulge. Mild facet joint and ligamentum flavum hypertrophy. Mild central canal stenosis. Mild bilateral lateral recess stenosis. No foraminal stenosis. L3/L4: 2-3 mm broad-based disc bulge. Mild facet joint and ligamentum flavum hypertrophy. Mild central canal stenosis. Mild bilateral lateral recess stenosis. No foraminal stenosis. L4/L5: There is uncovering of the disc with 5 mm broad-based disc bulge. Severe facet joint and ligamentum flavum hypertrophy. Severe central canal stenosis. Moderate bilateral lateral recess stenosis. No right and minimal left foraminal stenosis. L5/S1: 3 mm broad-based disc bulge. Moderate facet joint and ligamentum flavum hypertrophy. Mild central canal stenosis. Mild right and moderate left lateral recess stenosis. No right and mild left foraminal stenosis. Impression: Edema in the facet joints on the left at L4/L5 and L5/S1 is favored to be degenerative. An infectious etiology is considered less likely. Correlate clinically for signs/symptoms of infection. No fluid collection. Multilevel degenerative change, detailed above. The patient's presentation may be attributable to stenosis at L4/L5 and L5/S1. This document has been electronically signed by: Dariela Ramos MD on 09/03/2024 21:29:40
== END 2024-09-02 16:52 | disposition home or self-care (01) ==
LOC: HO.MRI 16:51
PROVIDERS: PCP Internal Medicine; Visit Provider Internal Medicine
DX: M54.16 Radiculopathy, lumbar region (principal); R20.0 Anesthesia of skin; R15.9 Full incontinence of feces
CPT/HCPCS: 72148

== ENCOUNTER 2024-09-19 13:51 | Outpatient (AMB) | payer OTHER, SELFPAY ==
--- NOTE | 2024-09-19 13:55 | A.SPINEOV_ITS ---
Vital Signs 09/19/24 14:01 Height 5 ft 6 in Weight 180 lb BMI 29.0 Intake Visit Reasons: LBP Intake Note: Mr. Friend is here today c/o low back pain. Administrative Support Assistant Required: No Allergies No Known Allergies [No Known Allergies*] Allergy (Verified 09/19/24 14:01) Physical Exam Vital Signs: BMI result Body Mass Index 29.0 Assessment & Plan Assessment & Plan (1) Spinal stenosis, lumbar region without neurogenic claudication: Code(s): M48.061 - Spinal stenosis, lumbar region without neurogenic claudication Category: Medical Plan Dear Pal, Thank you for referring Mr Friend to our office today. He is a very nice 58-year-old gentleman who presents to the office today for evaluation of a left L5 radiculopathy that started about 3-4 months ago. 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 For the 1st day or 2 was a little uncomfortable but by the 3rd day he could not get out of bed or walk. Unfortunately, the pain progressed to where he ended up in the emergency room. He was given a steroid pack and medications to try to help with the pain. He did have 1 episode of bowel incontinence during this acute flare-up. He ultimately came back up to [place], was recommended to start physical therapy. He underwent therapy and the pain was not improving, so he underwent an MRI showing stenosis at L4-5 with other degenerative changes. Right now the pain is more manageable than what it was and he is taking [id number] medications to help with the discomfort. He can walk in his much more mobile but it is still quite uncomfortable at times. He feels strong spasms down his legs at times. His left leg is also numb going into his foot. PMH: He is reasonably healthy, history of GERD, BPH, there some degree of urinary retention as well which he has been followed by Dr. Calle trialing different medications. History of hematuria, anxiety, depression, right inguinal hernia repair, sleep apnea, tinnitus, polycythemia, vitamin-D deficiency. Denies any history of heart attacks, strokes, pulmonary issues, liver or renal disease, coagulopathies or blood clots. Social hx: Smokes marijuana regularly, occasional alcohol and also smokes cigarettes daily Medications: Xanax, testosterone injections, magnesium, vitamin-D, BuSpar, Colace, finasteride, melatonin, multivitamin, Viagra, pantoprazole, Flomax, testosterone Allergies: None Physical exam: Awake alert oriented no acute distress, motor examination reveals maybe some slight weakness of the left dorsiflexor, but very difficult to tell secondary to pain, gait is slightly antalgic. Imaging review: Lumbar MRI done here at [facility] shows some edema in the pedicles of L5. He has a spondylolisthesis at L4-5 with moderate to severe central canal stenosis. 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 He has no centralized back pain. The symptoms seem to be resolving. He has stenosis on his MRI in the L4-5 region with a spondylolisthesis. In light of the fact that he is improving, he is reluctant to consider the idea of surgery which is certainly reasonable. I told him just to continue on with his current plan and will see how things go. If the symptoms escalate again, I believe Dr. Garber would offer him a left L4-5 decompression as long as his standing x-rays do not show any signs of instability. I will wait to hear from the patient, I told him we would be glad to see him back if the symptoms flare up again, or just will not go away. I do not think there is any role at this time for an injection. Thank you for allowing us to care for your patient. The total time spent with this visit with this patient was 45 minutes reviewing history, physical exam, lumbar imaging review, and implementation of treatment plan or further diagnostic testing Quoc Garber MD,PhD [facility] Orders: Orders XR lumbar spine 4V min Today M48.061 - Spinal stenosis, lumbar region without neurogenic claudication Coding Level of Care Code New Pt Level 4 (09178) Diagnoses Spinal stenosis, lumbar region without neurogenic claudication M48.061
[2024-09-19 14:01] VITALS: BMI 29.0
== END 2024-09-19 14:53 | disposition home or self-care (01) ==
LOC: HO.HNS 13:52
PROVIDERS: PCP Internal Medicine; Visit Provider Physician Assistant
DX: M48.061 Spinal stenosis, lumbar region without neurogenic claudication (principal)
CPT/HCPCS: 99204

== ENCOUNTER 2024-09-19 13:51 | Outpatient (REF) | payer OTHER, SELFPAY ==
--- NOTE | ~2024-09-19 | XR_ITS ---
CLINICAL HISTORY: M48.061 - Spinal stenosis, lumbar region without neurogenic claudication --- Additi onal Notes or Special Instructions: standing, ap, lateral with flex ext 4 views lumbar spine Comparison: None Findings: Normal vertebral body alignment. No acute fractures or dislocation. Multiple level degenerative disc and facet change. IMPRESSION: No acute findings. This document has been electronically signed by: Tan Barr MD on 09/21/2024 09:25:56
== END 2024-09-19 13:52 | disposition home or self-care (01) ==
LOC: HO.HOSX 13:51
PROVIDERS: PCP Internal Medicine; Visit Provider Physician Assistant
DX: M48.061 Spinal stenosis, lumbar region without neurogenic claudication (principal)
CPT/HCPCS: 72110; 99202

== ENCOUNTER → 2024-09-19 14:44 | Outpatient (BNV) | payer OTHER, SELFPAY | PROVIDERS: PCP Internal Medicine; Visit Provider Specialist | DX: M48.061 Spinal stenosis, lumbar region without neurogenic claudication (principal) | CPT/HCPCS: 72110 ==

== ENCOUNTER 2024-10-14 14:20 | Outpatient (AMB) | payer OTHER, SELFPAY ==
--- NOTE | 2024-10-14 14:20 | A.OFFVIS_ITS ---
Vital Signs 10/14/24 14:23 Height 5 ft 6 in Weight 178 lb BMI 28.7 Intake Visit Reasons: 6m follow up Fatigue/Somnolence Intake Note: Patient has a follow-up visit. Director Of Accounts Receivable Required: No Accompanied by: Self / Same As Patient Allergies No Known Allergies (No Known Allergies*) Allergy (Verified 10/14/24 14:20) Do you need a note to return to daycare/school/sports/work: No HPI Comments Details: 57 y/o male patient presents for sleep apnea f/u visit. The home sleep study result was significant for a mild degree of sleep apnea. The AHI was 5/hr and oxygen danii was 74%. Pt started APAP [id number] in Apr 2023 The CPAP compliance and therapy response (12/2023 - 03/2024 ) reviewed. The usage 43/90 days and the average usage hours 4 hrs 48 min. The residual AHI was 2.2 /hr. He moves a lot and rolls over in his sleep, and pulls his mask off his face, he would like an evaluation for inspire He likes white noise as it works well with window curtains closed during the day and night. Pt reports he sleeps better overall with CPAP, however is continuosly tangled up in the headgear. He wakes up several times, tosses and turns, sleeps on his left side most of the night. He also is trying to smoke less, 5 cigarettes/ per day, he used to smoke a pack a day, now 5mcg/day. Would like to try the gum Chantix again. He continues to have GERD, but more aware of dietary intake now, he eats and takes his pantropazole PRN. He is more anxious and would like to have the Buspirone increased to 10mg PO BID, as it helps him to decrease cravings for nicotine.He uses Xanax only when needed. He has periodic headaches in the morning, uses OTC tylenolol as needed, declines headache meds today. Denies Auras, photo/phonophobias. Denies parasomias. He rarely uses Trazodone as it makes him foggy in the morning. He cleans his mask, changes filters and water as required. Would like a referral for the Inspire therapy, as he is not able to tolerate the CPAP machine. [facility] Medical History Smoker Polycythemia White coat syndrome with hypertension Elevated blood pressure reading Sleep apnea GERD without esophagitis Tubular adenoma of colon Nicotine dependence, cigarettes, uncomplicated BPH w urinary obs/LUTS Hypogonadism in male Vitamin D deficiency Insomnia Anxiety Depression Strain of cervical portion of left trapezius muscle Overweight (BMI 25.0-29.9) Surgical History H/O hernia repair History of esophagogastroduodenoscopy (EGD) History of right inguinal hernia repair History of open reduction and internal fixation (ORIF) procedure (~2018) History of colonoscopy (~2016) S/P transurethral resection of prostate (~2010) Family History Father Diabetes CAD (coronary artery disease) CKD (chronic kidney disease) Mother Hypertension Depression Hypercholesteremia Lung cancer Brother Myocardial infarction Brother In good health Son In good health Social History Housing: House Alcohol intake: current Alcohol intake frequency: holidays/special occasions only Patient Tobacco Use Status: Current everyday Tobacco user Tobacco use type: Cigarette Cigarette Packs Per Day: 0.5 Cigarettes Per Day: 10 Years Smoked: 30 e-Cigarette/Vaping Use: Never Used Second Hand Smoke Exposure: Yes service: No Current occupational status: employed Cognitive needs: No Hearing needs: Yes Vision needs: Yes (glasses) Physical Exam Vital Signs: BMI result Body Mass Index 28.7 Telehealth Telehealth Telehealth Platform: Telephone Location of provider rendering services: practice address Location of patient: address on file Patient Identification confirmed using: Name, : Yes Telehealth method: voice only Patient verbally consented to treatment: Yes Patient verbally consented to billing insurance company: Yes Patient informed of any privacy concerns related to visit: Yes Minutes spent on Phone/Video with Pt.: 20 Results Reviewed Results Reviewed: 05/2022 HST AHI is 5 and Oxygen nadirs to 72%. Assessment & Plan Assessment & Plan (1) KELSEY (obstructive sleep apnea): Comment: Mild degree of sleep apnea. The AHI was 5/hr and oxygen danii was 74% Code(s): G47.33 - Obstructive sleep apnea (adult) (pediatric) Category: Medical (2) Snoring: Code(s): R06.83 - Snoring Category: Medical (3) RLS (restless legs syndrome): Comment: RLS/ PLMD will evaluate with PSG Code(s): G25.81 - Restless legs syndrome Category: Medical (4) Excessive daytime sleepiness: Code(s): G47.19 - Other hypersomnia Category: Medical (5) GERD (gastroesophageal reflux disease): Comment: Has a GI f/u for air bubbles. Code(s): K21.9 - Gastro-esophageal reflux disease without esophagitis Category: Medical Qualifiers: Esophagitis bleeding: without hemorrhage Esophagitis presence: with esophagitis Qualified Code(s): K21.00 - Gastro-esophageal reflux disease with esophagitis, without bleeding (6) Fatigue: Code(s): R53.83 - Other fatigue Category: Medical Qualifiers: Fatigue type: unspecified Qualified Code(s): R53.83 - Other fatigue (7) Anxiety and depression: Code(s): F41.9 - Anxiety disorder, unspecified; F32.A - Depression, unspecified Category: Medical Plan Sleep Apnea: Continue to use APAP [id number], he experiences better quality sleep and his breathing has improved, however he still has trouble with his mask. ENT Referral for INspire therapy today as patient is unable to tolerate mask. PSG to evaluate for RLS? PLMD?Tossing and Turning at night. Continue to use melatonin 5 mg with magnesium 400 mg qHS for sleep, if you have diarrhea you may taper down on the mg. to one tablet every other day. Will monitor periodic headaches. Smoking Cessation: Continue to taper cigarettes 5/day, ask for counseling and support if needed. Exercise 3-5 times per week, will help with benefits such as weight reduction, lower stress and improve mood. Continue to use Buspirone 10mg PO BID for anxiety and mood, this will also help with smoking cessation. Continue to use Chantix as needed, request a patch when you are ready. Will f/u in 6 months. Orders: Orders RT PSG in-lab sleep study 10/14/24 G47.19 - Other hypersomnia, R06.83 - Snoring Referrals Ear/Nose/Throat Referral G47.33 - Obstructive sleep apnea (adult) (pediatric), K21.9 - Gastro-esophageal reflux disease without esophagitis Medications: Changed From melatonin 3 mg PO BEDTIME 30 days PRN 30 tabs 5RF sleep G47.00 - Insomnia, unspecified To melatonin take one tablet daily at bedtime 5 mg PO BEDTIME PRN 90 tabs 5RF sleep 30 days MDD 6mg G47.00 - Insomnia, unspecified Patient Instructions: Sleep Hygiene provided: set a scheduled bedtime and wake time to help regulate the circadian rhythm and balance the release of pituitary hormones. Sleep in a dark room, temperatures below 68 degrees, and no devices n bed. Limit caffeinated products 6 hours prior to bed, and limit fluids 2-4 hours prior to bed. Gentle night yoga, diffusing essential oils, and playing soft music can be relaxing. Coding Level of Care Code Tele Est Pt Level 4 (51759) Diagnoses KELSEY (obstructive sleep apnea) G47.33 Snoring R06.83 RLS (restless legs syndrome) G25.81 Excessive daytime sleepiness G47.19 Gastroesophageal reflux disease with esophagitis without hemorrhage K21.00 Esophagitis bleeding: without hemorrhage Esophagitis presence: with esophagitis Fatigue, unspecified type R53.83 Fatigue type: unspecified Anxiety and depression F41.9; F32.A Time Spent (min) 20 Comment improving
[2024-10-14 14:23] VITALS: BMI 28.7
== END 2024-10-15 10:54 | disposition home or self-care (01) ==
LOC: HO.HSMS 14:21
PROVIDERS: PCP Internal Medicine; Visit Provider Physician Assistant Medical
DX: G47.33 Obstructive sleep apnea (adult) (pediatric) (principal); R06.83 Snoring; G25.81 Restless legs syndrome; G47.19 Other hypersomnia; K21.00 Gastro-esophageal reflux disease with esophagitis, without bleeding; R53.83 Other fatigue; F41.9 Anxiety disorder, unspecified; F32.A Depression, unspecified
CPT/HCPCS: 99214

== ENCOUNTER 2024-10-21 10:57 | Outpatient (REF) | payer OTHER, SELFPAY ==
[2024-10-21 11:12] LABS: MANUAL DIFF FLAG NO
[2024-10-21 11:41] LABS: Appearance Urine Clear; Color Urine Yellow; Glucose Urine UA Negative (Negative); Leukocyte Esterase Urine Negative (Negative); Nitrite Urine Negative (Negative); PH >= 9.0 (5.0-9.0); UMIC TRIGGER UACC YES; Urine Blood Negative (Negative); Urine Ketones Negative (Negative); Urine Protein 30 (1+) mg/dL (Neg-Trace)
[2024-10-21 11:42] LABS: Basophils Percent Auto 0.7 % (0-2); Eosinophils Absolute Auto 0.1 X10*3/uL (0.0-0.4); Eosinophils Percent Auto 1.5 % (0-4); Hematocrit 52.4 % (42.0-52.0); Hemoglobin 17.9 g/dl (14.0-18.0); Imm Gran Abs Auto 0.04 X10*3/uL (0.00-0.03); Imm Gran Pct Auto 0.7 % (0.0-0.4); Lymphocytes Absolute Auto 1.3 X10*3/uL (1.2-4.9); Lymphocytes Percent Auto 24.7 % (20-40); Mean Corpuscular HGB Conc 34.2 g/dl (31.0-36.0); Mean Corpuscular Volume 90.8 fL (80.0-98.0); Mean Platelet Volume 8.9 fL (9.4-12.4); Monocytes Absolute Auto 0.4 X10*3/uL (0.1-1.2); Monocytes Percent Auto 7.4 % (2-11); Neutrophils Absolute Auto 3.5 x10*3/uL (2.0-8.3); Platelet Count 215 X10*3/uL (160-400); Red Blood Count 5.77 X10*6/uL (4.60-5.80); White Blood Count 5.4 X10*3/uL (4.8-10.8)
[2024-10-21 11:43] LABS: Bacteria Urine None Seen (None Seen); Hyaline Casts Urine 0-2 /LPF (0-2); RBC Urine 0-2 /HPF (0-2); Squamous Epithelial Cell Urine 0-2 /HPF (0-2); WBC Urine 0-5 /HPF (0-5)
[2024-10-21 12:14] LABS: Alanine Aminotransferase 29 U/L (0-40); Albumin Level 4.4 g/dL (3.5-5.0); Alkaline Phosphatase 69 U/L (39-117); Anion Gap 11 (12-20); Aspartate Amino Transferase 30 U/L (5-37); Bilirubin Total 0.6 mg/dL (0.0-1.0); Blood Urea Nitrogen 15 mg/dL (9-16); Calcium 9.1 mg/dL (8.4-10.2); Carbon Dioxide 27 mmol/L (22-29); Chloride 106 mmol/L (96-108); Cholesterol 150 mg/dL (<200); Estimated Glomerular Filt Rate > 60; Glucose Fasting 119 mg/dL (60-99); HDL Cholesterol 49 mg/dL (>40); LDL Cholesterol Calculated 84 mg/dL (<100); Potassium 4.2 mmol/L (3.3-5.1); Sodium 140 mmol/L (135-145); Total Protein 6.6 g/dL (6.5-8.0); Triglycerides 89 mg/dL (<150)
[2024-10-21 12:26] LABS: Prostate Specific Antigen 2.36 ng/mL (<0.05-4.0)
[2024-10-21 12:29] LABS: Vitamin D 25-OH Total 44.6 ng/mL (>30)
== END 2024-10-21 10:58 | disposition home or self-care (01) ==
LOC: HO.LAB 10:57
PROVIDERS: PCP Internal Medicine; Visit Provider Internal Medicine
DX: Z00.00 Encounter for general adult medical examination without abnormal findings (principal); Z12.5 Encounter for screening for malignant neoplasm of prostate; E78.00 Pure hypercholesterolemia, unspecified; N40.0 Benign prostatic hyperplasia without lower urinary tract symptoms; E55.9 Vitamin D deficiency, unspecified; D64.9 Anemia, unspecified
CPT/HCPCS: 36415; 80053; 80061; 81001; 82306; 84153; 84443; 85025

== ENCOUNTER 2024-10-22 15:45 | Outpatient (AMB) | payer OTHER, SELFPAY ==
[2024-10-22 15:47] VITALS: BP 152/90; PULSE 87; O2SAT 95; BMI 28.4
--- NOTE | 2024-10-22 15:47 | MHC.PC.OV ---
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 Accompanied by: Self / Same As Patient Allergies No Known Allergies (No Known Allergies*) Allergy (Verified 10/22/24 16:15) Medication List - Last Reconciled 10/22/24 by Prateek Suero MD albuterol sulfate 90 mcg/actuation (Ventolin HFA) 2 puffs PO Q6H PRN alprazolam 0.25 mg PO TID PRN 30 days buspirone 10 mg (2 x 5 mg) PO BID 30 days cholecalciferol (vitamin D3) (Vitamin D3) 50 mcg PO DAILY 90 days cyclobenzaprine 10 mg PO BEDTIME PRN 30 days docusate sodium 100 mg PO DAILY finasteride 5 mg PO DAILY 90 days fluticasone propionate 50 mcg/actuation (Flonase Allergy Relief) 1 spray intranasal DAILY 3 months hydrocortisone 2.5% (Proctosol HC) 1 appl IA BID-QID PRN magnesium oxide 400 mg PO DAILY 30 days melatonin 5 mg PO BEDTIME PRN 30 days MDD 6mg meloxicam 15 mg PO DAILY PRN 30 days multivitamin 1 tab PO DAILY nicotine (polacrilex) (Nicorette) 4 mg buccal Q2-4H 30 days pantoprazole 40 mg PO DAILY sildenafil 100 mg PO ONCE PRN 30 days syringe with needle (BD Luer-Lalo Syringe) As directed Q2W tamsulosin 0.8 mg (2 x 0.4 mg) PO DAILY 90 days testosterone cypionate 80 mg (0.4 mL) IM QWEEK 28 days trazodone 50 mg PO BEDTIME PRN Tobacco use date assessed: 10/22/24 Dental Screening Dental Screen Date: 10/22/24 Did you have a dental visit in the last 12 months?: Yes Did you have a dental problem in the last 6 months where you did not have access to dental care?: No Was dental information given to patient?: Patient has dentist HPI annual exam HPI Details Patient comes in today for his annual physical examination States that he feels okay but reports that he feels fatigued often He has KELSEY but has not been able to tolerate his CPAP device He denies any headaches or dizziness Denies any chest pains, no increased SOB No nausea/vomiting, no abdominal pain No change in bowel habits noted He denies any acute urinary symptoms Adds that he continues to experience frequent low back pain He had his follow up labs done yesterday - to discuss his results He had his colonoscopy last done with Dr. Cerna last year in October 2023 and will be due for repeat colonoscopy in 5 years (2028) [facility] Medical History (Updated 10/27/24 @ 21:29 by Prateek Suero MD) Smoker Polycythemia White coat syndrome with hypertension Elevated blood pressure reading Sleep apnea GERD without esophagitis Tubular adenoma of colon Nicotine dependence, cigarettes, uncomplicated BPH w urinary obs/LUTS Hypogonadism in male Vitamin D deficiency Insomnia Anxiety Depression Strain of cervical portion of left trapezius muscle Overweight (BMI 25.0-29.9) Surgical History (Updated 10/22/24 @ 16:28 by Prateek Suero MD) H/O hernia repair History of esophagogastroduodenoscopy (EGD) History of right inguinal hernia repair History of open reduction and internal fixation (ORIF) procedure (~2018) History of colonoscopy (~2016) S/P transurethral resection of prostate (~2010) Family History Father Diabetes CAD (coronary artery disease) CKD (chronic kidney disease) Mother Hypertension Depression Hypercholesteremia Lung cancer Brother Myocardial infarction Brother In good health Son In good health Social History Housing: House Alcohol intake: current Alcohol intake frequency: holidays/special occasions only Patient Tobacco Use Status: Current everyday Tobacco user Tobacco use type: Cigarette Cigarette Packs Per Day: 0.5 Cigarettes Per Day: 10 Years Smoked: 30 e-Cigarette/Vaping Use: Never Used Second Hand Smoke Exposure: Yes service: No Current occupational status: employed Current occupational exposures/hazards: No Cognitive needs: No Hearing needs: Yes Vision needs: Yes (glasses) Questionnaire PHQ-9 Over the last 2 weeks, how often have you been bothered by any of the following problems? 1. Little interest or pleasure in doing things: nearly every day 2. Feeling down, depressed, or hopeless: nearly every day 3. Trouble falling or staying asleep, or sleeping too much: nearly every day 4. Feeling tired or having little energy: nearly every day 5. Poor appetite or overeating: nearly every day 6. Feeling bad about yourself - or that you are a failure or have let yourself or your family down: nearly every day 7. Trouble concentrating on things, such as reading the newspaper or watching television: nearly every day 8. Moving or speaking so slowly that other people could have noticed. Or the opposite - being so fidgety or restless that you have been moving around a lot more than usual: nearly every day 9. Thoughts that you would be better off or of hurting yourself in some way: nearly every day Total score: 27 Depression Screening Interpretation: Positive Depression Screening Follow-up: Existing condition and In treatment Depression Screening Done: Yes 46863 - PHQ-9 Billing: Yes Source: Developed by Drs. Cruz Walters, Rosario Morgan, Jf Shaffer and colleagues, with an educational kym from [employer]. Thrive Questionnaire Date Thrive assessed: 10/22/24 I am a: Patient What is your living situation today?: I have a steady place to live Within the past 12 months, did the food you bought not last and you didn't have the money to get more?: I choose not to answer this question Within the past 12 months, did you worry whether your food would run out before you got money to buy more?: I choose not to answer this question Do you have trouble paying for medicines?: No Do you have trouble getting transportation to medical appointments?: No Do you have trouble paying your heating and electricity bill?: No Do you have trouble taking care of your child, family member or friend?: No Do you have trouble with day-to-day activities such as bathing, preparing meals, shopping, managing finances, etc.?: Yes Are you currently unemployed and looking for a job?: I choose not to answer this question Are you interested in more education?: I choose not to answer this question Please select the resources that you would like help with: None Currently or been in a relationship where the following occur: I choose not to answer THRIVE Score: 0 AUDIT C Alcohol Use Questionnaire (AUDIT-C) 1. How often do you have a drink containing alcohol?: 4 or more times a week 2. How many drinks containing alcohol do you have on a typical day when you are drinking?: 1 or 2 3. How often do you have six or more drinks on one occasion?: Never Total Score: 4 Score Reviewed/Action Taken: Yes DEISY-7 AMB Questionnaire DEISY-7 Date DEISY - 7 assessed: 10/22/24 Feeling nervous, anxious, or on edge: 2 = More than half the days Not being able to stop or control worryin = More than half the days Worrying too much about different things: 2 = More than half the days Trouble relaxin = More than half the days Being so restless that it is hard to sit still: 2 = More than half the days Becoming easily annoyed or irritable: 2 = More than half the days Feeling afraid as if something awful might happen: 0 = Not at all Total DEISY-7 score (0-4 normal; 5-9 mild; 10-14 moderate; 15-21 severe): 12 Source: Developed by Drs. Cruz Walters, Rosario Morgan, Jf Shaffer and colleagues, with an educational kym from [employer]. DEISY-7 Assessment Billing DEISY-7 Assessment Tool: DEISY-7 Assessment 31305 Review of Systems Const Denies chills, Reports fatigue, Denies fever(s), Denies headache(s), Denies malaise and Denies weakness Eyes Denies blurry vision, Denies change in vision, Denies irritation and Denies itchy eyes ENT Denies dysphagia, Denies dizziness, Denies otalgia, Denies headache(s), Denies nasal congestion, Denies neck pain, Denies odynophagia and Denies sore throat Card Denies chest pain, Denies rapid heart rate, Denies irregular heart rhythm, Denies palpitations and Denies dyspnea Resp Denies chest congestion, Denies cough, Denies dyspnea and Denies wheezing GI Denies abdominal pain, Denies bloating, Denies constipation, Denies dysphagia, Denies heartburn, Denies diarrhea, Denies nausea, Denies odynophagia and Denies vomiting Denies hematuria, Denies difficulty urinating, Denies dysuria, Denies urinary frequency and Denies urinary urgency Musc Denies back pain, Denies arthralgias, Denies joint swelling, Denies muscle weakness and Denies neck pain Skin/Breast Denies change in pigmentation, Denies lesions, Denies rash and Denies unusual bruising Neuro Denies dizziness, Denies headache(s), Denies paresthesias and Denies weakness Endo Reports fatigue and Denies palpitations Aller/Immun Denies itchy eyes and Denies wheezing Physical exam (Primary Care) Vital Signs: Last Vital Signs Pulse 87 10/22/24 15:47 BP 170/100 H 10/22/24 16:29 Pulse Ox 95 10/22/24 15:47 Oxygen Delivery Method Room Air 10/22/24 15:47 BMI result Body Mass Index 28.4 Tobacco/Smoking Status: Tobacco use Status Tobacco use date assessed 10/22/24 10/22/24 15:49 Patient Tobacco Use Status Current everyday Tobacco 10/22/24 15:49 Tobacco use type Cigarette 10/22/24 15:49 e-Cigarette/Vaping Use Never Used 10/22/24 15:49 PHQ-9: PHQ-9 Score PHQ-9: Total score 27 10/22/24 16:21 Depression Screening Interpretation: Positive Depression Screening Follow-up: Existing condition and In treatment Thrive Assessment: Date of Thrive Assessment Date Thrive assessed 10/22/24 10/22/24 15:49 Currently or been in a relationship where the following occur: I choose not to answer Const General: no acute distress, alert and awake Orientation/consciousness: patient oriented x3 HENMT Head: Yes normocephalic and Yes atraumatic Ears: external ears normal, TM's normal bilaterally and EAC's normal General nose exam: No nasal discharge present Face and sinus: Yes normal facial exam and Yes sinuses nontender Teeth and gingiva: dentition normal Throat: Yes posterior oropharynx normal and Yes tonsils normal (no TP congestion) Eyes Eyelids: Yes eyelids normal Conjunctivae: conjunctivae normal Pupils: Equal, round and reactive pupils present EOM: EOMs intact bilaterally Neck Neck: Yes no lymphadenopathy and Yes supple Thyroid: Thyroid normal Resp Auscultation: clear to auscultation bilaterally, no rales and no wheezes Cardio Rate: regular rate Rhythm: regular rhythm Heart sounds: no murmurs GI Palpation (GI): Soft to palpation, nontender and No hepatosplenomegaly present Auscultation: normal bowel sounds General: Yes no CVA tenderness Back/Spine/Pelvis Back: no CVA tenderness Thoracic/Lumbar Spine: thoracic and lumbar spine normal to inspection Skin Lesions: no lesions Rashes: no rashes Neuro General: patient oriented x3, moves all extremities, no focal motor deficits and CN's II-XI intact bilaterally Cranial nerves: Yes Equal, round and reactive pupils present Cognition (Neuro): normal cognition Gait exam (Neuro): Normal gait present Extrem General: Yes no clubbing, cyanosis or edema Results Reviewed Results Reviewed: Laboratory Tests 10/21/24 10/21/24 11:07 11:11 WBC 5.4 Hgb 17.9 Hct 52.4 H Plt Count 215 Sodium 140 Potassium 4.2 Creatinine 1.05 Estimated GFR > 60 Fasting Glucose 119 H Calcium 9.1 D AST 30 ALT 29 Triglycerides 89 Cholesterol 150 LDL Cholesterol, Calc 84 HDL Cholesterol 49 Prostate Specific Ag 2.36 25-OH Vitamin D Total 44.6 Ur Specific [place] 1.020 Urine Protein 30 (1+) H Urine Glucose (UA) Negative Urine Blood Negative Urine Nitrite Negative Ur Leukocyte Esterase Negative Coding Level of Care Code Est Pt Prev Care 40-64y(18502) Diagnoses Annual physical exam Z00.00 Elevated blood pressure reading R03.0 Polycythemia D75.1 GERD without esophagitis K21.9 Cervical spondylosis M47.812 Impaired fasting glucose R73.01 Vitamin D deficiency E55.9 BPH w urinary obs/LUTS N40.1; N13.8 Hypogonadism in male E29.1 Insomnia, unspecified type G47.00 Insomnia type: unspecified Anxiety F41.9 Episode of recurrent major depressive disorder, unspecified depression episode severity F33.9 Active/Remission status: currently active Depression Type: major depressive disorder Major depression episode severity: unspecified Major depression recurrence: recurrent Smoker F17.200 Overweight (BMI 25.0-29.9) E66.3 Additional Codes DEISY-7 Assessment Billing - DEISY-7 Assessment Tool: DEISY-7 Assessment 33694 ([id number]) PHQ-9 - 42299 - PHQ-9 Billing: Yes ([id number]) Assessment & Plan Assessment & Plan (1) Annual physical exam: Code(s): Z00.00 - Encounter for general adult medical examination without abnormal findings Category: Medical Plan: Results of his labs done yesterday reviewed and discussed with patient He had his colonoscopy last done with Dr. Cerna last year in October 2023 and will be due for repeat colonoscopy in 5 years (2028) (2) Elevated blood pressure reading: Code(s): R03.0 - Elevated blood-pressure reading, without diagnosis of hypertension Category: Medical Plan: Reinforced low sodium diet His blood pressure reading today is again elevated Patient states that his blood pressure is often much lower when he has it checked at home He is again reminded to continue monitoring his blood pressure regularly Will also have him follow-up with our nurse navigators for repeat blood pressure check and monitoring in a few weeks (3) Polycythemia: Code(s): D75.1 - Secondary polycythemia Category: Medical Plan: Patient's H/H remains normal again on his CBC done yesterday This appears to be related to his smoking as his previous work ups done were all negative Abdominal US done in September 2021 came out normal with no splenomegaly noted Continue Aspirin 81 mg QD (4) GERD without esophagitis: Code(s): K21.9 - Gastro-esophageal reflux disease without esophagitis Category: Medical Plan: Dietary restrictions reinforced Continue Pantoprazole 40 mg QD Follow up with GI as scheduled (5) Cervical spondylosis: Code(s): M47.812 - Spondylosis without myelopathy or radiculopathy, cervical region Category: Medical Plan: Continue Cyclobenzaprine 5 mg TID PRN (6) Impaired fasting glucose: Code(s): R73.01 - Impaired fasting glucose Category: Medical Plan: Patient's FBS was elevated at 119 mg/dl on her labs done yesterday Discussed low calorie/low carb diet Will recheck her FBS in 6 months for follow up; will also check her HgbA1c in 6 months for further evaluation (7) Vitamin D deficiency: Code(s): E55.9 - Vitamin D deficiency, unspecified Category: Medical Plan: Continue Vitamin D3 2000 units QD (8) BPH w urinary obs/LUTS: Comment: (followed by Dr. Calle) Code(s): N40.1 - Benign prostatic hyperplasia with lower urinary tract symptoms; N13.8 - Other obstructive and reflux uropathy Category: Medical Plan: Continue Tamsulosin 0.4 mg 2 tablets Q HS and Finasteride 5 mg QD His PSA level is down further to 2.36 on his labs done yesterday Follow up with urology as scheduled (9) Hypogonadism in male: Code(s): E29.1 - Testicular hypofunction Category: Medical Plan: Continue Testosterone 200 mg IM every 2 weeks Continue Sildenafil 100 mg QD PRN Follow up with urology as scheduled (10) Insomnia: Code(s): G47.00 - Insomnia, unspecified Category: Medical Qualifiers: Insomnia type: unspecified Qualified Code(s): G47.00 - Insomnia, unspecified Plan: Sleep hygiene reinforced Continue Trazodone 50 mg Q HS PRN (11) Anxiety: Code(s): F41.9 - Anxiety disorder, unspecified Category: Medical Plan: Continue Alprazolam 0.25 mg TID PRN He was previously started on Buspirone but patient stopped this due to decreased libido while on the medication (12) Depression: Code(s): F32.9 - Major depressive disorder, single episode, unspecified Category: Medical Qualifiers: Active/Remission status: currently active Depression Type: major depressive disorder Major depression episode severity: unspecified Major depression recurrence: recurrent Qualified Code(s): F33.9 - Major depressive disorder, recurrent, unspecified Plan: He has declined offers to start him on additional Rx for his mood disorder so far Follow up with psychiatry as scheduled (13) Smoker: Code(s): F17.200 - Nicotine dependence, unspecified, uncomplicated Category: Social Hx Plan: Patient is counseled again on complete smoking cessation (14) Overweight (BMI 25.0-29.9): Code(s): E66.3 - Overweight Category: Medical Plan: Reinforced diet/exercise as tolerated/lose weight Plan Follow up in 6 months Orders: Orders Complete Blood Count Auto Diff 6 Months D64.9 - Anemia, unspecified Hemoglobin A1c 6 Months R73.01 - Impaired fasting glucose AMB Hemoglobin A1c 10/22/24 Z13.1 - Encounter for screening for diabetes mellitus Lipid Panel 6 Months E78.00 - Pure hypercholesterolemia, unspecified Comprehensive [place]. Panel Fast 6 Months E78.00 - Pure hypercholesterolemia, unspecified
[2024-10-22 16:29] VITALS: BP 170/100
== END 2024-10-22 16:42 | disposition home or self-care (01) ==
LOC: HO.HMCH 15:46
PROVIDERS: PCP Internal Medicine; Visit Provider Internal Medicine
DX: Z00.00 Encounter for general adult medical examination without abnormal findings (principal); R03.0 Elevated blood-pressure reading, without diagnosis of hypertension; D75.1 Secondary polycythemia; K21.9 Gastro-esophageal reflux disease without esophagitis; M47.812 Spondylosis without myelopathy or radiculopathy, cervical region; R73.01 Impaired fasting glucose; E55.9 Vitamin D deficiency, unspecified; N40.1 Benign prostatic hyperplasia with lower urinary tract symptoms; N13.8 Other obstructive and reflux uropathy; E29.1 Testicular hypofunction; G47.00 Insomnia, unspecified; F41.9 Anxiety disorder, unspecified; F33.9 Major depressive disorder, recurrent, unspecified; F17.200 Nicotine dependence, unspecified, uncomplicated; E66.3 Overweight

== ENCOUNTER → 2024-10-22 15:45 | Outpatient (BNVA) | payer OTHER, SELFPAY | PROVIDERS: PCP Internal Medicine; Visit Provider Internal Medicine | DX: Z00.00 Encounter for general adult medical examination without abnormal findings (principal); G47.33 Obstructive sleep apnea (adult) (pediatric); M54.50 Low back pain, unspecified; D75.1 Secondary polycythemia; R03.0 Elevated blood-pressure reading, without diagnosis of hypertension; K21.9 Gastro-esophageal reflux disease without esophagitis; M47.812 Spondylosis without myelopathy or radiculopathy, cervical region; R73.01 Impaired fasting glucose; E55.9 Vitamin D deficiency, unspecified; N40.1 Benign prostatic hyperplasia with lower urinary tract symptoms; N13.8 Other obstructive and reflux uropathy; E29.1 Testicular hypofunction; G47.00 Insomnia, unspecified; F41.9 Anxiety disorder, unspecified; F33.9 Major depressive disorder, recurrent, unspecified; F17.210 Nicotine dependence, cigarettes, uncomplicated; E66.3 Overweight; Z68.28 Body mass index [BMI] 28.0-28.9, adult | CPT/HCPCS: 96127; 99396 ==

== ENCOUNTER 2024-11-05 13:44 | Outpatient (AMB) | payer OTHER, SELFPAY ==
--- NOTE | 2024-11-05 13:57 | A.OFFVIS_ITS ---
Vital Signs 11/05/24 13:58 Height 5 ft 6 in Weight 180 lb BMI 29.0 BP 170/90 H Blood Pressure Location Lt brachial Position Sitting Pulse 70 Pulse Oximetry (%) 96 Oxygen Delivery Method Room Air Intake Visit Reasons: 6 mo gerd Intake Note: Patient 6 month follow up for GERD. Patient cc: GERD on and off, abdominal bloating/fullness, between diarrhea and constipation with bloody hemorrhoids. Denies any other GI issues. Blood pressure 2nd re-check: Left arm 166/100 Visual Merchandising Specialist Required: No Accompanied by: Self / Same As Patient Allergies No Known Allergies (No Known Allergies*) Allergy (Verified 11/05/24 13:57) HPI HPI 6 mo gerd: Details: LAST VISIT GERD without esophagitis Rectal bleed Internal hemorrhoid Plan Continue pantoprazole daily. Avoid dietary triggers and late night snacking. Adarsh pope will start taking Colace daily. Proctosol sent to pharmacy. May do Sitz baths with Epsom salts. If patient will have increased bleeding and discomfort he will be offered again to go for hemorrhoidectomy. At this time patient wants to hold off. Medium size hemorrhoids found on colonoscopy. Patient was also encouraged to increase fiber in her diet to make his stools more bulkier. Avoid straining. Patient will follow-up in 6 months, sooner on as needed basis. He is agreeable to this plan and verbalizes understanding of instructions. He was given the opportunity to ask questions and all questions answered New hydrocortisone 2.5% (Proctosol HC) 1 appl SC BID-QID PRN 30 grams 2RF hemorrhoids K64.9 docusate sodium 100 mg PO DAILY 30 caps 3RF K59.00 Refilled pantoprazole 40 mg PO DAILY 90 tabs 1RF TODAY'S VISIT Patient is here today for follow-up. Patient reports that he continues to have abdominal bloating in occasional blood in the stool. Patient denies having constipation, moves his bowels, however might not feel like he empties them completely. Sometimes has to go 2-3 times in the morning within 5 or 10 minutes before he is completely done. Patient tried stool softener, however reports t hat this caused diarrhea, and he is no longer taking it. Patient reports that he has take pantoprazole if not taking it for 2-3 days feels like the acid reflux is coming back and he will experience dyspepsia. He takes it every morning. When taking it his symptoms are well controlled. Patient is trying to quit cigarettes and currently is chewing on nicotine gum. Patient denies melena. Had colonoscopy done year ago and showing tubular adenoma and medium size hemorrhoids. Patient was given a script for Proctosol. Patient is not using any fiber supplements and his food does not include too much fiber in. Trying to change his diet. Reports frequent abdominal bloating. Patient does report occasional loose stools. When this happens it happens multiple times in a row. [facility] Medical History (Updated 10/27/24 @ 21:29 by Prateek Suero MD) Smoker Polycythemia White coat syndrome with hypertension Elevated blood pressure reading Sleep apnea GERD without esophagitis Tubular adenoma of colon Nicotine dependence, cigarettes, uncomplicated BPH w urinary obs/LUTS Hypogonadism in male Vitamin D deficiency Insomnia Anxiety Depression Strain of cervical portion of left trapezius muscle Overweight (BMI 25.0-29.9) Surgical History H/O hernia repair History of esophagogastroduodenoscopy (EGD) History of right inguinal hernia repair History of open reduction and internal fixation (ORIF) procedure (~2018) History of colonoscopy (~2016) S/P transurethral resection of prostate (~2010) Family History Father Diabetes CAD (coronary artery disease) CKD (chronic kidney disease) Mother Hypertension Depression Hypercholesteremia Lung cancer Brother Myocardial infarction Brother In good health Son In good health Social History Housing: House Alcohol intake: current Alcohol intake frequency: holidays/special occasions only Patient Tobacco Use Status: Current everyday Tobacco user Tobacco use type: Cigarette Cigarette Packs Per Day: 0.5 Cigarettes Per Day: 10 Years Smoked: 30 e-Cigarette/Vaping Use: Never Used Second Hand Smoke Exposure: Yes service: No Current occupational status: employed Current occupational exposures/hazards: No Cognitive needs: No Hearing needs: Yes Vision needs: Yes (glasses) Review of Systems Const Denies weight gain and Denies weight loss ENT Reports no additional complaints, Denies dysphagia and Denies odynophagia Card Reports no additional complaints Resp Reports no additional complaints GI Denies abdominal pain, Denies belching, Denies melena, Denies bloating, Reports hematochezia (Occasional), Denies change in bowel habits, Reports constipation, Denies dysphagia, Denies excessive flatus, Denies dyspepsia, Reports heartburn (Occasional), Denies diarrhea, Reports loose stools, Denies nausea, Denies odynophagia and Denies vomiting Reports no additional complaints Musc Reports no additional complaints Neuro Reports no additional complaints Psych Reports no additional complaints Endo Reports no additional complaints Physical Exam Vital Signs: Last Vital Signs Pulse 70 11/05/24 13:58 BP 170/90 H 11/05/24 13:58 Pulse Ox 96 11/05/24 13:58 Oxygen Delivery Method Room Air 11/05/24 13:58 BMI result Body Mass Index 29.0 Const General: healthy appearing, no acute distress and well developed Nutritional Appearance: obese Orientation/consciousness: patient oriented x3 Resp Effort & Inspection: normal respiratory effort, able to speak in complete sentences, no tracheal deviation and symmetric chest movement Auscultation: clear to auscultation bilaterally Cardio Rate: regular rate GI Inspection: Yes normal to inspection, No distended and Yes obesity Palpation (GI): Soft to palpation, not firm, nontender and No hepatosplenomegaly present Auscultation: normal bowel sounds General: Yes no CVA tenderness Back/Spine/Pelvis Back: no CVA tenderness Skin General skin exam: elasticity normal, turgor normal and dry skin Neuro General: patient oriented x3 Psych Appearance: grossly normal Mental Status: mental status grossly normal Assessment & Plan Assessment & Plan (1) GERD without esophagitis: Code(s): K21.9 - Gastro-esophageal reflux disease without esophagitis Category: Medical (2) Bowel incontinence: Code(s): R15.9 - Full incontinence of feces Category: Medical Qualifiers: Fecal incontinence type: unspecified Qualified Code(s): R15.9 - Full incontinence of feces (3) Postprandial abdominal bloating: Code(s): R14.0 - Abdominal distension (gaseous) (4) Constipation: Code(s): K59.00 - Constipation, unspecified Qualifiers: Constipation type: slow transit constipation Qualified Code(s): K59.01 - Slow transit constipation (5) Bloody stools: Code(s): K92.1 - Melena Plan Patient will continue taking PPI. Avoid dietary triggers and like 10 seconds in. Staying upright for minimum 3 hours after meals discussed with patient. Patient has more frequent and lose stools. Will check for ova, parasite, fecal calprotectin, fecal fat. Will check transglutaminase to rule out malabsorption as well as vitamin B12 and folate. Patient reports traveling between [place] and here. Currently trying to quit smoking. Discussed with him changing his diet. Low FODMAP diet discussed. Avoiding sugars much as possible. List of recommended as well as list of food to avoid given to patient. Patient will try using Proctosol again. Sitz baths with Epsom salts recommended. High-fiber diet as well as using fiber supplements with pre and probiotics. Patient will follow-up in 3 months, sooner on as needed basis. He is agreeable to this plan and verbalizes understanding of instructions. He was given the opportunity to ask questions and all questions answered. Thank you for allowing me to participate in his care Orders: Orders Ova and Parasite Today R19.7 - Diarrhea, unspecified Calprotectin, Fecal Today R15.9 - Full incontinence of feces C Reactive Protein Today K58.9 - Irritable bowel syndrome, unspecified Transglutaminase IgA Today R10.9 - Unspecified abdominal pain Vitamin B12 and Folate Today R19.7 - Diarrhea, unspecified Lipase Today R10.9 - Unspecified abdominal pain Fecal Fat Qualitative Today R19.7 - Diarrhea, unspecified Coding Level of Care Code Est Pt Level 4 (83404) Complex EM visit Add On G2211 Diagnoses GERD without esophagitis K21.9 Incontinence of feces, unspecified fecal incontinence type R15.9 Fecal incontinence type: unspecified Postprandial abdominal bloating R14.0 Slow transit constipation K59.01 Constipation type: slow transit constipation Bloody stools K92.1 Time Spent (min) 40 Comment 25 minutes spent with patient and additional 15 minutes spent reviewing his records
[2024-11-05 13:58] VITALS: BP 170/90; PULSE 70; O2SAT 96; BMI 29.0
== END 2024-11-05 14:43 | disposition home or self-care (01) ==
LOC: HO.HGI 13:45
PROVIDERS: PCP Internal Medicine; Visit Provider Nurse Practitioner Family
DX: K21.9 Gastro-esophageal reflux disease without esophagitis (principal); R15.9 Full incontinence of feces; R14.0 Abdominal distension (gaseous); K59.01 Slow transit constipation; K92.1 Melena
CPT/HCPCS: 99214; G2211

== ENCOUNTER 2024-11-05 13:44 | Outpatient (REF) | payer OTHER, SELFPAY ==
[2024-11-05 16:12] LABS: Lipase 20 U/L (8-78)
[2024-11-05 16:49] LABS: Folate 7.1 ng/mL (> or = 4.0); Vitamin B12 305 pg/mL (200-900)
== END 2024-11-05 13:45 | disposition home or self-care (01) ==
LOC: HO.LAB 13:44
PROVIDERS: PCP Internal Medicine; Visit Provider Nurse Practitioner Family
DX: K21.9 Gastro-esophageal reflux disease without esophagitis (principal); K58.9 Irritable bowel syndrome, unspecified; R10.9 Unspecified abdominal pain; K59.01 Slow transit constipation; K92.1 Melena; R15.9 Full incontinence of feces; R14.0 Abdominal distension (gaseous); R19.7 Diarrhea, unspecified
CPT/HCPCS: 36415; 82607; 82746; 83690; 86140; 86364; 99212

== ENCOUNTER 2025-01-14 13:57 | Outpatient (AMB) | payer OTHER, SELFPAY ==
--- NOTE | 2025-01-14 13:59 | MHC.OFFVIS ---
Vital Signs 01/14/25 14:00 Height 5 ft 6 in Weight 177 lb 4 oz BMI 28.6 BP 156/94 H Blood Pressure Location Rt brachial Position Sitting Pulse 79 Pulse Source Pulse Oximeter Pulse Oximetry (%) 95 Oxygen Delivery Method Room Air Intake Visit Reasons: 3 mo follow up Intake Note: Patient presents follow up KELSEY. No compliance since 08/2024(in chart). Patient states stopped using machine(hard time sleeping with mask onn face). Accompanied by: Self / Same As Patient Allergies No Known Allergies (No Known Allergies*) Allergy (Verified 01/14/25 14:02) HPI Comments Details: 57 y/o male patient presents for sleep apnea f/u visit. HST c/w AHI of 5/hr and oxygen danii was 74%, he has mild kelsey, referred to ENT 12/2024, he is not a good candidate for Inspire. He moves a lot and rolls over in his sleep, pulls his mask off his face, he would like an evaluation for inspire. He likes white noise due to his tinnitus. He gets tangled up with the headgear and will look into getting new mask and re-try therapy with CPAP. He also is quit smoking now down to 5 cigarettes/ per day, he used to smoke a pack a day. He is using the gum chantix again. He continues to have GERD, but more aware of dietary intake now, he takes pantropazole PRN acid reflux. He is more anxious and would like to have the Buspirone increased to 10mg PO BID, to decrease cravings for nicotine. He uses Xanax only when needed. He discontinued Trazadone use as it made him very groggy the next day. He has periodic headaches in the morning, and takes tylenol and magnesium 400mg po qhs. Denies Auras, photo/phonophobias. Denies parasomias. He cleans his mask, changes filters and water as required. He denies RLS symptoms though has l. sided sciatica, and pain radiating down the back of his leg, he completed PT. His mood, and memory are stable. [facility] Medical History Smoker Polycythemia White coat syndrome with hypertension Elevated blood pressure reading Sleep apnea GERD without esophagitis Tubular adenoma of colon Nicotine dependence, cigarettes, uncomplicated BPH w urinary obs/LUTS Hypogonadism in male Vitamin D deficiency Insomnia Anxiety Depression Strain of cervical portion of left trapezius muscle Overweight (BMI 25.0-29.9) Surgical History H/O hernia repair History of esophagogastroduodenoscopy (EGD) History of right inguinal hernia repair History of open reduction and internal fixation (ORIF) procedure (~2018) History of colonoscopy (~2016) S/P transurethral resection of prostate (~2010) Family History Father Diabetes CAD (coronary artery disease) CKD (chronic kidney disease) Mother Hypertension Depression Hypercholesteremia Lung cancer Brother Myocardial infarction Brother In good health Son In good health Social History Housing: House Alcohol intake: current Alcohol intake frequency: holidays/special occasions only Patient Tobacco Use Status: Current everyday Tobacco user Tobacco use type: Cigarette Cigarette Packs Per Day: 0.5 Cigarettes Per Day: 10 Years Smoked: 30 e-Cigarette/Vaping Use: Never Used Second Hand Smoke Exposure: Yes service: No Current occupational status: employed Current occupational exposures/hazards: No Cognitive needs: No Hearing needs: Yes Vision needs: Yes (glasses) Physical Exam Vital Signs: Last Vital Signs Pulse 79 01/14/25 14:00 BP 156/94 H 01/14/25 14:00 Pulse Ox 95 01/14/25 14:00 Oxygen Delivery Method Room Air 01/14/25 14:00 BMI result Body Mass Index 28.6 Const General: cooperative, comfortable and no acute distress Nutritional Appearance: average body habitus Orientation/consciousness: patient oriented x3 HEENT Face and sinus: Yes face symmetric Eyes Pupils: Equal, round and reactive pupils present Neck Neck: Yes full ROM and Yes supple Resp Effort & Inspection: normal respiratory effort and able to speak in complete sentences Neuro General: patient oriented x3 and moves all extremities Cranial nerves: Yes CN's II-XII intact bilaterally, Yes Facial sensation intact/muscles of mastication intact, Yes Equal, round and reactive pupils present, Yes Normal accommodation reflex present, Yes Bilaterally intact EOM present, Yes Nystagmus not present, Yes Normal facial strength present, Yes Midline tongue present, Yes Ability to bilaterally rotate head present and Yes Ability to bilaterally elevate shoulders present Gait exam (Neuro): Normal gait present Motor exam (neuro): 5/5 motor strength present throughout and Normal motor muscle tone present throughout Psych Appearance: grossly normal Mental Status: mental status grossly normal Thought process: Normal thought process present Thought content: Normal thought content present Assessment & Plan Assessment & Plan (1) KELSEY (obstructive sleep apnea): Comment: Mild degree of sleep apnea. The AHI was 5/hr and oxygen danii was 74% Code(s): G47.33 - Obstructive sleep apnea (adult) (pediatric) Category: Medical (2) Low vitamin B12 level: Code(s): R79.89 - Other specified abnormal findings of blood chemistry Category: Medical (3) Excessive daytime sleepiness: Code(s): G47.19 - Other hypersomnia Category: Medical (4) Snoring: Code(s): R06.83 - Snoring Category: Medical (5) RLS (restless legs syndrome): Comment: RLS/ PLMD will evaluate with PSG Code(s): G25.81 - Restless legs syndrome Category: Medical (6) GERD (gastroesophageal reflux disease): Code(s): K21.9 - Gastro-esophageal reflux disease without esophagitis Category: Medical Qualifiers: Esophagitis presence: with esophagitis Esophagitis bleeding: without hemorrhage Qualified Code(s): K21.00 - Gastro-esophageal reflux disease with esophagitis, without bleeding (7) Fatigue: Code(s): R53.83 - Other fatigue Category: Medical Qualifiers: Fatigue type: unspecified Qualified Code(s): R53.83 - Other fatigue (8) Anxiety and depression: Code(s): F41.9 - Anxiety disorder, unspecified; F32.A - Depression, unspecified Category: Medical Plan Sleep Apnea: Continue to use APAP [id number], we reviewed HST today and his O2 desaturation is 74% and he is not a good candidate for Inspire. Trial various masks, PSG is pending. PSG to evaluate for RLS? PLMD? and desaturation, tosses and turning at night. RLS will with sciatica will start low dose of Gabapentin 100mg po qpm. Continue to use melatonin 5 mg with magnesium 400 mg qhs for sleep, if you have diarrhea you may discontinue the magnesium as it has laxative effects. Excessive daytime fatigue will improve with consistent use of B12 as b12 is low, and proper oxygenation at night. Periodic headaches, may continue with magnesium 400mg po daily and otc tylenol Labs reviewed with pt. will monitor. Smoking Cessation: Continue to taper cigarettes 5/day, ask for counseling and support if needed. Exercise 3-5 times per week, will help with benefits such as weight reduction, lower stress and improve mood. Continue to use Buspirone 10mg PO BID for anxiety and mood, this will also help with smoking cessation. Continue to use Chantix as needed, request a patch when you are ready. F/U in 3 months Medications: New multivitamin 1 tab PO DAILY 90 tabs 0RF mecobalamin (vitamin B12) 1,000 mcg PO DAILY 90 tabs 0RF MDD 1000mcg R79.89 - Other specified abnormal findings of blood chemistry Refilled buspirone 10 mg (2 x 5 mg) PO BID 120 tabs 3RF 30 days F41.9 - Anxiety disorder, unspecified Coding Level of Care Code Est Pt Level 4 (66863) Diagnoses KELSEY (obstructive sleep apnea) G47.33 Low vitamin B12 level R79.89 Excessive daytime sleepiness G47.19 Snoring R06.83 RLS (restless legs syndrome) G25.81 Gastroesophageal reflux disease with esophagitis without hemorrhage K21.00 Esophagitis presence: with esophagitis Esophagitis bleeding: without hemorrhage Fatigue, unspecified type R53.83 Fatigue type: unspecified Anxiety and depression F41.9; F32.A
[2025-01-14 14:00] VITALS: BP 156/94; PULSE 79; O2SAT 95; BMI 28.6
== END 2025-01-14 14:46 | disposition home or self-care (01) ==
LOC: HO.HSMS 13:58
PROVIDERS: PCP Internal Medicine; Visit Provider Physician Assistant Medical
DX: G47.33 Obstructive sleep apnea (adult) (pediatric) (principal); R79.89 Other specified abnormal findings of blood chemistry; G47.19 Other hypersomnia; R06.83 Snoring; G25.81 Restless legs syndrome; K21.00 Gastro-esophageal reflux disease with esophagitis, without bleeding; R53.83 Other fatigue; F41.9 Anxiety disorder, unspecified; F32.A Depression, unspecified
CPT/HCPCS: 99214

== ENCOUNTER → 2025-01-14 13:57 | Outpatient (BNVA) | payer OTHER, SELFPAY | PROVIDERS: PCP Internal Medicine; Visit Provider Physician Assistant Medical | DX: G47.33 Obstructive sleep apnea (adult) (pediatric) (principal); G47.19 Other hypersomnia; G25.81 Restless legs syndrome; R79.89 Other specified abnormal findings of blood chemistry; R06.83 Snoring; R53.83 Other fatigue; K21.00 Gastro-esophageal reflux disease with esophagitis, without bleeding; F41.9 Anxiety disorder, unspecified; F32.A Depression, unspecified | CPT/HCPCS: 99212 ==

== ENCOUNTER 2025-02-14 11:09 | Outpatient (REF) | payer OTHER, SELFPAY ==
[2025-02-14 12:00] LABS: Hematocrit 54.7 % (42.0-52.0); Hemoglobin 18.1 g/dl (14.0-18.0); Mean Corpuscular HGB Conc 33.1 g/dl (31.0-36.0); Mean Corpuscular Hemoglobin 31.1 pg (27.0-33.0); Mean Corpuscular Volume 94.0 fL (80.0-98.0); NRBC Abs Auto 0.000 X10*3/uL (0.0-0.012); NRBC Pct Auto 0.0 /100WBC (0.0-0.2); Platelet Count 220 X10*3/uL (160-400); Red Blood Count 5.82 X10*6/uL (4.60-5.80); White Blood Count 6.2 X10*3/uL (4.8-10.8)
[2025-02-14 12:47] LABS: Prostate Specific Antigen 2.01 ng/mL (<0.05-4.0)
--- OUTSIDE RECORDS SUMMARY | 2025-02-14 13:33 | XMS_ITS | Data Portability ---
Author Organization [place] - [facility], Allergy Address [address] [address] Care Team Providers Care Acoustical Carpenter Name Role Phone TEAGAN CORDON Primary Care Provider [phone] Assessment Encounter Date Assessment Date Assessment LastModified by Organization Details LastModified Time 02/23/2024 02/23/2024 58-year-old male presents for evaluation of tinnitus. Otologic exam is unremarkable today. Recommended updated audiometric testing. Reviewed masking techniques and pathophysiology of tinnitus in detail. He would be a good candidate for amplification. Was provided a copy of his hearing test and medical clearance. He was also given a [facility] provider sheet for reference. Recommend updated audiometric testing every 1 to 2 years. Was also provided information for tinnitus retraining program. He is very interested in pursuing this option. [email or web address] Not available 02/23/2024 14:51:23 08/13/2024 08/13/2024 58-year-old male presents for evaluation of itchy ears and nasal congestion. Otologic exam reveals no cerumen but a few hairs within the ear canals. I have recommended against instrumentation as this is likely the cause of itching particularly given hairs noted within the medial canal. Recommended mineral oil for itching instead. On exam of nasal mucosa he does have blue boggy turbinates but widely patent nares bilaterally without purulent discharge or polyps. Likely his intermittent nasal congestion is related to seasonal allergy. I have recommended more consistent use of Flonase and the addition of an antihistamine particularly during his allergy season. We discussed allergy testing but will hold off for now. All questions were answered. [email or web address] Not available 08/13/2024 15:44:23 01/03/2025 01/03/2025 The patient has a history of mild sleep apnea with an AHI score of 5 from a home sleep study conducted in 03/2023. Oxygen levels dropped to 74%, raising concerns about accuracy. He is scheduled for an in-lab sleep study on January 08, which may provide more definitive data. Based on the current information, I recommend trying an oral appliance as a non-invasive treatment option. This device can be purchased over the counter and molded to the teeth to help pull the jaw forward, creating more space for breathing. This is a reasonable option for patients with mild sleep apnea and may improve sleep quality. The patient is not a candidate for Inspire therapy based on the 2022 sleep study results. If the upcoming sleep study demonstrates significant changes, further evaluation may be warranted. I advised the patient to continue working with Dr. Polo for management of his sleep apnea and to follow up after the in-lab sleep study results are available. Smoking cessation efforts should continue, as smoking may exacerbate sleep apnea symptoms. [email or web address] Not available 01/03/2025 11:03:18 Plan of Treatment Reminders Order Date Submit Date Provider Last Modified By Organization Details Last Modified Time Details Appointments None record ed. Lab None record ed. Referral None record ed. Procedures None record ed. Surgeries None record ed. Imaging None record ed. Medication Orders None record ed. Patient TargetsNo targets recorded. Patient Instructions Encounter Date Encounter Id Patient Instructions Last Modified By Organization Details Last Modified Time 01/03/2025 [id number] - Consider tryin g an oral appliance to improve sleep quality. - Continue smoking cessation efforts using Nicorette. - Follow up with Dr. Polo after the in-lab sleep study results are available. [email or web address] Not available 01/03/2025 11:02:16 Please note: Parts of this encounter note have been generated by AI based on audio conversation. Patient consent was required prior to utilizing this technology. Content review was required prior to finalizing the note. [email or web address] Not available 01/03/2025 11:02:16 Reason for Referral None Reported. Results Created [...] Sensorine ural hearing loss in left ear 06690991275 109 Active 2016 Sensorine ural hearing loss, unilatera l, left ear, with restricte d hearing on the contralat eral side; Note: Date Diagnosed : 7 3:58 PM (H90.A22) Not Available [facility] 4 03:03:47 Deviated nasal septum 219672358 Active 2016 Deviated nasal septum; Note: Date Diagnosed : 7 2:37 PM (J34.2) Not Available [facility] 4 03:03:47 Subjectiv e tinnitus 63571079 Active 2016 Subjectiv e tinnitus; Note: Date Diagnosed : 7 2:38 PM (388.31) Not Available [facility] 4 03:03:47 Asymmetri allyssa sensorine ural hearing loss 560647435 Active 2016 Hearing loss: Sensorine ural hearing loss, asymmetri allyssa; Note: Date Diagnosed : 7 2:38 PM (389.16) Not Available [facility] 4 03:03:47 Tinnitus of left ear 84516482767 06 Active 2016 Tinnitus, left ear; Note: Date Diagnosed : 7 2:01 PM (H93.12) Not Available [facility] 4 03:03:46 Nasal congestio n 27073550 Active 2017 Nasal congestio n; Note: Date Diagnosed : 05/15/2017 3:12 PM (R09.81) Not Available [facility] 4 03:03:46 Acute maxillary sinusitis 57526084 Active 2017 Acute maxillary sinusitis , unspecifi ed; Note: Date Diagnosed : 09/11/2017 3:26 PM (J01.00) Not Available [facility] 4 03:03:46 Itching of skin 159438843 Active 2019 Pruritus, unspecifi ed; Note: Date Diagnosed : 07/05/2019 1:58 PM (L29.9) Not Available [facility] 4 03:03:45 Sensorine ural hearing loss of bilateral ears 185138619 Active 2019 Sensorine ural hearing loss, bilateral ; Note: Date Diagnosed : 07/05/2019 1:25 PM (H90.3) Not Available [facility] 4 03:03:46 Bilateral tinnitus 04413510696 02 Active 2020 Tinnitus, bilateral ; Note: Date Diagnosed : 03/25/2021 5:15 PM (H93.13) Not Available [facility] 4 03:03:46 Sensorine ural hearing loss in right ear 38894149010 100 Active 2022 Sensorine ural hearing loss, unilatera l, right ear, with restricte d hearing on the contralat eral side; Note: Date Diagnosed : 3 4:41 PM (H90.A21) Not Available [facility] 4 03:03:45 Mixed conductiv e and sensorine ural hearing loss of left ear 25020461282 107 Active 2022 Mixed conductiv e and sensorine ural hearing loss, unilatera l, left ear with restricte d hearing on the contralat eral side; Note: Date Diagnosed : 3 4:41 PM (H90.A32) Not Available [facility] 4 03:03:45 Bilateral disorder of Eustachia n tubes 35333000295 66873 Active 2023 Other specified disorders of Eustachia n tube, bilateral ; Note: Date Diagnosed : 08/23/2023 2:09 PM (H69.83) Not Available [facility] 4 03:03:45 Allergic rhinitis caused by pollen 38021288 Active 2023 Allergic rhinitis due to pollen; Note: Date Diagnosed : 08/23/2023 2:09 PM (J30.1) Not Available [facility] 4 03:03:47 Obstructi ve sleep apnea syndrome 26521794 Active 2024 MEG SANTA MD [address] [place] [address], [facility] [place], [place], [phone] , [place] - [facility] 11:00:15 Problem Notes None recorded. Procedures Surgical History Date Name Laterality Status Provider Name and Address Organization Details Recorded Time 02/23/2024 Air & Speech Audio with Tymps - 66816, 58066 & 69231 completed Ade Paul [place] - [facility] 02/23/2024 14:32:24 Imaging Results None recorded. Procedure Notes None recorded. Medical Equipment None Reported. Medications Name Sig Start Date Stop Date Status Note LastModified by Organization Details LastModified Time cyclobenz aprine 10 mg tablet TAKE 1 TABLET BY MOUTH AT BEDTIME FOR 30 DAYS NEEDED FOR MUSCLE SPASM active Not Available Not Available No t Available amoxicill in 500 mg capsule 01/03 completed Not Available Not Available Not Available buspirone 5 mg tablet TAKE 2 TABLETS BY MOUTH TWICE A DAY active Not Available Not Available No t Available prednison e 10 mg tablet TAKE 4 TABLET DAILY FOR 2 DAYS, 3 DAILY X2 DAYS, 2 DAILY X2 DAYS, 1 DAILY X2 DAYS 01/03 completed Not Available Not Available Not Available trazodone 50 mg tablet TAKE 1 TABLET BY MOUTH AT BEDTIME NEEDED FOR INSOMNIA active Not Available Not Available No t Available tizanidin e 4 mg tablet 01/03 completed Medicati on ID: [id number] D uration Value: 30 Brand Name: figueroa bedolla Send Method: E-Prescr ibed Sub s Allowed: subs OK Medic ationGen ericName : figueroa bedolla Not Available Not Available Not Available hydrocodo ne 5 mg-acetam inophen 325 mg tablet TAKE 1 TABLET BY MOUTH EVERY 4 TO 6 HOURS NEEDED FOR PAIN 01/03 completed Not Available Not Available Not Available meloxicam 15 mg tablet TAKE 1 TABLET BY MOUTH EVERY DAY WITH FOOD NEEDED FOR PAIN FOR 30 DAYS 01/03 completed Not Available Not Available Not Available melatonin 3 mg tablet TAKE 1 TABLET BY MOUTH EVERY DAY AT BEDTIME 01/03 completed Not Available Not Available Not Available sildenafi l 100 mg tablet TAKE 1 TABLET 60 MINUTES BEFORE INTENDED ACTIVITY active Not Available Not Available No t Available hydrocort isone 2.5 % topical cream with perineal applicato r APPLY RECTALLY 2 TO 4 TIMES A DAY NEEDED FOR HEMORRHO IDS active Not Available Not Available No t Available alprazola m 0.25 mg tablet TAKE 1 TABLET BY MOUTH 3 TIMES A DAY NEEDED FOR ANXIETY FOR 30 DAYS. active Not Available Not Available No t Available magnesium oxide 400 mg (241.3 mg magnesium ) tablet TAKE ONE TABLET BY MOUTH EVERY DAY 01/03 completed Not Available Not Available Not Available tamsulosi n 0.4 mg capsule TAKE 2 CAPSULES (0.8MG) ORALLY DAILY FOR 90 DAYS active Not Available Not Available No t Available nicotine (polacril ex) 4 mg gum TAKE 1 LOZENGE IN MOUTH EVERY 2 TO 4 HOURS FOR NICOTINE CRAVINGS active Not Available Not Available No t Available hydrocodo ne 7.5 mg-acetam inophen 325 mg tablet TAKE 1 TABLET BY MOUTH EVERY 4 HOURS NEEDED FOR PAIN 01/03 completed Not Available Not Available Not Available pantopraz ole 40 mg tablet,de layed release TAKE 1 TABLET BY MOUTH EVERY DAY active Not Available Not Available No t Available docusate sodium 100 mg capsule TAKE 1 CAPSULE (100 MG) ORALLY DAILY active Not Available Not Available No t Available testoster one cypionate 200 mg/mL intramusc ular oil INJECT 0.4ML INTRAMUS CULARLY EVERY WEEK active Not Available Not Available No t Available fluticaso ne propionat e 50 mcg/actua tion nasal spray,[employer] SPRAY ONCE INTRANAS ALLY DAILY FOR 3 MONTHS ADMINIST ER INTO EACH NOSTRIL active Not Available Not Available No t Available ipratropi um bromide 21 mcg (0.03 %) nasal spray [place] 2 spray into both nostrils three times a day 01/03 completed Medicati on ID: [id number] Viki loera By Name: KENNEDI Thomson nd Name: ipratrop ium bromide Send Method: E-Prescr ibed Sub s Allowed: subs OK Medic ationGen ericName : ipratrop ium bromide Not Available Not Available Not Available finasteri de 5 mg tablet TAKE 1 TABLET BY MOUTH EVERY DAY active Not Available Not Available No t Available Ventolin HFA 90 mcg/actua tion aerosol inhaler INHALE 2 PUFFS ORALLY EVERY 6 HOURS NEEDED FOR FOR WHEEZING active Not Available Not Available No t Available VanishPoi nt Syringe 3 mL 21 gauge x 1 1/2 USE DIRECTED EVERY 2 WEEKS active Not Available Not Available No t Available cyclobenz aprine 5 mg tablet TAKE 1 TABLET (5 MG) ORALLY BEDTIME NEEDED FOR MUSCLE SPASM FOR 30 DAYS 01/03 completed Not Available Not Available Not Available DermOtic Oil 0.01 % ear drops 2 drop 06/15 completed Medicati on ID: [id number] P rescribe d By Name: KENNEDI Borrego nd Name: DermOtic Oil Send Method: E-Prescr ibed Sub s Allowed: subs OK Speci al Instruct ion: as needed for ear itching Medicati onGeneri cName: DermOtic Oil Not Available Not Available Not Available melatonin 5 mg tablet 5 MG ORALLY BEDTIME NEEDED FOR SLEEP FOR 30 DAYS. MAX DAILY DOSE 6MG active Not Available Not Available No t Available cholecalc iferol (vitamin D3) 50 mcg (2,000 unit) capsule TAKE 1 CAPSULE BY MOUTH EVERY DAY 01/03 completed Not Available Not Available Not Available cholecalc iferol (vitamin D3) 50 mcg (2,000 unit) tablet TAKE 1 TABLET BY MOUTH EVERY DAY active Not Available Not Available No t Available Gavilax 17 gram/dose oral powder 238 G ORALLY ONCE DIRECTED BY GASTROEN TEROLOGY DEPARTME NT AT [facility] 01/03 completed Not Available Not Available Not Available magnesium 400 mg (as magnesium oxide) capsule TAKE 1 CAPSULE BY MOUTH EVERY DAY active Not Available Not Available No t Available Flowflex COVID-19 Antigen Home Test kit USE DIRECTED ON PACKAGINigel G 01/03 completed Not Available Not Available Not Available Vitals Date Recorded Body height Body mass index (BMI) Body weight Provider Name and Address Organization Details Last Updated DateTime 08/13/2024 167.64 cm 29.1 kg/m2 65437.63 g Katie Jaquez [place] - [facility] 08/13/2024 15:08:36 Date Recorded Body height Body mass index (BMI) Body weight Provider Name and Address Organization Details Last Updated DateTime 01/03/2025 167.64 cm 28.7 kg/m2 78024.44 g SADI OWEN [place] - [facility] 01/03/2025 10:46:40 Date Recorded Body height Body mass index (BMI) Body weight Provider Name and Address Organization Details Last Updated DateTime 02/23/2024 167.64 cm 29.1 kg/m2 57972.63 g Yola Greenfield [place] - [facility] 02/23/2024 13:30:52 Social History None recorded. Functional Status None recorded. Mental Status None recorded. Family History Nothing Reported. Medical History No medical history recorded. Past Encounters Encounter ID Performer Location Encounter Start Date Encounter Closed Date Diagnosis/Indication Diagnosis SNOMED-CT Code Diagnosis ICD10 Code Diagnosis IMO Codes Diagnosis Note [id number] LITA PLATT PA-C [facility] [address] [address] 02/23/2024 13:16:05 02/23/2024 14:47:11 Bilateral tinnitus 4815105251 102 H93.13 Sensorineu ral hearing loss of bilateral ears 547120979 H90.3 Audiologic al evaluation results:Ri ght ear:Normal sloping to severe sensorineu ral hearing loss with excellent word recognitio n.Left ear:Normal sloping to profound sensorineu ral hearing loss with excellent word recognitio n. Tympanomet ry:Right Ear:Type CLeft Ear:Type Ad [id number] LITA PLATT PA-C [facility] [address] [address] 08/13/2024 15:02:29 08/13/2024 15:31:48 Allergic rhinitis caused by pollen 61650830 J30.1 Itching of skin 00904630 0 L29.9 [id number] MEG SANTA MD [facility] [address] [address] 01/03/2025 10:31:21 01/03/2025 11:03:04 Obstructive sleep apnea syndrome 69320673 G47.33 26367 Health Concerns Section Related Observation LastModified by Organization Detai ls LastModified Time None Recorded Concern Status LastModified by Organization Details LastModified Time None Recorded Advance Directives Directive None Recorded Payers Insurance Date Sequence Insurance Name Policy Number Policy Shea Covered Member ID Shea Member ID Guarantor Name 01/03/2025 1 [facility] PLAN (MEDICAID HMO) NARENDRA Isaac [id number] Rai Wu Ronna Notes Date Note Type Note Provider Name and Address Organization Details Recorded Time 02/23/2024 text/html ROS as noted in the [facility] 58-year-old male presents for reevaluation of tinnitus. Previously diagnosed with sensorineural hearing loss but decided against amplification. His tinnitus has become very bothersome and he is reconsidering hearing aids at this time. MICHELLE LLOYD MD [address] [place] [address], [phone], [facility] 02/25/2024 07:04:23 08/13/2024 text/html ROS as noted in the [facility] 58-year-old male presents for evaluation of nasal congestion and itchy ears. He uses Flonase a few times a week and notices his congestion is fairly random and likely related to allergies. He does not take any antihistamine. He also continues to have itchy ears. Admits to instrumentation. No drainage from the ears or changes in hearing. JAS LAO MD [address] [place] [address], [phone], [facility] 08/13/2024 17:06:25 01/03/2025 text/html KELSEY PV 08/13/24 Lita - itchy ears rec use of mineral oil drops 03/29/[address] [place] [address] Polo BMI 29 AHI 5 oxygen danii 74% central and mixed - none recorded CPAP trial compliance 43/90 days average use 4hr 48 min Rai Wu Ronna is a 59-year-old male who presents for evaluation of sleep apnea. He has been working with Dr. Polo in [place] for management of his condition and underwent a home sleep study in 05/2022, which demonstrated an apnea-hypopnea index (AHI) score of 5, indicating borderline normal to mild sleep apnea. The study also showed oxygen levels dropping to 74%, raising concerns about accuracy. He is scheduled for an in-lab sleep study on January 08 to further evaluate his condition. He reports waking up choking or gagging during sleep, which has been a recurring issue. He monitors his sleep using an iPhone watch, which provides data on sleep patterns and oxygen levels. He typically goes to bed around 10:30 PM but has noted reduced sleep duration and frequent awakenings. 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 MEG SANTA MD [address] [place] [address], [phone] - [facility] 01/03/2025 11:03:33
== END 2025-02-14 11:10 | disposition home or self-care (01) ==
LOC: HO.LAB 11:09
PROVIDERS: PCP Internal Medicine; Visit Provider Urology
DX: N40.1 Benign prostatic hyperplasia with lower urinary tract symptoms (principal); N13.8 Other obstructive and reflux uropathy; E29.1 Testicular hypofunction
CPT/HCPCS: 36415; 84153; 84403; 85027

== ENCOUNTER 2025-02-26 13:39 | Outpatient (AMB) | payer OTHER, SELFPAY ==
--- NOTE | 2025-02-26 13:43 | A.OFFVIS_ITS ---
Intake Visit Reasons: 6m/PSA/Testo Intake Note: Patient is Present for Follow Up Urology Medication: Finasteride, Sildenafil, Testosterone, Tamsulosin Antibiotic Allergies: None Blood Thinners: None PVR: 65ml Medicare Compliance Auditor Required: No Accompanied by: Self / Same As Patient Allergies No Known Allergies (No Known Allergies*) Allergy (Verified 02/26/25 13:52) HPI Comments Details: Martin OSULLIVAN is a pleasant male. He is a patient of Dr Suero. He is seen for the following urologic conditions. - hypogonadism - lower urinary tract symptoms - erectile dysfunction Labs - 02/15 1458 Hct 54.7% Bladder ultrasound shows 60 g prostate with 120 cc residual and bladder wall thickening Testosterone placement Current therapy 0.7cc q 2 weeks - has elevated hematocrit Switch from every 2 weeks to 0.35 weekly Refill provided Hypogonadism: Lab stable Continue current therapy - every 14 days He presents today for further evaluation and followup of his hypogonadism. - T - 0.7 cc Initial symptoms include erectile dysfunction Yes decreased libido Yes change in mood/depression Yes in muscle size/strength Yes increased fatigue/malaise Yes Laboratory results 11/09 T in 500's, 11/10 T 1200 PSA 2.8. - 05/14 T 430 day 13, PSA 2.9, HCt 53.5, 11/11 T 1174 PSA 4.1, Hct 54 - 06/15 T 844 day 10 - P 2.8 H 53.5 - 11/12 T 671 H 50, 10/14 T 777 H 49 P 2.7, 12/15 T 987, 08/16 969 4.6 54.9 Current therapy includes injectable exogenous testosterone Lower Urinary Tract Symptoms: Current visit is for further evaluation of, lower urinary tract symptoms, predominate obstructive symptoms. Current treatment includes alpha ruthie. - tamsulosin 0.8 mg daily Prostate Symptom Score 4/ , Moderate (9-19), Bother 3. Symptoms include 4/ , incomplete emptying, weak stream, nocturia (>2), and are improving Prior Prostate Score 4/19 , moderate. - prior prostate procedure PSA 11/09 3.2 T 380 Treatment plan continue with current medications [facility] Medical History Smoker Polycythemia White coat syndrome with hypertension Elevated blood pressure reading Sleep apnea GERD without esophagitis Tubular adenoma of colon Nicotine dependence, cigarettes, uncomplicated BPH w urinary obs/LUTS Hypogonadism in male Vitamin D deficiency Insomnia Anxiety Depression Strain of cervical portion of left trapezius muscle Overweight (BMI 25.0-29.9) Surgical History H/O hernia repair History of esophagogastroduodenoscopy (EGD) History of right inguinal hernia repair History of open reduction and internal fixation (ORIF) procedure (~2018) History of colonoscopy (~2016) S/P transurethral resection of prostate (~2010) Family History Father Diabetes CAD (coronary artery disease) CKD (chronic kidney disease) Mother Hypertension Depression Hypercholesteremia Lung cancer Brother Myocardial infarction Brother In good health Son In good health Social History Housing: House Alcohol intake: current Alcohol intake frequency: holidays/special occasions only Patient Tobacco Use Status: Current everyday Tobacco user Tobacco use type: Cigarette Cigarette Packs Per Day: 0.5 Cigarettes Per Day: 10 Years Smoked: 30 e-Cigarette/Vaping Use: Never Used Second Hand Smoke Exposure: Yes service: No Current occupational status: employed Current occupational exposures/hazards: No Cognitive needs: No Hearing needs: Yes Vision needs: Yes (glasses) Review of Systems Const Denies chills and Denies fever(s) Card Reports no additional complaints and Denies syncope Resp Denies cough GI Denies abdominal pain and Denies heartburn Reports as per HPI and Denies change in libido Neuro Denies syncope Psych Denies change in libido Endo Denies change in libido Physical Exam Const General: cooperative, healthy appearing, comfortable and no acute distress Orientation/consciousness: patient oriented x3 HEENT Face and sinus: Yes normal facial exam Mouth: moist mucous membranes Neck Neck: Yes normal visual inspection, Yes full ROM and Yes trachea midline Chest Chest palpation & inspection: normal inspection of the chest Resp Effort & Inspection: normal respiratory effort, able to speak in complete sentences and no respiratory distress GI Inspection: Yes normal to inspection Back/Spine/Pelvis Cervical Spine: normal cervical lordosis Thoracic/Lumbar Spine: thoracic and lumbar spine normal to inspection Skin General skin exam: no rashes or lesions noted Neuro General: patient oriented x3, gait normal, tone normal and moves all extremities Extrem General: Yes normal to inspection and Yes capillary refill normal Assessment & Plan Assessment & Plan (1) BPH w urinary obs/LUTS: Comment: (followed by Dr. Calle) Code(s): N40.1 - Benign prostatic hyperplasia with lower urinary tract symptoms; N13.8 - Other obstructive and reflux uropathy Category: Medical (2) Hypogonadism in male: Code(s): E29.1 - Testicular hypofunction Category: Medical Plan Reduced testosterone dose Orders: Orders Testosterone, Total 5 Months R79.89 - Other specified abnormal findings of blood chemistry Hematocrit 5 Months R79.89 - Other specified abnormal findings of blood chemistry Medications: Changed From syringe with needle (BD Luer-Lalo Syringe) As directed Q2W 30 ea 0RF E29.1 - Testicular hypofunction To syringe with needle (BD Luer-Lalo Syringe) As directed weekly 30 ea 1RF E29.1 - Testicular hypofunction From testosterone cypionate 80 mg (0.4 mL) IM QWEEK 28 days 2 mL 5RF E29.1 - Testicular hypofunction To testosterone cypionate Two doses per vial. Discard remainder 70 mg (0.35 mL) IM QWEEK 2 mL 5RF 28 days E29.1 - Testicular hypofunction Patient Instructions: This note is constructed using voice recognition software. While every effort has been made to ensure accuracy animal husbandry manager errors may have been included. Imaging studies, laboratory and physical exam results were discussed and reviewed in detail. No major barriers to patient understanding were identified. An opportunity to ask questions regarding the treatment plan was provided. All questions were answered. The patient expressed understanding and agreement with the above treatment plan. The patient is aware they should contact our office by phone for worsening of their current condition or the appearance of new urologic symptoms. Compliance is encouraged with any medications and followup testing that is ordered. It is a privilege to participate in the urologic care of your patient. If you have any questions or concerns regarding treatment for the above conditions, or other urologic issues, please do not hesitate to contact me. The office telephone contact is [phone]. Sincerely, Dr Merrill Calle MD, [facility] - Urology Compassionate Specialist Care for the Genitourinary System Coding Level of Care Code Est Pt Level 4 (73876) Diagnoses BPH w urinary obs/LUTS N40.1; N13.8 Hypogonadism in male E29.1
--- OUTSIDE RECORDS SUMMARY | 2025-02-26 16:32 | XMS_ITS | Data Portability ---
Author Organization [place] - [facility], Allergy Address [address] [address] Care Team Providers Care Network Pricing Consultant Name Role Phone TEAGAN CORDON Primary Care [...] medical clearance. He was also given a [facility] provider sheet for reference. Recommend updated audiometric [...] By Organization Details Last Modified Time 01/03/2025 57078 - Consider tryin g an oral appliance [...] Sensorine ural hearing loss in left ear 13891425186 109 Active 2016 Sensorine ural hearing loss, unilatera l, left ear, with restricte d hearing on the contralat eral side; Note: Date Diagnosed : 7 3:58 PM (H90.A22) Not Available [facility] 4 03:03:47 Deviated nasal septum 326017350 Active 2016 Deviated nasal septum; Note: Date Diagnosed : 7 2:37 PM (J34.2) Not Available [facility] 4 03:03:47 Subjectiv e tinnitus 23209640 Active 2016 Subjectiv e tinnitus; Note: Date Diagnosed : 7 2:38 PM (388.31) Not Available [facility] 4 03:03:47 Asymmetri allyssa sensorine ural hearing loss 657343059 Active 2016 Hearing loss: Sensorine ural hearing loss, asymmetri allyssa; Note: Date Diagnosed : 7 2:38 PM (389.16) Not Available [facility] 4 03:03:47 Tinnitus of left ear 91598131197 06 Active 2016 Tinnitus, left ear; Note: Date Diagnosed : 7 2:01 PM (H93.12) Not Available [facility] 4 03:03:46 Nasal congestio n 65477925 Active 2017 Nasal congestio n; Note: Date Diagnosed : 05/15/2017 3:12 PM (R09.81) Not Available [facility] 4 03:03:46 Acute maxillary sinusitis 29835918 Active 2017 Acute maxillary sinusitis , unspecifi ed; Note: Date Diagnosed : 09/11/2017 3:26 PM (J01.00) Not Available [facility] 4 03:03:46 Itching of skin 792935011 Active 2019 Pruritus, unspecifi ed; Note: Date Diagnosed : 07/05/2019 1:58 PM (L29.9) Not Available [facility] 4 03:03:45 Sensorine ural hearing loss of bilateral ears 095756375 Active 2019 Sensorine ural hearing loss, bilateral ; Note: Date Diagnosed : 07/05/2019 1:25 PM (H90.3) Not Available [facility] 4 03:03:46 Bilateral tinnitus 15558146201 02 Active 2020 Tinnitus, bilateral ; Note: Date Diagnosed : 03/25/2021 5:15 PM (H93.13) Not Available [facility] 4 03:03:46 Sensorine ural hearing loss in right ear 23870504859 100 Active 2022 Sensorine ural hearing loss, unilatera l, right ear, with restricte d hearing on the contralat eral side; Note: Date Diagnosed : 3 4:41 PM (H90.A21) Not Available [facility] 4 03:03:45 Mixed conductiv e and sensorine ural hearing loss of left ear 39405086229 107 Active 2022 Mixed conductiv e and sensorine ural hearing loss, unilatera l, left ear with restricte d hearing on the contralat eral side; Note: Date Diagnosed : 3 4:41 PM (H90.A32) Not Available [facility] 4 03:03:45 Bilateral disorder of Eustachia n tubes 88952065040 11809 Active 2023 Other specified disorders of Eustachia n tube, bilateral ; Note: Date Diagnosed : 08/23/2023 2:09 PM (H69.83) Not Available [facility] 4 03:03:45 Allergic rhinitis caused by pollen 84683942 Active 2023 Allergic rhinitis due to pollen; Note: Date Diagnosed : 08/23/2023 2:09 PM (J30.1) Not Available [facility] 4 03:03:47 Obstructi ve sleep apnea syndrome 27538350 Active 2024 MEG SANTA MD [address] [place] [address], [facility] evaristo, [place], [phone] , [place] - [facility] 11:00:15 Problem Notes None recorded. Procedures Surgical History Date Name Laterality Status Provider Name and Address Organization Details Recorded Time 02/23/2024 Air & Speech Audio with Tymps - 39239, 85838 & 92822 completed Ade Paul [place] - [facility] [...] mg tablet 01/03 completed Medicati on ID: [id number] D uration Value: 30 Brand Name: figueroa [...] bromide 21 mcg (0.03 %) nasal spray [place] 2 spray into both nostrils three times a day 01/03 completed Medicati on ID: [id number] Viki loera By Name: KENNEDI Thomson nd [...] 2 drop 06/15 completed Medicati on ID: [id number] P rescribe d By Name: KENNEDI Borrego [...] DIRECTED BY GASTROEN TEROLOGY DEPARTME NT AT [facility] 01/03 completed Not Available Not Available [...] Updated DateTime 08/13/2024 167.64 cm 29.1 kg/m2 11938.63 g Katie Jaquez [place] - [facility] 08/13/2024 15:08:36 Date Recorded Body height Body mass index (BMI) Body weight Provider Name and Address Organization Details Last Updated DateTime 01/03/2025 167.64 cm 28.7 kg/m2 55694.44 g SADI OWEN [place] - [facility] 01/03/2025 10:46:40 Date Recorded Body height Body mass index (BMI) Body weight Provider Name and Address Organization Details Last Updated DateTime 02/23/2024 167.64 cm 29.1 kg/m2 94682.63 g Yola Greenfield [place] - [facility] 02/23/2024 13:30:52 Social History None recorded. Functional Status None recorded. Mental Status None recorded. Family History Nothing Reported. Medical History No medical history recorded. Past Encounters Encounter ID Performer Location Encounter Start Date Encounter Closed Date Diagnosis/Indication Diagnosis SNOMED-CT Code Diagnosis ICD10 Code Diagnosis IMO Codes Diagnosis Note [id number] LITA PLATT PA-C [facility] [address] [address] 02/23/2024 13:16:05 02/23/2024 14:47:11 Bilateral tinnitus 8297032803 102 H93.13 Sensorineu ral hearing loss of bilateral ears 182865046 H90.3 Audiologic al evaluation results:Ri ght ear:Normal sloping to severe sensorineu ral hearing loss with excellent word recognitio n.Left ear:Normal sloping to profound sensorineu ral hearing loss with excellent word recognitio n. Tympanomet ry:Right Ear:Type CLeft Ear:Type Ad [id number] LITA PLATT PA-C [facility] [address] [address] 08/13/2024 15:02:29 08/13/2024 15:31:48 Allergic rhinitis caused by pollen 90660455 J30.1 Itching of skin 64809319 0 L29.9 [id number] MEG SANTA MD [facility] [address] [address] 01/03/2025 10:31:21 01/03/2025 11:03:04 Obstructive sleep apnea syndrome 44347196 G47.33 [id number] Health Concerns Section Related Observation LastModified by Organization Detai ls LastModified Time None Recorded Concern Status LastModified by Organization Details LastModified Time None Recorded Advance Directives Directive None Recorded Payers Insurance Date Sequence Insurance Name Policy Number Policy Shea Covered Member ID Shea Member ID Guarantor Name 01/03/[address] [facility] PLAN (MEDICAID HMO) NARENDRA Isaac [id number] Rai Wu Ronna Notes Date Note Type Note Provider Name and Address Organization Details Recorded Time 02/23/2024 text/html ROS as noted in the [facility] 58-year-old male presents for reevaluation of tinnitus. Previously diagnosed with sensorineural hearing loss but decided against amplification. His tinnitus has become very bothersome and he is reconsidering hearing aids at this time. MICHELLE LLOYD MD [address] [place] [address], [phone], [facility] 02/25/2024 07:04:23 08/13/2024 text/html ROS as noted in the [facility] 58-year-old male presents for evaluation of nasal congestion and itchy ears. He uses Flonase a few times a week and notices his congestion is fairly random and likely related to allergies. He does not take any antihistamine. He also continues to have itchy ears. Admits to instrumentation. No drainage from the ears or changes in hearing. JAS LAO MD [address] [place] [address], [phone], [facility] 08/13/2024 17:06:25 01/03/2025 text/html KELSEY PV 08/13/24 Lita - itchy ears rec use of mineral oil drops 03/29/[address] [place] [address] Polo BMI 29 AHI 5 oxygen danii 74% central and mixed - none recorded CPAP trial compliance 43/90 days average use 4hr 48 min Rai Wu Ronna is a 59-year-old male who presents for evaluation of sleep apnea. He has been working with Dr. Polo in [place] for management of his condition and underwent [...] to quit using Nicorette. MEG SANTA MD [address] [place] [address], [phone] - [facility] 01/03/2025 11:03:33
== END 2025-02-26 14:25 | disposition home or self-care (01) ==
LOC: HO.HUSH 13:40
PROVIDERS: PCP Internal Medicine; Visit Provider Urology
DX: N40.1 Benign prostatic hyperplasia with lower urinary tract symptoms (principal); N13.8 Other obstructive and reflux uropathy; E29.1 Testicular hypofunction
CPT/HCPCS: 99214

== ENCOUNTER → 2025-02-26 13:39 | Outpatient (BNVA) | payer OTHER, SELFPAY | PROVIDERS: PCP Internal Medicine; Visit Provider Urology | DX: N40.1 Benign prostatic hyperplasia with lower urinary tract symptoms (principal); N13.8 Other obstructive and reflux uropathy; E29.1 Testicular hypofunction; R79.89 Other specified abnormal findings of blood chemistry | CPT/HCPCS: 99212 ==

== ENCOUNTER 2025-04-15 15:30 | Outpatient (AMB) | payer OTHER, SELFPAY ==
[2025-04-15 15:39] VITALS: BP 152/90; PULSE 86; O2SAT 96; BMI 30.5
--- NOTE | 2025-04-15 15:39 | A.OFFVIS_ITS ---
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 HST c/w AHI of 5/hr and oxygen danii to 74%, he has mild kimo. He was referred to ENT 12/2024, he is not a good candidate for Inspire. He could not tolerate the cpap mask, he moves a lot and rolls over in his sleep, pulls the mask off his face. He would like to try the freedom category full face mask and see if that makes any difference. He likes white noise due to bilateral tinnitus. He is trying to quit smoking now smoking 5 cigarettes/ per day, he used to smoke a pack a day and uses nicorette gum now. He continues to have GERD, but more aware of diet now and avoids foods that trigger heartburn. He takes pantropazole PRN acid reflux once in a while now. He is more anxious since trying to quit smoking, he has increased Buspirone 10mg PO BID, to help with urges and cravings for nicotine as this continues to be challenging for him. He also discontinued Trazadone due to s/e of grogginess, and feeling hungover the next morning. He has now started using melatonin, 5mg - 10mg qpm. He has periodic headaches in the morning, and takes tylenol and magnesium 400mg po qhs.Denies auras, photo/phonophobias, vertigo, balance and gait difficulties. Denies parasomnias. He denies RLS symptoms though has l. sided sciatica, with sharp pain radiating down the back of his leg, he completed PT and says this was not effective. His mood, and memory are stable. [facility] Medical History Polycythemia White coat syndrome with hypertension Elevated blood pressure reading Sleep apnea GERD without esophagitis Tubular adenoma of colon Nicotine dependence, cigarettes, uncomplicated BPH w urinary obs/LUTS Hypogonadism in male Vitamin D deficiency Insomnia Anxiety Depression Strain of cervical portion of left trapezius muscle Overweight (BMI 25.0-29.9) Surgical History H/O hernia repair History of esophagogastroduodenoscopy (EGD) History of right inguinal hernia repair History of open reduction and internal fixation (ORIF) procedure (~2018) History of colonoscopy (~2016) S/P transurethral resection of prostate (~2010) Family History Father Diabetes CAD (coronary artery disease) CKD (chronic kidney disease) Mother Hypertension Depression Hypercholesteremia Lung cancer Brother Myocardial infarction Brother In good health Son In good health Social History Housing: House Alcohol intake: current Alcohol intake frequency: holidays/special occasions only Patient Tobacco Use Status: Current everyday Tobacco user Tobacco use type: Cigarette Cigarette Packs Per Day: 0.5 Cigarettes Per Day: 10 Years Smoked: 30 e-Cigarette/Vaping Use: Never Used Second Hand Smoke Exposure: Yes service: No Current occupational status: employed Current occupational exposures/hazards: No Cognitive needs: No Hearing needs: Yes Vision needs: Yes (glasses) Physical Exam Vital Signs: Last Vital Signs Pulse 86 04/15/25 15:39 BP 152/90 H 04/15/25 15:39 Pulse Ox 96 04/15/25 15:39 Oxygen Delivery Method Room Air 04/15/25 15:39 BMI result Body Mass Index 30.5 Const General: cooperative, comfortable and no acute distress Nutritional Appearance: average body habitus Orientation/consciousness: patient oriented x3 HEENT Face and sinus: Yes face symmetric Eyes Pupils: Equal, round and reactive pupils present Neck Neck: Yes full ROM and Yes supple Resp Effort & Inspection: normal respiratory effort and able to speak in complete sentences Neuro General: patient oriented x3 and moves all extremities Cranial nerves: Yes CN's II-XII intact bilaterally, Yes Facial sensation intact/muscles of mastication intact, Yes Equal, round and reactive pupils present, Yes Normal accommodation reflex present, Yes Bilaterally intact EOM present, Yes Nystagmus not present, Yes Normal facial strength present, Yes Midline tongue present, Yes Ability to bilaterally rotate head present and Yes Ability to bilaterally elevate shoulders present Gait exam (Neuro): Normal gait present Motor exam (neuro): 5/5 motor strength present throughout and Normal motor muscle tone present throughout Psych Appearance: grossly normal Mental Status: mental status grossly normal Thought process: Normal thought process present Thought content: Normal thought content present Results Reviewed Results Reviewed: HST reviewed with pt. Assessment & Plan Assessment & Plan (1) KIMO (obstructive sleep apnea): Comment: Mild degree of sleep apnea. The AHI was 5/hr and oxygen danii was 74% Code(s): G47.33 - Obstructive sleep apnea (adult) (pediatric) Category: Medical (2) Low vitamin B12 level: Code(s): R79.89 - Other specified abnormal findings of blood chemistry Category: Medical (3) Excessive daytime sleepiness: Code(s): G47.19 - Other hypersomnia Category: Medical (4) Snoring: Code(s): R06.83 - Snoring Category: Medical (5) RLS (restless legs syndrome): Comment: RLS/ PLMD will evaluate with PSG Code(s): G25.81 - Restless legs syndrome Category: Medical (6) GERD (gastroesophageal reflux disease): Code(s): K21.9 - Gastro-esophageal reflux disease without esophagitis Category: Medical Qualifiers: Esophagitis presence: with esophagitis Esophagitis bleeding: without hemorrhage Qualified Code(s): K21.00 - Gastro-esophageal reflux disease with esophagitis, without bleeding (7) Fatigue: Code(s): R53.83 - Other fatigue Category: Medical Qualifiers: Fatigue type: unspecified Qualified Code(s): R53.83 - Other fatigue (8) Anxiety and depression: Code(s): F41.9 - Anxiety disorder, unspecified; F32.A - Depression, unspecified Category: Medical Plan Sleep Apnea: Sleep Dentistry referral for oral appliance to increase o2 intake, will send him a new freedom category mask in case pt decides to try Apap therapy once again, we reviewed the gold standard of use of apap vs oral appliance and O2 desaturation is 74%, he is not a good candidate for Inspire. Will trial various masks, [place] category due to thrashing behavior, Positional therapy is also recommended with wedge pillow. PSG is pending, he needs to reschedule to evaluate and r/o REM sleep disorders. PSG to evaluate for RLS? PLMD? and desaturation, tosses and turning at night, sleep disorders. RLS will with sciatica will start low dose of Gabapentin 100mg po qpm. Continue to use melatonin 5 mg with magnesium 400 mg qhs for sleep, if you have diarrhea you may discontinue the magnesium as it has laxative effects. Excessive daytime fatigue will improve with consistent use of B12 as b12 is low, and proper oxygenation at night will improve fatigue. Periodic headaches, may continue with magnesium 400mg po daily and otc tylenol Labs reviewed with pt. Smoking Cessation: Continue to taper cigarettes 5/day, ask for counseling and support if needed. Exercise 3-5 times per week, will help with benefits such as weight reduction, lower stress and improve mood. Continue to use Buspirone 10mg PO BID for anxiety and mood, this will also help with smoking cessation. Continue to use nicorette. F/U in 3 months Orders: Referrals Dentistry Referral G47.33 - Obstructive sleep apnea (adult) (pediatric), R06.83 - Snoring Medications: New gabapentin 100 mg PO BEDTIME 90 caps 0RF 3 months G25.81 - Restless legs syndrome Refilled magnesium oxide 400 mg PO DAILY 30 tabs 5RF 30 days melatonin take one tablet daily at bedtime 5 mg PO BEDTIME PRN 90 tabs 5RF sleep 30 days MDD 6mg G47.00 - Insomnia, unspecified Coding Level of Care Code Est Pt Level 4 (26469) Diagnoses KIMO (obstructive sleep apnea) G47.33 Low vitamin B12 level R79.89 Excessive daytime sleepiness G47.19 Snoring R06.83 RLS (restless legs syndrome) G25.81 Gastroesophageal reflux disease with esophagitis without hemorrhage K21.00 Esophagitis presence: with esophagitis Esophagitis bleeding: without hemorrhage Fatigue, unspecified type R53.83 Fatigue type: unspecified Anxiety and depression F41.9; F32.A
--- OUTSIDE RECORDS SUMMARY | 2025-04-15 16:37 | XMS_ITS | Data Portability ---
Author Organization [place] - [facility], Allergy Address [address] [address] Care Team Providers Care Supervisor [employer] Name Role Phone TEAGAN CORDON Primary Care [...] medical clearance. He was also given a [facility] provider sheet for reference. Recommend updated [...] By Organization Details Last Modified Time 01/03/2025 11732 - Consider tryin g an oral appliance [...] Sensorine ural hearing loss in left ear 21907617850 109 Active 2016 Sensorine ural hearing loss, unilatera l, left ear, with restricte d hearing on the contralat eral side; Note: Date Diagnosed : 7 3:58 PM (H90.A22) Not Available [facility] 4 03:03:47 Deviated nasal septum 895539852 Active 2016 Deviated nasal septum; Note: Date Diagnosed : 7 2:37 PM (J34.2) Not Available [facility] 4 03:03:47 Subjectiv e tinnitus 83954236 Active 2016 Subjectiv e tinnitus; Note: Date Diagnosed : 7 2:38 PM (388.31) Not Available [facility] 4 03:03:47 Asymmetri allyssa sensorine ural hearing loss 744838816 Active 2016 Hearing loss: Sensorine ural hearing loss, asymmetri allyssa; Note: Date Diagnosed : 7 2:38 PM (389.16) Not Available [facility] 4 03:03:47 Tinnitus of left ear 89955160311 06 Active 2016 Tinnitus, left ear; Note: Date Diagnosed : 7 2:01 PM (H93.12) Not Available [facility] 4 03:03:46 Nasal congestio n 43728826 Active 2017 Nasal congestio n; Note: Date Diagnosed : 05/15/2017 3:12 PM (R09.81) Not Available [facility] 4 03:03:46 Acute maxillary sinusitis 52280249 Active 2017 Acute maxillary sinusitis , unspecifi ed; Note: Date Diagnosed : 09/11/2017 3:26 PM (J01.00) Not Available [facility] 4 03:03:46 Itching of skin 521118761 Active 2019 Pruritus, unspecifi ed; Note: Date Diagnosed : 07/05/2019 1:58 PM (L29.9) Not Available [facility] 4 03:03:45 Sensorine ural hearing loss of bilateral ears 460977306 Active 2019 Sensorine ural hearing loss, bilateral ; Note: Date Diagnosed : 07/05/2019 1:25 PM (H90.3) Not Available [facility] 4 03:03:46 Bilateral tinnitus 91979426520 02 Active 2020 Tinnitus, bilateral ; Note: Date Diagnosed : 03/25/2021 5:15 PM (H93.13) Not Available [facility] 4 03:03:46 Sensorine ural hearing loss in right ear 58079742413 100 Active 2022 Sensorine ural hearing loss, unilatera l, right ear, with restricte d hearing on the contralat eral side; Note: Date Diagnosed : 3 4:41 PM (H90.A21) Not Available [facility] 4 03:03:45 Mixed conductiv e and sensorine ural hearing loss of left ear 35472052013 107 Active 2022 Mixed conductiv e and sensorine ural hearing loss, unilatera l, left ear with restricte d hearing on the contralat eral side; Note: Date Diagnosed : 3 4:41 PM (H90.A32) Not Available [facility] 4 03:03:45 Bilateral disorder of Eustachia n tubes 68074915433 34475 Active 2023 Other specified disorders of Eustachia n tube, bilateral ; Note: Date Diagnosed : 08/23/2023 2:09 PM (H69.83) Not Available [facility] 4 03:03:45 Allergic rhinitis caused by pollen 13899313 Active 2023 Allergic rhinitis due to pollen; Note: Date Diagnosed : 08/23/2023 2:09 PM (J30.1) Not Available [facility] 4 03:03:47 Obstructi ve sleep apnea syndrome 72864010 Active 2024 MEG SANTA MD [address] [place] [address], [facility] evaristo, [place], [id number] , [place] - [facility] 11:00:15 Problem Notes None recorded. Procedures Surgical History Date Name Laterality Status Provider Name and Address Organization Details Recorded Time 02/23/2024 Air & Speech Audio with Tymps - 13270, 35703 & 27304 completed Ade Paul [place] - [facility] 02/23/2024 14:32:24 Imaging Results None recorded. [...] mg tablet 01/03 completed Medicati on ID: [id number] D uration Value: 30 Brand Name: figueroa [...] bromide 21 mcg (0.03 %) nasal spray Pierson 2 spray into both nostrils three times a day 01/03 completed Medicati on ID: [id number] Viki loera By Name: KENNEDI Thomson nd [...] 2 drop 06/15 completed Medicati on ID: [id number] P rescribe d By Name: KENNEDI Borrego [...] DIRECTED BY GASTROEN TEROLOGY DEPARTME NT AT [facility] 01/03 completed Not Available Not Available Not [...] Updated DateTime 08/13/2024 167.64 cm 29.1 kg/m2 77848.63 g Katie Jaquez [place] - [facility] 08/13/2024 15:08:36 Date Recorded Body height Body mass index (BMI) Body weight Provider Name and Address Organization Details Last Updated DateTime 01/03/2025 167.64 cm 28.7 kg/m2 32488.44 g SADI OWEN [place] - [facility] 01/03/2025 10:46:40 Date Recorded Body height Body mass index (BMI) Body weight Provider Name and Address Organization Details Last Updated DateTime 02/23/2024 167.64 cm 29.1 kg/m2 93006.63 g Yola Greenfield [place] - [facility] 02/23/2024 13:30:52 Social History None recorded. Functional Status None recorded. Mental Status None recorded. Family History Nothing Reported. Medical History No medical history recorded. Past Encounters Encounter ID Performer Location Encounter Start Date Encounter Closed Date Diagnosis/Indication Diagnosis SNOMED-CT Code Diagnosis ICD10 Code Diagnosis IMO Codes Diagnosis Note [id number] LITA PLATT PA-C [facility] [address] [address] 02/23/2024 13:16:05 02/23/2024 14:47:11 Bilateral tinnitus 9599549415 102 H93.13 Sensorineu ral hearing loss of bilateral ears 609866220 H90.3 Audiologic al evaluation results:Ri ght ear:Normal sloping to severe sensorineu ral hearing loss with excellent word recognitio n.Left ear:Normal sloping to profound sensorineu ral hearing loss with excellent word recognitio n. Tympanomet ry:Right Ear:Type CLeft Ear:Type Ad [id number] LITA PLATT PA-C [facility] [address] [address] 08/13/2024 15:02:29 08/13/2024 15:31:48 Allergic rhinitis caused by pollen 08098560 J30.1 Itching of skin 12722585 0 L29.9 [id number] MEG SANTA MD [facility] [address] [address] 01/03/2025 10:31:21 01/03/2025 11:03:04 Obstructive sleep apnea syndrome 24352842 G47.33 48907 Health Concerns Section Related Observation LastModified by Organization Detai ls LastModified Time None Recorded Concern Status LastModified by Organization Details LastModified Time None Recorded Advance Directives Directive None Recorded Payers Insurance Date Sequence Insurance Name Policy Number Policy Shea Covered Member ID Shea Member ID Guarantor Name 01/03/2025 1 [facility] NET PLAN (MEDICAID HMO) NARENDRA Isaac [id number] Rai Wu Ronna Notes Date Note Type Note Provider Name and Address Organization Details Recorded Time 02/23/2024 text/html ROS as noted in the [facility] 58-year-old male presents for reevaluation of tinnitus. Previously diagnosed with sensorineural hearing loss but decided against amplification. His tinnitus has become very bothersome and he is reconsidering hearing aids at this time. MICHELLE LLOYD MD [address] [place] [address], [phone], [facility] 02/25/2024 07:04:23 08/13/2024 text/html ROS as [...] or changes in hearing. JAS LAO MD [address] [place] [address], [phone], [facility] 08/13/2024 17:06:25 01/03/2025 text/html KELSEY PV 08/13/24 Lita - itchy ears rec use of mineral oil drops 03/29/[address] [place] [address] Polo BMI 29 AHI 5 oxygen danii 74% central and mixed - none recorded CPAP trial compliance 43/90 days average use 4hr 48 min Rai Wu Ronna is a 59-year-old male who presents for evaluation of sleep apnea. He has been working with Dr. Polo in [place] for management of his condition and underwent [...] to quit using Nicorette. MEG SANTA MD [address] [place] [address], [phone] - [facility] 01/03/2025 11:03:33
== END 2025-04-15 16:29 | disposition home or self-care (01) ==
LOC: HO.HSMS 15:31
PROVIDERS: PCP Internal Medicine; Visit Provider Physician Assistant Medical
DX: G47.33 Obstructive sleep apnea (adult) (pediatric) (principal); R79.89 Other specified abnormal findings of blood chemistry; G47.19 Other hypersomnia; R06.83 Snoring; G25.81 Restless legs syndrome; K21.00 Gastro-esophageal reflux disease with esophagitis, without bleeding; R53.83 Other fatigue; F41.9 Anxiety disorder, unspecified; F32.A Depression, unspecified
CPT/HCPCS: 99214

== ENCOUNTER → 2025-04-15 15:30 | Outpatient (BNVA) | payer OTHER, SELFPAY | PROVIDERS: PCP Internal Medicine; Visit Provider Physician Assistant Medical | DX: G47.33 Obstructive sleep apnea (adult) (pediatric) (principal); R79.89 Other specified abnormal findings of blood chemistry; G47.19 Other hypersomnia; R06.83 Snoring; G25.81 Restless legs syndrome; K21.00 Gastro-esophageal reflux disease with esophagitis, without bleeding; R53.83 Other fatigue; F41.9 Anxiety disorder, unspecified; F17.210 Nicotine dependence, cigarettes, uncomplicated; F32.A Depression, unspecified; Z79.899 Other long term (current) drug therapy; Z71.6 Tobacco abuse counseling | CPT/HCPCS: 99212 ==